=== PATIENT | male | born 1950 | race Caucasian/White ===

== ENCOUNTER 2016-04-18 15:23 | Observation (INO) | payer MEDICARE ==
--- NOTE | 2016-04-18 16:01 | ED ---
General Adult HPI - General Chief complaint: Shortness of Breath Stated complaint: NAOMI Time Seen by Provider: 04/18/16 15:40 Source: patient, family, RN notes reviewed Mode of arrival: wheelchair Limitations: no limitations - History of Present Illness Initial comments: This is a 65-year-old male who presents to the emergency department with a past history of hepatitis C patient comes in today because he states his abdomen is getting so distended he needs it drained. Patient states is causing him to have some difficulty breathing. Patient denies any fever chills or cough. Patient denies chest pain or palpitations. Patient denies headache patient denies numbness weakness. Patient denies lightheadedness dizziness or near syncopal episode. Patient denies any abdominal pain at this time but he does complain of significant distention. Patient denies any peripheral edema. Patient denies any nausea or vomiting or diarrhea. - Related Data Home Medications Medication Instructions Recorded Confirmed Citalopram Hydrobromide 40 mg PO DAILY 10/22/15 04/04/16 Pantoprazole [Protonix] 40 mg PO DAILY 10/22/15 04/04/16 Terazosin [Hytrin] 2 mg PO HS 10/22/15 04/04/16 Multivitamins, Thera [Multivitamin] 1 tab PO DAILY 12/23/15 04/04/16 Thiamine [Vitamin B-1] 100 mg PO DAILY 12/23/15 04/04/16 Cholecalciferol [Vitamin D3] 1,000 unit PO DAILY 02/24/16 04/04/16 Cyanocobalamin [Vitamin B-12] 500 mcg PO DAILY 02/24/16 04/04/16 DULoxetine HCL [Cymbalta] 20 mg PO BID 02/24/16 04/04/16 Finasteride [Proscar] 5 mg PO DAILY 02/24/16 04/04/16 Loratadine [Claritin] 10 mg PO DAILY PRN 02/24/16 04/04/16 Methocarbamol [Robaxin] 1,000 mg PO TID PRN 02/24/16 04/04/16 Ledipasvir/Sofosbuvir [Harvoni 1 tab PO DAILY 03/07/16 04/04/16 90-400 mg Tablet] Spironolactone [Aldactone] 100 mg PO DAILY 03/07/16 04/04/16 Aspirin 81 mg PO DAILY 04/04/16 04/04/16 Cyclobenzaprine [Flexeril] 10 mg PO TID PRN 04/04/16 04/04/16 Folic Acid 1 mg PO DAILY 04/04/16 04/04/16 Ribavirin [Ribasphere] 600 mg PO BID 04/04/16 04/04/16 Previous Rx's Medication Instructions Recorded Furosemide [Lasix] 40 mg PO DAILY #30 tab 04/14/16 Lactulose [Cephulac] 20 gm PO QID #0 04/14/16 traMADol HCl [Ultram] 50 mg PO Q6H PRN #30 tab MDD 8 tabs 04/14/16 Allergies Allergy/AdvReac Type Severity Reaction Status Date / Time No Known Allergies Allergy Verified 04/18/16 15:41 Review of Systems ROS Statement: Those systems with pertinent positive or pertinent negative responses have been documented in the HPI. ROS Other: All systems not noted in ROS Statement are negative. Past Medical History Past Medical History: Cancer, GERD/Reflux, Hyperlipidemia, Hypertension, Liver Disease, Memory Impairment, Osteoarthritis (OA), Renal Disease, Vascular Disorder Additional Past Medical History / Comment(s): Pt recently admitted 12/23/15 with ascities and had a paracentesis during that admission. Other HX; Hep C with interferon therapy, cirrhosis, prior history of memory impairment secondary to hepatic encephalopathy, chronic fatigue, thrombocytopenia, leukopenia, hx of HTN but recently taken off antihypertensive medication, bilateral feet neuropathy, cervical OA, CKD stage II, chronic low back pain and neck pain, sinus problems at times, skin cancer with removal. History of Any Multi-Drug Resistant Organisms: None Reported Past Surgical History: Cholecystectomy, Hernia Repair Additional Past Surgical History / Comment(s): 12/2015 Paracentesis, cervical surgery, colonoscopies, umbilical hernia repair x 2, nose and kathleen of head skin cancer removed. Past Anesthesia/Blood Transfusion Reactions: Postoperative Nausea & Vomiting ( PONV) Additional Past Anesthesia/Blood Transfusion Reaction / Comment(s): [facility]; pt stated no reaction Past Psychological History: Depression Additional Psychological History / Comment(s): Pt. states he is on depression medication and it has been effective in helping with his depression. Pt resides with his spouse. He uses no assistive device. He drives. Previous suicidal talk according to daughter, patient denies suicidal thoughts at this time. Smoking Status: Former smoker Past Alcohol Use History: None Reported Additional Past Alcohol Use History / Comment(s): Pt smoked from 1964 to 1969. Past Drug Use History: None Reported - Past Family History Mother Family Medical History: Chest Pain / Angina Father History Unknown: Yes Family Medical History: Unable to Obtain General Exam - General Exam Comments Initial Comments: GENERAL: Patient is well-developed and well-nourished. Patient is nontoxic and well- hydrated and is in mild distress. ENT: Neck is soft and supple. No significant lymphadenopathy is noted. Oropharynx is clear. Moist mucous membranes. Neck has full range of motion without eliciting any pain. EYES: The sclera were anicteric and conjunctiva were pink and moist. Extraocular movements were intact and pupils were equal round and reactive to light. Eyelids were unremarkable. PULMONARY: Unlabored respirations. Good breath sounds bilaterally. No audible rales rhonchi or wheezing was noted. CARDIOVASCULAR: There is a regular rate and rhythm without any murmurs gallops or rubs. ABDOMEN: Patient's abdomen is distended typical for ascites. SKIN: Skin is clear with no lesions or rashes and otherwise unremarkable. NEUROLOGIC: Patient is alert and oriented x3. Cranial nerves II through XII are grossly intact. Motor and sensory are also intact. Normal speech, volume and content. Symmetrical smile. MUSCULOSKELETAL: Normal extremities with adequate strength and full range of motion. No lower extremity swelling or edema. No calf tenderness. LYMPHATICS: No significant lymphadenopathy is noted PSYCHIATRIC: Normal psychiatric evaluation. Normal interpersonal interactions appears functionally intact in deals appropriately with others. No signs of depression. No signs of anxiety. Limitations: no limitations Course Vital Signs 04/18/16 15:39 Temperature 97.8 F Pulse Rate 88 Respiratory 20 Rate Blood Pressure 108/67 O2 Sat by Pulse 97 Oximetry Medical Decision Making - Medical Decision Making EKG shows sinus rhythm with a PAC at 84 bpm WA interval 138 QRSs 84 Q-T intervals 390 QTC is 460 per patient's EKG shows no ST segment elevation or depression or T-wave abnormality is noted. Chest x-ray shows no acute abnormality spoke with Dr. Tanner he agreed to admit the patient admitted the patient. - Lab Data Result diagrams: 04/18/16 16:30 04/18/16 16:30 Lab Results 04/18/16 04/18/16 04/18/16 Range/Units 16:30 16:30 16:30 WBC 10.5 (3.8-10.6) k/uL RBC 3.21 L (4.30-5.90) m/uL Hgb 10.0 L D (13.0-17.5) gm/dL Hct 33.2 L (39.0-53.0) % MCV 103.4 H (80.0-100.0) fL MCH 31.3 (25.0-35.0) pg MCHC 30.3 L (31.0-37.0) g/dL RDW 17.8 H (11.5-15.5) % Plt Count 101 L D (150-450) k/uL Neutrophils % 85 % Lymphocytes % 5 % Monocytes % 7 % Eosinophils % 2 % Basophils % 0 % Neutrophils # 8.9 H (1.3-7.7) k/uL Lymphocytes # 0.5 L (1.0-4.8) k/uL Monocytes # 0.7 (0-1.0) k/uL Eosinophils # 0.2 (0-0.7) k/uL Basophils # 0.0 (0-0.2) k/uL Hypochromasia Slight Anisocytosis Slight Macrocytosis Moderate PT 13.0 H (9.0-12.0) sec INR 1.3 (<1.1) APTT 25.0 (22.0-30.0) sec Sodium 137 (137-145) mmol/L Potassium 3.8 (3.5-5.1) mmol/L Chloride 101 (98-107) mmol/L Carbon Dioxide 20 L (22-30) mmol/L Anion Gap 16 mmol/L BUN 50 H (9-20) mg/dL Creatinine 1.88 H (0.66-1.25) mg/dL Est GFR (MDRD) Af Amer 44 (>60 ml/min/1.73 sqM) Est GFR (MDRD) Non-Af 36 (>60 ml/min/1.73 sqM) Glucose 129 H (74-99) mg/dL Calcium 8.9 (8.4-10.2) mg/dL Total Bilirubin 2.3 H (0.2-1.3) mg/dL AST 50 (17-59) U/L ALT 41 (21-72) U/L Alkaline Phosphatase 138 H (38-126) U/L Total Protein 6.7 (6.3-8.2) g/dL Albumin 3.2 L (3.5-5.0) g/dL Disposition Clinical Impression: Dyspnea, Ascites Disposition: ADMITTED IP TO THIS [facility] Time of Disposition: 17:49
--- NOTE | 2016-04-18 16:12 | XR ---
EXAMINATION TYPE: XR chest 2V DATE OF EXAM: 04/18/2016 4:07 PM COMPARISON: 04/13/2016 HISTORY: Short of breath TECHNIQUE: Frontal and lateral views of the chest are obtained. FINDINGS: There is elevated right diaphragm. There is linear density at the lung bases. There is no heart failure. Heart size is normal. There are no hilar masses. Bony thorax is intact. IMPRESSION: There is chronic elevated right diaphragm that could relate to some paralysis. Bilateral basilar atelectasis. No heart failure. No significant change compared to last exam.
[2016-04-18 16:49] LABS: Anisocytosis Slight; Basophils % (A) 0 %; CH 33.2; CHCM 32.4; Eosinophils # (A) 0.2 k/uL (0-0.7); Eosinophils % (A) 2 %; HCT 33.2 % (39.0-53.0); HDW 3.13; Hypochromasia Slight; Luc # (Auto) 0.14; Luc % (Auto) 1; Lymphocytes # (A) 0.5 k/uL (1.0-4.8); Lymphocytes % (A) 5 %; MCH 31.3 pg (25.0-35.0); MCHC 30.3 g/dL (31.0-37.0); MCV 103.4 fL (80.0-100.0); Macrocytosis Moderate; Monocytes # (A) 0.7 k/uL (0-1.0); Monocytes % (A) 7 %; Neutrophils # (A) 8.9 k/uL (1.3-7.7); Neutrophils % (A) 85 %; RBC 3.21 m/uL (4.30-5.90); RDW 17.8 % (11.5-15.5); WBC 10.5 k/uL (3.8-10.6)
[2016-04-18 16:52] LABS: Calcium 8.9 mg/dL (8.4-10.2); Potassium 3.8 mmol/L (3.5-5.1); Total Bilirubin 2.3 mg/dL (0.2-1.3); Total Protein 6.7 g/dL (6.3-8.2)
[2016-04-18 16:59] LABS: INR 1.3 (<1.1)
[2016-04-18] MEDS ORDERED: SODIUM CHLORIDE 0.9% 1,000 ML IV ONE (17:50)
[2016-04-18] MEDS ORDERED: CYCLOBENZAPRINE 10 MG TAB PO PRN (20:56)
[2016-04-18] MEDS ORDERED: LORATADINE 10 MG TAB PO PRN (20:56)
[2016-04-18] MEDS: DULoxetine HCL 20 MG CAPSULE.DR PO SCH (21:40)
[2016-04-18] MEDS: LACTULOSE 20 GM/30 ML CUP PO SCH (21:40)
[2016-04-18] MEDS: traMADol 50 MG TAB PO PRN (21:40)
[2016-04-18] MEDS: RIBAVIRIN 200 MG PO SCH (21:40)
[2016-04-18] MEDS: TERAZOSIN 2 MG CAP PO SCH (21:40)
[2016-04-19] MEDS: METHOCARBAMOL 500 MG TAB PO PRN ×2 (00:05→18:36)
[2016-04-19 07:08] LABS: INR 1.4 (<1.1); Prothrombin Time 13.8 sec (9.0-12.0)
[2016-04-19 07:18] LABS: Anisocytosis Slight; Basophils % (A) 0 %; CHCM 32.2; Eosinophils # (A) 0.2 k/uL (0-0.7); Eosinophils % (A) 3 %; HCT 28.1 % (39.0-53.0); HDW 3.06; HGB 9.1 gm/dL (13.0-17.5); Hypochromasia Slight; Luc # (Auto) 0.17; Luc % (Auto) 3; Lymphocytes # (A) 0.5 k/uL (1.0-4.8); Lymphocytes % (A) 10 %; MCH 32.3 pg (25.0-35.0); MCHC 32.2 g/dL (31.0-37.0); MCV 100.3 fL (80.0-100.0); Macrocytosis Slight; Mean Platelet Volume 8.8; Monocytes # (A) 0.4 k/uL (0-1.0); Monocytes % (A) 8 %; Neutrophils # (A) 3.9 k/uL (1.3-7.7); Neutrophils % (A) 75 %; RDW 17.2 % (11.5-15.5); WBC 5.2 k/uL (3.8-10.6); WBC (Perox) 5.56
[2016-04-19 08:36] LABS: Manual Review Performed
[2016-04-19] MEDS: SOFOSBUVIR PO SCH (08:36)
[2016-04-19] MEDS: FUROSEMIDE 40 MG TAB PO SCH (08:36)
[2016-04-19] MEDS: LACTULOSE 20 GM/30 ML CUP PO SCH ×4 (08:36→20:30)
[2016-04-19] MEDS: CYANOCOBALAMIN 500 MCG TAB PO SCH ×2 (08:36→12:48)
[2016-04-19] MEDS: LEDIPASVIR PO SCH (08:36)
[2016-04-19] MEDS: RIBAVIRIN 200 MG PO SCH ×2 (08:36→20:30)
[2016-04-19] MEDS: CITALOPRAM HYDROBROMIDE 20 MG TAB PO SCH (08:37)
[2016-04-19] MEDS: FINASTERIDE 5 MG TAB PO SCH (08:37)
[2016-04-19] MEDS: DULoxetine HCL 20 MG CAPSULE.DR PO SCH ×2 (08:37→20:30)
[2016-04-19] MEDS: THIAMINE 100 MG TAB PO SCH (08:38)
[2016-04-19] MEDS: SPIRONOLACTONE 25 MG TAB PO SCH (08:38)
[2016-04-19] MEDS: traMADol 50 MG TAB PO PRN ×2 (08:40→17:54)
[2016-04-19] MEDS: PANTOPRAZOLE 40 MG TABLET PO SCH (09:45)
[2016-04-19] MEDS: CHOLECALCIFEROL 1,000 UNIT TAB PO SCH (09:45)
[2016-04-19] MEDS: ONDANSETRON 4 MG/2 ML VIAL IVP PRN ×2 (10:36→17:12)
[2016-04-19] MEDS: MULTIVITAMINS, THERA 1 EACH TAB PO SCH (12:48)
[2016-04-19] MEDS: FOLIC ACID 1 MG TAB PO SCH (12:48)
--- NOTE | 2016-04-19 17:00 | CONS ---
DATE OF CONSULTATION: 04/19/2016 REQUESTING PHYSICIAN: Dr. Norris REASON FOR CONSULTATION: Ascites. HISTORY OF PRESENT ILLNESS: The patient 65-year-old white male who was admitted to the hospital with abdominal pain, abdominal distention for the last 3 or 4 days duration. The patient stated that he just underwent a large volume paracentesis 5 days ago. He has chronic hepatitis C infection and presently on Harvoni treatment at 14 weeks. In the last 2 months he developed ascites and lately has been requiring large volume paracentesis almost on a weekly basis. He denies any abdominal pain. He reports no nausea, vomiting. Denies any rectal bleeding or melena. His past medical history is significant for: 1. Chronic hepatitis C infection presently on antiviral therapy with Harvoni. 2. Hypertension. 3. Hyperlipidemia. 4. Hepatic encephalopathy. 5. GERD. 6. Peripheral vascular disease. PAST SURGICAL HISTORY: 1. Multiple paracenteses in the last three months. 2. History of back surgery. 3. Umbilical hernia repair. Medications at home include: 1. Proscar. 2. Cymbalta. 3. Flexeril. 4. Vitamin D3. 5. Claritin. 6. Robaxin. 7. Multivitamin. 8. Protonix. 9. Harvoni. 10. Ribavirin. 11. Tramadol. 12. Vitamin B12. 13. Hytrin. ALLERGIES: None. SOCIAL HISTORY: History of smoking in the past. Remote history of alcohol use. FAMILY HISTORY: Unremarkable. REVIEW OF SYSTEMS: CARDIOPULMONARY: No chest pain or shortness of breath. GENITOURINARY: No dysuria or hematuria. MUSCULOSKELETAL: Unremarkable. SKIN: Unremarkable. NEUROLOGY: Unremarkable. PSYCHIATRIC: Unremarkable. ENT/VISION: Unremarkable. CONSTITUTIONAL: No recent weight loss. No fever, chills or night sweats. On physical examination, he appears comfortable in no apparent distress. Vitals as are stable. Blood pressure is 115/69, pulse rate 59. Afebrile. HEENT: Examination unremarkable. Conjunctivae pink. Sclerae anicteric. Oral cavity, no lesions. NECK: No JVD or lymph node enlargement. CHEST: Clear to auscultation. HEART: Regular rate and rhythm. ABDOMEN: Soft. Bowel sounds are positive. It was distended. There was tense ascites. EXTREMITIES: No pedal edema. SKIN: No rashes. NEURO: Alert and oriented x3. No focal deficits. Labs done at the time of admission to the hospital: WBC 5.2, hemoglobin 9.1, platelets are 52. INR 1.4. BUN is 50, creatinine 1.88. IMPRESSION: 1. Refractory ascites requiring large volume paracentesis on a weekly basis. 2. History of chronic hepatitis C infection and cirrhosis of the liver presently on antiviral therapy with Harvoni and ribavirin. 3. History of hepatic encephalopathy, which is resolved now. RECOMMENDATIONS: 1. Will schedule the patient for ultrasound-guided large volume paracentesis for acute therapeutic purposes. 2. At this time, we will have to continue to hold off on the diuretics because of ongoing renal insufficiency. 3. Low-salt diet. 4. Continue with p.o. Protonix daily and will follow the patient closely during his hospital stay. Thank you for this consultation.
[2016-04-19] MEDS: TERAZOSIN 2 MG CAP PO SCH (20:30)
[2016-04-20 06:59] LABS: Anisocytosis Slight; Basophils % (A) 0 %; CH 32.2; Eosinophils # (A) 0.2 k/uL (0-0.7); Eosinophils % (A) 3 %; HCT 29.1 % (39.0-53.0); HDW 3.02; Hypochromasia Slight; Luc # (Auto) 0.07; Luc % (Auto) 1; Lymphocytes # (A) 0.4 k/uL (1.0-4.8); Lymphocytes % (A) 7 %; MCH 31.4 pg (25.0-35.0); MCHC 30.9 g/dL (31.0-37.0); MCV 101.9 fL (80.0-100.0); Macrocytosis Moderate; Mean Platelet Volume 10.4; Monocytes # (A) 0.4 k/uL (0-1.0); Monocytes % (A) 7 %; Neutrophils # (A) 4.6 k/uL (1.3-7.7); Neutrophils % (A) 81 %; RBC 2.85 m/uL (4.30-5.90); WBC 5.7 k/uL (3.8-10.6); WBC (Perox) 5.61
[2016-04-20 07:19] LABS: Calcium 8.7 mg/dL (8.4-10.2); Potassium 4.4 mmol/L (3.5-5.1)
[2016-04-20] MEDS: ONDANSETRON 4 MG/2 ML VIAL IVP PRN ×4 (09:33→23:30)
[2016-04-20] MEDS: RIBAVIRIN 200 MG PO SCH ×2 (10:55→20:19)
[2016-04-20] MEDS: LEDIPASVIR PO SCH (10:55)
[2016-04-20] MEDS: SOFOSBUVIR PO SCH (10:55)
[2016-04-20] MEDS: CITALOPRAM HYDROBROMIDE 20 MG TAB PO SCH (10:56)
[2016-04-20] MEDS: FINASTERIDE 5 MG TAB PO SCH (10:57)
[2016-04-20] MEDS: LACTULOSE 20 GM/30 ML CUP PO SCH ×4 (10:57→20:19)
[2016-04-20] MEDS: DULoxetine HCL 20 MG CAPSULE.DR PO SCH ×2 (10:57→20:19)
[2016-04-20] MEDS: FUROSEMIDE 40 MG TAB PO SCH (10:58)
--- NOTE | 2016-04-20 12:51 | HP ---
DATE OF ADMISSION: 04/18/2016 CHIEF COMPLAINT: Abdominal distention. HISTORY OF PRESENT ILLNESS: Mr. Ortega is a 65-year-old male with known history of hepatitis C, currently on treatment, liver cirrhosis, recurrent ascites, came into the hospital with complaints of abdominal distention of 3 to 4 days duration, along with shortness of breath. The patient recently had paracentesis with ( ). Denies any complaints of fevers or chills. Patient is currently being treated for hepatitis C infection. No nausea or vomiting or abdominal pain. No diarrhea. The patient does have a history of hepatic encephalopathy in the past. REVIEW OF SYSTEMS: CONSTITUTIONAL: No fever. No chills. No weakness or malaise. RESPIRATORY: No cough or sputum production. CARDIOVASCULAR: No chest pain or shortness of breath. No leg swelling. ABDOMEN: Distended. No abdominal pain. No diarrhea or constipation. : Negative. PSYCHIATRY: Negative. SKIN: Negative. MUSCULOSKELETAL: Negative. All other 14 point review of systems is negative other than above. PAST MEDICAL HISTORY: Includes GERD, hyperlipidemia, hypertension, liver cirrhosis, hepatitis C, liver impairment, history of paracentesis, hepatic encephalopathy, chronic fatigue, thrombocytopenia, leukopenia, bilateral neuropathy, osteoarthritis, chronic kidney disease stage II, chronic low back pain, skin cancer removal. PAST SURGICAL HISTORY: Cholecystectomy, hernia repair, paracentesis, cervical surgery, colonoscopy, umbilical hernia repair x2, top of head skin cancer removed. PSYCHOSOCIAL HISTORY: Depression. SOCIAL HISTORY: The patient resides with his . Former smoker, smoked around 1960 to 1970. Denied any alcohol use. Denied drug abuse. FAMILY HISTORY: Mother had angina. Father's medical history is unable to be obtained. Home medications include: 1. Citalopram. 2. Protonix. 3. Terazosin. 4. Multivitamins. 5. Thiamine. 6. Vitamin D3. 7. ( ). 8. Cymbalta. 9. Proscar. 10. Claritin. 11. Robaxin. 12. ( ). 13. Aldactone. 14. Aspirin. 15. Flexeril. 16. Folic acid. 17. ( ). 18. Lasix. 19. Lactulose. 20. Tramadol. PHYSICAL EXAMINATION: A 65-year-old man lying in bed comfortably. Awake, alert, oriented, x3 appears to be in no apparent distress. VITALS: Blood pressure is 106/57, pulse is 70, respirations 18, temperature afebrile, pulse ox 98% on 2 liters nasal cannula. HEENT: Atraumatic, normocephalic. Neck is supple. No JVD. CVS: S1, S2, no murmurs or gallops. LUNGS: Bilateral air entry present. Decreased breath sounds basally. ABDOMEN: Soft, distended. No guarding or rigidity. Bowel sounds are present. [employer]: Alert and oriented x3. No focal deficits. Cranial nerves grossly intact. EXTREMITIES: No edema. Positive pulses bilaterally. No clubbing or cyanosis. PSYCHIATRY: Cooperative. LABORATORY DATA: WBC 10.3, hemoglobin 10.0, platelets are 101, ( ) 1.3, sodium 137, potassium 2.8, chloride 101, bicarb is 20. BUN 50, creatinine 1.88. Total bilirubin is 2.3. Alk phos 138, albumin 3.2. Chest x-ray shows chronically elevated right diaphragm that could be related to some paralysis. Bilateral basilar atelectasis. No heart failure. No significant changes compared to prior exam. EKG sinus rhythm with premature ventricular contractions. IMPRESSION: 1. Ascites secondary to liver cirrhosis. 2. Hepatitis C, currently on Harvoni antiviral therapy. 3. History of hepatic encephalopathy. 4. Hypertension. 5. Depression. 6. Chronic pain. 7. Cervical osteoarthritis. 8. Memory impairment. 9. Previous hepatitis C. 10. Acute on chronic kidney disease, likely prerenal. DISCUSSION AND PLAN: A 65-year-old male with and will be recurrent ascites. Will be scheduled for ( ) possibly tomorrow. GI is following the patient. We will continue home medications. Follow renal function. Further recommendations based on clinical course. Prognosis guarded.
[2016-04-20] MEDS: PANTOPRAZOLE 40 MG TABLET PO SCH (15:08)
[2016-04-20] MEDS: MULTIVITAMINS, THERA 1 EACH TAB PO SCH (15:08)
[2016-04-20] MEDS: CHOLECALCIFEROL 1,000 UNIT TAB PO SCH (15:08)
[2016-04-20] MEDS: CYANOCOBALAMIN 500 MCG TAB PO SCH (17:26)
[2016-04-20] MEDS: THIAMINE 100 MG TAB PO SCH (17:26)
[2016-04-20] MEDS: FOLIC ACID 1 MG TAB PO SCH (18:14)
[2016-04-20] MEDS: SPIRONOLACTONE 25 MG TAB PO SCH (19:07)
--- NOTE | 2016-04-20 19:58 | PN ---
DATE OF SERVICE: 04/20/2016 Patient is a 65-year-old white male admitted to the hospital with refractory ascites. He was having abdominal distention, abdominal discomfort, and shortness of breath. He had large volume paracentesis done about 6 days ago and approximately 10 liters of fluid was removed at that time. Patient was scheduled for large volume paracentesis today, but was not done so far. He still complains of abdominal discomfort and some shortness of breath. Has been complaining of nausea but no emesis. On physical examination, appears comfortable in no apparent distress. Vital signs stable. Blood pressure 97/61 pulse rate 87, temperature 97.5. HEENT: Unremarkable. Conjunctivae pink. Sclerae anicteric. Oral cavity, no lesions. NECK: No JVD or lymph node enlargement. Chest was clear to auscultation. HEART: Regular rate and rhythm. ABDOMEN: Distended. Tense ascites noted. EXTREMITIES: No pedal edema. SKIN: No rashes. NEURO: Alert and oriented x3. No focal deficits. Labs from today, WBC 5.7, hemoglobin 9, platelets 49. BUN 53, creatinine 1.9. IMPRESSION: 1. Cirrhosis secondary to chronic hepatitis C infection presently on antiviral therapy. 2. Recurrent ascites. Patient is scheduled for large volume paracentesis tomorrow. His last one was done 5 days ago and 10 liters of fluid was removed. 3. Chronic renal failure with a BUN of 53 and creatinine 1.9. Currently he is not on any diuretics. RECOMMENDATIONS: The patient will be scheduled for a large volume paracentesis tomorrow, after which he can be discharged home. I also told him that we will plan on scheduling him for paracentesis on a weekly basis for refractory ascites. In the meantime, he will continue his current antiviral therapy and follow up in the office in 1 to 2 weeks.
[2016-04-20] MEDS: TERAZOSIN 2 MG CAP PO SCH (20:19)
[2016-04-21] MEDS: traMADol 50 MG TAB PO PRN (02:27)
[2016-04-21] MEDS: CHOLECALCIFEROL 1,000 UNIT TAB PO SCH (08:03)
[2016-04-21] MEDS: THIAMINE 100 MG TAB PO SCH (08:03)
[2016-04-21] MEDS: SOFOSBUVIR PO SCH (08:03)
[2016-04-21] MEDS: FINASTERIDE 5 MG TAB PO SCH (08:03)
[2016-04-21] MEDS: LEDIPASVIR PO SCH (08:03)
[2016-04-21] MEDS: LACTULOSE 20 GM/30 ML CUP PO SCH ×4 (08:03→21:00)
[2016-04-21] MEDS: PANTOPRAZOLE 40 MG TABLET PO SCH (08:04)
[2016-04-21] MEDS: FUROSEMIDE 40 MG TAB PO SCH (08:04)
[2016-04-21] MEDS: DULoxetine HCL 20 MG CAPSULE.DR PO SCH ×2 (08:04→21:00)
[2016-04-21] MEDS: SPIRONOLACTONE 25 MG TAB PO SCH (08:04)
[2016-04-21] MEDS: CITALOPRAM HYDROBROMIDE 20 MG TAB PO SCH (08:04)
[2016-04-21] MEDS: RIBAVIRIN 200 MG PO SCH ×2 (08:05→21:18)
[2016-04-21] MEDS: ONDANSETRON 4 MG/2 ML VIAL IVP PRN (08:10)
[2016-04-21 12:09] LABS: Mean Platelet Volume 9.2
--- NOTE | 2016-04-21 13:23 | PN ---
DATE OF SERVICE: 04/20/2016 Mr. Ortega is a 65-year-old male with known history of hepatitis C, recurrent gastritis with recent large volume ascites of 9-L, came back to the hospital with abdominal distention and ascites. Patient is scheduled for paracentesis tomorrow. No fever, no chills. No acute overnight issues. No chest pain or short of breath. No nausea, vomiting. REVIEW OF SYSTEMS: CONSTITUTIONAL: No fever. No chills. RESPIRATORY: No cough or sputum production. CARDIOVASCULAR: No chest pain or shortness of breath. ABDOMEN: No nausea, vomiting. GENITOURINARY: Negative. ENDOCRINE: Negative. PSYCHIATRIC: Negative. SKIN: Negative. All other fourteen point review of systems negative except as above. CURRENT MEDICATIONS: Reviewed. PHYSICAL EXAMINATION: A 65-year-old male lying in bed comfortably awake, alert, oriented x3, appears to be in no apparent distress. VITALS: Blood pressure is 105/68, pulse is 70, respirations 18, temperature afebrile, pulse ox 98% on 2-L nasal cannula. HEENT: Atraumatic, normocephalic. Neck is supple. No JVD. CVS exam: S1, S2 heard. No murmurs, no gallop, no rub. LUNGS: Bilateral air entry is present. Decreased breath sounds bilaterally. ABDOMEN: Soft, distended. Tense. Bowel sounds are present. No guarding or rigidity. Bowel sounds present. FREIGHT TRUCKER: Awake, alert, oriented x3. No focal neurologic deficits. Cranial nerves grossly intact. EXTREMITIES: No edema. Pulses palpable bilaterally. No clubbing or cyanosis. PSYCHIATRIC: Cooperative. LABORATORY DATA: WBC 5.7, hemoglobin 9.0, platelets are 49, sodium 136, potassium 4.4, chloride 103, bicarb is 25. BUN 53, creatinine 1.9. Calcium 8.7. IMPRESSION: 1. Ascites secondary to leukocytosis and hepatitis C. 2. Hepatitis C currently on Harvoni therapy. 3. History of hepatic encephalopathy. 4. Recent large-volume paracentesis. 5. Hypertension. 6. Depression. 7. Chronic pain. 8. ( ) fracture. 9. Increased memory impairment. 10. Acute on chronic kidney disease likely prerenal. DISCUSSION AND PLAN: A 65-year-old male admitted to the hospital with recurrent ascites. Patient is scheduled for paracentesis tomorrow. Patient had outpatient scheduled paracentesis. Otherwise will continue the current management including Lasix and spironolactone. Further recommendations based on the clinical course. Prognosis guarded.
--- NOTE | 2016-04-21 13:36 | P.PN ---
Subjective Principal diagnosis: Chronic ascites 65-year-old male with a history of refractory ascites, hepatitis C presently on antiviral therapy. Scheduled for therapeutic paracentesis today. Platelet count 51,000. Platelet transfusion in progress. Afebrile. Objective - Vital Signs Vital signs: Vital Signs Temp 97.4 F L 04/21/16 07:00 Pulse 70 04/21/16 08:15 Resp 18 04/21/16 08:15 BP 97/63 04/21/16 07:00 Pulse Ox 98 04/21/16 07:00 Intake & Output 04/20/16 04/21/16 04/21/16 18:59 06:59 18:59 Intake Total 236 Output Total 300 Balance 236 -300 Weight 83.5 kg Intake: Oral 236 Output: Urine 300 Other: Voiding Method Toilet Toilet Toilet # Voids 3 # Bowel Movements 1 - Exam General appearance: The patient is alert, oriented, in no acute distress. HET: Head is normocephalic and atraumatic. Pupils are equal and reactive. Oropharynx is clear without lesions. Neck: Supple without lymphadenopathy. Trachea midline. Heart: S1 S2. Regular rate and rhythm. Lungs: No crackles or wheezes are heard. Abdomen: Distended with tense ascites with bowel sounds. No peritoneal signs. No palpable organomegaly or masses. Extremities: Normal skin color and turgor. No cyanosis, rash, ulceration, clubbing, or edema. Radial and pedal pulses are 2/4 bilaterally. Neurological: No focal deficits. Strength and sensation are grossly intact. - Labs CBC & Chem 7: 04/21/16 11:41 04/20/16 06:18 Labs: Abnormal Lab Results - Last 24 Hours (Table) 04/21/16 Range/Units 11:41 Plt Count 51 L (150-450) k/uL Assessment and Plan Plan: Impression: 1. Cirrhosis secondary to chronic hepatitis C infection presently on antiviral therapy. 2. Recurrent ascites scheduled for large volume paracentesis today. 3. Chronic renal failure presently not on diuretics. Creatinine 1.9 yesterday. Plan: 1. Paracentesis. 2. Weekly therapeutic paracentesis was discussed with patient and family and scheduled with interventional radiology. Interventional radiology will provide patient with appointment date and time. 3. Return to office in 1-2 weeks.
[2016-04-21] MEDS: FOLIC ACID 1 MG TAB PO SCH (15:56)
[2016-04-21] MEDS: CYANOCOBALAMIN 500 MCG TAB PO SCH (15:56)
[2016-04-21] MEDS: MULTIVITAMINS, THERA 1 EACH TAB PO SCH (15:57)
--- NOTE | 2016-04-21 20:02 | US ---
Therapeutic paracentesis. CLINICAL HISTORY: Ascites The procedure was discussed with the patient. The risks, complications, benefits, and alternatives we re discussed and any questions were answered. Informed consent was obtained. The patient was placed s upine on the ultrasound table and prepped and draped in the usual sterile fashion. All elements of maximal barrier technique were utilized. Under ultrasound guidance, access into the right lower quadrant was obtained, via the paracentesis catheter system and direct ultrasound guidanc e. Approximately 7 liters of straw-colored fluid was removed. The patient was stable throughout the proc edure and remained stable upon discharge from Department of Radiology. IMPRESSION: Successful therapeutic paracentesis under ultrasound guidance.
[2016-04-21] MEDS: TERAZOSIN 2 MG CAP PO SCH (21:00)
[2016-04-22 07:38] VITALS: BP 103/58; RESP 16; TEMP 97.7
[2016-04-22] MEDS: THIAMINE 100 MG TAB PO SCH (08:24)
[2016-04-22] MEDS: LACTULOSE 20 GM/30 ML CUP PO SCH (08:24)
[2016-04-22] MEDS: LEDIPASVIR PO SCH (08:24)
[2016-04-22] MEDS: DULoxetine HCL 20 MG CAPSULE.DR PO SCH (08:24)
[2016-04-22] MEDS: SOFOSBUVIR PO SCH (08:24)
[2016-04-22] MEDS: RIBAVIRIN 200 MG PO SCH (08:24)
[2016-04-22] MEDS: CITALOPRAM HYDROBROMIDE 20 MG TAB PO SCH (08:25)
[2016-04-22] MEDS: SPIRONOLACTONE 25 MG TAB PO SCH (08:25)
[2016-04-22] MEDS: CHOLECALCIFEROL 1,000 UNIT TAB PO SCH (08:25)
[2016-04-22] MEDS: PANTOPRAZOLE 40 MG TABLET PO SCH (08:25)
[2016-04-22] MEDS: FUROSEMIDE 40 MG TAB PO SCH (08:25)
[2016-04-22] MEDS: FINASTERIDE 5 MG TAB PO SCH (08:25)
[2016-04-22 10:15] VITALS: PULSE 70
--- NOTE | 2016-04-22 11:54 | PN ---
DATE OF SERVICE: 04/21/2016 INTERVAL HISTORY: Ms. Ortega is a 65-year-old male with known history of hepatitis C and recurrent ascites with recent paracentesis about 9 L. About a week back, came back to the hospital with abdominal distention and ascites. Patient is scheduled for paracentesis today again. Otherwise, the patient complaints of no fever. No chills. No weakness. No malaise. Anticipate discharge in the next 24 hours after paracentesis. REVIEW OF SYSTEMS: No fever. No chills. No clubbing or cyanosis. No abdominal pain, nausea or vomiting, abdominal pain. No dysuria. No hematuria. No headache or dizziness, lightheadedness. All other fourteen-point review of systems negative except as above. CURRENT MEDICATIONS: Reviewed. PHYSICAL EXAMINATION: A 65-year-old male lying in the bed. Awake, alert, oriented, times three. Appears to be in no apparent distress. VITALS: Blood pressure is 111/68, pulse is 70, respiration 20, temperature afebrile, pulse ox 99% on 2 liters nasal cannula. HEENT: Atraumatic, normocephalic. Neck is supple. No JVD. CVS: S1, S2 heard. No murmurs, no gallop. LUNGS: Bilateral air entry is present. Decreased breath sounds bilaterally. No wheezing. No crackles. ABDOMEN: Soft, distended. Bowel sounds are present. No palpable organomegaly. ICU SPECIALIST: Awake, alert, oriented, x3. No focal neurologic deficits. EXTREMITIES: No edema. Pulses palpable bilaterally. No clubbing or cyanosis. PSYCHIATRIC: Cooperative. Nonsuicidal. SKIN: No rash or skin lesions. LABORATORY DATA: Reviewed. IMPRESSION: 1. Ascites secondary to hepatitis C. 2. Hepatitis C currently on ( ) therapy. 3. History of hepatic encephalopathy. 4. Recent large volume paracentesis. 5. Hypertension. 6. Depression. 7. Chronic pain. 8. Increased memory impairment. 9. Acute on chronic kidney disease, most likely prerenal, diuretics have been held. DISCUSSION AND PLAN: 65 -year-old male admitted to the hospital with ascites and the patient is scheduled for paracentesis today. We will continue the current medications. Follow-up closely. Anticipate discharge in the next 24 hours with more clinical improvement.
--- NOTE | 2016-04-22 23:23 | P.DS ---
Providers Date of admission: 04/18/16 17:50 Expected date of discharge: 04/22/16 Attending physician: Boni Tanner Primary [facility] Course: Mr. Ortega is admitted to the hospital with abdominal distention. Patient has a known history of chronic hepatitis C currently on antiviral therapy. Patient underwent a large volume paracentesis done by radiology. Patient underwent removal of several liters of straw-colored fluid. pt has had previous procedures done. Patient is on candidate for diuretics, over need to be judicious due to his elevated creatinine On the day of discharge lungs good air entry clear to auscultation heart S1-S2 heard regular rate and rhythm Abdomen is soft slightly distended Lower extremity is no edema noted Discharge diagnoses Ascites status post large volume paracentesis secondary to chronic hepatitis C Chronic hep C's currently on antiviral therapy CK D stage III/4 Thrombocytopenia Macrocytic anemia Plan - Discharge Summary Discharge Medication List Citalopram Hydrobromide 40 mg PO DAILY 10/22/15 [History] Pantoprazole [Protonix] 40 mg PO DAILY 10/22/15 [History] Terazosin [Hytrin] 2 mg PO HS 10/22/15 [History] Multivitamins, Thera [Multivitamin] 1 tab PO DAILY 12/23/15 [History] Thiamine [Vitamin B-1] 100 mg PO DAILY 12/23/15 [History] Cholecalciferol [Vitamin D3] 1,000 unit PO DAILY 02/24/16 [History] Cyanocobalamin [Vitamin B-12] 500 mcg PO DAILY 02/24/16 [History] DULoxetine HCL [Cymbalta] 20 mg PO BID 02/24/16 [History] Finasteride [Proscar] 5 mg PO DAILY 02/24/16 [History] Loratadine [Claritin] 10 mg PO DAILY PRN 02/24/16 [History] Methocarbamol [Robaxin] 1,000 mg PO TID PRN 02/24/16 [History] Ledipasvir/Sofosbuvir [Harvoni 90-400 mg Tablet] 1 tab PO DAILY 03/07/16 [ History] Spironolactone [Aldactone] 100 mg PO DAILY 03/07/16 [History] Aspirin 81 mg PO DAILY 04/04/16 [History] Cyclobenzaprine [Flexeril] 10 mg PO TID PRN 04/04/16 [History] Folic Acid 1 mg PO DAILY 04/04/16 [History] Ribavirin [Ribasphere] 600 mg PO BID 04/04/16 [History] Furosemide [Lasix] 40 mg PO DAILY #30 tab 04/14/16 [Rx] Lactulose [Cephulac] 20 gm PO QID #0 04/14/16 [Rx] traMADol HCl [Ultram] 50 mg PO Q6H PRN #30 tab 04/14/16 [Rx] Follow up Appointment(s)/Referral(s): Nelli Mathis MD [STAFF PHYSICIAN] - 1 Week Alexis Norris DO [Primary Care Provider] - 3 Days Cari Hogan PAC [REFERRING] - 04/28/16 11:00 am Patient Instructions/Handouts: Ascites (DC) Activity/Diet/Wound Care/Special Instructions: Low salt diet Activity as tolerated. ABSOLUTELY NO ASPIRIN OR ASPIRIN TYPE PRODUCTS DUE TO WEEKLY THORACENTESIS Discharge Disposition: HOME SELF-CARE
== END 2016-04-22 14:00 | disposition home or self-care (01) ==
LOC: EC 15:23 → 3OBS 17:50 → 4MS4W 04-20 23:28
PROVIDERS: ADMIT Hospitalist; ATTEND Hospitalist
DX: K71.51 Toxic liver disease with chronic active hepatitis with ascites (principal); B18.2 Chronic viral hepatitis C; K74.60 Unspecified cirrhosis of liver; D72.829 Elevated white blood cell count, unspecified; K72.90 Hepatic failure, unspecified without coma; I12.9 Hypertensive chronic kidney disease with stage 1 through stage 4 chronic kidney disease, or unspecified chronic kidney disease; N18.3 Chronic kidney disease, stage 3 (moderate); N17.9 Acute kidney failure, unspecified; D69.6 Thrombocytopenia, unspecified; D53.9 Nutritional anemia, unspecified; K29.70 Gastritis, unspecified, without bleeding; G89.29 Other chronic pain; M47.892 Other spondylosis, cervical region; F32.9 Major depressive disorder, single episode, unspecified; E78.5 Hyperlipidemia, unspecified; K21.9 Gastro-esophageal reflux disease without esophagitis; I73.9 Peripheral vascular disease, unspecified; M47.812 Spondylosis without myelopathy or radiculopathy, cervical region; M19.90 Unspecified osteoarthritis, unspecified site; Z87.891 Personal history of nicotine dependence; Z79.899 Other long term (current) drug therapy; Z79.82 Long term (current) use of aspirin
CPT/HCPCS: 99285 ×2; 36415; 94760; 93005; 86900; 86901; 80053; 80048; 82140; 85025 ×3; 85049; 85610 ×2; 85730; 86850; 71020; 49083; G0378 ×5; P9035; S0138 ×4; J2405 ×3; 96374; 96376

== ENCOUNTER 2016-04-29 11:47 | Day surgery (SDC) | payer MEDICARE ==
[~2016-04-29 11:47] MED LIST: SODIUM BICARB 4% 5 ML VIAL (0.48 MEQ/ML) MISCELLANE PRN
[2016-04-29 13:12] VITALS: TEMP 97.4
[2016-04-29 13:12] LABS: Mean Platelet Volume 9.2
[2016-04-29 13:17] LABS: INR 1.4 (<1.1); Prothrombin Time 13.7 sec (9.0-12.0)
[2016-04-29] MEDS: ALBUMIN HUMAN 25% 50 ML in EMPTY BAG 1 BAG IVPB SCH ×3 (14:05→15:10)
--- NOTE | 2016-04-29 14:53 | US ---
Therapeutic paracentesis. CLINICAL HISTORY: Ascites The procedure was discussed with the patient. The risks, complications, benefits, and alternatives we re discussed and any questions were answered. Informed consent was obtained. The patient was placed s upine on the ultrasound table and prepped and draped in the usual sterile fashion. All elements of maximal barrier technique were utilized. Under ultrasound guidance, access into the right lower quadrant was obtained, via the paracentesis catheter system and direct ultrasound guidanc e. Approximately 3.8 liters of serous fluid was removed. The patient was stable throughout the procedure and remained stable upon discharge from Department of Radiology. IMPRESSION: Successful therapeutic paracentesis under ultrasound guidance.
[2016-04-29 15:09] VITALS: BP 120/72; PULSE 68; RESP 18
== END 2016-04-29 15:00 | disposition home or self-care (01) ==
LOC: RADPROMAIN 11:47
PROVIDERS: ATTEND Internal Medicine Gastroenterology
DX: R18.8 Other ascites (principal)
CPT/HCPCS: 82565; 85049; 85610; 96365; 36415; 49083; P9047

== ENCOUNTER 2016-05-08 12:23 | Day surgery (SDC) | payer MEDICARE ==
[2016-05-08 12:58] LABS: Mean Platelet Volume 10.2
[2016-05-08 13:03] LABS: INR 1.3 (<1.1); Prothrombin Time 13.2 sec (9.0-12.0)
[2016-05-08 13:08] VITALS: RESP 20; TEMP 98
[2016-05-08] MEDS: ALBUMIN HUMAN 25% 50 ML in EMPTY BAG 1 BAG IVPB SCH ×2 (14:43→15:08)
[2016-05-08 15:22] VITALS: BP 109/62; PULSE 85
--- NOTE | 2016-05-08 16:16 | US ---
EXAMINATION TYPE: US paracentesis abd w/image DATE OF EXAM: 05/08/2016 3:25 PM COMPARISON: NONE HISTORY: Ascites. PROCEDURE: Maximal barrier technique was utilized. The skin overlying a suitable pocket of fluid was localized with ultrasound and the overlying skin was prepped and draped. Ultrasound was utilized with sterile technique. Lidocaine was used for local anesthesia and a skin jia made with a scalpel. Catheter was advanced under direct ultrasound guidance into a suitable pocket of fluid and approximately 5.8 liter s of serous fluid were removed. Catheter was withdrawn and hemostasis achieved. There is no immedia te complication; the patient is discharged in stable condition. IMPRESSION: STATUS POST ULTRASOUND GUIDED PARACENTESIS FOR PALLIATION OF ASCITES. THIS PROCEDURE WA S PERFORMED BY THE UNDERSIGNED.
== END 2016-05-08 15:50 | disposition home or self-care (01) ==
LOC: RADPROMAIN 12:23
PROVIDERS: ATTEND Internal Medicine Gastroenterology
DX: R18.8 Other ascites (principal)
CPT/HCPCS: 82565; 85049; 85610; 96365; 36415; 49083; P9047

== ENCOUNTER 2016-05-10 12:16 | Inpatient (IN) | payer MEDICARE ==
--- NOTE | 2016-05-10 13:15 | ED ---
General Adult HPI - General Chief complaint: Altered Mental Status Stated complaint: Liver Problem Time Seen by Provider: 05/10/16 12:45 Source: patient, RN notes reviewed Mode of arrival: wheelchair Limitations: no limitations - History of Present Illness Initial comments: This is a 65-year-old male with past medical history significant for hepatitis C and liver cirrhosis. Patient comes in today because of altered mental status which started little bit yesterday but much worse today according to the . states he has had altered mental status in the past and has been elevated ammonia levels. states he has not been sick recently that she knows of he has not had a fever or chills. He has had no nausea vomiting or diarrhea. states his been no difficulty breathing or shortness of breath. Patient has not had a headache and not complaining of any numbness weakness. The only complaint she is bringing him in for is because he is altered mentally - Related Data Home Medications Medication Instructions Recorded Confirmed Citalopram Hydrobromide 40 mg PO DAILY 10/22/15 05/10/16 Pantoprazole [Protonix] 40 mg PO DAILY 10/22/15 05/10/16 Terazosin [Hytrin] 2 mg PO HS 10/22/15 05/10/16 Multivitamins, Thera [Multivitamin] 1 tab PO DAILY 12/23/15 05/10/16 Thiamine [Vitamin B-1] 100 mg PO DAILY 12/23/15 05/10/16 Cholecalciferol [Vitamin D3] 1,000 unit PO DAILY 02/24/16 05/10/16 Cyanocobalamin [Vitamin B-12] 500 mcg PO DAILY 02/24/16 05/10/16 DULoxetine HCL [Cymbalta] 20 mg PO BID 02/24/16 05/10/16 Finasteride [Proscar] 5 mg PO DAILY 02/24/16 05/10/16 Loratadine [Claritin] 10 mg PO DAILY PRN 02/24/16 05/10/16 Methocarbamol [Robaxin] 1,000 mg PO TID PRN 02/24/16 05/10/16 Ledipasvir/Sofosbuvir [Harvoni 1 tab PO DAILY 03/07/16 05/10/16 90-400 mg Tablet] Spironolactone [Aldactone] 100 mg PO DAILY 03/07/16 05/10/16 Cyclobenzaprine [Flexeril] 10 mg PO TID PRN 04/04/16 05/10/16 Folic Acid 1 mg PO DAILY 04/04/16 05/10/16 Ribavirin [Ribasphere] 600 mg PO BID 04/04/16 05/10/16 Ondansetron [Zofran ODT] 8 mg PO Q8H PRN 05/10/16 05/10/16 Previous Rx's Medication Instructions Recorded Furosemide [Lasix] 40 mg PO DAILY #30 tab 04/14/16 Lactulose [Cephulac] 20 gm PO QID #0 04/14/16 traMADol HCl [Ultram] 50 mg PO Q6H PRN #30 tab 04/14/16 Allergies Allergy/AdvReac Type Severity Reaction Status Date / Time No Known Allergies Allergy Verified 05/10/16 14:00 Review of Systems ROS Statement: Those systems with pertinent positive or pertinent negative responses have been documented in the HPI. ROS Other: All systems not noted in ROS Statement are negative. Past Medical History Past Medical History: Cancer, GERD/Reflux, Hyperlipidemia, Hypertension, Liver Disease, Memory Impairment, Osteoarthritis (OA), Renal Disease, Vascular Disorder Additional Past Medical History / Comment(s): Hep C with interferon therapy, cirrhosis, prior history of memory impairment secondary to hepatic encephalopathy, chronic fatigue, thrombocytopenia, leukopenia, hx of HTN but recently taken off antihypertensive medication, bilateral feet neuropathy, cervical OA, CKD stage II, chronic low back pain and neck pain, sinus problems at times, skin cancer with removal, ascites History of Any Multi-Drug Resistant Organisms: None Reported Past Surgical History: Cholecystectomy, Hernia Repair Additional Past Surgical History / Comment(s): 04/14/2016 paracentesis with 9.5 L of fluid removed, cervical surgery, colonoscopies, umbilical hernia repair x 2 , nose and kathleen of head skin cancer removed, multi paracentesis Past Anesthesia/Blood Transfusion Reactions: Postoperative Nausea & Vomiting ( PONV) Additional Past Anesthesia/Blood Transfusion Reaction / Comment(s): [facility]; pt stated no reaction Past Psychological History: Depression Additional Psychological History / Comment(s): Pt. states he is on depression medication and it has been effective in helping with his depression. Pt resides with his spouse. He uses no assistive device. He drives. Previous suicidal talk according to daughter, patient denies suicidal thoughts at this time. Smoking Status: Former smoker Past Alcohol Use History: None Reported Additional Past Alcohol Use History / Comment(s): Pt smoked from 1964 to 1969. Past Drug Use History: None Reported - Past Family History Mother History Unknown: Yes Family Medical History: Chest Pain / Angina Father History Unknown: Yes Family Medical History: Unable to Obtain General Exam - General Exam Comments Initial Comments: GENERAL: Patient is well-developed and well-nourished. Patient is nontoxic and well- hydrated and is in no acute distress. ENT: Neck is soft and supple. No significant lymphadenopathy is noted. Oropharynx is clear. Moist mucous membranes. Neck has full range of motion without eliciting any pain. EYES: The sclera were anicteric and conjunctiva were pink and moist. Extraocular movements were intact and pupils were equal round and reactive to light. Eyelids were unremarkable. PULMONARY: Patient has diminished breath sounds on the right. No wheezing or rales are heard CARDIOVASCULAR: There is a regular rate and rhythm without any murmurs gallops or rubs. ABDOMEN: Soft and nontender with normal bowel sounds. Slightly distended abdomen No palpable organomegaly was noted. There is no palpable pulsatile mass. SKIN: Skin is clear with no lesions or rashes and otherwise unremarkable. NEUROLOGIC: Patient is alert and oriented 1. Cranial nerves II through XII are grossly intact. Motor is intact. MUSCULOSKELETAL: Normal extremities with adequate strength and full range of motion. No lower extremity swelling or edema. No calf tenderness. LYMPHATICS: No significant lymphadenopathy is noted PSYCHIATRIC: Unable to assess secondary to patient's altered mental status Limitations: no limitations Course Vital Signs 05/10/16 05/10/16 12:42 13:13 Temperature 95.9 F L Pulse Rate 97 Respiratory 20 Rate Blood Pressure 98/69 132/94 O2 Sat by Pulse 98 Oximetry Medical Decision Making - Medical Decision Making EKG shows sinus rhythm with PACs at 86 bpm. It was on a 64 QRS is 80 QT intervals 3 to QTC is 454. Patient's EKG shows no ST segment elevation or depression or T-wave abdomen is noted. Patient's ammonia came back at 90 was started the patient lactulose I spoke with Dr. Garvey agreed to admit the patient admitted the patient in consultation Dr. Parker. I continued the lactulose on the floor - Lab Data Result diagrams: 05/10/16 13:15 01/22/17 13:15 Lab Results 05/10/16 05/10/16 05/10/16 Range/Units 13:15 13:15 13:15 WBC 10.4 (3.8-10.6) k/uL RBC 3.76 L (4.30-5.90) m/uL Hgb 12.0 L D (13.0-17.5) gm/dL Hct 39.0 (39.0-53.0) % MCV 103.5 H (80.0-100.0) fL MCH 32.0 (25.0-35.0) pg MCHC 30.9 L (31.0-37.0) g/dL RDW 14.8 (11.5-15.5) % Plt Count 109 L (150-450) k/uL Neutrophils % 91 % Lymphocytes % 3 % Monocytes % 4 % Eosinophils % 1 % Basophils % 0 % Neutrophils # 9.4 H (1.3-7.7) k/uL Lymphocytes # 0.3 L (1.0-4.8) k/uL Monocytes # 0.4 (0-1.0) k/uL Eosinophils # 0.1 (0-0.7) k/uL Basophils # 0.0 (0-0.2) k/uL Macrocytosis Slight PT (9.0-12.0) sec INR (<1.1) APTT (22.0-30.0) sec Sodium (137-145) mmol/L Potassium (3.5-5.1) mmol/L Chloride (98-107) mmol/L Carbon Dioxide (22-30) mmol/L Anion Gap mmol/L BUN (9-20) mg/dL Creatinine (0.66-1.25) mg/dL Est GFR (MDRD) Af Amer (>60 ml/min/1.73 sqM) Est GFR (MDRD) Non-Af (>60 ml/min/1.73 sqM) Glucose (74-99) mg/dL Plasma Lactic Acid Sabas 3.3 H* (0.7-2.0) mmol/L Calcium (8.4-10.2) mg/dL Total Bilirubin (0.2-1.3) mg/dL AST (17-59) U/L ALT (21-72) U/L Alkaline Phosphatase (38-126) U/L Ammonia (<30) umol/L Total Creatine Kinase 48 L (55-170) U/L CK-MB (CK-2) 3.5 H* (0.0-2.4) ng/mL CK-MB (CK-2) Rel Index 7.3 Troponin I 0.043 H* (0.000-0.034) ng/mL Total Protein (6.3-8.2) g/dL Albumin (3.5-5.0) g/dL Urine Color Urine Appearance (Clear) Urine pH (5.0-8.0) Ur Specific [place] (1.001-1.035) Urine Protein (Negative) Urine Glucose (UA) (Negative) Urine Ketones (Negative) Urine Blood (Negative) Urine Nitrate (Negative) Urine Bilirubin (Negative) Urine Urobilinogen (<2.0) mg/dL Ur Leukocyte Esterase (Negative) Urine Opiates Screen (NotDetected) Ur Oxycodone Screen (NotDetected) Urine Methadone Screen (NotDetected) Ur Propoxyphene Screen (NotDetected) Ur Barbiturates Screen (NotDetected) U Tricyclic Antidepress (NotDetected) Ur Phencyclidine Scrn (NotDetected) Ur Amphetamines Screen (NotDetected) U Methamphetamines Scrn (NotDetected) U Benzodiazepines Scrn (NotDetected) Urine Cocaine Screen (NotDetected) U Marijuana (THC) Screen (NotDetected) 05/10/16 05/10/16 05/10/16 Range/Units 13:15 13:15 15:00 WBC (3.8-10.6) k/uL RBC (4.30-5.90) m/uL Hgb (13.0-17.5) gm/dL Hct (39.0-53.0) % MCV (80.0-100.0) fL MCH (25.0-35.0) pg MCHC (31.0-37.0) g/dL RDW (11.5-15.5) % Plt Count (150-450) k/uL Neutrophils % % Lymphocytes % % Monocytes % % Eosinophils % % Basophils % % Neutrophils # (1.3-7.7) k/uL Lymphocytes # (1.0-4.8) k/uL Monocytes # (0-1.0) k/uL Eosinophils # (0-0.7) k/uL Basophils # (0-0.2) k/uL Macrocytosis PT 12.8 H (9.0-12.0) sec INR 1.3 (<1.1) APTT 25.4 (22.0-30.0) sec Sodium 133 L (137-145) mmol/L Potassium 5.8 H (3.5-5.1) mmol/L Chloride 96 L (98-107) mmol/L Carbon Dioxide 23 (22-30) mmol/L Anion Gap 14 mmol/L BUN 60 H (9-20) mg/dL Creatinine 3.09 H (0.66-1.25) mg/dL Est GFR (MDRD) Af Amer 25 (>60 ml/min/1.73 sqM) Est GFR (MDRD) Non-Af 20 (>60 ml/min/1.73 sqM) Glucose 133 H (74-99) mg/dL Plasma Lactic Acid Sabas (0.7-2.0) mmol/L Calcium 9.3 (8.4-10.2) mg/dL Total Bilirubin 4.0 H (0.2-1.3) mg/dL AST 55 (17-59) U/L ALT 50 (21-72) U/L Alkaline Phosphatase 215 H (38-126) U/L Ammonia (<30) umol/L Total Creatine Kinase (55-170) U/L CK-MB (CK-2) (0.0-2.4) ng/mL CK-MB (CK-2) Rel Index Troponin I (0.000-0.034) ng/mL Total Protein 7.2 (6.3-8.2) g/dL Albumin 3.6 (3.5-5.0) g/dL Urine Color Yellow Urine Appearance Clear (Clear) Urine pH 5.5 (5.0-8.0) Ur Specific [place] 1.010 (1.001-1.035) Urine Protein Negative (Negative) Urine Glucose (UA) Negative (Negative) Urine Ketones Negative (Negative) Urine Blood Negative (Negative) Urine Nitrate Negative (Negative) Urine Bilirubin Negative (Negative) Urine Urobilinogen 3.0 (<2.0) mg/dL Ur Leukocyte Esterase Negative (Negative) Urine Opiates Screen Not Detected (NotDetected) Ur Oxycodone Screen Not Detected (NotDetected) Urine Methadone Screen Not Detected (NotDetected) Ur Propoxyphene Screen Not Detected (NotDetected) Ur Barbiturates Screen Not Detected (NotDetected) U Tricyclic Antidepress Not Detected (NotDetected) Ur Phencyclidine Scrn Not Detected (NotDetected) Ur Amphetamines Screen Not Detected (NotDetected) U Methamphetamines Scrn Not Detected (NotDetected) U Benzodiazepines Scrn Not Detected (NotDetected) Urine Cocaine Screen Not Detected (NotDetected) U Marijuana (THC) Screen Not Detected (NotDetected) 05/10/16 Range/Units 15:28 WBC (3.8-10.6) k/uL RBC (4.30-5.90) m/uL Hgb (13.0-17.5) gm/dL Hct (39.0-53.0) % MCV (80.0-100.0) fL MCH (25.0-35.0) pg MCHC (31.0-37.0) g/dL RDW (11.5-15.5) % Plt Count (150-450) k/uL Neutrophils % % Lymphocytes % % Monocytes % % Eosinophils % % Basophils % % Neutrophils # (1.3-7.7) k/uL Lymphocytes # (1.0-4.8) k/uL Monocytes # (0-1.0) k/uL Eosinophils # (0-0.7) k/uL Basophils # (0-0.2) k/uL Macrocytosis PT (9.0-12.0) sec INR (<1.1) APTT (22.0-30.0) sec Sodium (137-145) mmol/L Potassium (3.5-5.1) mmol/L Chloride (98-107) mmol/L Carbon Dioxide (22-30) mmol/L Anion Gap mmol/L BUN (9-20) mg/dL Creatinine (0.66-1.25) mg/dL Est GFR (MDRD) Af Amer (>60 ml/min/1.73 sqM) Est GFR (MDRD) Non-Af (>60 ml/min/1.73 sqM) Glucose (74-99) mg/dL Plasma Lactic Acid [place] (0.7-2.0) mmol/L Calcium (8.4-10.2) mg/dL Total Bilirubin (0.2-1.3) mg/dL AST (17-59) U/L ALT (21-72) U/L Alkaline Phosphatase (38-126) U/L Ammonia 90 H (<30) umol/L Total Creatine Kinase (55-170) U/L CK-MB (CK-2) (0.0-2.4) ng/mL CK-MB (CK-2) Rel Index Troponin I (0.000-0.034) ng/mL Total Protein (6.3-8.2) g/dL Albumin (3.5-5.0) g/dL Urine Color Urine Appearance (Clear) Urine pH (5.0-8.0) Ur Specific [place] (1.001-1.035) Urine Protein (Negative) Urine Glucose (UA) (Negative) Urine Ketones (Negative) Urine Blood (Negative) Urine Nitrate (Negative) Urine Bilirubin (Negative) Urine Urobilinogen (<2.0) mg/dL Ur Leukocyte Esterase (Negative) Urine Opiates Screen (NotDetected) Ur Oxycodone Screen (NotDetected) Urine Methadone Screen (NotDetected) Ur Propoxyphene Screen (NotDetected) Ur Barbiturates Screen (NotDetected) U Tricyclic Antidepress (NotDetected) Ur Phencyclidine Scrn (NotDetected) Ur Amphetamines Screen (NotDetected) U Methamphetamines Scrn (NotDetected) U Benzodiazepines Scrn (NotDetected) Urine Cocaine Screen (NotDetected) U Marijuana (THC) Screen (NotDetected) Critical Care Time Critical Care Time: Yes Total Critical Care Time: 35 Disposition Clinical Impression: Hepatic encephalopathy, Renal failure Disposition: ADMITTED IP TO THIS HOSP Referrals: Alexis Norris DO [Primary Care Provider] - 1-2 days Time of Disposition: 16:30
[2016-05-10 13:35] LABS: Calcium 9.3 mg/dL (8.4-10.2); Potassium 5.8 mmol/L (3.5-5.1); Total Protein 7.2 g/dL (6.3-8.2)
[2016-05-10 13:37] LABS: Basophils % (A) 0 %; CH 32.5; CHCM 31.6; Eosinophils # (A) 0.1 k/uL (0-0.7); Eosinophils % (A) 1 %; HDW 2.43; Luc % (Auto) 1; Lymphocytes # (A) 0.3 k/uL (1.0-4.8); Lymphocytes % (A) 3 %; MCHC 30.9 g/dL (31.0-37.0); MCV 103.5 fL (80.0-100.0); Macrocytosis Slight; Mean Platelet Volume 9.1; Monocytes # (A) 0.4 k/uL (0-1.0); Monocytes % (A) 4 %; Neutrophils # (A) 9.4 k/uL (1.3-7.7); Neutrophils % (A) 91 %; RBC 3.76 m/uL (4.30-5.90); RDW 14.8 % (11.5-15.5); WBC 10.4 k/uL (3.8-10.6); WBC (Perox) 10.82
[2016-05-10 13:42] LABS: INR 1.3 (<1.1); Partial Thromboplastin Time 25.4 sec (22.0-30.0); Prothrombin Time 12.8 sec (9.0-12.0)
--- NOTE | 2016-05-10 14:03 | XR ---
EXAMINATION TYPE: XR chest 2V DATE OF EXAM: 05/10/2016 1:34 PM COMPARISON: Prior chest x-ray March HISTORY: Altered mental status TECHNIQUE: Frontal and lateral views of the chest are obtained. FINDINGS: No interval change is evident. Chronic elevation of the right hemidiaphragm. There are ove rlying cardiac leads. There is some blunting of the left costophrenic angle, there is no pneumoperito neum. Cardiomediastinal silhouette, pulmonary vascularity and deion are stable. IMPRESSION: Elevated right hemidiaphragm. Difficult to exclude small effusion. Follow-up as indicate d.
[2016-05-10 14:17] LABS: Creatine Kinase MB 3.5 ng/mL (0.0-2.4)
[2016-05-10] MEDS ORDERED: SODIUM CHLORIDE 0.9% 1,000 ML IV ONE ×2 (14:17→16:30)
[2016-05-10 14:18] LABS: Troponin I 0.043 ng/mL (0.000-0.034)
[2016-05-10 15:35] LABS: Appearance,Urine Clear (Clear); Bilirubin,Urine Negative (Negative); Glucose,Urine (UA) Negative (Negative); Ketones,Urine Negative (Negative); Leukocyte Esterase,Urine Negative (Negative); Nitrite,Urine Negative (Negative); PH, Urine 5.5 (5.0-8.0); Protein,Urine Negative (Negative); UA Billing (MACRO vs. MICRO) CHEM
[2016-05-10] MEDS ORDERED: LACTULOSE 20 GM/30 ML CUP PO ONE (16:30)
[2016-05-10] MEDS: LACTULOSE 20 GM/30 ML CUP PO SCH (20:57)
[2016-05-10] MEDS ORDERED: ONDANSETRON ODT 8 MG TAB.RAPDIS PO PRN (21:09)
[2016-05-10] MEDS ORDERED: SODIUM POLYSTYRENE SULFONATE 15 GM/60 ML BOTTLE PO STA (21:10)
[2016-05-10] MEDS ORDERED: TERAZOSIN 2 MG CAP PO SCH (21:15)
[2016-05-10] MEDS: DULoxetine HCL 20 MG CAPSULE.DR PO SCH (22:13)
[2016-05-10 22:43] LABS: Glucose,Whole Blood 131 mg/dL (75-99)
[2016-05-11] MEDS ORDERED: MORPHINE SULFATE 2 MG/ML SYRINGE IVP PRN ×2 (03:33→19:31)
[2016-05-11 06:33] LABS: Basophils % (A) 0 %; CH 32.5; CHCM 30.8; Eosinophils # (A) 0.2 k/uL (0-0.7); Eosinophils % (A) 2 %; HCT 35.3 % (39.0-53.0); HDW 2.33; HGB 10.9 gm/dL (13.0-17.5); Hypochromasia Slight; Luc # (Auto) 0.13; Luc % (Auto) 2; Lymphocytes # (A) 0.5 k/uL (1.0-4.8); Lymphocytes % (A) 6 %; MCH 32.8 pg (25.0-35.0); Macrocytosis Moderate; Mean Platelet Volume 8.9; Monocytes # (A) 0.5 k/uL (0-1.0); Monocytes % (A) 7 %; Neutrophils # (A) 6.4 k/uL (1.3-7.7); Neutrophils % (A) 83 %; RBC 3.33 m/uL (4.30-5.90); RDW 14.9 % (11.5-15.5); WBC 7.7 k/uL (3.8-10.6); WBC (Perox) 8.05
[2016-05-11 06:40] LABS: Calcium 8.8 mg/dL (8.4-10.2); Potassium 4.5 mmol/L (3.5-5.1); Total Bilirubin 3.9 mg/dL (0.2-1.3); Total Protein 6.2 g/dL (6.3-8.2)
[2016-05-11 07:16] LABS: Manual Review Performed
[2016-05-11 07:17] LABS: Large Platelets Present
[2016-05-11] MEDS: DULoxetine HCL 20 MG CAPSULE.DR PO SCH ×2 (07:48→20:55)
[2016-05-11] MEDS: LACTULOSE 20 GM/30 ML CUP PO SCH ×4 (07:49→20:55)
--- NOTE | 2016-05-11 09:32 | P.NPCON ---
History of Present Illness - Reason for Consult acute renal failure - History of Present Illness Reason for consultation: Acute kidney injury History of present illness: Patient is a 65-year-old male seen in renal consultation for acute kidney injury. Patient has chronic kidney disease stage III with baseline creatinine in the range of 1.1-1.3. Etiology is hepatorenal syndrome. Patient has hepatitis C with liver cirrhosis. He presented with altered mental status. His ammonia level was quite elevated for which she was started on lactulose. It is now improved. He is maintained on diuretics at home which are held at this time. He did receive IV fluid bolus in the emergency room due to elevated lactic acid level of 3.3. It is improved to 2.6 this morning. He did eat his entire breakfast this morning. However he does feel nauseous. Denies diarrhea. Denies chest pain or shortness of breath. Not a very reliable historian at this time. His creatinine was 3.09 on admission yesterday and is mildly improved to 2.95 today. Vital signs are stable. General: The patient appeared well nourished and normally developed. HEENT: Head exam is unremarkable. Neck is without jugular venous distension. LUNGS: Lungs are clear to auscultation and percussion. Breath sounds decreased. HEART: Rate and Rhythm are regular. First and second heart sounds normal. No murmurs, rubs or gallops. ABDOMEN: Abdominal exam reveals normal bowel sounds. Moderately distended. No evidence of peritonitis. EXTREMITITES: No clubbing, cyanosis, or edema. Past Medical History Past Medical History: Cancer, GERD/Reflux, Hyperlipidemia, Hypertension, Liver Disease, Memory Impairment, Osteoarthritis (OA), Renal Disease, Vascular Disorder Additional Past Medical History / Comment(s): Hep C with interferon therapy, cirrhosis, prior history of memory impairment secondary to hepatic encephalopathy, chronic fatigue, thrombocytopenia, leukopenia, hx of HTN but recently taken off antihypertensive medication, bilateral feet neuropathy, cervical OA, CKD stage II, chronic low back pain and neck pain, sinus problems at times, skin cancer with removal, ascites History of Any Multi-Drug Resistant Organisms: None Reported Past Surgical History: Cholecystectomy, Hernia Repair Additional Past Surgical History / Comment(s): 04/14/2016 paracentesis with 9.5 L of fluid removed, cervical surgery, colonoscopies, umbilical hernia repair x 2 , nose and kathleen of head skin cancer removed, multi paracentesis Past Anesthesia/Blood Transfusion Reactions: Postoperative Nausea & Vomiting ( PONV) Additional Past Anesthesia/Blood Transfusion Reaction / Comment(s): [facility]; pt stated no reaction Past Psychological History: Depression Additional Psychological History / Comment(s): Pt. states he is on depression medication and it has been effective in helping with his depression. Pt resides with his spouse. He uses no assistive device. He drives. Previous suicidal talk according to daughter, patient denies suicidal thoughts at this time. Smoking Status: Former smoker Past Alcohol Use History: None Reported Additional Past Alcohol Use History / Comment(s): Pt smoked from 1964 to 1969. Past Drug Use History: None Reported - Past Family History Mother History Unknown: Yes Family Medical History: Chest Pain / Angina Father History Unknown: Yes Family Medical History: Unable to Obtain Medications and Allergies Home Medications Medication Instructions Recorded Confirmed Type Citalopram Hydrobromide 40 mg PO DAILY 10/22/15 05/10/16 History Pantoprazole [Protonix] 40 mg PO DAILY 10/22/15 05/10/16 History Terazosin [Hytrin] 2 mg PO HS 10/22/15 05/10/16 History Multivitamins, Thera [Multivitamin] 1 tab PO DAILY 12/23/15 05/10/16 History Thiamine [Vitamin B-1] 100 mg PO DAILY 12/23/15 05/10/16 History Cholecalciferol [Vitamin D3] 1,000 unit PO DAILY 02/24/16 05/10/16 History Cyanocobalamin [Vitamin B-12] 500 mcg PO DAILY 02/24/16 05/10/16 History DULoxetine HCL [Cymbalta] 20 mg PO BID 02/24/16 05/10/16 History Finasteride [Proscar] 5 mg PO DAILY 02/24/16 05/10/16 History Loratadine [Claritin] 10 mg PO DAILY PRN 02/24/16 05/10/16 History Methocarbamol [Robaxin] 1,000 mg PO TID PRN 02/24/16 05/10/16 History Ledipasvir/Sofosbuvir [Harvoni 1 tab PO DAILY 03/07/16 05/10/16 History 90-400 mg Tablet] Spironolactone [Aldactone] 100 mg PO DAILY 03/07/16 05/10/16 History Cyclobenzaprine [Flexeril] 10 mg PO TID PRN 04/04/16 05/10/16 History Folic Acid 1 mg PO DAILY 04/04/16 05/10/16 History Ribavirin [Ribasphere] 600 mg PO BID 04/04/16 05/10/16 History Ondansetron [Zofran ODT] 8 mg PO Q8H PRN 05/10/16 05/10/16 History Allergies Allergy/AdvReac Type Severity Reaction Status Date / Time No Known Allergies Allergy Verified 05/10/16 14:00 Physical Exam Vitals: Vital Signs Temp Pulse Resp BP BP Pulse Ox 05/11/16 07:46 102 H 20 05/11/16 07:44 96.8 F L 102 H 20 119/74 98 05/11/16 03:33 97.1 F L 92 18 105/55 100 05/11/16 00:00 97.5 F L 97 18 99/66 100 05/10/16 20:00 97.1 F L 88 18 134/65 96 05/10/16 18:45 98 F 18 113/70 100 Intake and Output 05/10/16 05/11/16 05/11/16 22:59 06:59 14:59 Intake Total 600 540 Output Total 200 100 150 Balance -200 500 390 Intake: IV 600 Sodium Chloride 0.9% 1, 600 000 ml @ 100 mls/hr IV . Q10H ONE Rx#:[id number] Oral 540 Output: Urine 200 100 150 Other: Voiding Method Urinal Urinal Urinal Weight 61 kg Results - Lab Results Most recent lab results Calcium 8.8 mg/dL (8.4-10.2) 05/11/16 06:09 05/11/16 06:09 05/11/16 06:09 Assessment and Plan Plan: Assessment: #1. Nonoliguric acute kidney injury. Mostly prerenal in nature related to hypotension and diuretics. Improving with IV hydration. #2. Chronic kidney disease stage III with baseline creatinine in the range of 1.1-1.3 secondary to hepatorenal syndrome. Urinalysis is benign. #3. Liver cirrhosis. #4. Lactic acidosis related to intravascular volume depletion as well as liver disease. #5. Hyperkalemia secondary to Aldactone as well as acute kidney injury. Resolved. #6. Hepatic encephalopathy. Improving. : I will start normal saline to be run at 75 mL an hour. Avoid nephrotoxic agents and hypotensive episodes. Diuretics held at this time. Check renal ultrasound. Strict intake and output. Repeat electrolytes in the morning. Thank you for the consultation. I will continue to follow the patient with you during his hospital stay.
[2016-05-11] MEDS: SODIUM CHLORIDE 0.9% 1,000 ML IV SCH ×2 (10:39→23:05)
--- NOTE | 2016-05-11 12:39 | US ---
EXAMINATION TYPE: US kidneys/renal and bladder DATE OF EXAM: 05/11/2016 10:54 AM COMPARISON: US on PACS CLINICAL HISTORY: vane. EXAM MEASUREMENTS: Right Kidney: 11. 5 x 5.4 x 3.9 cm Left Kidney: 12.7 x 5.3 x 5.2 cm Findings: Right Kidney: 2 renal cysts: Upper/Lateral = 4.1 x 3.5 x 3.4 cm, Mid/Medial = 2.4 x 2.5 x 2.0 cm Left Kidney: 3 renal cysts: Lower/Lateral = 5.7 x 5.4 x 5.4 cm with septations, Upper pole = 3.0 x 2. 8 x 2.6 cm, Mid/Medial = 3.4 x 2.8 x 2.7 cm Bladder: wnl Bilateral Jets seen: no, Montes Catheter noted Ascites noted throughout abdomen and pelvis No hydronephrosis or nephrolithiasis. IMPRESSION: 1.Bilateral renal cysts which appear to be simple. There is a single left-sided renal cyst with conta ins septation with no nodular thickening suggestive of a Bosniak 2 classification cyst. 2. Ascites
[2016-05-11] MEDS ORDERED: METHOCARBAMOL 500 MG TAB PO PRN (15:18)
[2016-05-11] MEDS ORDERED: CYCLOBENZAPRINE 10 MG TAB PO PRN (15:18)
[2016-05-11] MEDS ORDERED: LORATADINE 10 MG TAB PO PRN (15:18)
[2016-05-11] MEDS ORDERED: traMADol 50 MG TAB PO PRN (15:18)
--- NOTE | 2016-05-11 15:53 | P.CRDCN ---
History of Present Illness Consult date: 05/11/16 Requesting physician: Som Garvey Reason for Consult (text): Abnormal troponins Chief complaint: Mental status changes History of present illness: This is a 65-year-old gentleman with history of hypertension, hyperlipidemia, renal disease, vascular disease hepatitis C with interferon therapy, chronic ascites requiring weekly paracentesis, cirrhosis, chronic fatigue, thrombocytopenia, leukopenia, who presents to the hospital with mental status changes. Apparently according to the she states that he has been more confused than usual, and this is usually related to an abnormal ammonia level so for this reason she brought him to the emergency room for further evaluation. A cardiology consultation was requested because of abnormal troponin values. Chest x-ray on admission revealed elevated right hemidiaphragm , difficult to exclude small effusion. EKG showed sinus rhythm with PACs. Inferior lateral Q waves noted. Ultrasound of the kidneys and bladder performed which revealed bilateral renal cysts. Single left-sided renal cyst which contains septation with known nodular thickening. Positive ascites. At the time of my examination, patient denies chest pain at present states that he denies having any chest pain at all. Overall breathing has been stable, he states he's been feeling extremely weak at home. Laboratory data reviewed, hemoglobin 12.0, 10.9 today. Potassium 5.8, 4.5 today. BUN 60 creatinine 3.9 on admission, 59 and 2.9 today. Plasma lactic acid 3.3 on admission, 2.6 today. Alkaline phosphatase 2:15 on admission, 175 today. Ammonia level 909 on admission, 37 today. Troponins 0.043, 0.059, 0.070. Patient is currently receiving IV hydration at 75 mL per hour. Past Medical History Past Medical History: Cancer, GERD/Reflux, Hyperlipidemia, Hypertension, Liver Disease, Memory Impairment, Osteoarthritis (OA), Renal Disease, Vascular Disorder Additional Past Medical History / Comment(s): Hep C with interferon therapy, cirrhosis, prior history of memory impairment secondary to hepatic encephalopathy, chronic fatigue, thrombocytopenia, leukopenia, hx of HTN but recently taken off antihypertensive medication, bilateral feet neuropathy, cervical OA, CKD stage II, chronic low back pain and neck pain, sinus problems at times, skin cancer with removal, ascites History of Any Multi-Drug Resistant Organisms: None Reported Past Surgical History: Cholecystectomy, Hernia Repair Additional Past Surgical History / Comment(s): 04/14/2016 paracentesis with 9.5 L of fluid removed, cervical surgery, colonoscopies, umbilical hernia repair x 2 , nose and kathleen of head skin cancer removed, multi paracentesis Past Anesthesia/Blood Transfusion Reactions: Postoperative Nausea & Vomiting ( PONV) Additional Past Anesthesia/Blood Transfusion Reaction / Comment(s): [facility]; pt stated no reaction Past Psychological History: Depression Additional Psychological History / Comment(s): Pt. states he is on depression medication and it has been effective in helping with his depression. Pt resides with his spouse. He uses no assistive device. He drives. Previous suicidal talk according to daughter, patient denies suicidal thoughts at this time. Smoking Status: Former smoker Past Alcohol Use History: None Reported Additional Past Alcohol Use History / Comment(s): Pt smoked from 1964 to 1969. Past Drug Use History: None Reported - Past Family History Mother History Unknown: Yes Family Medical History: Chest Pain / Angina Father History Unknown: Yes Family Medical History: Unable to Obtain Medications and Allergies Home Medications Medication Instructions Recorded Confirmed Type Citalopram Hydrobromide 40 mg PO DAILY 10/22/15 05/10/16 History Pantoprazole [Protonix] 40 mg PO DAILY 10/22/15 05/10/16 History Terazosin [Hytrin] 2 mg PO HS 10/22/15 05/10/16 History Multivitamins, Thera [Multivitamin] 1 tab PO DAILY 12/23/15 05/10/16 History Thiamine [Vitamin B-1] 100 mg PO DAILY 12/23/15 05/10/16 History Cholecalciferol [Vitamin D3] 1,000 unit PO DAILY 02/24/16 05/10/16 History Cyanocobalamin [Vitamin B-12] 500 mcg PO DAILY 02/24/16 05/10/16 History DULoxetine HCL [Cymbalta] 20 mg PO BID 02/24/16 05/10/16 History Finasteride [Proscar] 5 mg PO DAILY 02/24/16 05/10/16 History Loratadine [Claritin] 10 mg PO DAILY PRN 02/24/16 05/10/16 History Methocarbamol [Robaxin] 1,000 mg PO TID PRN 02/24/16 05/10/16 History Ledipasvir/Sofosbuvir [Harvoni 1 tab PO DAILY 03/07/16 05/10/16 History 90-400 mg Tablet] Spironolactone [Aldactone] 100 mg PO DAILY 03/07/16 05/10/16 History Cyclobenzaprine [Flexeril] 10 mg PO TID PRN 04/04/16 05/10/16 History Folic Acid 1 mg PO DAILY 04/04/16 05/10/16 History Ribavirin [Ribasphere] 600 mg PO BID 04/04/16 05/10/16 History Ondansetron [Zofran ODT] 8 mg PO Q8H PRN 05/10/16 05/10/16 History Allergies Allergy/AdvReac Type Severity Reaction Status Date / Time No Known Allergies Allergy Verified 05/10/16 14:00 Physical Exam Vitals: Vital Signs Temp Pulse Resp BP BP Pulse Ox 05/11/16 11:16 81 20 05/11/16 11:15 96.2 F L 81 20 110/72 100 05/11/16 07:46 102 H 20 05/11/16 07:44 96.8 F L 102 H 20 119/74 98 05/11/16 03:33 97.1 F L 92 18 105/55 100 05/11/16 00:00 97.5 F L 97 18 99/66 100 05/10/16 20:00 97.1 F L 88 18 134/65 96 05/10/16 18:45 98 F 18 113/70 100 Intake and Output 05/11/16 05/11/16 05/11/16 06:59 14:59 22:59 Intake Total 600 540 Output Total 100 325 Balance 500 215 Intake: IV 600 Sodium Chloride 0.9% 1, 600 000 ml @ 100 mls/hr IV . Q10H ONE Rx#:[id number] Oral 540 Output: Urine 100 325 Uretheral (Montes) 175 Other: Voiding Method Urinal Urinal Weight 61 kg PHYSICAL EXAMINATION: HEENT: Head is atraumatic, normocephalic. Pupils equal, round. Neck is supple. There is no elevated jugular venous pressure. HEART EXAMINATION: Heart S1, S2 normal. No murmur or gallop heard. CHEST EXAMINATION: Clear with mild diminished air entry to bilateral bases. ABDOMEN: firm, distended, evidence of ascites. Bowel sounds are heard. No organomegaly noted. EXTREMITIES: 2+ peripheral pulses with trace evidence of peripheral edema and no calf tenderness noted. NEUROLOGIC patient is awake, alert and oriented -3. . Results 05/11/16 06:09 05/11/16 06:09 Cardiac Enzymes 05/10/16 05/11/16 05/11/16 Range/Units 20:58 00:54 06:09 AST 50 (17-59) U/L Troponin I 0.059 H* 0.070 H* (0.000-0.034) ng/mL CBC 05/11/16 Range/Units 06:09 WBC 7.7 (3.8-10.6) k/uL RBC 3.33 L (4.30-5.90) m/uL Hgb 10.9 L (13.0-17.5) gm/dL Hct 35.3 L (39.0-53.0) % Plt Count 98 L (150-450) k/uL Comprehensive Metabolic Panel 05/11/16 Range/Units 06:09 Sodium 136 L (137-145) mmol/L Potassium 4.5 (3.5-5.1) mmol/L Chloride 101 (98-107) mmol/L Carbon Dioxide 22 (22-30) mmol/L BUN 59 H (9-20) mg/dL Creatinine 2.95 H (0.66-1.25) mg/dL Glucose 116 H (74-99) mg/dL Calcium 8.8 (8.4-10.2) mg/dL AST 50 (17-59) U/L ALT 50 (21-72) U/L Alkaline Phosphatase 175 H (38-126) U/L Total Protein 6.2 L (6.3-8.2) g/dL Albumin 2.9 L (3.5-5.0) g/dL Current Medications Generic Name Dose Route Start Last Admin Trade Name Freq PRN Reason Stop Dose Admin Cholecalciferol 1,000 unit 05/12/16 09:00 Vitamin D3 PO DAILY GARY Citalopram Hydrobromide 40 mg 05/12/16 09:00 Celexa PO DAILY GARY Cyanocobalamin 500 mcg 05/12/16 12:00 Vitamin B-12 PO DAILY@1200 [facility] Cyclobenzaprine HCl 10 mg 05/11/16 15:18 Flexeril PO TID PRN Muscle Pain/Spasm Duloxetine HCl 20 mg 05/10/16 21:15 05/11/16 07:48 Cymbalta PO 20 mg BID [facility] Administration Finasteride 5 mg 05/12/16 09:00 Proscar PO DAILY [facility] Folic Acid 1 mg 05/12/16 09:00 Folic Acid PO DAILY [facility] Furosemide 40 mg 05/12/16 09:00 Lasix PO DAILY [facility] Sodium Chloride 1,000 mls @ 75 mls/hr 05/11/16 09:45 05/11/16 10:39 Saline 0.9% IV Not Given .[id number] [facility] Ceftriaxone Sodium 1,000 mg/ 50 mls @ 100 mls/hr 05/11/16 16:00 Sodium Chloride IVPB Q24HR [facility] Lactulose 30 gm 05/10/16 22:00 05/11/16 13:05 Cephulac PO Not Given QID [facility] Loratadine 10 mg 05/11/16 15:18 Claritin PO DAILY PRN Allergic Reaction Methocarbamol 1,000 mg 05/11/16 15:18 Robaxin PO TID PRN Muscle Pain Morphine Sulfate 2 mg 05/11/16 03:33 05/11/16 03:55 Morphine Sulfate (Inj) IVP 2 mg Q4H PRN Administration Pain/Discomfort Multivitamins 1 each 05/12/16 12:00 Theragran PO DAILY@1200 [facility] Non-Formulary Medication 1 tab 05/12/16 09:00 Ledipasvir/Sofosbuvir [Harvoni 90-400 Mg Tablet] PO DAILY [facility] Ondansetron HCl 8 mg 05/10/16 21:09 Zofran Odt PO Q8H PRN Nausea And Vomiting Pantoprazole Sodium 40 mg 05/12/16 07:30 Protonix PO AC-BRKFST [facility] Ribavirin 600 mg 05/11/16 21:00 Ribasphere PO BID [facility] Spironolactone 100 mg 05/12/16 09:00 Aldactone PO DAILY [facility] Terazosin HCl 2 mg 05/11/16 00:06 Hytrin PO HS [facility] Thiamine HCl 100 mg 05/12/16 09:00 Vitamin B-1 PO DAILY [facility] Tramadol HCl 50 mg 05/11/16 15:18 Ultram PO Q6H PRN Pain Intake and Output 05/11/16 05/11/16 05/11/16 06:59 14:59 22:59 Intake Total 600 540 Output Total 100 325 Balance 500 215 Intake: IV 600 Sodium Chloride 0.9% 1, 600 000 ml @ 100 mls/hr IV . Q10H ONE Rx#:[id number] Oral 540 Output: Urine 100 325 Uretheral (Montes) 175 Other: Voiding Method Urinal Urinal Weight 61 kg 05/11/16 06:09 05/11/16 06:09 EKG Interpretations (text) EKG shows normal sinus rhythm with PACs, inferior lateral Q waves. Assessment and Plan Plan: Assessment and plan #1 mental status changes, could be secondary to elevated ammonia levels on admission. #2 chronic kidney disease #3 hypertension #4 liver cirrhosis with persistent ascites requiring paracentesis. # 5 lactic acidosis #6 hyperkalemia, resolved #7 hepatitis C #8 abnormal troponin, not consistent with acute coronary syndrome, likely secondary to abnormal renal function. Plan We will obtain an echocardiogram with Doppler study. If the echo is normal, we' ll follow this patient with you on an as-needed basis only. No evidence of non- Q-wave myocardial infarction. DNP note has been reviewed, I agree with a documented findings and plan of care. Patient was seen and examined.
--- NOTE | 2016-05-11 16:16 | HP ---
DATE OF ADMISSION: 05/11/2016 CHIEF COMPLAINT: Change in mental status. HISTORY OF PRESENT ILLNESS: This 65-year-old gentleman with a past medical history of multiple medical problems including cirrhosis of the liver, multiple encephalopathy, history of hypertension, hyperlipidemia, being followed by Dr. Alexis Norris in the outpatient setting was admitted to [facility] yesterday with complaints of change in mental status and the patient apparently had an appointment at [facility] clinic recently but the patient is confused and according to the , the patient had elevated ammonia levels with mental status changes in the past. There is no history of fever, rigors or chills but because of confusion and some change in mental status, the patient was taken to [facility] and admitted to the hospital for further evaluation and treatment. The patient ammonia was found to be elevated. The patient also had multiple other abnormalities including plasma lactic acid. The ammonia was found to be 19 and 37, troponin 0.05. The patient admitted to the hospital for further evaluation and treatment. Currently patient is slightly better, but again unable to give coherent history. Most of the history taken from my discussion with staff and review of chart and discussion with family at the bedside. The patient has significant ascites. Patient is also seen aircraft engine installer, Dr. Garcia before. PAST MEDICAL HISTORY: History of gastroesophageal reflux disease, hypertension, history of hyperlipidemia, history of liver disease, chronic liver disease, hepatitis C, the patient is on interferon therapy. The patient was found to be therapy, history of memory impairment, history of hypertension, history of cholecystectomy. History of hernia repair, history of depression. Medications prior to admission include home medications are: 1. Ultram 50 mg q.6 p.r.n. 2. Vitamin B 100 mg daily. 3. Hytrin 2 mg q.h.s. 4. Aldactone 100 mg p.o. daily. 6. Protonix 40 mg p.o. daily. 7. Zofran 8 mg q.8 p.r.n. 8. Multivitamins p.o. daily. 9. Robaxin 1000 mg t.i.d. p.r.n. 10. Claritin 10 mg daily p.r.n. 11. Harvoni tablets p.o. daily. 12. Cephulac 20 gm p.o. q.i.d. 13. Lasix 40 mg p.o. daily. 14. Folic acid 1 mg daily. 15. Proscar 5 mg p.o. daily. 16. Cymbalta 20 mg p.o. b.i.d. 17. Flexeril 10 mg t.i.d. p.r.n. 18. Vitamin B12 500 mcg p.o. daily. 19. Celexa 40 mg p.o. daily. 20. Vitamin D3 1000 mg p.o. daily. ALLERGIES: None. FAMILY HISTORY: History of chest pain, angina in the family. SOCIAL HISTORY: Previous history of smoking. No history of current smoking. No alcohol intake. REVIEW OF SYSTEMS: ENT: No diminished vision. No diminished hearing. CARDIOVASCULAR: No angina or palpitations. RESPIRATORY: As mentioned earlier. GI: No nausea. : No dysuria. Nervous system: No numbness, weakness. Allergy/immunology: No asthma or hayfever. MUSCULOSKELETAL: As mentioned earlier. HEMATOLOGY/ONCOLOGY: No history of anemia. ENDOCRINE: No history of diabetes, hypothyroidism. CONSTITUTIONAL: As mentioned earlier. DERMATOLOGY: Negative. PSYCHIATRY: As mentioned earlier. PHYSICAL EXAMINATION: The patient is alert and oriented times three. Pulse 81, blood pressure is 110/70, respirations 20, temperature 96.2, pulse ox 100% on room air. HEENT: Conjunctivae normal. NECK: No jugular venous distention. CARDIOVASCULAR: S1, S2 muffled. RESPIRATORY: Breath sounds diminished at the bases. Otherwise a few scattered rhonchi and crackles. ABDOMEN: Soft. Tense ascites present. LYMPHATICS: No lymph nodes palpable in the neck, axillae or groin. LEGS: Minimal edema. CENTRAL NERVOUS SYSTEM: Higher functions as mentioned earlier. Moves all four limbs. Mild diffuse weakness. SKIN: No ulcer, rash or bleeding. LYMPHATICS: No lymph nodes palpable in the neck, axillae or groin. LABS: WBC 10.5, hemoglobin 12, MCV 103.5. His INR is 1.3, sodium 133, potassium 5.8, creatinine is 3.09, lactic acid 3.3. The baseline creatinine was 1.12. ASSESSMENT: 1. Change in mental status and acute on chronic hepatic encephalopathy with hyperammonemia. 2. Cirrhosis of the liver, possibly secondary to hepatitis C. 3. On Harvoni. 4. Acute renal failure, possibly prerenal acute tubular necrosis. 5. Possibly hepatorenal syndrome. 6. Hyponatremia. 7. Hyperkalemia. 8. Increased plasma lactic acid rule out sepsis. 9. Hyperammonemia. 10. Troponin 0.0590. 11. Anemia, macrocytic anemia, secondary to liver disease and cirrhosis of the liver. 12. Thrombocytopenia. 13. History of hypertension. 14. Hyperlipidemia. 15. Gastroesophageal reflux disease. 16. History of memory impairment. 17. Previous history of recurrent encephalopathy. 18. Thrombocytopenia. 19. Chronic kidney disease, stage II as a baseline. 20. March 2016 paracentesis 9.5 liters of fluid removal. 21. Depression. 22. FULL CODE. RECOMMENDATIONS AND DISCUSSION: In this 65-year-old gentleman who presented with multiple complex medical issues, we will monitor the patient closely, continue the current medications. Continue symptomatic treatment. Otherwise, at this time, I would recommend lactulose to have 2 to 3 bowel movements a day, gastroenterology consultation, we will resume the previous home medications. Monitor labs closely. Otherwise, we will also recommend a low protein diet also at this time, continue to monitor, ascitic fluid tap. Interventional radiology. Guarded prognosis. Further recommendations to follow. See orders for further details. MTDD
[2016-05-11] MEDS: TERAZOSIN 1 MG CAP PO SCH (20:55)
[2016-05-11] MEDS ORDERED: ONDANSETRON 4 MG/2 ML VIAL IVP PRN (21:57)
[2016-05-12] MEDS: PANTOPRAZOLE 40 MG TABLET PO SCH (07:01)
[2016-05-12 07:05] LABS: Basophils % (A) 0 %; CH 32.8; Eosinophils # (A) 0.1 k/uL (0-0.7); Eosinophils % (A) 2 %; HCT 29.6 % (39.0-53.0); HDW 2.42; Hypochromasia Slight; Luc % (Auto) 2; Lymphocytes # (A) 0.4 k/uL (1.0-4.8); Lymphocytes % (A) 7 %; MCHC 31.1 g/dL (31.0-37.0); MCV 106.4 fL (80.0-100.0); Macrocytosis Moderate; Mean Platelet Volume 9.9; Monocytes # (A) 0.5 k/uL (0-1.0); Monocytes % (A) 8 %; Neutrophils # (A) 5.5 k/uL (1.3-7.7); Neutrophils % (A) 82 %; RBC 2.78 m/uL (4.30-5.90); RDW 14.8 % (11.5-15.5); WBC 6.7 k/uL (3.8-10.6); WBC (Perox) 6.67
[2016-05-12 07:07] LABS: Calcium 8.4 mg/dL (8.4-10.2); HGB 9.2 gm/dL (13.0-17.5); Magnesium 2.4 mg/dL (1.6-2.3); Potassium 3.9 mmol/L (3.5-5.1); Total Bilirubin 3.3 mg/dL (0.2-1.3); Total Protein 5.4 g/dL (6.3-8.2)
[2016-05-12 08:19] LABS: INR 1.5 (<1.1); Prothrombin Time 14.2 sec (9.0-12.0)
[2016-05-12] MEDS: LACTULOSE 20 GM/30 ML CUP PO SCH ×4 (08:37→20:25)
[2016-05-12] MEDS: DULoxetine HCL 20 MG CAPSULE.DR PO SCH ×2 (08:38→20:23)
[2016-05-12] MEDS: FINASTERIDE 5 MG TAB PO SCH (08:38)
[2016-05-12] MEDS: CITALOPRAM HYDROBROMIDE 20 MG TAB PO SCH (08:38)
[2016-05-12] MEDS: CHOLECALCIFEROL 1,000 UNIT TAB PO SCH (08:38)
[2016-05-12] MEDS: FOLIC ACID 1 MG TAB PO SCH (08:39)
[2016-05-12] MEDS: MULTIVITAMINS, THERA 1 EACH TAB PO SCH (08:39)
[2016-05-12] MEDS: THIAMINE 100 MG TAB PO SCH (08:39)
[2016-05-12] MEDS: CYANOCOBALAMIN 500 MCG TAB PO SCH (08:39)
[2016-05-12] MEDS ORDERED: FUROSEMIDE 40 MG TAB PO SCH (09:00)
[2016-05-12] MEDS ORDERED: SPIRONOLACTONE 25 MG TAB PO SCH (09:00)
--- NOTE | 2016-05-12 09:43 | P.PN ---
Subjective Patient is seen in follow-up for acute kidney injury. Patient presented with altered mental status. He has history of hepatitis C and liver cirrhosis. He does have chronic kidney disease stage III with baseline creatinine in the range of 1.1-1.3. Creatinine was elevated at 3.09 and is improved to 2.6 today. His appetite is fair. He is a Montes catheter in place and is nonoliguric. Denies any chest pain or shortness of breath. Vital signs are stable. General: The patient appeared well nourished and normally developed. HEENT: Head exam is unremarkable. Neck is without jugular venous distension. LUNGS: Lungs are clear to auscultation and percussion. Breath sounds decreased. HEART: Rate and Rhythm are regular. First and second heart sounds normal. No murmurs, rubs or gallops. ABDOMEN: Abdominal exam reveals normal bowel sounds. Moderately distended. EXTREMITITES: No clubbing, cyanosis, or edema. Objective - Vital Signs Vital signs: Vital Signs Temp 96.7 F L 05/12/16 08:00 Pulse 89 05/12/16 08:00 Resp 16 05/12/16 08:00 BP 102/67 05/12/16 08:00 Pulse Ox 97 05/12/16 08:00 Intake & Output 05/11/16 05/12/16 05/12/16 18:59 06:59 18:59 Intake Total 690 450 120 Output Total 375 325 100 Balance 315 125 20 Intake: IV 450 Sodium Chloride 0.9% 1, 450 000 ml @ 75 mls/hr IV . [id number] GARY Rx#:[id number] Intake, IV Titration 50 Amount cefTRIAXone 1,000 mg In 50 Sodium Chloride 0.9% 50 ml @ 100 mls/hr IVPB Q24HR GARY Rx#:[id number] Oral 640 120 Output: Urine 375 325 100 Uretheral (Montes) 225 100 Other: Voiding Method Urinal Indwelling Catheter Indwelling Catheter - Labs CBC & Chem 7: 05/12/16 06:28 05/12/16 06:28 Labs: Abnormal Lab Results - Last 24 Hours (Table) 05/12/16 05/12/16 05/12/16 Range/Units 06:28 06:28 06:28 RBC 2.78 L (4.30-5.90) m/uL Hgb 9.2 L D (13.0-17.5) gm/dL Hct 29.6 L (39.0-53.0) % MCV 106.4 H (80.0-100.0) fL Plt Count 62 L (150-450) k/uL Lymphocytes # 0.4 L (1.0-4.8) k/uL PT (9.0-12.0) sec Sodium 134 L (137-145) mmol/L Carbon Dioxide 20 L (22-30) mmol/L BUN 58 H (9-20) mg/dL Creatinine 2.60 H (0.66-1.25) mg/dL Glucose 145 H (74-99) mg/dL Plasma Lactic Acid Sabas 3.1 H* (0.7-2.0) mmol/L Magnesium 2.4 H (1.6-2.3) mg/dL Total Bilirubin 3.3 H (0.2-1.3) mg/dL Alkaline Phosphatase 138 H (38-126) U/L Ammonia 82 H (<30) umol/L Total Protein 5.4 L (6.3-8.2) g/dL Albumin 2.5 L (3.5-5.0) g/dL 05/12/16 Range/Units 06:28 RBC (4.30-5.90) m/uL Hgb (13.0-17.5) gm/dL Hct (39.0-53.0) % MCV (80.0-100.0) fL Plt Count (150-450) k/uL Lymphocytes # (1.0-4.8) k/uL PT 14.2 H (9.0-12.0) sec Sodium (137-145) mmol/L Carbon Dioxide (22-30) mmol/L BUN (9-20) mg/dL Creatinine (0.66-1.25) mg/dL Glucose (74-99) mg/dL Plasma Lactic Acid Sabas (0.7-2.0) mmol/L Magnesium (1.6-2.3) mg/dL Total Bilirubin (0.2-1.3) mg/dL Alkaline Phosphatase (38-126) U/L Ammonia (<30) umol/L Total Protein (6.3-8.2) g/dL Albumin (3.5-5.0) g/dL Microbiology - Last 24 Hours (Table) 05/11/16 16:02 Urine Culture - Preliminary Urine,Catheterized Assessment and Plan Plan: Assessment: #1. Nonoliguric acute kidney injury. Mostly prerenal in nature related to hypotension and diuretics. Improving with IV hydration. #2. Chronic kidney disease stage III with baseline creatinine in the range of 1.1-1.3 secondary to hepatorenal syndrome. Urinalysis is benign. #3. Liver cirrhosis with ascites. #4. Lactic acidosis related to intravascular volume depletion as well as liver disease. #5. Hyperkalemia secondary to Aldactone as well as acute kidney injury. Resolved. #6. Hepatic encephalopathy. Improving. Plan: Continue normal saline to be run at 75 mL an hour. Avoid nephrotoxic agents and hypotensive episodes. Strict intake and output. Repeat electrolytes in the morning. Patient will likely require paracentesis. I did give him 25 g of albumin prior to the procedure and an additional 25 g post procedure if more than 3 L were removed. Encourage oral intake. Hold diuretics for now. Will resume in the next 24-48 hours depending on his renal function.
--- NOTE | 2016-05-12 09:47 | ECHOF ---
Referral Reason:abn trop MEASUREMENTS -------- HEIGHT: 172.7 cm WEIGHT: 60.8 kg BP: 94/62 RVIDd: 3.4 cm (< 3.3) IVSd: 1.2 cm (0.6 - 1.1) LVIDd: 4.2 cm (3.9 - 5.3) LVPWd: 1.1 cm (0.6 - 1.1) IVSs: 1.7 cm LVIDs: 1.7 cm LVPWs: 1.8 cm LA Diam: 3.1 cm (2.7 - 3.8) LAESV Index (A-L): 13.52 ml/m Ao Diam: 3.4 cm (2.0 - 3.7) AV Cusp: 2.2 cm (1.5 - 2.6) LA Diam: 3.5 cm (2.7 - 3.8) MV EXCURSION: 14.967 mm (> 18.000) MV EF SLOPE: 26 mm/s (70 - 150) EPSS: 0.2 cm MV E Lokesh: 0.78 m/s MV DecT: 263 ms MV A Lokesh: 0.87 m/s MV E/A Ratio: 0.90 AV maxP.55 mmHg AV meanP.61 mmHg RAP: 5.00 mmHg RVSP: 24.86 mmHg FINDINGS -------- Sinus rhythm with extra systolic beats. This was a technically adequate study. There is borderline concentric left ventricular hypertrophy. Overall left ventricular systolic function is normal with, an EF between 65 - 70 %. The right ventricle is mildly enlarged. Normal LA size by volume 22+/-6 ml/m2. The right atrium is normal in size. Aortic valve is trileaflet and is mildly thickened. There is mild aortic stenosis present. Peak/mean gradient across the Aortic Valve is 25.55mmHg / 12.61mmHg. The mitral valve leaflets are mildly thickened. Mild mitral annular calcification present. Mild mitral regurgitation is present. Mild tricuspid regurgitation present. Right ventricular systolic pressure is normal at < 35 mmHg. Pulmonic valve appears structurally normal. The aortic root size is normal. Normal inferior vena cava with normal inspiratory collapse consistent with estimated right atrial pressure of 5 mmHg. There is no pericardial effusion. Pleural Effusion with Fibrin. CONCLUSIONS -------- 1. Sinus rhythm with extra systolic beats. 2. Peak/mean gradient across the Aortic Valve is 25.55mmHg / 12.61mmHg. 3. The mitral valve leaflets are mildly thickened. 4. Mild mitral annular calcification present. 5. Mild mitral regurgitation is present. 6. Mild tricuspid regurgitation present. 7. Right ventricular systolic pressure is normal at < 35 mmHg. 8. Pulmonic valve appears structurally normal. 9. The aortic root size is normal. 10. There is no pericardial effusion. 11. Pleural Effusion with Fibrin. 12. This was a technically adequate study. 13. There is borderline concentric left ventricular hypertrophy. 14. Overall left ventricular systolic function is normal with, an EF between 65 - 70 %. 15. The right ventricle is mildly enlarged. 16. Normal LA size by volume 22+/-6 ml/m2. 17. The right atrium is normal in size. 18. Aortic valve is trileaflet and is mildly thickened. 19. There is mild aortic stenosis present. POWDER BLENDER: Lio Richmond RDCS
--- NOTE | 2016-05-12 10:46 | P.CONS ---
History of Present Illness - Reason for Consult Consult date: 05/12/16 Hepatic encephalopathy Requesting physician: Som Garvey - History of Present Illness 65-year-old male with history of chronic hepatitis C viral infection and cirrhosis of the liver with hepatorenal syndrome, hepatic encephalopathy, portal hypertension and ascites. Started antiviral Harvoni treatment 2015. Admitted with mental status changes generalized weakness with elevated ammonia level 90. Consultation requested for hepatic encephalopathy. Recent paracentesis 4 days ago with 5.8 L removal. Afebrile. No hematemesis, hematochezia, or melena. Denies abdominal pain. Current ammonia level 82. He is alert and appropriate with conversation. Receiving lactulose 4 times daily with less than 3 bowel movements a day. Current chemistries: White count 6.7. Hemoglobin 9.2. Platelet 62,000. BUN 58. Creatinine 2.6. INR 1.5. Review of Systems Constitutional: Denies fever, chills, sweats, weight gain, or loss. Memory impairment. HEENT: Negative for migraines, blurred vision or loss, earaches, drainage, tinnitus, oral mucosal lesions, dysphagia, or odynophagia. Cardiac: Hyperlipidemia. Hypertension. Negative for chest pain, arrhythmias, or palpitation. Respiratory: Negative for shortness of breath, hemoptysis, cough, or sputum production. Gastrointestinal: See HPI for pertinent findings. Genitourinary: Negative for hematuria, urgency, frequency, polyuria, dysuria, or penile discharge. Musculoskeletal: Negative for muscle aches, swelling, arthritis, and arthralgias. Neurologic: Negative for stroke or TIA. Endocrine/Nephrology: Negative for thyroid problems. Chronic kidney disease stage III. Skin: History of skin cancer. Negative for rash or itching. Psychiatric: Negative history for depression and anxiety All systems: negative (See HPI) Past Medical History Past Medical History: Cancer, GERD/Reflux, Hyperlipidemia, Hypertension, Liver Disease, Memory Impairment, Osteoarthritis (OA), Renal Disease, Vascular Disorder Additional Past Medical History / Comment(s): Hep C with interferon therapy, cirrhosis, prior history of memory impairment secondary to hepatic encephalopathy, chronic fatigue, thrombocytopenia, leukopenia, hx of HTN but recently taken off antihypertensive medication, bilateral feet neuropathy, cervical OA, CKD stage II, chronic low back pain and neck pain, sinus problems at times, skin cancer with removal, ascites History of Any Multi-Drug Resistant Organisms: None Reported Past Surgical History: Cholecystectomy, Hernia Repair Additional Past Surgical History / Comment(s): 04/14/2016 paracentesis with 9.5 L of fluid removed, cervical surgery, colonoscopies, umbilical hernia repair x 2 , nose and kathleen of head skin cancer removed, multi paracentesis Past Anesthesia/Blood Transfusion Reactions: Postoperative Nausea & Vomiting ( PONV) Additional Past Anesthesia/Blood Transfusion Reaction / Comm: [facility]; pt stated no reaction Past Psychological History: Depression Additional Psychological History / Comment(s): Pt. states he is on depression medication and it has been effective in helping with his depression. Pt resides with his spouse. He uses no assistive device. He drives. Previous suicidal talk according to daughter, patient denies suicidal thoughts at this time. Smoking Status: Former smoker Past Alcohol Use History: None Reported Additional Past Alcohol Use History / Comment(s): Pt smoked from 1965 to 1969. Past Drug Use History: None Reported - Past Family History Mother History Unknown: Yes Family Medical History: Chest Pain / Angina Father History Unknown: Yes Family Medical History: Unable to Obtain Medications and Allergies Home Medications Medication Instructions Recorded Confirmed Type Citalopram Hydrobromide 40 mg PO DAILY 10/22/15 05/10/16 History Pantoprazole [Protonix] 40 mg PO DAILY 10/22/15 05/10/16 History Terazosin [Hytrin] 2 mg PO HS 10/22/15 05/10/16 History Multivitamins, Thera [Multivitamin] 1 tab PO DAILY 12/23/15 05/10/16 History Thiamine [Vitamin B-1] 100 mg PO DAILY 12/23/15 05/10/16 History Cholecalciferol [Vitamin D3] 1,000 unit PO DAILY 02/24/16 05/10/16 History Cyanocobalamin [Vitamin B-12] 500 mcg PO DAILY 02/24/16 05/10/16 History DULoxetine HCL [Cymbalta] 20 mg PO BID 02/24/16 05/10/16 History Finasteride [Proscar] 5 mg PO DAILY 02/24/16 05/10/16 History Loratadine [Claritin] 10 mg PO DAILY PRN 02/24/16 05/10/16 History Methocarbamol [Robaxin] 1,000 mg PO TID PRN 02/24/16 05/10/16 History Ledipasvir/Sofosbuvir [Harvoni 1 tab PO DAILY 03/07/16 05/10/16 History 90-400 mg Tablet] Spironolactone [Aldactone] 100 mg PO DAILY 03/07/16 05/10/16 History Cyclobenzaprine [Flexeril] 10 mg PO TID PRN 04/04/16 05/10/16 History Folic Acid 1 mg PO DAILY 04/04/16 05/10/16 History Ribavirin [Ribasphere] 600 mg PO BID 04/04/16 05/10/16 History Ondansetron [Zofran ODT] 8 mg PO Q8H PRN 05/10/16 05/10/16 History Allergies Allergy/AdvReac Type Severity Reaction Status Date / Time No Known Allergies Allergy Verified 05/10/16 14:00 Physical Exam Vitals: Vital Signs Temp Pulse Resp BP Pulse Ox 05/12/16 08:00 96.7 F L 89 16 102/67 97 05/12/16 04:00 96.8 F L 94 16 94/62 97 05/11/16 23:20 97.1 F L 85 16 95/58 95 05/11/16 20:00 97 F L 86 16 149/66 97 05/11/16 16:00 97.1 F L 87 16 95/61 98 05/11/16 11:16 81 20 05/11/16 11:15 96.2 F L 81 20 110/72 100 Intake and Output 05/11/16 05/12/16 05/12/16 22:59 06:59 14:59 Intake Total 150 450 120 Output Total 250 125 100 Balance -100 325 20 Intake: IV 450 Sodium Chloride 0.9% 1, 450 000 ml @ 75 mls/hr IV . [id number] GARY Rx#:[id number] Intake, IV Titration 50 Amount cefTRIAXone 1,000 mg In 50 Sodium Chloride 0.9% 50 ml @ 100 mls/hr IVPB Q24HR GARY Rx#:[id number] Oral 100 120 Output: Urine 250 125 100 Uretheral (Montes) 50 100 Other: Voiding Method Indwelling Catheter Indwelling Catheter Indwelling Catheter General appearance: The patient is alert, oriented, in no acute distress. HET: Head is normocephalic and atraumatic. Pupils are equal and reactive. Oropharynx is clear without lesions. Neck: Supple without lymphadenopathy. Trachea midline. Heart: S1 S2. Regular rate and rhythm. Lungs: No crackles or wheezes are heard. Abdomen: Soft, distended with moderate ascites with bowel sounds. No peritoneal signs. No palpable organomegaly or masses. Extremities: No evidence of asterixis. Normal skin color and turgor. No cyanosis, rash, ulceration, clubbing, or edema. Radial and pedal pulses are 2/ 4 bilaterally. Neurological: No focal deficits. Strength and sensation are grossly intact. Results CBC & Chem 7: 05/12/16 06:28 05/12/16 06:28 Labs: Abnormal Lab Results - Last 24 Hours (Table) 05/12/16 05/12/16 05/12/16 Range/Units 06:28 06:28 06:28 RBC 2.78 L (4.30-5.90) m/uL Hgb 9.2 L D (13.0-17.5) gm/dL Hct 29.6 L (39.0-53.0) % MCV 106.4 H (80.0-100.0) fL Plt Count 62 L (150-450) k/uL Lymphocytes # 0.4 L (1.0-4.8) k/uL PT (9.0-12.0) sec Sodium 134 L (137-145) mmol/L Carbon Dioxide 20 L (22-30) mmol/L BUN 58 H (9-20) mg/dL Creatinine 2.60 H (0.66-1.25) mg/dL Glucose 145 H (74-99) mg/dL Plasma Lactic Acid Sabas 3.1 H* (0.7-2.0) mmol/L Magnesium 2.4 H (1.6-2.3) mg/dL Total Bilirubin 3.3 H (0.2-1.3) mg/dL Alkaline Phosphatase 138 H (38-126) U/L Ammonia 82 H (<30) umol/L Total Protein 5.4 L (6.3-8.2) g/dL Albumin 2.5 L (3.5-5.0) g/dL 05/12/16 Range/Units 06:28 RBC (4.30-5.90) m/uL Hgb (13.0-17.5) gm/dL Hct (39.0-53.0) % MCV (80.0-100.0) fL Plt Count (150-450) k/uL Lymphocytes # (1.0-4.8) k/uL PT 14.2 H (9.0-12.0) sec Sodium (137-145) mmol/L Carbon Dioxide (22-30) mmol/L BUN (9-20) mg/dL Creatinine (0.66-1.25) mg/dL Glucose (74-99) mg/dL Plasma Lactic Acid Sabas (0.7-2.0) mmol/L Magnesium (1.6-2.3) mg/dL Total Bilirubin (0.2-1.3) mg/dL Alkaline Phosphatase (38-126) U/L Ammonia (<30) umol/L Total Protein (6.3-8.2) g/dL Albumin (3.5-5.0) g/dL Microbiology - Last 24 Hours (Table) 05/11/16 16:02 Urine Culture - Preliminary Urine,Catheterized Assessment and Plan (1) Hepatic encephalopathy Status: Acute (2) Coagulopathy Status: Chronic (3) Renal failure Status: Chronic (4) Cirrhosis of liver with ascites Status: Chronic (5) Hepatitis C Status: Chronic (6) Chronic kidney disease, stage 3 Status: Chronic (7) Hepatorenal syndrome Status: Chronic (8) Thrombocytopenia Status: Chronic Plan: 1. Therapeutic paracentesis. 2. Continue lactulose 4 times daily; titrate for 3 bowel movements a day. Will add Xifaxan 550 mg twice daily. Repeat ammonia level in the a.m. 3. Will follow with you. Thank you for this kind referral and the opportunity to participate in the care of your patient. This consultation was discussed with Dr. Garcia. The impression and plan of care have been directed as dictated.
[2016-05-12] MEDS: ALBUMIN HUMAN 25% 50 ML in EMPTY BAG 1 BAG IVPB SCH ×4 (11:44→17:18)
[2016-05-12] MEDS: SODIUM CHLORIDE 0.9% 1,000 ML IV SCH (11:45)
[2016-05-12] MEDS: RIFAXIMIN 550 MG TABLET PO SCH ×2 (13:59→20:24)
--- NOTE | 2016-05-12 17:11 | US ---
EXAMINATION TYPE: US paracentesis abd w/image DATE OF EXAM: 05/12/2016 3:12 PM COMPARISON: NONE HISTORY: Ascites. PROCEDURE: Maximal barrier technique was utilized. The skin overlying a suitable pocket of fluid was localized with ultrasound and the overlying skin was prepped and draped. Ultrasound was utilized with sterile technique. Lidocaine was used for local anesthesia and a skin jia made with a scalpel. Catheter was advanced under direct ultrasound guidance into a suitable pocket of fluid and approximately 4.1 liter s of serous fluid were removed. Catheter was withdrawn and hemostasis achieved. There is no immedia te complication; the patient is discharged in stable condition. IMPRESSION: STATUS POST ULTRASOUND GUIDED PARACENTESIS FOR PALLIATION OF ASCITES. THIS PROCEDURE WA S PERFORMED BY THE UNDERSIGNED.
[2016-05-12] MEDS ORDERED: DIAZEPAM 5 MG TAB PO PRN (17:22)
--- NOTE | 2016-05-12 20:22 | PN ---
DATE OF SERVICE: 05/12/2016 This 65-year-old gentleman admitted with change in mental status has possibly acute on chronic hepatic encephalopathy. The patient also had cirrhosis of the liver and acute renal failure also. The patient seen by multiple consultants, including Nephrology and Gastroenterology. The patient is being closely monitored. About 5 L paracentesis has been done, which is therapeutic at this time. Patient is feeling much better. Ammonia is still elevated. Nephrology is seeing about nonoliguric acute kidney injury, possibly related to prerenal factors, diuresis and hypotension. PAST MEDICAL HISTORY: Reviewed. REVIEW OF SYSTEMS: CARDIOVASCULAR: No angina or palpitations. RESPIRATORY: As mentioned earlier. GI: As mentioned earlier. : As mentioned earlier. Current medications are reviewed and include: 1. Rocephin 1 g daily. 2. Vitamin D3 1000 daily. 3. Celexa 40 mg daily. 4. Vitamin B12 500 mg daily. 5. Flexeril 10 mg daily. 6. Cymbalta 20 mg daily. 7. Proscar 5 mg daily. 8. Folic acid 1 mg daily. 9. Lasix 40 mg daily. 10. Cephulac 30 mg p.o. q.i.d. 11. Claritin 10 mg daily. 13. Morphine sulfate 1 mg q.4 p.r.n. 14. Multivitamins 1 p.o. daily. 15. Harvoni 1 tablet p.o. daily. 16. Zofran. 17. Protonix 40 mg daily. 18. Ribavirin 600 mg p.o. b.i.d. 19. Rifaximin 550 mg p.o. b.i.d. 20. Hytrin 20 mg p.o. q.h.s. 22. Ultram 50 mg p.r.n. On physical exam, patient alert and oriented x3. Pulse 75, blood pressure 112/66, respirations 16, temperature 97.6, pulse ox 100% on room air. HEENT: Conjunctivae normal. Oral mucosa moist. The neck has no jugular venous distension. No carotid bruits. No lymph node enlargement. CARDIOVASCULAR: S1 and S2 muffled. RESPIRATORY: Breath sounds diminished in the bases. A few scattered rhonchi. ABDOMEN: Soft, distended. Abdominal wall hernia present. NERVOUS SYSTEM: Diffusely weak. LABS: WBC 6.8, hemoglobin is 9.2. Sodium 130, potassium 3.9, creatinine is 2.60. Lactic acid is 3.1. Bilirubin is 3.3, AST, ALT noted. ASSESSMENT: 1. Change in mental status, acute on chronic hepatic encephalopathy with hyperammonemia present on admission. 2. Cirrhosis of the liver possibly secondary to hepatitis C on Harvoni. 3. Acute renal failure, possible prerenal acute tubular necrosis secondary to hypotension, diuresis. 4. Possible hepatorenal syndrome. 5. Hyponatremia. 6. Hyperkalemia. 7. Increased plasma lactic acid. Rule out sepsis. 8. Hyperammonemia. 9. Troponin 0.0590. 10. Anemia, macrocytic anemia, secondary to liver disease and cirrhosis of liver. 11. Thrombocytopenia. 12. Hypertension. 13. Hyperlipidemia. 14. Gastroesophageal reflux disease. 15. History of memory impairment. 16. Previous history of recurrent encephalopathy. 17. Thrombocytopenia. 18. Chronic kidney disease stage 2 at baseline. 19. 2016 paracentesis and 8.5 L of fluid removal. 20. Depression. 21. FULL CODE. RECOMMENDATIONS AND DISCUSSION: Recommend to continue current medications, continue with monitoring and symptomatic treatment. Currently the patient is on cautious IV fluids. Otherwise, continue the rest of the medications. Monitor renal functions. Empiric antibiotics. Cultures are negative so far. Closely follow with Gastroenterology as well as Nephrology. The patient does have apparently [facility]. Guarded prognosis. Further recommendations to follow. [facility]
[2016-05-12] MEDS: TERAZOSIN 1 MG CAP PO SCH (20:23)
[2016-05-12] MEDS: RIBAVIRIN 200 MG PO SCH (20:40)
[2016-05-13] MEDS: SODIUM CHLORIDE 0.9% 1,000 ML IV SCH ×2 (01:45→08:11)
[2016-05-13] MEDS: PANTOPRAZOLE 40 MG TABLET PO SCH (06:23)
[2016-05-13 06:27] LABS: Basophils % (A) 0 %; CH 32.6; CHCM 30.8; Eosinophils # (A) 0.2 k/uL (0-0.7); Eosinophils % (A) 4 %; HDW 2.45; HGB 8.5 gm/dL (13.0-17.5); Hypochromasia Slight; Luc # (Auto) 0.14; Luc % (Auto) 2; Lymphocytes # (A) 0.3 k/uL (1.0-4.8); Lymphocytes % (A) 6 %; MCH 33.6 pg (25.0-35.0); MCHC 31.6 g/dL (31.0-37.0); MCV 106.4 fL (80.0-100.0); Macrocytosis Moderate; Monocytes # (A) 0.3 k/uL (0-1.0); Monocytes % (A) 6 %; Neutrophils # (A) 4.7 k/uL (1.3-7.7); Neutrophils % (A) 81 %; RBC 2.53 m/uL (4.30-5.90); RDW 14.6 % (11.5-15.5); WBC 5.7 k/uL (3.8-10.6); WBC (Perox) 6.24
[2016-05-13 06:38] LABS: Calcium 8.5 mg/dL (8.4-10.2); Potassium 3.8 mmol/L (3.5-5.1); Total Bilirubin 3.8 mg/dL (0.2-1.3); Total Protein 5.7 g/dL (6.3-8.2)
[2016-05-13] MEDS: LEDIPASVIR PO SCH (08:16)
[2016-05-13] MEDS: FINASTERIDE 5 MG TAB PO SCH (08:16)
[2016-05-13] MEDS: FOLIC ACID 1 MG TAB PO SCH (08:16)
[2016-05-13] MEDS: SOFOSBUVIR PO SCH (08:16)
[2016-05-13] MEDS: CITALOPRAM HYDROBROMIDE 20 MG TAB PO SCH (08:17)
[2016-05-13] MEDS: CHOLECALCIFEROL 1,000 UNIT TAB PO SCH (08:17)
[2016-05-13] MEDS: RIBAVIRIN 200 MG PO SCH ×2 (08:17→20:15)
[2016-05-13] MEDS: THIAMINE 100 MG TAB PO SCH (08:18)
[2016-05-13] MEDS: DULoxetine HCL 20 MG CAPSULE.DR PO SCH ×2 (08:18→20:16)
[2016-05-13] MEDS: RIFAXIMIN 550 MG TABLET PO SCH ×2 (08:18→20:15)
--- NOTE | 2016-05-13 08:23 | P.PN ---
Subjective Principal diagnosis: Hepatic encephalopathy 65-year-old male with a history of hepatitis C cirrhosis portal hypertension and ascites status post therapeutic paracentesis yesterday was 4.1 m removal. Evaluated for hepatic encephalopathy on admission. Passed 3 bowel movements yesterday. Ammonia 92. Creatinine 2.1 improved. Alert oriented appropriate with conversation. Gram-negative bacilli urine culture. Good urine output. Objective - Vital Signs Vital signs: Vital Signs Temp 97.3 F L 05/13/16 03:53 Pulse 74 05/13/16 03:53 Resp 16 05/13/16 03:53 BP 96/59 05/13/16 03:53 Pulse Ox 97 05/13/16 03:53 Intake & Output 05/12/16 05/13/16 05/13/16 18:59 06:59 18:59 Intake Total 1325 900 Output Total 600 650 Balance 725 250 Weight 74.6 kg Intake: IV 375 900 Sodium Chloride 0.9% 1, 375 900 000 ml @ 75 mls/hr IV . [id number] GARY Rx#:[id number] Intake, IV Titration 50 Amount cefTRIAXone 1,000 mg In 50 Sodium Chloride 0.9% 50 ml @ 100 mls/hr IVPB Q24HR GARY Rx#:[id number] Oral 900 Output: Urine 600 650 Uretheral (Montes) 325 Other: Voiding Method Indwelling Catheter Indwelling Catheter # Bowel Movements 0 - Exam General appearance: The patient is alert, oriented, in no acute distress. HET: Head is normocephalic and atraumatic. Pupils are equal and reactive. Oropharynx is clear without lesions. Neck: Supple without lymphadenopathy. Trachea midline. Heart: S1 S2. Regular rate and rhythm. Lungs: No crackles or wheezes are heard. Abdomen: Soft, distended with mild ascites with bowel sounds. No peritoneal signs. No palpable organomegaly or masses. Extremities: No evidence of asterixis. Normal skin color and turgor. No cyanosis, rash, ulceration, clubbing, or edema. Radial and pedal pulses are 2/ 4 bilaterally. Montes clear priscilla urine. Neurological: No focal deficits. Strength and sensation are grossly intact - Labs CBC & Chem 7: 05/13/16 05:56 05/13/16 05:56 Labs: Abnormal Lab Results - Last 24 Hours (Table) 05/12/16 05/12/16 05/13/16 Range/Units 06:28 06:28 05:56 RBC 2.53 L (4.30-5.90) m/uL Hgb 8.5 L (13.0-17.5) gm/dL Hct 27.0 L (39.0-53.0) % MCV 106.4 H (80.0-100.0) fL Plt Count 53 L (150-450) k/uL Lymphocytes # 0.3 L (1.0-4.8) k/uL PT 14.2 H (9.0-12.0) sec Sodium (137-145) mmol/L BUN (9-20) mg/dL Creatinine (0.66-1.25) mg/dL Glucose (74-99) mg/dL Plasma Lactic Acid Sabas 3.1 H* (0.7-2.0) mmol/L Total Bilirubin (0.2-1.3) mg/dL Ammonia 82 H (<30) umol/L Total Protein (6.3-8.2) g/dL Albumin (3.5-5.0) g/dL 05/13/16 05/13/16 Range/Units 05:56 05:56 RBC (4.30-5.90) m/uL Hgb (13.0-17.5) gm/dL Hct (39.0-53.0) % MCV (80.0-100.0) fL Plt Count (150-450) k/uL Lymphocytes # (1.0-4.8) k/uL PT (9.0-12.0) sec Sodium 135 L (137-145) mmol/L BUN 55 H (9-20) mg/dL Creatinine 2.15 H (0.66-1.25) mg/dL Glucose 103 H (74-99) mg/dL Plasma Lactic Acid Sabas (0.7-2.0) mmol/L Total Bilirubin 3.8 H (0.2-1.3) mg/dL Ammonia 92 H (<30) umol/L Total Protein 5.7 L (6.3-8.2) g/dL Albumin 2.9 L (3.5-5.0) g/dL Microbiology - Last 24 Hours (Table) 05/11/16 16:02 Urine Culture - Preliminary Urine,Catheterized Gram Neg Bacilli 05/11/16 15:34 Blood Culture - Preliminary Blood No Growth after 24 hours Assessment and Plan (1) Hepatic encephalopathy Status: Acute (2) UTI (urinary tract infection) Narrative/Plan: Gram-negative Status: Acute (3) Coagulopathy Status: Chronic (4) Renal failure Status: Chronic (5) Cirrhosis of liver with ascites Status: Chronic (6) Hepatitis C Status: Chronic (7) Chronic kidney disease, stage 3 Status: Chronic (8) Hepatorenal syndrome Status: Chronic (9) Thrombocytopenia Status: Chronic Plan: 1. Status post paracentesis. IV antibiotics for UTI. 2. Continue lactulose 4 times daily; titrate for 3 bowel movements a day. Continue with Xifaxan 550 mg twice daily. Repeat ammonia level in the a.m. 3. Will follow with you. Assessment and plan a care discussed with Dr. Garcia.
[2016-05-13] MEDS ORDERED: LACTULOSE 20 GM/30 ML CUP PO SCH (09:00)
[2016-05-13] MEDS: LACTULOSE 20 GM/30 ML CUP PO SCH ×4 (09:02→22:21)
--- NOTE | 2016-05-13 09:23 | P.PN ---
Subjective Patient is seen in follow-up for acute kidney injury. Patient presented with altered mental status. He has history of hepatitis C and liver cirrhosis. He does have chronic kidney disease stage III with baseline creatinine in the range of 1.1-1.3. Creatinine was elevated at 3.09 and is improved to 2.15 today. His appetite is fair. He is a Montes catheter in place and is nonoliguric. Denies any chest pain or shortness of breath. Vital signs are stable. General: The patient appeared well nourished and normally developed. HEENT: Head exam is unremarkable. Neck is without jugular venous distension. LUNGS: Lungs are clear to auscultation and percussion. Breath sounds decreased. HEART: Rate and Rhythm are regular. First and second heart sounds normal. No murmurs, rubs or gallops. ABDOMEN: Abdominal exam reveals normal bowel sounds. Moderately distended. EXTREMITITES: No clubbing, cyanosis, or edema. Objective - Vital Signs Vital signs: Vital Signs Temp 96.8 F L 05/13/16 08:00 Pulse 75 05/13/16 08:00 Resp 18 05/13/16 08:00 BP 118/58 05/13/16 08:00 Pulse Ox 99 05/13/16 08:00 Intake & Output 05/12/16 05/13/16 05/13/16 18:59 06:59 18:59 Intake Total 1325 900 180 Output Total 600 650 150 Balance 725 250 30 Weight 74.6 kg Intake: IV 375 900 Sodium Chloride 0.9% 1, 375 900 000 ml @ 75 mls/hr IV . [id number] [facility] Rx#:[id number] Intake, IV Titration 50 Amount cefTRIAXone 1,000 mg In 50 Sodium Chloride 0.9% 50 ml @ 100 mls/hr IVPB Q24HR [facility] Rx#:[id number] Oral 900 180 Output: Urine 600 650 150 Uretheral (Montes) 325 150 Other: Voiding Method Indwelling Catheter Indwelling Catheter Indwelling Catheter # Bowel Movements 0 1 - Labs CBC & Chem 7: 05/13/16 05:56 05/13/16 05:56 Labs: Abnormal Lab Results - Last 24 Hours (Table) 05/13/16 05/13/16 05/13/16 Range/Units 05:56 05:56 05:56 RBC 2.53 L (4.30-5.90) m/uL Hgb 8.5 L (13.0-17.5) gm/dL Hct 27.0 L (39.0-53.0) % MCV 106.4 H (80.0-100.0) fL Plt Count 53 L (150-450) k/uL Lymphocytes # 0.3 L (1.0-4.8) k/uL Sodium 135 L (137-145) mmol/L BUN 55 H (9-20) mg/dL Creatinine 2.15 H (0.66-1.25) mg/dL Glucose 103 H (74-99) mg/dL Total Bilirubin 3.8 H (0.2-1.3) mg/dL Ammonia 92 H (<30) umol/L Total Protein 5.7 L (6.3-8.2) g/dL Albumin 2.9 L (3.5-5.0) g/dL Microbiology - Last 24 Hours (Table) 05/11/16 16:02 Urine Culture - Preliminary Urine,Catheterized Gram Neg Bacilli 05/11/16 15:34 Blood Culture - Preliminary Blood No Growth after 24 hours Assessment and Plan Plan: Assessment: #1. Nonoliguric acute kidney injury. Mostly prerenal in nature related to hypotension and diuretics. Improving with IV hydration. #2. Chronic kidney disease stage III with baseline creatinine in the range of 1.1-1.3 secondary to hepatorenal syndrome. Urinalysis is benign. #3. Liver cirrhosis with ascites status post paracentesis on May 12 at 4.1 L drained. He did receive 50 g of albumin. #4. Lactic acidosis related to intravascular volume depletion as well as liver disease. Improved. #5. Hyperkalemia secondary to Aldactone as well as acute kidney injury. Resolved. #6. Hepatic encephalopathy. Improving. Plan: Continue normal saline to be run at 75 mL an hour. Avoid nephrotoxic agents and hypotensive episodes. Strict intake and output. Repeat electrolytes in the morning. Encourage oral intake. Hold diuretics for now. Will resume in the next 24-48 hours depending on his renal function.
[2016-05-13 11:43] LABS: % Iron Saturation 76.3 % (20-50)
[2016-05-13] MEDS: CYANOCOBALAMIN 500 MCG TAB PO SCH (11:59)
[2016-05-13] MEDS: MULTIVITAMINS, THERA 1 EACH TAB PO SCH (12:00)
--- NOTE | 2016-05-13 20:10 | MR ---
EXAMINATION TYPE: MR MRCP DATE OF EXAM: 05/13/2016 7:48 PM COMPARISON: NONE HISTORY: cirrhosis, hepatic encephalopathy, ascites Standard multiplanar, multisequence MRI departmental protocol Multiplanar, multisequence images of the biliary tree were acquired. FINDINGS: The liver is shrunken and nodular in keeping with the patient's history of cirrhosis. Liver length is only 11 cm. The spleen is upper limits of normal in size measuring 13 cm. In phase and out of phase imaging fails to demonstrate significant fatty infiltration of the liver. The adrenal glands appear normal. Limited views of the pancreas are unremarkable. There are multiple, bilateral simple appearing renal cysts. There is fairly massive ascites. There is mildly dilated large bowel in the upper abdomen. The biliary she was poorly visualized. There was no definite ductal dilatation. No definite ductal ca lculi are seen. IMPRESSION: 1. Limited study. 2. Very limited views of the biliary tree failed to show a definite abnormality. 3. Findings consistent with cirrhosis of the liver. 4. Evidence of splenic varices. 5. Multiple, simple appearing, bilateral renal cysts.
[2016-05-13] MEDS: TERAZOSIN 1 MG CAP PO SCH (20:17)
--- NOTE | 2016-05-13 23:13 | PN ---
[id number]-[id number]-old admitted with altered mental status secondary to hepatic encephalopathy. Patient has had multiple admissions due to 1) hepatic encephalopathy, 2) symptomatic ascites. Patient does not have any abdominal pain. There were no signs or symptoms of peritonitis, as per Gastroenterology. I do not believe patient has urinary tract infection. Rocephin will be discontinued. Will discontinue ( ) and patient was started on Rifaximin and lactulose. Patient was on lactulose at home but with ( ) encephalopathy, because of which patient was started on Rifaximin. Patient has cardiorenal syndrome, because of which patient has poor ( ). Nephrology evaluated the patient and they are holding spironolactone, Aldactone and Lasix. REVIEW OF SYSTEMS: CARDIOVASCULAR: No chest pain, no orthopnea, no PND, no palpitations. PULMONARY: Denied any shortness of breath. No cough or hemoptysis. GASTROINTESTINAL: No diarrhea, nausea or vomiting. No abdominal pain. Normoactive bowel sounds. NEUROLOGIC: No headaches, no weakness, no numbness. Medications were reviewed. Medication changes as mentioned in the interval history. PHYSICAL EXAMINATION: VITAL SIGNS: Temperature 96.9, pulse of 60, respiratory rate of 16. Blood pressure is 111/75. Saturating at 99% on room air. GENERAL: The patient is alert and oriented x3, not in any acute distress. Well developed, well nourished. HEENT: Pupils are round and equally reacting to light. EOMI. No scleral icterus. No conjunctival pallor. Normocephalic, atraumatic. No pharyngeal erythema. No thyromegaly. CARDIOVASCULAR: S1 and S2 present. No murmurs, rubs, or gallops. PULMONARY: Chest is clear to auscultation, no wheezing or crackles. ABDOMEN: Improved ascites, but patient still has shifting dullness. MUSCULOSKELETAL: No joint swelling or deformity. EXTREMITIES: No cyanosis, clubbing, or pedal edema. NEUROLOGICAL: Gross neurological examination did not reveal any focal deficits. SKIN: No rashes. Encephalopathy improved. LABORATORY DATA: CBC, CMP are abnormal for mildly low sodium of 135, BUN of 55, creatinine of 2.15, which improved compared to yesterday after ( ) of diuretic therapy. ASSESSMENT AND PLAN: 1. Acute on chronic hepatic encephalopathy. Patient has repeat ammonia level tomorrow. Patient is on lactulose and Rifaximin for that. 2. Cirrhosis secondary to hepatitis C, for which patient is on Harvoni treatment. 3. Acute on chronic renal failure. Patient probably has hepatorenal syndrome. 4. Hypervolemic hyponatremia, which improved at this point of time. 5. Hyperkalemia secondary to Aldactone, which was discontinued, with contribution from acute renal failure. 6. Elevated lactic acid secondary to hepatic dysfunction. 7. Mildly elevated troponin secondary to chronic kidney disease. 8. Pancytopenia secondary to alcoholic liver disease due to cirrhosis. 9. Macrocytic anemia secondary to cirrhosis. Patient had therapeutic paracentesis during this hospitalization with removal of around 5 L of fluid. Patient will be transferred out of [facility]. Urine cultures are positive for Gram-negative bacilli. Will continue to follow those cultures.
[2016-05-14] MEDS: SODIUM CHLORIDE 0.9% 1,000 ML IV SCH ×2 (06:36→11:35)
[2016-05-14] MEDS: PANTOPRAZOLE 40 MG TABLET PO SCH (08:53)
[2016-05-14] MEDS: FINASTERIDE 5 MG TAB PO SCH (08:53)
[2016-05-14] MEDS: LACTULOSE 20 GM/30 ML CUP PO SCH ×4 (08:53→21:14)
[2016-05-14] MEDS: SOFOSBUVIR PO SCH (08:53)
[2016-05-14] MEDS: DULoxetine HCL 20 MG CAPSULE.DR PO SCH ×2 (08:53→20:42)
[2016-05-14] MEDS: CITALOPRAM HYDROBROMIDE 20 MG TAB PO SCH (08:53)
[2016-05-14] MEDS: LEDIPASVIR PO SCH (08:53)
[2016-05-14] MEDS: FOLIC ACID 1 MG TAB PO SCH (08:53)
[2016-05-14] MEDS: CHOLECALCIFEROL 1,000 UNIT TAB PO SCH (08:53)
[2016-05-14] MEDS: RIFAXIMIN 550 MG TABLET PO SCH ×2 (08:54→20:41)
[2016-05-14] MEDS: RIBAVIRIN 200 MG PO SCH ×2 (08:54→20:41)
[2016-05-14] MEDS: THIAMINE 100 MG TAB PO SCH (08:55)
[2016-05-14 09:09] LABS: Basophils % (A) 0 %; CH 32.4; Eosinophils # (A) 0.2 k/uL (0-0.7); Eosinophils % (A) 3 %; HCT 28.3 % (39.0-53.0); Hypochromasia Marked; Luc % (Auto) 2; Lymphocytes # (A) 0.3 k/uL (1.0-4.8); Lymphocytes % (A) 5 %; MCH 34.4 pg (25.0-35.0); MCHC 31.7 g/dL (31.0-37.0); MCV 108.5 fL (80.0-100.0); Macrocytosis Marked; Mean Platelet Volume 8.8; Monocytes # (A) 0.4 k/uL (0-1.0); Monocytes % (A) 6 %; Neutrophils # (A) 5.1 k/uL (1.3-7.7); Neutrophils % (A) 85 %; RBC 2.61 m/uL (4.30-5.90); RDW 14.6 % (11.5-15.5); WBC (Perox) 6.48
[2016-05-14 09:30] LABS: Calcium 8.7 mg/dL (8.4-10.2); Total Protein 5.8 g/dL (6.3-8.2)
--- NOTE | 2016-05-14 10:05 | P.PN ---
Subjective Principal diagnosis: Hepatic encephalopathy 65-year-old male with a history of hepatitis C cirrhosis portal hypertension and ascites status post therapeutic paracentesis 2 days ago 4.1 L removal. Evaluated for hepatic encephalopathy on admission. Passed 3 bowel movements yesterday. Ammonia 18. Creatinine 1.8 improved. Alert oriented appropriate with conversation. Gram-negative bacilli Citrobacter urine culture. Good urine output. Objective - Vital Signs Vital signs: Vital Signs Temp 96.3 F L 05/14/16 07:00 Pulse 88 05/14/16 07:00 Resp 16 05/14/16 07:00 BP 93/51 05/14/16 07:00 Pulse Ox 95 05/14/16 07:00 Intake & Output 05/13/16 05/14/16 05/14/16 18:59 06:59 18:59 Intake Total 1607 200 Output Total 325 675 Balance 1282 -475 Weight 54 kg Intake: IV 900 Sodium Chloride 0.9% 1, 900 000 ml @ 75 mls/hr IV . [id number] [facility] Rx#:[id number] Intake, IV Titration 50 Amount cefTRIAXone 1,000 mg In 50 Sodium Chloride 0.9% 50 ml @ 100 mls/hr IVPB Q24HR [facility] Rx#:[id number] Oral 657 200 Output: Urine 325 675 Uretheral (Montes) 325 675 Other: Voiding Method Indwelling Catheter Indwelling Catheter # Bowel Movements 1 1 - Exam General appearance: The patient is alert, oriented, in no acute distress. HET: Head is normocephalic and atraumatic. Pupils are equal and reactive. Oropharynx is clear without lesions. Neck: Supple without lymphadenopathy. Trachea midline. Heart: S1 S2. Regular rate and rhythm. Lungs: No crackles or wheezes are heard. Abdomen: Soft, distended with moderate ascites with bowel sounds. No peritoneal signs. No palpable organomegaly or masses. Extremities: No evidence of asterixis. Normal skin color and turgor. No cyanosis, rash, ulceration, clubbing, or edema. Radial and pedal pulses are 2/ 4 bilaterally. Montes clear priscilla urine. Neurological: No focal deficits. Strength and sensation are grossly intact - Labs CBC & Chem 7: 05/14/16 08:34 05/14/16 08:34 Labs: Abnormal Lab Results - Last 24 Hours (Table) 05/13/16 05/14/1617 Range/Units 05:56 08:34 08:34 RBC 2.61 L (4.30-5.90) m/uL Hgb 9.0 L (13.0-17.5) gm/dL Hct 28.3 L (39.0-53.0) % MCV 108.5 H (80.0-100.0) fL Sodium 134 L (137-145) mmol/L Carbon Dioxide 21 L (22-30) mmol/L BUN 51 H (9-20) mg/dL Creatinine 1.84 H (0.66-1.25) mg/dL Glucose 105 H (74-99) mg/dL TIBC 198 L (261-462) ug/dL % Saturation 76.3 H (20-50) % Total Bilirubin 6.0 H (0.2-1.3) mg/dL Alkaline Phosphatase 141 H (38-126) U/L Total Protein 5.8 L (6.3-8.2) g/dL Albumin 2.9 L (3.5-5.0) g/dL Microbiology - Last 24 Hours (Table) 05/11/16 16:02 Urine Culture - Final Urine,Catheterized Citrobacter freundii 05/11/16 15:34 Blood Culture - Preliminary Blood No Growth after 48 hours Assessment and Plan (1) Hepatic encephalopathy Status: Acute (2) UTI (urinary tract infection) Narrative/Plan: Gram-negative Citrobacter Status: Acute (3) Coagulopathy Status: Chronic (4) Renal failure Status: Chronic (5) Cirrhosis of liver with ascites Status: Chronic (6) Hepatitis C Status: Chronic (7) Chronic kidney disease, stage 3 Status: Chronic (8) Hepatorenal syndrome Status: Chronic (9) Thrombocytopenia Status: Chronic Plan: 1. Status post paracentesis. IV antibiotics for UTI. 2. Continue lactulose 4 times daily; titrate for 3 bowel movements a day. Continue with Xifaxan 550 mg twice daily. Repeat ammonia level in the a.m. patient may require paracentesis prior to discharge as ascites seems to be increased today compared to yesterday's exam. 3. Will follow with you and reevaluate tomorrow for possible paracentesis. Assessment and plan a care discussed with Dr. Garcia.
[2016-05-14 10:07] LABS: Manual Review Performed
--- NOTE | 2016-05-14 11:06 | P.PN ---
Subjective Patient is seen in follow-up for acute kidney injury. Patient presented with altered mental status. He has history of hepatitis C and liver cirrhosis. He does have chronic kidney disease stage III with baseline creatinine in the range of 1.1-1.3. Creatinine was elevated at 3.09 and is improved to 1.84 today. His appetite is fair. He is a Montes catheter in place and is nonoliguric. Denies any chest pain or shortness of breath. Vital signs are stable. General: The patient appeared well nourished and normally developed. HEENT: Head exam is unremarkable. Neck is without jugular venous distension. LUNGS: Lungs are clear to auscultation and percussion. Breath sounds decreased. HEART: Rate and Rhythm are regular. First and second heart sounds normal. No murmurs, rubs or gallops. ABDOMEN: Abdominal exam reveals normal bowel sounds. Moderately distended. EXTREMITITES: No clubbing, cyanosis, or edema. Objective - Vital Signs Vital signs: Vital Signs Temp 96.3 F L 05/14/16 07:00 Pulse 88 05/14/16 07:00 Resp 16 05/14/16 07:00 BP 93/51 05/14/16 07:00 Pulse Ox 95 05/14/16 07:00 Intake & Output 05/13/16 05/14/16 05/14/16 18:59 06:59 18:59 Intake Total 1607 200 Output Total 325 675 Balance 1282 -475 Weight 54 kg Intake: IV 900 Sodium Chloride 0.9% 1, 900 000 ml @ 75 mls/hr IV . [id number] [facility] Rx#:[id number] Intake, IV Titration 50 Amount cefTRIAXone 1,000 mg In 50 Sodium Chloride 0.9% 50 ml @ 100 mls/hr IVPB Q24HR GARY Rx#:[id number] Oral 657 200 Output: Urine 325 675 Uretheral (Montes) 325 675 Other: Voiding Method Indwelling Catheter Indwelling Catheter Indwelling Catheter # Bowel Movements 1 1 - Labs CBC & Chem 7: 05/14/16 08:34 05/14/16 08:34 Labs: Abnormal Lab Results - Last 24 Hours (Table) 05/13/16 05/14/16 05/14/16 Range/Units 05:56 08:34 08:34 RBC 2.61 L (4.30-5.90) m/uL Hgb 9.0 L (13.0-17.5) gm/dL Hct 28.3 L (39.0-53.0) % MCV 108.5 H (80.0-100.0) fL Plt Count 53 L (150-450) k/uL Lymphocytes # 0.3 L (1.0-4.8) k/uL Sodium 134 L (137-145) mmol/L Carbon Dioxide 21 L (22-30) mmol/L BUN 51 H (9-20) mg/dL Creatinine 1.84 H (0.66-1.25) mg/dL Glucose 105 H (74-99) mg/dL TIBC 198 L (261-462) ug/dL % Saturation 76.3 H (20-50) % Total Bilirubin 6.0 H (0.2-1.3) mg/dL Alkaline Phosphatase 141 H (38-126) U/L Total Protein 5.8 L (6.3-8.2) g/dL Albumin 2.9 L (3.5-5.0) g/dL Microbiology - Last 24 Hours (Table) 05/11/16 16:02 Urine Culture - Final Urine,Catheterized Citrobacter freundii 05/11/16 15:34 Blood Culture - Preliminary Blood No Growth after 48 hours Assessment and Plan Plan: Assessment: #1. Nonoliguric acute kidney injury. Mostly prerenal in nature related to hypotension and diuretics. Improving with IV hydration. #2. Chronic kidney disease stage III with baseline creatinine in the range of 1.1-1.3 secondary to hepatorenal syndrome. Urinalysis is benign. #3. Liver cirrhosis with ascites status post paracentesis on May 12 at 4.1 L drained. He did receive 50 g of albumin. #4. Lactic acidosis related to intravascular volume depletion as well as liver disease. Improved. #5. Hyperkalemia secondary to Aldactone as well as acute kidney injury. Resolved. #6. Hepatic encephalopathy. Improving. #7. Anemia. Iron replete. Plan: Continue normal saline to be run at 50 mL an hour. Avoid nephrotoxic agents and hypotensive episodes. Strict intake and output. May discontinue Montes catheter. Repeat electrolytes in the morning. Encourage oral intake. Continue to hold diuretics for now. Possibly scheduled for another paracentesis tomorrow.
[2016-05-14] MEDS: MULTIVITAMINS, THERA 1 EACH TAB PO SCH (11:34)
[2016-05-14] MEDS: CYANOCOBALAMIN 500 MCG TAB PO SCH (11:34)
[2016-05-14 14:52] VITALS: BMI 20.9
[2016-05-14] MEDS: TERAZOSIN 1 MG CAP PO SCH (20:41)
--- NOTE | 2016-05-15 06:29 | P.CONS ---
History of Present Illness - Chief Complaint Gait disturbance - History of Present Illness I had the op to see patient for inpatient rehab consultation with regard to hepatic encephalopathy and resultant confusion and gait disturbance. He was admitted to [facility] May 10 with the above. Seen by Dr. Hester for acute kidney injury. Seen by cardiology. Cholangiogram MRI demonstrated cirrhosis, splenic varices and bilateral renal cysts. Limited study. A paracentesis ultrasound performed. Abdominal ultrasound demonstrated bilateral renal cysts and ascites. Chest x-ray demonstrated elevated right hemidiaphragm and small pleural effusions. Physical therapy reports supervision for bed mobility and sitting. Minimal assistance to stand, transfer, gait 100 feet with roller walker. Previous functional history: As elicited from patient. 65-year-old right- handed white male who is lives in one form with and grandson. generally does the cooking and laundry currently. Grandson does the heavy work and housework. does the driving. Patient requires assistance for sitdown shower, dressing, toileting. Uses roller walker for gait. Regular doctors Dr. Norris. Family history of heart attack and father and brothers. Review of Systems Review of systems: ENT: Denies sneezes or discharge. Eyes: Denies discharge or photophobia. Cardiac: Denies chest pain or palpitation. Pulmonary: Denies cough or shortness of breath. Gastrointestinal: Some abdominal tightness. Genitourinary: Denies discharge or frequency. Musculoskeletal: Denies muscle or bone aches. Thin limbs. Neurologic: Generalized weakness especially with standing. Nursing reports confusion with standing. Endocrine: Denies shakes or sweats. Oncology: Denies cancers. Dermatologic: Denies rash, itching, pruritus. ALLERGY/immunology: Denies sneezes, rashes. Past Medical History Past Medical History: Cancer, GERD/Reflux, Hyperlipidemia, Hypertension, Liver Disease, Memory Impairment, Osteoarthritis (OA), Renal Disease, Vascular Disorder Additional Past Medical History / Comment(s): Hep C with interferon therapy, cirrhosis, prior history of memory impairment secondary to hepatic encephalopathy, chronic fatigue, thrombocytopenia, leukopenia, hx of HTN but recently taken off antihypertensive medication, bilateral feet neuropathy, cervical OA, CKD stage II, chronic low back pain and neck pain, sinus problems at times, skin cancer with removal, ascites History of Any Multi-Drug Resistant Organisms: None Reported Past Surgical History: Cholecystectomy, Hernia Repair Additional Past Surgical History / Comment(s): 04/14/2016 paracentesis with 9.5 L of fluid removed, cervical surgery, colonoscopies, umbilical hernia repair x 2 , nose and kathleen of head skin cancer removed, multi paracentesis Past Anesthesia/Blood Transfusion Reactions: Postoperative Nausea & Vomiting ( PONV) Additional Past Anesthesia/Blood Transfusion Reaction / Comm: [facility]; pt stated no reaction Past Psychological History: Depression Additional Psychological History / Comment(s): Pt. states he is on depression medication and it has been effective in helping with his depression. Pt resides with his spouse. He uses no assistive device. He drives. Previous suicidal talk according to daughter, patient denies suicidal thoughts at this time. Smoking Status: Former smoker Past Alcohol Use History: None Reported Additional Past Alcohol Use History / Comment(s): Pt smoked from 1964 to 1969. Past Drug Use History: None Reported - Past Family History Mother History Unknown: Yes Family Medical History: Chest Pain / Angina Father History Unknown: Yes Family Medical History: Unable to Obtain Medications and Allergies Home Medications Medication Instructions Recorded Confirmed Type Citalopram Hydrobromide 40 mg PO DAILY 10/22/15 05/10/16 History Pantoprazole [Protonix] 40 mg PO DAILY 10/22/15 05/10/16 History Terazosin [Hytrin] 2 mg PO HS 10/22/15 05/10/16 History Multivitamins, Thera [Multivitamin] 1 tab PO DAILY 12/23/15 05/10/16 History Thiamine [Vitamin B-1] 100 mg PO DAILY 12/23/15 05/10/16 History Cholecalciferol [Vitamin D3] 1,000 unit PO DAILY 02/24/16 05/10/16 History Cyanocobalamin [Vitamin B-12] 500 mcg PO DAILY 02/24/16 05/10/16 History DULoxetine HCL [Cymbalta] 20 mg PO BID 02/24/16 05/10/16 History Finasteride [Proscar] 5 mg PO DAILY 02/24/16 05/10/16 History Loratadine [Claritin] 10 mg PO DAILY PRN 02/24/16 05/10/16 History Methocarbamol [Robaxin] 1,000 mg PO TID PRN 02/24/16 05/10/16 History Ledipasvir/Sofosbuvir [Harvoni 1 tab PO DAILY 03/07/16 05/10/16 History 90-400 mg Tablet] Spironolactone [Aldactone] 100 mg PO DAILY 03/07/16 05/10/16 History Cyclobenzaprine [Flexeril] 10 mg PO TID PRN 04/04/16 05/10/16 History Folic Acid 1 mg PO DAILY 04/04/16 05/10/16 History Ribavirin [Ribasphere] 600 mg PO BID 04/04/16 05/10/16 History Ondansetron [Zofran ODT] 8 mg PO Q8H PRN 05/10/16 05/10/16 History Allergies Allergy/AdvReac Type Severity Reaction Status Date / Time No Known Allergies Allergy Verified 05/10/16 14:00 Physical Exam Vitals: Vital Signs Temp Pulse Resp BP BP BP BP 05/15/16 02:21 86 18 106/50 05/14/16 23:02 93 84/60 05/14/16 23:01 95 61/29 05/14/16 23:00 96.7 F L 92 16 92/64 05/14/16 21:45 96.6 F L 91 16 92/51 05/14/16 19:16 17 05/14/16 15:00 96.4 F L 82 16 96/64 05/14/16 07:00 96.3 F L 88 16 93/51 Pulse Ox 05/15/16 02:21 95 05/14/16 23:02 05/14/16 23:01 05/14/16 23:00 97 05/14/16 21:45 98 05/14/16 19:16 05/14/16 15:00 99 05/14/16 07:00 95 Intake and Output 05/14/16 05/14/16 05/15/16 14:59 22:59 06:59 Intake Total 825 Output Total 250 Balance -250 825 Intake: IV 825 Sodium Chloride 0.9% 1, 825 000 ml @ 75 mls/hr IV . [id number] [facility] Rx#:[id number] Output: Urine 250 Uretheral (Montes) 250 Other: Voiding Method Indwelling Catheter Toilet Bedpan Incontinent # Voids 2 1 # Bowel Movements 3 1 Weight 62.5 kg 62.5 kg 49 kg Patient Weight 05/15/16 06:59 Weight 49 kg Skin: Good color, texture, turgor. General: Thin build and comfortable appearance. Head: Normocephalic, atraumatic. Eyes: Symmetric. Pupils equal round. Ears: Symmetric. Hearing within normal limits. Mouth: Clear. Neck: Supple. Carotid without bruit. Cardiac: Regular rate and rhythm. Lungs: Clear anteriorly and posteriorly. Abdomen: Soft active nontender, protuberant. Extremities: Normal tone. Thin limbs. Neurological: Mental status: Alert, cooperative, pleasant. Cranial nerves: Symmetric facial tone and trapezius. Motor: Able to elevate all limbs off of bed and with active movement at all joints. Sensation: Intact throughout. DTRs: Symmetric and equal throughout. Mobility: Sits and stands contact-guard assistance and verbal cueing. Results CBC & Chem 7: 05/14/16 08:34 05/14/16 08:34 Labs: Abnormal Lab Results - Last 24 Hours (Table) 05/14/16 05/14/16 Range/Units 08:34 08:34 RBC 2.61 L (4.30-5.90) m/uL Hgb 9.0 L (13.0-17.5) gm/dL Hct 28.3 L (39.0-53.0) % MCV 108.5 H (80.0-100.0) fL Plt Count 53 L (150-450) k/uL Lymphocytes # 0.3 L (1.0-4.8) k/uL Sodium 134 L (137-145) mmol/L Carbon Dioxide 21 L (22-30) mmol/L BUN 51 H (9-20) mg/dL Creatinine 1.84 H (0.66-1.25) mg/dL Glucose 105 H (74-99) mg/dL Total Bilirubin 6.0 H (0.2-1.3) mg/dL Alkaline Phosphatase 141 H (38-126) U/L Total Protein 5.8 L (6.3-8.2) g/dL Albumin 2.9 L (3.5-5.0) g/dL Microbiology - Last 24 Hours (Table) 05/11/16 15:34 Blood Culture - Preliminary Blood No Growth after 72 hours Chest x-ray: report reviewed (Elevation right hemidiaphragm and small pleural effusions.) MRI - abdomen: report reviewed (Cholangiogram MRI demonstrated limited study but with cirrhosis, splenic varices and bilateral renal cyst.) Assessment and Plan (1) Hepatic encephalopathy Status: Acute Plan: Impression: 1. Gait disturbance. 2. Hepatic encephalopathy. 3. UTI. 4. Hepatitis C. 5. Hypertension. 6. Hyperlipidemia. 7. History of cancer. 8. Renal disease. 9. Memory impairment. 10. Osteoarthritis. Comments and plan: Physical therapy ongoing. I have added OT and speech. At this time, unsure of patient's current deficits are different from that at home. We'll have rehab patient financial coordinator discussed case with with regard any possible new safety concerns and possible rehab goals. Safety concerns noted but they appear to be long-standing.
[2016-05-15] MEDS: PANTOPRAZOLE 40 MG TABLET PO SCH (08:13)
[2016-05-15] MEDS: SODIUM CHLORIDE 0.9% 1,000 ML IV SCH (08:14)
[2016-05-15] MEDS: LACTULOSE 20 GM/30 ML CUP PO SCH ×4 (08:14→22:14)
[2016-05-15] MEDS: FINASTERIDE 5 MG TAB PO SCH (08:14)
[2016-05-15] MEDS: FOLIC ACID 1 MG TAB PO SCH (08:14)
[2016-05-15] MEDS: DULoxetine HCL 20 MG CAPSULE.DR PO SCH ×2 (08:14→21:27)
[2016-05-15] MEDS: CHOLECALCIFEROL 1,000 UNIT TAB PO SCH (08:14)
[2016-05-15] MEDS: CITALOPRAM HYDROBROMIDE 20 MG TAB PO SCH (08:14)
[2016-05-15] MEDS: SOFOSBUVIR PO SCH (08:15)
[2016-05-15] MEDS: THIAMINE 100 MG TAB PO SCH (08:15)
[2016-05-15] MEDS: RIFAXIMIN 550 MG TABLET PO SCH ×2 (08:15→21:27)
[2016-05-15] MEDS: RIBAVIRIN 200 MG PO SCH ×2 (08:15→21:26)
[2016-05-15] MEDS: LEDIPASVIR PO SCH (08:15)
[2016-05-15 08:46] LABS: Basophils % (A) 0 %; CH 32.8; CHCM 29.6; Eosinophils # (A) 0.1 k/uL (0-0.7); Eosinophils % (A) 2 %; HCT 28.7 % (39.0-53.0); HDW 2.51; HGB 8.6 gm/dL (13.0-17.5); Hypochromasia Marked; Luc # (Auto) 0.07; Luc % (Auto) 1; Lymphocytes # (A) 0.3 k/uL (1.0-4.8); Lymphocytes % (A) 5 %; MCH 33.4 pg (25.0-35.0); MCHC 29.9 g/dL (31.0-37.0); MCV 111.6 fL (80.0-100.0); Macrocytosis Marked; Monocytes # (A) 0.3 k/uL (0-1.0); Monocytes % (A) 5 %; Neutrophils # (A) 5.5 k/uL (1.3-7.7); Neutrophils % (A) 87 %; RBC 2.57 m/uL (4.30-5.90); WBC 6.4 k/uL (3.8-10.6); WBC (Perox) 6.86
[2016-05-15 09:06] LABS: Calcium 8.5 mg/dL (8.4-10.2); Total Bilirubin 5.7 mg/dL (0.2-1.3); Total Protein 5.8 g/dL (6.3-8.2)
--- NOTE | 2016-05-15 09:21 | P.PN ---
Subjective Patient is seen in follow-up for acute kidney injury. Patient presented with altered mental status. He has history of hepatitis C and liver cirrhosis. He does have chronic kidney disease stage III with baseline creatinine in the range of 1.1-1.3. Creatinine was elevated at 3.09 and is improved to 1.71 today. His appetite is fair. Montes catheter was discontinued on May 14. Denies any chest pain or shortness of breath. Last night his blood pressure did drop with standing into the systolic 60s. Vital signs are stable. General: The patient appeared well nourished and normally developed. HEENT: Head exam is unremarkable. Neck is without jugular venous distension. LUNGS: Lungs are clear to auscultation and percussion. Breath sounds decreased. HEART: Rate and Rhythm are regular. First and second heart sounds normal. No murmurs, rubs or gallops. ABDOMEN: Abdominal exam reveals normal bowel sounds. Moderately distended. EXTREMITITES: No clubbing, cyanosis, or edema. Objective - Vital Signs Vital signs: Vital Signs Temp 96.8 F L 05/15/16 07:00 Pulse 85 05/15/16 07:00 Resp 19 05/15/16 07:00 BP 97/60 05/15/16 07:00 Pulse Ox 97 05/15/16 07:00 Intake & Output 05/14/16 05/15/16 05/15/16 18:59 06:59 18:59 Intake Total 825 400 Output Total 250 Balance -250 825 400 Weight 62.5 kg 49 kg Intake: IV 825 Sodium Chloride 0.9% 1, 825 000 ml @ 75 mls/hr IV . [id number] [facility] Rx#:[id number] Oral 400 Output: Urine 250 Uretheral (Montes) 250 Other: Voiding Method Indwelling Catheter Bedpan # Voids 1 # Bowel Movements 1 - Labs CBC & Chem 7: 05/15/16 08:27 05/15/16 08:27 Labs: Abnormal Lab Results - Last 24 Hours (Table) 05/14/16 05/14/16 05/15/16 Range/Units 08:34 08:34 08:27 RBC 2.61 L 2.57 L (4.30-5.90) m/uL Hgb 9.0 L 8.6 L (13.0-17.5) gm/dL Hct 28.3 L 28.7 L (39.0-53.0) % MCV 108.5 H 111.6 H (80.0-100.0) fL MCHC 29.9 L (31.0-37.0) g/dL Plt Count 53 L 57 L (150-450) k/uL Lymphocytes # 0.3 L 0.3 L (1.0-4.8) k/uL Sodium 134 L (137-145) mmol/L Carbon Dioxide 21 L (22-30) mmol/L BUN 51 H (9-20) mg/dL Creatinine 1.84 H (0.66-1.25) mg/dL Glucose 105 H (74-99) mg/dL Total Bilirubin 6.0 H (0.2-1.3) mg/dL AST (17-59) U/L Alkaline Phosphatase 141 H (38-126) U/L Total Protein 5.8 L (6.3-8.2) g/dL Albumin 2.9 L (3.5-5.0) g/dL 05/15/16 Range/Units 08:27 RBC (4.30-5.90) m/uL Hgb (13.0-17.5) gm/dL Hct (39.0-53.0) % MCV (80.0-100.0) fL MCHC (31.0-37.0) g/dL Plt Count (150-450) k/uL Lymphocytes # (1.0-4.8) k/uL Sodium 130 L (137-145) mmol/L Carbon Dioxide 18 L (22-30) mmol/L BUN 52 H (9-20) mg/dL Creatinine 1.71 H (0.66-1.25) mg/dL Glucose 157 H (74-99) mg/dL Total Bilirubin 5.7 H (0.2-1.3) mg/dL AST 61 H (17-59) U/L Alkaline Phosphatase 137 H (38-126) U/L Total Protein 5.8 L (6.3-8.2) g/dL Albumin 2.8 L (3.5-5.0) g/dL Microbiology - Last 24 Hours (Table) 05/11/16 15:34 Blood Culture - Preliminary Blood No Growth after 72 hours Assessment and Plan Plan: Assessment: #1. Nonoliguric acute kidney injury. Mostly prerenal in nature related to hypotension and diuretics. Improving with IV hydration. #2. Chronic kidney disease stage III with baseline creatinine in the range of 1.1-1.3 secondary to hepatorenal syndrome. Urinalysis is benign. #3. Liver cirrhosis with ascites status post paracentesis on May 12 at 4.1 L drained. He did receive 50 g of albumin. #4. Lactic acidosis related to intravascular volume depletion as well as liver disease. Improved. #5. Hyperkalemia secondary to Aldactone as well as acute kidney injury. Resolved. #6. Hepatic encephalopathy. Improving. #7. Anemia. Iron replete. #8. Hyponatremia. Component of tea and toast diet. #9. Hypotension. Related to underlying hepatic dysfunction. Plan: Continue normal saline to be run at 50 mL an hour. Avoid nephrotoxic agents and hypotensive episodes. Strict intake and output. Montes catheter discontinued on May 14. Repeat electrolytes in the morning. Encourage oral intake. 1.2 L fluid restriction. Continue to hold diuretics for now. Check urine sodium and potassium. Add Midodrine 5 mg 3 times daily.
--- NOTE | 2016-05-15 09:32 | P.PN ---
Subjective Principal diagnosis: Hepatic encephalopathy 65-year-old male with a history of hepatitis C cirrhosis portal hypertension and ascites status post therapeutic paracentesis 3 days ago 4.1 L removal. Evaluated for hepatic encephalopathy on admission. Passing greater than 3 bowel movements daily. Ammonia 16. Creatinine 1.7 improved. Nursing reports low blood pressures last night started on midodrine. Alert oriented appropriate with conversation. Gram-negative bacilli Citrobacter urine culture. Good urine output. Objective - Vital Signs Vital signs: Vital Signs Temp 96.8 F L 05/15/16 07:00 Pulse 85 05/15/16 07:00 Resp 19 05/15/16 07:00 BP 97/60 05/15/16 07:00 Pulse Ox 97 05/15/16 07:00 Intake & Output 05/14/16 05/15/16 05/15/16 18:59 06:59 18:59 Intake Total 825 400 Output Total 250 Balance -250 825 400 Weight 62.5 kg 49 kg Intake: IV 825 Sodium Chloride 0.9% 1, 825 000 ml @ 75 mls/hr IV . [id number] [facility] Rx#:[id number] Oral 400 Output: Urine 250 Uretheral (Montes) 250 Other: Voiding Method Indwelling Catheter Bedpan # Voids 1 # Bowel Movements 1 - Exam General appearance: The patient is alert, oriented, in no acute distress. HET: Head is normocephalic and atraumatic. Pupils are equal and reactive. Oropharynx is clear without lesions. Neck: Supple without lymphadenopathy. Trachea midline. Heart: S1 S2. Regular rate and rhythm. Lungs: No crackles or wheezes are heard. Abdomen: Soft, distended with moderate ascites with bowel sounds. No peritoneal signs. No palpable organomegaly or masses. Extremities: No evidence of asterixis. Normal skin color and turgor. No cyanosis, rash, ulceration, clubbing, or edema. Radial and pedal pulses are 2/ 4 bilaterally. Montes clear priscilla urine. Neurological: No focal deficits. Strength and sensation are grossly intact - Labs CBC & Chem 7: 05/15/16 08:27 05/15/16 08:27 Labs: Abnormal Lab Results - Last 24 Hours (Table) 05/14/16 05/14/16 05/15/16 Range/Units 08:34 08:34 08:27 RBC 2.61 L 2.57 L (4.30-5.90) m/uL Hgb 9.0 L 8.6 L (13.0-17.5) gm/dL Hct 28.3 L 28.7 L (39.0-53.0) % MCV 108.5 H 111.6 H (80.0-100.0) fL MCHC 29.9 L (31.0-37.0) g/dL Plt Count 53 L 57 L (150-450) k/uL Lymphocytes # 0.3 L 0.3 L (1.0-4.8) k/uL Sodium 134 L (137-145) mmol/L Carbon Dioxide 21 L (22-30) mmol/L BUN 51 H (9-20) mg/dL Creatinine 1.84 H (0.66-1.25) mg/dL Glucose 105 H (74-99) mg/dL Total Bilirubin 6.0 H (0.2-1.3) mg/dL AST (17-59) U/L Alkaline Phosphatase 141 H (38-126) U/L Total Protein 5.8 L (6.3-8.2) g/dL Albumin 2.9 L (3.5-5.0) g/dL 05/15/16 Range/Units 08:27 RBC (4.30-5.90) m/uL Hgb (13.0-17.5) gm/dL Hct (39.0-53.0) % MCV (80.0-100.0) fL MCHC (31.0-37.0) g/dL Plt Count (150-450) k/uL Lymphocytes # (1.0-4.8) k/uL Sodium 130 L (137-145) mmol/L Carbon Dioxide 18 L (22-30) mmol/L BUN 52 H (9-20) mg/dL Creatinine 1.71 H (0.66-1.25) mg/dL Glucose 157 H (74-99) mg/dL Total Bilirubin 5.7 H (0.2-1.3) mg/dL AST 61 H (17-59) U/L Alkaline Phosphatase 137 H (38-126) U/L Total Protein 5.8 L (6.3-8.2) g/dL Albumin 2.8 L (3.5-5.0) g/dL Microbiology - Last 24 Hours (Table) 05/11/16 15:34 Blood Culture - Preliminary Blood No Growth after 72 hours Assessment and Plan (1) Hepatic encephalopathy Status: Acute (2) UTI (urinary tract infection) Narrative/Plan: Gram-negative Citrobacter Status: Acute (3) Coagulopathy Status: Chronic (4) Renal failure Status: Chronic (5) Cirrhosis of liver with ascites Status: Chronic (6) Hepatitis C Status: Chronic (7) Chronic kidney disease, stage 3 Status: Chronic (8) Hepatorenal syndrome Status: Chronic (9) Thrombocytopenia Status: Chronic Plan: 1. Status post paracentesis. IV antibiotics for UTI. 2. Continue lactulose 4 times daily on discharge; titrate for 3 bowel movements a day. Continue with Xifaxan 550 mg twice daily until discharged. Scheduled paracentesis on May 19. Ascites unchanged from yesterday's exam. 3. Discharge per medicine and nephrology. Assessment and plan a care discussed with Dr. Mathis.
[2016-05-15] MEDS: MIDODRINE 5 MG TAB PO SCH ×2 (12:50→16:52)
[2016-05-15] MEDS: MULTIVITAMINS, THERA 1 EACH TAB PO SCH (12:50)
[2016-05-15] MEDS: CYANOCOBALAMIN 500 MCG TAB PO SCH (12:50)
--- NOTE | 2016-05-15 15:04 | P.PN ---
Subjective Date of service 05/14/2016. Progress note being dictated for Dr. Pena. Interval history: This is a 65-year-old gentleman admitted with acute on chronic hepatic encephalopathy, hepatitis C cirrhosis-on Harvoni tx, portal hypertension, ascites in a patient who receives therapeutic paracentesis weekly and multiple other medical issues. Renal function improving, creatinine currently at 1.84. Maintained on lactulose and rifaximin. Multiple bowel movements yesterday, ammonia normalized. Sensorium significantly improved .T bili increased up to 6. Urine culture reporting gram-negative bacilli Citrobacter. Afebrile, normal WBC. Denies chest pain, palpitations or increasing shortness of breath. Objective - Vital Signs Vital signs: Vital Signs Temp 96.4 F L 05/14/16 15:00 Pulse 82 05/14/16 15:00 Resp 16 05/14/16 15:00 BP 96/64 05/14/16 15:00 Pulse Ox 99 05/14/16 15:00 Intake & Output 05/13/16 05/14/16 05/14/16 18:59 06:59 18:59 Intake Total 1607 200 Output Total 325 675 250 Balance 1282 -475 -250 Weight 54 kg 62.5 kg Intake: IV 900 Sodium Chloride 0.9% 1, 900 000 ml @ 75 mls/hr IV . [id number] [facility] Rx#:[id number] Intake, IV Titration 50 Amount cefTRIAXone 1,000 mg In 50 Sodium Chloride 0.9% 50 ml @ 100 mls/hr IVPB Q24HR [facility] Rx#:[id number] Oral 657 200 Output: Urine 325 675 250 Uretheral (Montes) 325 675 250 Other: Voiding Method Indwelling Catheter Indwelling Catheter Indwelling Catheter # Bowel Movements 1 1 - Exam PHYSICAL EXAM: VITAL SIGNS: As above GENERAL: [Sitting up in bed, no acute distress] HEENT: [Pupils equal conjunctiva normal.] NECK: [Supple, no JVD, trachea midline] RESPIRATORY EFFORT:[Normal] LUNGS: [Clear air entry, no crackles, no wheezes, no rhonchi] CARDIOVASCULAR[regular S1 and S2, no murmurs rubs, gallops appreciated] GI: [Abdomen soft, nontender, distended, positive ascites with shifting dullness , positive bowel sounds. No guarding.] PSYCH: [Alert and oriented -3, mood and affect normal.] NEURO: No focal deficits, moves all 4 extremities, strength and sensation grossly intact - Labs CBC & Chem 7: 05/15/16 08:27 05/15/16 08:27 Labs: Abnormal Lab Results - Last 24 Hours (Table) 05/14/16 05/14/16 Range/Units 08:34 08:34 RBC 2.61 L (4.30-5.90) m/uL Hgb 9.0 L (13.0-17.5) gm/dL Hct 28.3 L (39.0-53.0) % MCV 108.5 H (80.0-100.0) fL Plt Count 53 L (150-450) k/uL Lymphocytes # 0.3 L (1.0-4.8) k/uL Sodium 134 L (137-145) mmol/L Carbon Dioxide 21 L (22-30) mmol/L BUN 51 H (9-20) mg/dL Creatinine 1.84 H (0.66-1.25) mg/dL Glucose 105 H (74-99) mg/dL Total Bilirubin 6.0 H (0.2-1.3) mg/dL Alkaline Phosphatase 141 H (38-126) U/L Total Protein 5.8 L (6.3-8.2) g/dL Albumin 2.9 L (3.5-5.0) g/dL Microbiology - Last 24 Hours (Table) 05/11/16 16:02 Urine Culture - Final Urine,Catheterized Citrobacter freundii 05/11/16 15:34 Blood Culture - Preliminary Blood No Growth after 48 hours Assessment and Plan Plan: 1. Acute on chronic hepatic encephalopathy. 2. [Hepatitis C cirrhosis, on Harvoni Tx.]. 3. [Acute on chronic renal failure stage III, possibly hepatorenal syndrome]. 4. [Hypervolemic, hyponatremia, improved]. 5. Elevated lactic acid secondary to hepatic dysfunction]. 6. [Mildly elevated troponin secondary to chronic kidney disease]. 7. [Pancytopenia secondary to alcoholic liver disease related to cirrhosis]. 8. Macrocytic anemia secondary to cirrhosis 9. Acute UTI with gram-negative bacilli Citrobacter 10. Chronic coagulopathy Plan: Continue on current medication regime, monitoring and symptomatic treatment. Follow urine cultures closely, antibiotics added. Social work assisting in discharge planning for potential ECF rehab. Close monitoring of T bili. Discharge planning in progress for tomorrow. Further recommendations to follow. The impression and plan of care has been dictated as directed. : I performed a H&P examination of this patient and discussed the same with the dictator. I agree with the dictator's note. Any additional findings/opinions/ etc. will be noted.
--- NOTE | 2016-05-15 15:16 | P.PN ---
Subjective Date of service 05/15/2016. Progress note being dictated for Dr. Pena. Interval history: This is a 65-year-old gentleman admitted with acute on chronic hepatic encephalopathy, hepatitis C cirrhosis, portal hypertension, ascites in a patient who receives therapeutic paracentesis weekly and multiple other medical issues. Maintained on lactulose, multiple bowel movements, Ammonia 16. Renal function, T bili improving. Hyponatremia, sodium 130. Urine culture reporting Citrobacter Freundi. Afebrile, normal WBC. Last night became hypotensive after getting up to the bathroom. Positive orthostatic hypotension, Midodrin initiated. Denies chest pain, palpitations or increasing shortness of breath. Objective - Vital Signs Vital signs: Vital Signs Temp 96.1 F L 05/15/16 14:58 Pulse 77 05/15/16 14:58 Resp 18 05/15/16 14:58 BP 87/50 05/15/16 14:58 Pulse Ox 99 05/15/16 14:58 Intake & Output 05/14/16 05/15/16 05/15/16 18:59 06:59 18:59 Intake Total 825 400 Output Total 250 Balance -250 825 400 Weight 62.5 kg 49 kg Intake: IV 825 Sodium Chloride 0.9% 1, 825 000 ml @ 75 mls/hr IV . [id number] [facility] Rx#:[id number] Oral 400 Output: Urine 250 Uretheral (Montes) 250 Other: Voiding Method Indwelling Catheter Bedpan # Voids 1 1 # Bowel Movements 1 1 - Exam PHYSICAL EXAM: VITAL SIGNS: As above GENERAL: [Sitting up in bed, no acute distress] HEENT: [Pupils equal conjunctiva normal.] NECK: [Supple, no JVD, trachea midline] RESPIRATORY EFFORT:[Normal] LUNGS: [Clear air entry, no crackles, no wheezes, no rhonchi] CARDIOVASCULAR[regular S1 and S2, no murmurs rubs, gallops appreciated, no edema ] GI: [Abdomen soft, nontender, distended, positive ascites with shifting dullness , positive bowel sounds. No guarding.] PSYCH: [Alert and oriented -3, mood and affect normal.] NEURO: No focal deficits, moves all 4 extremities, strength and sensation grossly intact - Labs CBC & Chem 7: 05/15/16 08:27 05/15/16 08:27 Labs: Abnormal Lab Results - Last 24 Hours (Table) 05/15/16 05/15/16 Range/Units 08:27 08:27 RBC 2.57 L (4.30-5.90) m/uL Hgb 8.6 L (13.0-17.5) gm/dL Hct 28.7 L (39.0-53.0) % MCV 111.6 H (80.0-100.0) fL MCHC 29.9 L (31.0-37.0) g/dL Plt Count 57 L (150-450) k/uL Lymphocytes # 0.3 L (1.0-4.8) k/uL Sodium 130 L (137-145) mmol/L Carbon Dioxide 18 L (22-30) mmol/L BUN 52 H (9-20) mg/dL Creatinine 1.71 H (0.66-1.25) mg/dL Glucose 157 H (74-99) mg/dL Total Bilirubin 5.7 H (0.2-1.3) mg/dL AST 61 H (17-59) U/L Alkaline Phosphatase 137 H (38-126) U/L Total Protein 5.8 L (6.3-8.2) g/dL Albumin 2.8 L (3.5-5.0) g/dL Microbiology - Last 24 Hours (Table) 05/11/16 15:34 Blood Culture - Preliminary Blood No Growth after 72 hours Assessment and Plan Plan: 1. Acute on chronic hepatic encephalopathy. 2. [Hepatitis C cirrhosis, on Harvoni Tx.]. 3. [Acute on chronic renal failure stage III, hepatorenal syndrome]. 4. [Hypervolemic, hyponatremia, improved]. 5. Elevated lactic acid secondary to hepatic dysfunction]. 6. [Mildly elevated troponin secondary to chronic kidney disease]. 7. [Pancytopenia secondary to alcoholic liver disease related to cirrhosis]. 8. Macrocytic anemia secondary to cirrhosis 9. Acute UTI with Citrobacter freundii 10. Chronic coagulopathy 11. Hyponatremia 12. Orthostatic hypotension, secondary to hepatic dysfunction Plan: Continue on current medication regime, antibiotics, lactulose, fluid restrictions, monitoring and symptomatic treatment. Diuretics continue on hold. Orthostatic vital signs every shift. Paracentesis next week. Further recommendations to follow. The impression and plan of care has been dictated as directed. : I performed a H&P examination of this patient and discussed the same with the dictator. I agree with the dictator's note. Any additional findings/opinions/ etc. will be noted.
[2016-05-15] MEDS: LEVOFLOXACIN 500MG-D5W PMX 500 MG in DEXTROSE/WATER 1 100ML.BAG IVPB SCH (16:51)
[2016-05-15] MEDS: TERAZOSIN 1 MG CAP PO SCH (21:27)
[2016-05-16] MEDS: SODIUM CHLORIDE 0.9% 1,000 ML IV SCH (03:37)
[2016-05-16 07:56] VITALS: TEMP 97
[2016-05-16] MEDS: LEDIPASVIR PO SCH (07:57)
[2016-05-16] MEDS: SOFOSBUVIR PO SCH (07:57)
[2016-05-16] MEDS: CITALOPRAM HYDROBROMIDE 20 MG TAB PO SCH (07:57)
[2016-05-16] MEDS: PANTOPRAZOLE 40 MG TABLET PO SCH (07:57)
[2016-05-16] MEDS: CHOLECALCIFEROL 1,000 UNIT TAB PO SCH (07:57)
[2016-05-16] MEDS: MIDODRINE 5 MG TAB PO SCH ×3 (07:57→16:30)
[2016-05-16] MEDS: FOLIC ACID 1 MG TAB PO SCH (07:57)
[2016-05-16] MEDS: LACTULOSE 20 GM/30 ML CUP PO SCH ×2 (07:57→12:55)
[2016-05-16] MEDS: FINASTERIDE 5 MG TAB PO SCH (07:57)
[2016-05-16] MEDS: DULoxetine HCL 20 MG CAPSULE.DR PO SCH (07:57)
[2016-05-16] MEDS: RIBAVIRIN 200 MG PO SCH (07:58)
[2016-05-16] MEDS: RIFAXIMIN 550 MG TABLET PO SCH (07:58)
[2016-05-16] MEDS: THIAMINE 100 MG TAB PO SCH (07:58)
[2016-05-16 08:35] LABS: Potassium,Urine Random 16.6 mmol/L; Sodium, Urine Random <5 mmol/L (30-90)
[2016-05-16 11:08] LABS: Calcium 8.7 mg/dL (8.4-10.2); Potassium 3.6 mmol/L (3.5-5.1); Total Bilirubin 4.6 mg/dL (0.2-1.3); Total Protein 5.5 g/dL (6.3-8.2)
[2016-05-16 11:40] LABS: Basophils % (A) 0 %; CH 32.7; Eosinophils # (A) 0.2 k/uL (0-0.7); Eosinophils % (A) 3 %; HCT 27.1 % (39.0-53.0); HDW 2.41; HGB 8.2 gm/dL (13.0-17.5); Hypochromasia Moderate; Luc % (Auto) 2; Lymphocytes # (A) 0.3 k/uL (1.0-4.8); Lymphocytes % (A) 6 %; MCH 33.2 pg (25.0-35.0); MCHC 30.3 g/dL (31.0-37.0); MCV 109.5 fL (80.0-100.0); Mean Platelet Volume 10.2; Monocytes # (A) 0.3 k/uL (0-1.0); Monocytes % (A) 5 %; Neutrophils # (A) 4.9 k/uL (1.3-7.7); Neutrophils % (A) 84 %; RBC 2.47 m/uL (4.30-5.90); WBC 5.9 k/uL (3.8-10.6); WBC (Perox) 6.11
--- NOTE | 2016-05-16 11:44 | PN ---
DATE OF SERVICE: 05/16/2016 The patient is a 65-year-old pleasant white male admitted to the hospital with acute renal failure and recurrent ascites as well as hepatic encephalopathy. The patient presently is on oral lactulose as well as Xifaxan and his mentation has significantly improved. He underwent large volume paracentesis about 3 days ago and approximately 4.5 L was removed and he is scheduled for his routine paracentesis this coming Wednesday. In the meantime, the patient has history of chronic hepatitis C infection with cirrhosis and portal hypertension, presently on Harvoni treatment at week #28, but patient is not very clear about this. He denies any symptoms today. He does complain of some abdominal distention. No abdominal pain. No nausea or vomiting. On physical examination, he appears comfortable, in no apparent distress. Vital signs are stable. Blood pressure is 90/56, pulse rate 92, temperature 96.1. HEENT EXAMINATION: Unremarkable. Conjunctivae pink. Sclerae anicteric. Oral cavity, no lesions. NECK: No JVD or lymph node enlargement. Chest was clear to auscultation. HEART: Regular rate and rhythm. ABDOMEN: Soft. Bowel sounds are positive. No organomegaly. It was slightly distended. EXTREMITIES: No pedal edema. SKIN: No rashes. NEURO: He is alert and oriented x3. No focal deficits. LABS: WBC 6.4, hemoglobin 8.6, platelets 57,000. BUN 52, creatinine 1.71. Albumin is 2.8 IMPRESSION: 1. Hepatic encephalopathy doing well presently on oral lactulose and Xifaxan. 2. Status post large volume paracentesis 3 days ago and is scheduled for another one next week. 3. Cirrhosis/portal hypertension. 4. Chronic hepatitis C infection presently on Harvoni. He was advised to follow up in our office in one week following discharge from the hospital. 5. Patient is presently being transferred to a rehab program and while he is in the hospital will continue to follow him closely. Thank you for this consultation.
--- NOTE | 2016-05-16 11:59 | P.PN ---
Subjective Patient is seen in follow-up for acute kidney injury. Patient presented with altered mental status. He has history of hepatitis C and liver cirrhosis. He does have chronic kidney disease stage III with baseline creatinine in the range of 1.1-1.3. Creatinine was elevated at 3.09 and is improved to 1.69 today. His appetite is fair. Montes catheter was discontinued on May 14. Denies any chest pain or shortness of breath. Denies vomiting or diarrhea. Vital signs are stable. General: The patient appeared well nourished and normally developed. HEENT: Head exam is unremarkable. Neck is without jugular venous distension. LUNGS: Lungs are clear to auscultation and percussion. Breath sounds decreased. HEART: Rate and Rhythm are regular. First and second heart sounds normal. No murmurs, rubs or gallops. ABDOMEN: Abdominal exam reveals normal bowel sounds. Moderately distended. EXTREMITITES: No clubbing, cyanosis, or edema. Objective - Vital Signs Vital signs: Vital Signs Temp 97.0 F L 05/16/16 07:00 Pulse 89 05/16/16 07:00 Resp 20 05/16/16 07:00 BP 87/53 05/16/16 07:00 Pulse Ox 98 05/16/16 07:00 Intake & Output 05/15/16 05/16/16 05/16/16 18:59 06:59 18:59 Intake Total 400 300 360 Balance 400 300 360 Weight 52 kg Intake: Oral 400 300 360 Other: Voiding Method Bedside Commode Bedpan # Voids 1 1 # Bowel Movements 1 1 - Labs CBC & Chem 7: 05/16/16 10:50 05/16/16 10:50 Labs: Abnormal Lab Results - Last 24 Hours (Table) 05/16/16 05/16/16 05/16/16 Range/Units 07:00 10:50 10:50 RBC 2.47 L (4.30-5.90) m/uL Hgb 8.2 L (13.0-17.5) gm/dL Hct 27.1 L (39.0-53.0) % MCV 109.5 H (80.0-100.0) fL MCHC 30.3 L (31.0-37.0) g/dL Plt Count 59 L (150-450) k/uL Sodium 131 L (137-145) mmol/L Carbon Dioxide 21 L (22-30) mmol/L BUN 52 H (9-20) mg/dL Creatinine 1.69 H (0.66-1.25) mg/dL Glucose 108 H (74-99) mg/dL Total Bilirubin 4.6 H (0.2-1.3) mg/dL Alkaline Phosphatase 138 H (38-126) U/L Total Protein 5.5 L (6.3-8.2) g/dL Albumin 2.6 L (3.5-5.0) g/dL Ur Random Sodium <5 L (30-90) mmol/L Microbiology - Last 24 Hours (Table) 05/11/16 15:34 Blood Culture - Preliminary Blood No Growth after 96 hours Assessment and Plan Plan: Assessment: #1. Nonoliguric acute kidney injury. Mostly prerenal in nature related to hypotension and diuretics. Improving with IV hydration. #2. Chronic kidney disease stage III with baseline creatinine in the range of 1.1-1.3 secondary to hepatorenal syndrome. Urinalysis is benign. #3. Liver cirrhosis with ascites status post paracentesis on May 12 at 4.1 L drained. He did receive 50 g of albumin. #4. Lactic acidosis related to intravascular volume depletion as well as liver disease. Improved. #5. Hyperkalemia secondary to Aldactone as well as acute kidney injury. Resolved. #6. Hepatic encephalopathy. Improving. #7. Anemia. Iron replete. #8. Hyponatremia. Component of tea and toast diet. #9. Hypotension. Related to underlying hepatic dysfunction. Plan: Continue normal saline to be run at 50 mL an hour. Resume Aldactone 25 mg twice daily. Avoid nephrotoxic agents and hypotensive episodes. Strict intake and output. Montes catheter discontinued on May 14. Repeat electrolytes in the morning. Encourage oral intake. 1.2 L fluid restriction. Increase Midodrine to 10 mg 3 times daily. If goes to rehab today, will need to get basic metabolic panel checked within 2- 3 days of discharge. He will need follow-up as an outpatient in the next 1 week. Need to monitor electrolytes closely.
[2016-05-16] MEDS: MULTIVITAMINS, THERA 1 EACH TAB PO SCH (12:55)
[2016-05-16] MEDS: CYANOCOBALAMIN 500 MCG TAB PO SCH (12:55)
[2016-05-16 13:56] LABS: Macrocytosis Marked
--- NOTE | 2016-05-16 14:16 | DS ---
DATE OF ADMISSION: 05/10/2016 DATE OF DISCHARGE: FINAL DIAGNOSES: 1. Change in mental status, acute on chronic hepatic encephalopathy with hyperammonemia present on admission. 2. Cirrhosis of the liver possibly secondary to hepatitis C on Harvoni. 3. Acute renal failure, possibly prerenal acute tubular necrosis secondary to hypotension and diuresis. 4. Possibly hepatorenal syndrome. 5. Hyponatremia. 6. Hyperkalemia. 7. Increased plasma lactic acid, sepsis ruled out. 8. Hyperammonemia. 9. Troponin 0.0590. 10. Anemia, macrocytic anemia secondary to liver disease and cirrhosis of liver. 11. Thrombocytopenia. 12. Hypertension. 13. Hyperlipidemia. 14. Gastroesophageal reflux disease. 15. History of memory impairment. 16. Previous history of recurrent encephalopathy. 17. Thrombocytopenia. 18. Chronic kidney disease, stage II. 19. 2016 paracentesis 8.5 L fluid removal. 20. Depression. 21. FULL CODE. DISCHARGE DISPOSITION: The patient will be transferred to [facility] inpatient rehab under Dr. Hardwick. Total time taken 35 minutes. He is stable, but overall condition is extremely guarded. HISTORY OF PRESENT ILLNESS: This 65-year-old gentleman with a past medical history of multiple medical problems as mentioned earlier being followed by Dr. Norris in the outpatient setting admitted with features of acute on chronic hepatic encephalopathy. Ammonia was elevated. Patient also had elevated renal function. The patient was given IV fluids. Creatinine was 1.8, stabilized at 1.69 at this time. Diuretics are managed. Otherwise, patient had multiple consultants. On exam, vitals are stable. CARDIOVASCULAR SYSTEM: S1, S2 muffled. RESPIRATORY: A few rhonchi. ABDOMEN: Soft, distended. Ascites present. LEGS: No edema, no swelling. NERVOUS SYSTEM: Emaciated. The labs are noted. DISCHARGE ADVICE: 1. Diet is cardiac. 2. Activity limited until followup. 3. Arrange followup with Dr. Norris in 2 to 3 days after discharge from [facility]. 4. Follow up with Dr. Hardwick in inpatient rehab. Medications are: 1. Vitamin D3, 1000 daily. 2. Celexa 40 mg p.o. daily. 3. Vitamin B12, 500 mcg p.o. daily. 4. Flexeril 10 mg t.i.d. p.r.n. 5. Cymbalta 20 mg p.o. b.i.d. 6. Proscar 5 mg p.o. daily. 7. Folic acid 1 mg p.o. daily. 8. Lasix 40 mg p.o. daily. 9. Lactulose 30 grams p.o. q.i.d. to produce 2 to 3 bowel movements every day. 10. Harvoni 1 tablet p.o. daily. 11. Claritin 10 mg daily p.r.n. for allergies. 12. Robaxin p.o. t.i.d. for muscle pain. 13. Midodrine 10 mg a.c. t.i.d. 14. Multivitamins 1 p.o. daily. 15. Zofran 8 mg q.8 p.r.n. 16. Protonix 40 mg p.o. daily. 17. Ribavirin 600 mg p.o. b.i.d. 18. Xifaxan 550 mg p.o. b.i.d. 19. Aldactone 25 mg p.o. b.i.d. 20. Hytrin 2 mg p.o. q.h.s. 21. Vitamin B1, 100 mg p.o. daily. 22. Ultram 50 mg q.6 p.r.n. CBC and BMP in 2 to 3 days and continued followup. Follow up with doctor at [facility] as recommended. Follow up with Dr. Mathis as recommended. [facility]
[2016-05-16] MEDS ORDERED: SPIRONOLACTONE 25 MG TAB PO SCH (16:00)
[2016-05-16] MEDS: LEVOFLOXACIN 500MG-D5W PMX 500 MG in DEXTROSE/WATER 1 100ML.BAG IVPB SCH (16:20)
[2016-05-16 16:57] VITALS: BP 106/64; PULSE 80; RESP 19
[2016-05-17] MEDS ORDERED: LEVOFLOXACIN 250 MG TAB PO SCH (16:00)
== END 2016-05-16 16:52 | DRG 432 ==
LOC: EC 12:16 → 6SEL 16:30 → 4MS4W 05-13 21:47
PROVIDERS: ADMIT Internal Medicine; ATTEND Internal Medicine
PROC: 0W9G3ZZ Drainage of Peritoneal Cavity, Percutaneous Approach (ICD-10-PCS; principal; 2016-05-12)
DX: K70.40 Alcoholic hepatic failure without coma (principal); K76.7 Hepatorenal syndrome; N17.9 Acute kidney failure, unspecified; D61.818 Other pancytopenia; D68.9 Coagulation defect, unspecified; E87.2 Acidosis; N18.3 Chronic kidney disease, stage 3 (moderate); R64 Cachexia; R18.8 Other ascites; K76.6 Portal hypertension; E87.1 Hypo-osmolality and hyponatremia; N39.0 Urinary tract infection, site not specified; E87.70 Fluid overload, unspecified; E87.5 Hyperkalemia; E86.9 Volume depletion, unspecified; B18.2 Chronic viral hepatitis C; D53.9 Nutritional anemia, unspecified; D63.8 Anemia in other chronic diseases classified elsewhere; E78.5 Hyperlipidemia, unspecified; F32.9 Major depressive disorder, single episode, unspecified; I13.10 Hypertensive heart and chronic kidney disease without heart failure, with stage 1 through stage 4 chronic kidney disease, or unspecified chronic kidney disease; I95.1 Orthostatic hypotension; I86.8 Varicose veins of other specified sites; K21.9 Gastro-esophageal reflux disease without esophagitis; M19.90 Unspecified osteoarthritis, unspecified site; N28.1 Cyst of kidney, acquired; T50.2X5A Adverse effect of carbonic-anhydrase inhibitors, benzothiadiazides and other diuretics, initial encounter; Z82.49 Family history of ischemic heart disease and other diseases of the circulatory system; Z85.828 Personal history of other malignant neoplasm of skin; Z87.891 Personal history of nicotine dependence; Z79.899 Other long term (current) drug therapy
CPT/HCPCS: 36415; 49083; 71020; 74181; 76770; 80053; 80306; 81003; 82140; 82272; 82550; 82553; 82565; 82728; 83540; 83550; 83605; 83735; 84133; 84300; 84484; 85025; 85049; 85610; 85730; 87040; 87077; 87086; 87186; 93005; 93306; 96360; 96361; 99291

== ENCOUNTER 2016-05-27 12:51 | Emergency (ER) | payer MEDICARE ==
[2016-05-27] MEDS ORDERED: SODIUM CHLORIDE 0.9% 500 ML IV STA (13:40)
[2016-05-27] MEDS ORDERED: HYDROmorphone 1 MG/ML 1 ML SYRINGE IVP STA ×2 (13:40→18:57)
[2016-05-27] MEDS ORDERED: ONDANSETRON 4 MG/2 ML VIAL IVP STA (13:40)
[2016-05-27 14:25] LABS: Calcium 9.2 mg/dL (8.4-10.2); Potassium 5.1 mmol/L (3.5-5.1); Total Bilirubin 2.7 mg/dL (0.2-1.3); Total Protein 6.9 g/dL (6.3-8.2)
[2016-05-27 14:30] LABS: Anisocytosis Slight; Basophils % (A) 0 %; CH 33.5; CHCM 30.4; Eosinophils # (A) 0.1 k/uL (0-0.7); Eosinophils % (A) 0 %; HCT 32.6 % (39.0-53.0); HDW 2.68; Hypochromasia Moderate; Luc % (Auto) 1; Lymphocytes # (A) 0.3 k/uL (1.0-4.8); Lymphocytes % (A) 1 %; MCH 33.2 pg (25.0-35.0); MCHC 29.9 g/dL (31.0-37.0); MCV 111.2 fL (80.0-100.0); Macrocytosis Marked; Mean Platelet Volume 9.9; Monocytes # (A) 0.5 k/uL (0-1.0); Monocytes % (A) 3 %; Neutrophils # (A) 19.8 k/uL (1.3-7.7); Neutrophils % (A) 95 %; RBC 2.93 m/uL (4.30-5.90); RDW 16.2 % (11.5-15.5); WBC 20.8 k/uL (3.8-10.6); WBC (Perox) 20.58
[2016-05-27 14:39] LABS: HGB 9.7 gm/dL (13.0-17.5)
[2016-05-27] MEDS ORDERED: PIPERACILLIN-TAZOBACTAM 3.375 GM in DEXTROSE/WATER 1 50ML.BAG IVPB STA (14:40)
[2016-05-27 14:57] LABS: Manual Review Performed
[2016-05-27 14:58] LABS: Toxic Granulation Present
--- NOTE | 2016-05-27 15:43 | XR ---
EXAMINATION TYPE: XR KUB DATE OF EXAM: 05/27/2016 3:22 PM CLINICAL HISTORY: Generalized abdominal pain for 2 days. History of liver disease. TECHNIQUE: 2 upright KUB images of the abdomen are obtained. COMPARISON: Abdominal x-ray February 24, 2016 and April 08, 2016. MRI/MRCP abdomen May 13. FINDINGS: Gas is seen in nondistended stomach. Scattered gas is seen in nondistended small and large bowel loops throughout the abdomen and pelvis. Slightly gas prominent small bowel is seen in the lef t lower quadrant. Cholecystectomy clips are redemonstrated. There is suspected small left pleural effusion. Small coils from ventral wall hernia repair surgery overlying the lower abdomen and upper pelvis are redemonstra agueda. Some residual ascites is likely present. No pneumoperitoneum is identified. Elevated right hemid iaphragm is redemonstrated. Moderate to severe spurring of both hip joints is again seen. IMPRESSION: Overall nonspecific likely nonobstructive bowel gas pattern.
--- NOTE | 2016-05-27 15:44 | XR ---
EXAMINATION TYPE: XR chest 2V DATE OF EXAM: 05/27/2016 3:27 PM COMPARISON: Chest x-ray May 10, 2016. HISTORY: Difficulty breathing TECHNIQUE: Frontal and lateral views of the chest are obtained. FINDINGS: Elevated right hemidiaphragm is redemonstrated. There is persistent small left pleural effu antonieta and associated left basilar atelectasis. Upper lungs remain clear without pneumothorax. The car diac silhouette size is within normal limits with atherosclerotic thoracic aorta. Some arthropathy bi lateral glenohumeral joint is redemonstrated. IMPRESSION: Persistent small left pleural effusion with left basilar atelectasis redemonstrated.
[2016-05-27] MEDS ORDERED: PIPERACILLIN-TAZOBACTAM 3.375 GM in DEXTROSE/WATER 1 50ML.BAG IVPB SCH (16:00)
[2016-05-27] MEDS ORDERED: SODIUM CHLORIDE 0.9% 2,000 ML IV ONE (16:24)
[2016-05-27] MEDS ORDERED: RX INFO: IV CONTRAST WAS GIVEN 1 EACH MISC MISCELLANE PRN (16:27)
--- NOTE | 2016-05-27 17:09 | ED ---
General Adult HPI - General Source: patient, RN notes reviewed Mode of arrival: wheelchair Limitations: no limitations <Ever Mora - Last Filed: 05/27/16 17:07> <Rojelio Lyle - Last Filed: 05/27/16 18:32> - General Chief complaint: Abdominal Pain Stated complaint: Abdominal/leg pain Time Seen by Provider: 05/27/16 13:00 - History of Present Illness Initial comments: This is a 65-year-old male who presents to the emergency department with a history of her liver failure and ascites. Patient states he recently had a paracentesis. Patient states since yesterday he has had severe abdominal pain and the pain is getting worse and came to the emergency department. Patient states the pain is diffuse about his abdomen. Patient denies any fever or chills that he knows of. Patient denies any chest pain difficulty breathing or shortness of breath per patient denies any palpitations. Patient denies any vomiting or diarrhea. Patient denies any dysuria hematuria urinary frequency. Patient denies headache patient denies numbness weakness. (Ever Mora) - Related Data Home Medications Medication Instructions Recorded Confirmed Citalopram Hydrobromide 40 mg PO DAILY 10/22/15 05/27/16 Pantoprazole [Protonix] 40 mg PO DAILY 10/22/15 05/27/16 Terazosin [Hytrin] 2 mg PO HS 10/22/15 05/27/16 Multivitamins, Thera [Multivitamin] 1 tab PO DAILY 12/23/15 05/27/16 Thiamine [Vitamin B-1] 100 mg PO DAILY 12/23/15 05/27/16 Cholecalciferol [Vitamin D3] 1,000 unit PO DAILY 02/24/16 05/27/16 Cyanocobalamin [Vitamin B-12] 500 mcg PO DAILY 02/24/16 05/27/16 DULoxetine HCL [Cymbalta] 20 mg PO BID 02/24/16 05/27/16 Finasteride [Proscar] 5 mg PO DAILY 02/24/16 05/27/16 Loratadine [Claritin] 10 mg PO DAILY PRN 02/24/16 05/27/16 Methocarbamol [Robaxin] 1,000 mg PO TID PRN 02/24/16 05/27/16 Folic Acid 1 mg PO DAILY 04/04/16 05/27/16 Ondansetron [Zofran ODT] 8 mg PO Q8H PRN 05/10/16 05/27/16 Lactulose [Cephulac] 30 gm PO TID 05/27/16 05/27/16 Rifaximin [Xifaxan] 550 mg PO BID 05/27/16 05/27/16 Previous Rx's Medication Instructions Recorded Midodrine [ProAmatine] 10 mg PO AC-TID tab 05/16/16 Allergies Allergy/AdvReac Type Severity Reaction Status Date / Time No Known Allergies Allergy Verified 05/27/16 13:46 Review of Systems ROS Other: All systems not noted in ROS Statement are negative. <Ever Mora - Last Filed: 05/27/16 17:07> ROS Other: All systems not noted in ROS Statement are negative. <Rojelio Lyle - Last Filed: 05/27/16 18:32> ROS Statement: Those systems with pertinent positive or pertinent negative responses have been documented in the HPI. Past Medical History Past Medical History: Cancer, GERD/Reflux, Hyperlipidemia, Hypertension, Liver Disease, Memory Impairment, Osteoarthritis (OA), Renal Disease, Vascular Disorder Additional Past Medical History / Comment(s): Hep C with interferon therapy, cirrhosis, prior history of memory impairment secondary to hepatic encephalopathy, chronic fatigue, thrombocytopenia, leukopenia, hx of HTN but recently taken off antihypertensive medication, bilateral feet neuropathy, cervical OA, CKD stage II, chronic low back pain and neck pain, sinus problems at times, skin cancer with removal, ascites History of Any Multi-Drug Resistant Organisms: None Reported Past Surgical History: Cholecystectomy, Hernia Repair Additional Past Surgical History / Comment(s): 04/14/2016 paracentesis with 9.5 L of fluid removed, cervical surgery, colonoscopies, umbilical hernia repair x 2 , nose and kathleen of head skin cancer removed, multi paracentesis Past Anesthesia/Blood Transfusion Reactions: Postoperative Nausea & Vomiting ( PONV) Additional Past Anesthesia/Blood Transfusion Reaction / Comment(s): [facility]; pt stated no reaction Past Psychological History: Depression Additional Psychological History / Comment(s): Pt. states he is on depression medication and it has been effective in helping with his depression. Pt resides with his spouse. He uses no assistive device. He drives. Previous suicidal talk according to daughter, patient denies suicidal thoughts at this time. Smoking Status: Former smoker Past Alcohol Use History: None Reported Additional Past Alcohol Use History / Comment(s): Pt smoked from 1964 to 1969. Past Drug Use History: None Reported - Past Family History Mother History Unknown: Yes Family Medical History: Chest Pain / Angina Father History Unknown: Yes Family Medical History: Unable to Obtain <Ever Mora - Last Filed: 05/27/16 17:07> General Exam Limitations: no limitations <Ever Mora - Last Filed: 05/27/16 17:07> <Rojelio Lyle - Last Filed: 05/27/16 18:32> - General Exam Comments Initial Comments: GENERAL: Patient is well-developed and well-nourished. Patient is nontoxic and well- hydrated and is in mild distress. ENT: Neck is soft and supple. No significant lymphadenopathy is noted. Oropharynx is clear. Moist mucous membranes. Neck has full range of motion without eliciting any pain. EYES: The sclera were anicteric and conjunctiva were pink and moist. Extraocular movements were intact and pupils were equal round and reactive to light. Eyelids were unremarkable. PULMONARY: Unlabored respirations. Good breath sounds bilaterally. No audible rales rhonchi or wheezing was noted. CARDIOVASCULAR: There is a regular rate and rhythm without any murmurs gallops or rubs. ABDOMEN: Patient's abdomen is diffusely tender there is no rebound and that is moderately distended.. No palpable organomegaly was noted. There is no palpable pulsatile mass. SKIN: Skin is clear with no lesions or rashes and otherwise unremarkable. NEUROLOGIC: Patient is alert and oriented x3. Cranial nerves II through XII are grossly intact. Motor and sensory are also intact. Normal speech, volume and content. Symmetrical smile. MUSCULOSKELETAL: Normal extremities with adequate strength and full range of motion. LYMPHATICS: No significant lymphadenopathy is noted PSYCHIATRIC: Normal psychiatric evaluation. (Ever Mora) Medical Decision Making - Lab Data Result diagrams: 05/27/16 13:56 05/27/16 13:56 <Ever Mora - Last Filed: 05/27/16 17:07> - Lab Data Result diagrams: 05/27/16 13:56 05/27/16 13:56 <Rojelio Lyle - Last Filed: 05/27/16 18:32> - Medical Decision Making Dr. lyle will be taking over the care of this patient at 5 PM (Ever Mora) The patient was seen and examined. All diagnostics were reviewed. There are multiple abnormalities including a hemoglobin of 9.7, CO2 17, creatinine elevated at 3.37 with previous being 1.67 approximately 11 days ago. His bilirubin was elevated at 2.7, white blood cell count elevated at 20,800, lactic acid elevated at 4.4. It is felt as though he has acute kidney injury which is worse than previous. He had a computed tomography scan of the abdomen and pelvis which shows massive ascites consistent with previous computed tomography scan. His chest x-ray shows a left pleural effusion. The patient requests to be transferred to [facility] in [place]. He apparently is on a liver transplant list has been told to be transferred back to that facility if his symptoms to significantly worsen. The possibility of subacute bacterial peritonitis certainly is possible as well and he was given Zosyn intravenously. The case was discussed with the transferring nurse Rosmery as well as Dr. Ahmadi and they do accept the patient for transfer. Transfer will be via EMS. The patient is agreeable to this plan. Appropriate transfer paperwork is completed and patient will be transferred to their facility in the near future when bed availability opens up. (Rojelio Lyle) - Lab Data Lab Results 05/27/16 05/27/16 05/27/16 Range/Units 13:56 13:56 13:56 WBC 20.8 H (3.8-10.6) k/uL RBC 2.93 L (4.30-5.90) m/uL Hgb 9.7 L D (13.0-17.5) gm/dL Hct 32.6 L (39.0-53.0) % MCV 111.2 H (80.0-100.0) fL MCH 33.2 (25.0-35.0) pg MCHC 29.9 L (31.0-37.0) g/dL RDW 16.2 H (11.5-15.5) % Plt Count 90 L D (150-450) k/uL Neutrophils % 95 % Lymphocytes % 1 % Monocytes % 3 % Eosinophils % 0 % Basophils % 0 % Neutrophils # 19.8 H (1.3-7.7) k/uL Lymphocytes # 0.3 L (1.0-4.8) k/uL Monocytes # 0.5 (0-1.0) k/uL Eosinophils # 0.1 (0-0.7) k/uL Basophils # 0.0 (0-0.2) k/uL Manual Slide Review Performed Toxic Granulation Present Hypochromasia Moderate Poikilocytosis (manual Present Anisocytosis Slight Macrocytosis Marked Sodium 132 L (137-145) mmol/L Potassium 5.1 (3.5-5.1) mmol/L Chloride 99 (98-107) mmol/L Carbon Dioxide 17 L (22-30) mmol/L Anion Gap 16 mmol/L BUN 76 H (9-20) mg/dL Creatinine 3.37 H (0.66-1.25) mg/dL Est GFR (MDRD) Af Amer 22 (>60 ml/min/1.73 sqM) Est GFR (MDRD) Non-Af 18 (>60 ml/min/1.73 sqM) Glucose 118 H (74-99) mg/dL Plasma Lactic Acid Sabas 4.4 H* (0.7-2.0) mmol/L Calcium 9.2 (8.4-10.2) mg/dL Total Bilirubin 2.7 H (0.2-1.3) mg/dL AST 76 H (17-59) U/L ALT 79 H (21-72) U/L Alkaline Phosphatase 325 H (38-126) U/L Total Protein 6.9 (6.3-8.2) g/dL Albumin 3.7 (3.5-5.0) g/dL Amylase 126 H (30-110) U/L Lipase 293 (23-300) U/L 05/27/16 Range/Units 17:26 WBC (3.8-10.6) k/uL RBC (4.30-5.90) m/uL Hgb (13.0-17.5) gm/dL Hct (39.0-53.0) % MCV (80.0-100.0) fL MCH (25.0-35.0) pg MCHC (31.0-37.0) g/dL RDW (11.5-15.5) % Plt Count (150-450) k/uL Neutrophils % % Lymphocytes % % Monocytes % % Eosinophils % % Basophils % % Neutrophils # (1.3-7.7) k/uL Lymphocytes # (1.0-4.8) k/uL Monocytes # (0-1.0) k/uL Eosinophils # (0-0.7) k/uL Basophils # (0-0.2) k/uL Manual Slide Review Toxic Granulation Hypochromasia Poikilocytosis (manual Anisocytosis Macrocytosis Sodium (137-145) mmol/L Potassium (3.5-5.1) mmol/L Chloride (98-107) mmol/L Carbon Dioxide (22-30) mmol/L Anion Gap mmol/L BUN (9-20) mg/dL Creatinine (0.66-1.25) mg/dL Est GFR (MDRD) Af Amer (>60 ml/min/1.73 sqM) Est GFR (MDRD) Non-Af (>60 ml/min/1.73 sqM) Glucose (74-99) mg/dL Plasma Lactic Acid Sabas 1.8 (0.7-2.0) mmol/L Calcium (8.4-10.2) mg/dL Total Bilirubin (0.2-1.3) mg/dL AST (17-59) U/L ALT (21-72) U/L Alkaline Phosphatase (38-126) U/L Total Protein (6.3-8.2) g/dL Albumin (3.5-5.0) g/dL Amylase (30-110) U/L Lipase (23-300) U/L Disposition <Ever Mora - Last Filed: 05/27/16 17:07> Time of Disposition: 18:32 - Out of Hospital Transfer - Req. Specs Out of Hospital Transfer - Requested Specifics: Other Non-Acute (Formerly [facility]) <Rojelio Lyle - Last Filed: 05/27/16 18:32> Clinical Impression: Acute kidney injury, Hepatitis C, Cirrhosis of liver with ascites, Abdominal pain, Chronic kidney disease, Hepatorenal syndrome, Anemia, Pleural effusion, left, Peritonitis (acute) generalized, Leukocytosis, Lactic acidosis Disposition: OTHER INSTITUTION NOT DEFINED Condition: Serious
--- NOTE | 2016-05-27 17:13 | CT ---
EXAMINATION TYPE: CT abdomen pelvis wo con DATE OF EXAM: 05/27/2016 5:03 PM COMPARISON: 01/17/2016 HISTORY: Abdominal pain x 2 days with nausea and vomiting. CT DLP: 911.00 mGycm Automated exposure control for dose reduction was used. TECHNIQUE: Helical acquisition of images was performed from the lung bases through the pelvis. FINDINGS: There is mild subsegmental atelectasis at the lung bases. There is a large amount of ascites fluid. L iver is small and irregular. There is no focal liver defect. There are clips from cholecystectomy. Th ere is no sign of a pancreatic mass. There is no retroperitoneal adenopathy. There are bilateral anais l cortical cysts that measure up to 5 cm. There is no hydronephrosis. Ureters are not dilated. Abdomi nal aorta is atheromatous. There is no sign of free air. There are prominent vessels at the splenic h ilum consistent with portal venous hypertension and varices. I see no sign of a bowel obstruction. Bl adder distends smoothly. There are prostatic calcifications. IMPRESSION: MASSIVE ASCITES WITH EVIDENCE OF CIRRHOSIS AND PORTAL VENOUS HYPERTENSION. THIS IS SIMILAR TO THE OLD CT SCAN OF 01/17/2016. BILATERAL MULTIPLE RENAL CORTICAL CYSTS APPEAR STABLE. STABLE MILD SUBSEGMENTA L ATELECTASIS AT THE LUNG BASES. THERE IS OVERALL NO SIGNIFICANT CHANGE COMPARED TO LAST EXAM.
[2016-05-27 20:45] VITALS: RESP 20; TEMP 98.3
[2016-05-27 21:03] VITALS: BP 90/56; PULSE 86
== END 2016-05-27 21:03 | disposition other institution (70) ==
LOC: EC 12:51
DX: N17.9 Acute kidney failure, unspecified (principal); B19.20 Unspecified viral hepatitis C without hepatic coma; K74.60 Unspecified cirrhosis of liver; R18.8 Other ascites; I12.9 Hypertensive chronic kidney disease with stage 1 through stage 4 chronic kidney disease, or unspecified chronic kidney disease; N18.3 Chronic kidney disease, stage 3 (moderate); K76.7 Hepatorenal syndrome; D64.9 Anemia, unspecified; J90 Pleural effusion, not elsewhere classified; K65.9 Peritonitis, unspecified; E87.2 Acidosis; K21.9 Gastro-esophageal reflux disease without esophagitis; Z87.891 Personal history of nicotine dependence; F32.9 Major depressive disorder, single episode, unspecified; Z79.899 Other long term (current) drug therapy
CPT/HCPCS: 99285 ×2; 96375 ×2; 96365 ×2; 96376; 96361 ×2; 96366; 36415; 80053; 82150; 83605; 83690; 85025; 87040; 71020; 74000; 74176; J2405; J1170; J2543

== ENCOUNTER 2016-07-13 09:01 | Day surgery (SDC) | payer MEDICARE ==
[2016-07-13 09:41] LABS: INR 1.3 (<1.1); Prothrombin Time 12.5 sec (9.0-12.0)
[2016-07-13] MEDS: ALBUMIN HUMAN 25% 50 ML in EMPTY BAG 1 BAG IVPB SCH ×4 (10:31→12:09)
[2016-07-13 11:00] VITALS: RESP 16; TEMP 97.9
[2016-07-13 12:04] VITALS: BP 121/76; PULSE 96
--- NOTE | 2016-07-13 13:41 | US ---
EXAMINATION TYPE: US paracentesis abd w/image DATE OF EXAM: 07/13/2016 12:13 PM COMPARISON: NONE HISTORY: Ascites. PROCEDURE: Maximal barrier technique was utilized. The skin overlying a suitable pocket of fluid was localized with ultrasound and the overlying skin was prepped and draped. Ultrasound was utilized with sterile technique. Lidocaine was used for local anesthesia and a skin jia made with a scalpel. Catheter was advanced under direct ultrasound guidance into a suitable pocket of fluid and approximately 6.2 liter s of serous fluid were removed. Catheter was withdrawn and hemostasis achieved. There is no immedia te complication; the patient is discharged in stable condition. IMPRESSION: STATUS POST ULTRASOUND GUIDED PARACENTESIS FOR PALLIATION OF ASCITES. THIS PROCEDURE WA S PERFORMED BY THE UNDERSIGNED.
== END 2016-07-13 12:05 | disposition home or self-care (01) ==
LOC: RADPROMAIN 09:01
PROVIDERS: ATTEND Internal Medicine Gastroenterology
DX: R18.8 Other ascites (principal)
CPT/HCPCS: 82565; 85049; 85610; 96365; 36415; 49083; P9047

== ENCOUNTER 2016-07-16 08:53 | Day surgery (SDC) | payer MEDICARE ==
[2016-07-16 09:38] VITALS: RESP 14
[2016-07-16 09:39] VITALS: TEMP 98.2
[2016-07-16 09:52] LABS: INR 1.3 (<1.1); Large Platelets Flag Slight; Mean Platelet Volume 11.2; Prothrombin Time 12.6 sec (9.0-12.0)
[2016-07-16 11:10] VITALS: BP 133/64; PULSE 90
[2016-07-16] MEDS: ALBUMIN HUMAN 25% 50 ML in EMPTY BAG 1 BAG IVPB SCH (11:24)
--- NOTE | 2016-07-16 12:21 | US ---
EXAMINATION TYPE: US paracentesis abd w/image DATE OF EXAM: 07/16/2016 11:02 AM CLINICAL HISTORY: ascites The procedure was discussed with the patient. The risks, complications, benefits, and alternatives we re discussed and any questions were answered. Informed consent was obtained. The patient was placed s upine on the ultrasound table and prepped and draped in the usual sterile fashion. All elements of maximal barrier technique were utilized. Under ultrasound guidance, access into the right lower quadrant was obtained, via the paracentesis catheter system and direct ultrasound guidanc e. Approximately 3.4 liters of straw-colored fluid was removed. The patient was stable throughout the pr ocedure and remained stable upon discharge from Department of Radiology. IMPRESSION: Successful therapeutic paracentesis under ultrasound guidance.
== END 2016-07-16 11:18 | disposition home or self-care (01) ==
LOC: RADPROMAIN 08:53
PROVIDERS: ATTEND Internal Medicine Gastroenterology
DX: R18.8 Other ascites (principal)
CPT/HCPCS: 49083; 82565; 85049; 85610

== ENCOUNTER 2016-07-20 08:52 | Day surgery (SDC) | payer MEDICARE ==
[2016-07-20 09:20] VITALS: RESP 20; TEMP 98.2
[2016-07-20 09:40] LABS: Mean Platelet Volume 9.4
[2016-07-20 09:46] LABS: INR 1.2 (<1.1); Prothrombin Time 11.9 sec (9.0-12.0)
[2016-07-20] MEDS: ALBUMIN HUMAN 25% 50 ML in EMPTY BAG 1 BAG IVPB SCH ×4 (10:34→11:19)
[2016-07-20 11:22] VITALS: BP 121/78; PULSE 97
--- NOTE | 2016-07-20 11:26 | US ---
EXAMINATION TYPE: US paracentesis abd w/image DATE OF EXAM: 07/20/2016 11:00 AM CLINICAL HISTORY: Ascites The procedure was discussed with the patient. The risks, complications, benefits, and alternatives we re discussed and any questions were answered. Informed consent was obtained. The patient was placed s upine on the ultrasound table and prepped and draped in the usual sterile fashion. All elements of maximal barrier technique were utilized. Under ultrasound guidance, access into the right lower quadrant was obtained, via the paracentesis catheter system and direct ultrasound guidanc e. Approximately 4 liters of serous fluid was removed. The patient was stable throughout the procedure a nd remained stable upon discharge from Department of Radiology. IMPRESSION: Successful therapeutic paracentesis under ultrasound guidance.
== END 2016-07-20 11:45 | disposition home or self-care (01) ==
LOC: RADPROMAIN 08:52
PROVIDERS: ATTEND Internal Medicine Gastroenterology
DX: R18.8 Other ascites (principal)
CPT/HCPCS: 82565; 85049; 85610; 36415; 49083; P9047

== ENCOUNTER 2016-07-20 17:29 | Inpatient (IN) | payer MEDICARE ==
[2016-07-20 17:42] VITALS: RESP 18
[2016-07-20] MEDS ORDERED: SODIUM CHLORIDE 0.9% 1,000 ML IV STA ×2 (17:56→19:40)
--- NOTE | 2016-07-20 18:05 | ED ---
General Adult HPI - General Chief complaint: Recheck/Abnormal Lab/Rx Stated complaint: abn labs Time Seen by Provider: 07/20/16 17:48 Source: patient, RN notes reviewed Mode of arrival: wheelchair Limitations: no limitations - History of Present Illness Initial comments: 65-year-old male presents to the emergency department with the chief complaint of abnormal labs. The patient went to have ascites drainage from the abdomen. They did blood work and he called him stating that his labs were abnormal and come to the ER. Family states there has been some episodes of patient being confused the patient's anything from her therapist patient being compared to normal. He is currently in the liver and kidney failure in his normal physicians are at [facility] and he sees the [facility]. He states that there has been no head trauma. They state that he fevers. The patient does admit to some nausea and vomiting that has been on and off throughout the course of physical illness. Family states that they were contacted regarding his lab work and they were sent here. Patient denies any recent fever, chills, shortness of breath, chest pain, back pain, abdominal pain, nausea vomiting, numbness or tingling, dysuria or hematuria, constipation or diarrhea, headaches or visual changes, or any other current symptoms. - Related Data Home Medications Medication Instructions Recorded Confirmed Pantoprazole [Protonix] 40 mg PO DAILY 10/22/15 07/20/16 Terazosin [Hytrin] 2 mg PO HS 10/22/15 07/20/16 Multivitamins, Thera [Multivitamin 1 tab PO DAILY 12/23/15 07/20/16 (formulary)] Thiamine [Vitamin B-1] 100 mg PO HS 12/23/15 07/20/16 Cholecalciferol [Vitamin D3] 1,000 unit PO DAILY 02/24/16 07/20/16 Cyanocobalamin [Vitamin B-12] 500 mcg PO DAILY 02/24/16 07/20/16 Finasteride [Proscar] 5 mg PO DAILY 02/24/16 07/20/16 Loratadine [Claritin] 10 mg PO DAILY 02/24/16 07/20/16 Methocarbamol [Robaxin] 500 mg PO QA 02/24/16 07/20/16 Folic Acid 1 mg PO DAILY 04/04/16 07/20/16 Lactulose [Cephulac] 30 gm PO QID 05/27/16 07/20/16 Rifaximin [Xifaxan] 550 mg PO BID 05/27/16 07/20/16 Ciprofloxacin HCl [Cipro] 500 mg PO DAILY 07/20/16 07/20/16 Cyclobenzaprine [Flexeril] 10 mg PO Q8H PRN 07/20/16 07/20/16 DULoxetine HCL [Cymbalta] 60 mg PO DAILY 07/20/16 07/20/16 HYDROcodone/APAP 10-325MG [[place] 1 tab PO Q6H PRN 07/20/16 07/20/16 10-325] Milk Thistle 150 mg PO HS 07/20/16 07/20/16 Sennosides [Senna] 8.6 mg PO DAILY 07/20/16 07/20/16 Sodium Bicarbonate Tab 650 mg PO BID 07/20/16 07/20/16 Previous Rx's Medication Instructions Recorded Midodrine [ProAmatine] 10 mg PO AC-TID tab 05/16/16 Allergies Allergy/AdvReac Type Severity Reaction Status Date / Time No Known Allergies Allergy Verified 07/20/16 18:37 Review of Systems ROS Statement: Those systems with pertinent positive or pertinent negative responses have been documented in the HPI. ROS Other: All systems not noted in ROS Statement are negative. Past Medical History Past Medical History: Cancer, GERD/Reflux, Hyperlipidemia, Hypertension, Liver Disease, Memory Impairment, Osteoarthritis (OA), Renal Disease, Vascular Disorder Additional Past Medical History / Comment(s): Hep C with interferon therapy, cirrhosis, prior history of memory impairment secondary to hepatic encephalopathy, chronic fatigue, thrombocytopenia, leukopenia, hx of HTN but recently taken off antihypertensive medication, bilateral feet neuropathy, cervical OA, CKD stage II, chronic low back pain and neck pain, sinus problems at times, skin cancer with removal, ascites History of Any Multi-Drug Resistant Organisms: None Reported Past Surgical History: Cholecystectomy, Hernia Repair Additional Past Surgical History / Comment(s): 04/14/2016 paracentesis with 9.5 L of fluid removed, cervical surgery, colonoscopies, umbilical hernia repair x 2 , nose and kathleen of head skin cancer removed, multi paracentesis Past Anesthesia/Blood Transfusion Reactions: Postoperative Nausea & Vomiting ( PONV) Additional Past Anesthesia/Blood Transfusion Reaction / Comment(s): [facility]; pt stated no reaction Past Psychological History: Depression Additional Psychological History / Comment(s): Pt. states he is on depression medication and it has been effective in helping with his depression. Pt resides with his spouse. He uses no assistive device. He drives. Previous suicidal talk according to daughter, patient denies suicidal thoughts at this time. Smoking Status: Former smoker Past Alcohol Use History: None Reported Additional Past Alcohol Use History / Comment(s): Pt smoked from 1964 to 1969. Past Drug Use History: None Reported - Past Family History Mother History Unknown: Yes Family Medical History: Chest Pain / Angina Father History Unknown: Yes Family Medical History: Unable to Obtain General Exam - General Exam Comments Initial Comments: General: The patient is awake and alert, in no distress, and does not appear acutely ill. Eye: Pupils are equal, round and reactive to light, extra-ocular movements are intact; there is normal conjunctiva bilaterally. No signs of icterus. Ears, nose, mouth and throat: There are moist mucous membranes. Neck: The neck is supple, there is no tenderness. Cardiovascular: There is a regular rate and rhythm. murmur, no rub or gallop is appreciated. Respiratory: Lungs are clear to auscultation, respirations are non-labored, breath sounds are equal. No wheezes, stridor, rales, or rhonchi. Gastrointestinal: Distended, ascites, non-tender abdomen without masses or organomegaly noted. There is no rebound or guarding present. No CVA tenderness. Bowel sounds are unremarkable. Back: There is no tenderness to palpation in the midline. There is no obvious deformity. No rashes noted. Musculoskeletal: Normal ROM, no tenderness, There is no pedal edema. There is no calf tenderness or swelling. Sensation intact. Pulses equal bilaterally 2+. Neurological: CN II-XII intact, There are no obvious motor or sensory deficits. Coordination appears grossly intact. Speech is normal. Skin: Skin is warm and dry and no rashes or lesions are noted. Psychiatric: Cooperative, appropriate mood & affect, normal judgment. Limitations: no limitations Course Vital Signs 07/20/16 17:37 Temperature 97.4 F L Pulse Rate 90 Respiratory 18 Rate Blood Pressure 112/59 O2 Sat by Pulse 99 Oximetry Medical Decision Making - Medical Decision Making 65-year-old male presents to the emergency room chief complaint of abnormal labs. This time patient does appear to be acute on chronic kidney failure. He also appeared of hyponatremia and thrombocytopenia. This time we'll admit for dehydration. We'll have GI consult for the patient. Patient's ammonia is negative and the patient does appear to be acting appropriate in the room and all oriented. At this time patient will be admitted for continued care. - Lab Data Result diagrams: 07/20/16 18:35 07/20/16 18:35 Lab Results 07/20/16 07/20/16 07/20/16 Range/Units 18:35 18:35 18:35 WBC (3.8-10.6) k/uL RBC (4.30-5.90) m/uL Hgb (13.0-17.5) gm/dL Hct (39.0-53.0) % MCV (80.0-100.0) fL MCH (25.0-35.0) pg MCHC (31.0-37.0) g/dL RDW (11.5-15.5) % Plt Count (150-450) k/uL Neutrophils % % Lymphocytes % % Monocytes % % Eosinophils % % Basophils % % Neutrophils # (1.3-7.7) k/uL Lymphocytes # (1.0-4.8) k/uL Monocytes # (0-1.0) k/uL Eosinophils # (0-0.7) k/uL Basophils # (0-0.2) k/uL Hypochromasia PT (9.0-12.0) sec INR (<1.1) APTT (22.0-30.0) sec Sodium 128 L (137-145) mmol/L Potassium 4.2 (3.5-5.1) mmol/L Chloride 93 L (98-107) mmol/L Carbon Dioxide 18 L (22-30) mmol/L Anion Gap 17 mmol/L BUN 90 H* (9-20) mg/dL Creatinine 4.03 H (0.66-1.25) mg/dL Est GFR (MDRD) Af Amer 18 (>60 ml/min/1.73 sqM) Est GFR (MDRD) Non-Af 15 (>60 ml/min/1.73 sqM) Glucose 133 H (74-99) mg/dL Plasma Lactic Acid [place] 2.1 H (0.7-2.0) mmol/L Calcium 9.1 (8.4-10.2) mg/dL Phosphorus 6.1 H (2.5-4.5) mg/dL Magnesium 2.7 H (1.6-2.3) mg/dL Total Bilirubin 1.5 H (0.2-1.3) mg/dL AST 61 H (17-59) U/L ALT 58 (21-72) U/L Alkaline Phosphatase 228 H (38-126) U/L Ammonia <9 (<30) umol/L Total Creatine Kinase 38 L (55-170) U/L CK-MB (CK-2) 2.2 (0.0-2.4) ng/mL CK-MB (CK-2) Rel Index 5.8 Troponin I 0.018 (0.000-0.034) ng/mL Total Protein 6.7 (6.3-8.2) g/dL Albumin 3.9 (3.5-5.0) g/dL Amylase 146 H (30-110) U/L Lipase 569 H (23-300) U/L 07/20/16 07/20/16 Range/Units 18:35 18:35 WBC 7.5 (3.8-10.6) k/uL RBC 3.11 L (4.30-5.90) m/uL Hgb 10.0 L (13.0-17.5) gm/dL Hct 30.9 L (39.0-53.0) % MCV 99.5 (80.0-100.0) fL MCH 32.2 (25.0-35.0) pg MCHC 32.3 (31.0-37.0) g/dL RDW 14.0 (11.5-15.5) % Plt Count 48 L* (150-450) k/uL Neutrophils % 85 % Lymphocytes % 4 % Monocytes % 6 % Eosinophils % 3 % Basophils % 1 % Neutrophils # 6.4 (1.3-7.7) k/uL Lymphocytes # 0.3 L (1.0-4.8) k/uL Monocytes # 0.4 (0-1.0) k/uL Eosinophils # 0.2 (0-0.7) k/uL Basophils # 0.0 (0-0.2) k/uL Hypochromasia Slight PT 12.0 (9.0-12.0) sec INR 1.2 (<1.1) APTT 22.5 (22.0-30.0) sec Sodium (137-145) mmol/L Potassium (3.5-5.1) mmol/L Chloride (98-107) mmol/L Carbon Dioxide (22-30) mmol/L Anion Gap mmol/L BUN (9-20) mg/dL Creatinine (0.66-1.25) mg/dL Est GFR (MDRD) Af Amer (>60 ml/min/1.73 sqM) Est GFR (MDRD) Non-Af (>60 ml/min/1.73 sqM) Glucose (74-99) mg/dL Plasma Lactic Acid [place] (0.7-2.0) mmol/L Calcium (8.4-10.2) mg/dL Phosphorus (2.5-4.5) mg/dL Magnesium (1.6-2.3) mg/dL Total Bilirubin (0.2-1.3) mg/dL AST (17-59) U/L ALT (21-72) U/L Alkaline Phosphatase (38-126) U/L Ammonia (<30) umol/L Total Creatine Kinase (55-170) U/L CK-MB (CK-2) (0.0-2.4) ng/mL CK-MB (CK-2) Rel Index Troponin I (0.000-0.034) ng/mL Total Protein (6.3-8.2) g/dL Albumin (3.5-5.0) g/dL Amylase (30-110) U/L Lipase (23-300) U/L Disposition Clinical Impression: Hyponatremia, Ascites, Cirrhosis of liver with ascites, Thrombocytopenia, Dehydration, Nausea & vomiting, Acute on chronic kidney failure Disposition: ADMITTED IP TO THIS [facility] Condition: Stable Time of Disposition: 19:57 Decision Date: 07/20/16 Decision Time: :57
[2016-07-20 19:06] LABS: Basophils % (A) 1 %; CH 31.2; CHCM 31.5; Eosinophils # (A) 0.2 k/uL (0-0.7); Eosinophils % (A) 3 %; HCT 30.9 % (39.0-53.0); HDW 2.81; Hypochromasia Slight; Luc # (Auto) 0.17; Luc % (Auto) 2; Lymphocytes # (A) 0.3 k/uL (1.0-4.8); Lymphocytes % (A) 4 %; MCH 32.2 pg (25.0-35.0); MCHC 32.3 g/dL (31.0-37.0); MCV 99.5 fL (80.0-100.0); Mean Platelet Volume 9.3; Monocytes # (A) 0.4 k/uL (0-1.0); Monocytes % (A) 6 %; Neutrophils # (A) 6.4 k/uL (1.3-7.7); Neutrophils % (A) 85 %; RBC 3.11 m/uL (4.30-5.90); WBC 7.5 k/uL (3.8-10.6); WBC (Perox) 7.95
[2016-07-20 19:13] LABS: INR 1.2 (<1.1)
[2016-07-20 19:18] LABS: Calcium 9.1 mg/dL (8.4-10.2); Magnesium 2.7 mg/dL (1.6-2.3); Phosphorous 6.1 mg/dL (2.5-4.5); Potassium 4.2 mmol/L (3.5-5.1); Total Bilirubin 1.5 mg/dL (0.2-1.3); Total Protein 6.7 g/dL (6.3-8.2)
[2016-07-20 19:19] LABS: Partial Thromboplastin Time 22.5 sec (22.0-30.0)
[2016-07-20 19:21] LABS: Ammonia <9 umol/L (<30)
[2016-07-20 19:36] LABS: Creatine Kinase MB 2.2 ng/mL (0.0-2.4); Troponin I 0.018 ng/mL (0.000-0.034)
[2016-07-20] MEDS ORDERED: ONDANSETRON 4 MG/2 ML VIAL IVP PRN (19:57)
[2016-07-20] MEDS ORDERED: NALOXONE 0.4 MG/ML 1 ML VIAL IV PRN (19:57)
[2016-07-20] MEDS ORDERED: CYCLOBENZAPRINE 10 MG TAB PO PRN (19:58)
[2016-07-20] MEDS ORDERED: HYDROcodone/APAP 10-325MG 1 EACH TAB PO PRN (19:58)
--- NOTE | 2016-07-20 19:59 | XR ---
EXAMINATION TYPE: XR chest 2V DATE OF EXAM: 07/20/2016 7:49 PM COMPARISON: 05/27/2016 HISTORY: Hypertension and cancer TECHNIQUE: Frontal and lateral views of the chest are obtained. FINDINGS: Heart is normal. There is mild linear density at the lung bases. There is mild elevated ri ght diaphragm. There are no hilar masses. There is no heart failure. There is slight blunting of left costophrenic angle. IMPRESSION: Mild atelectasis at the lung bases similar to last exam. No heart failure.
[2016-07-20] MEDS ORDERED: NON-FORMULARY DRUG (Milk Thistle [Milk Thistle] 150 MG) PO SCH (21:00)
[2016-07-20] MEDS ORDERED: THIAMINE 100 MG TAB PO SCH (21:00)
[2016-07-20] MEDS ORDERED: LACTULOSE 20 GM/30 ML CUP PO SCH (22:00)
[2016-07-20] MEDS: SODIUM CHLORIDE 0.9% 1,000 ML IV SCH (22:17)
[2016-07-20] MEDS: TERAZOSIN 2 MG CAP PO SCH (22:55)
[2016-07-20] MEDS: SODIUM BICARBONATE TAB 650 MG TAB PO SCH (22:56)
[2016-07-20] MEDS: RIFAXIMIN 550 MG TABLET PO SCH (22:56)
[2016-07-20 23:56] VITALS: BMI 23.6
[2016-07-21 00:59] LABS: Creatine Kinase 35 U/L (55-170)
[2016-07-21 01:13] LABS: Creatine Kinase MB 2.2 ng/mL (0.0-2.4); Troponin I <0.012 ng/mL (0.000-0.034)
[2016-07-21 06:48] LABS: Basophils % (A) 0 %; CH 31.2; CHCM 31.7; Eosinophils # (A) 0.2 k/uL (0-0.7); Eosinophils % (A) 3 %; HCT 30.1 % (39.0-53.0); HGB 9.5 gm/dL (13.0-17.5); Luc # (Auto) 0.17; Luc % (Auto) 2; Lymphocytes # (A) 0.4 k/uL (1.0-4.8); Lymphocytes % (A) 5 %; MCH 31.1 pg (25.0-35.0); MCHC 31.4 g/dL (31.0-37.0); MCV 98.9 fL (80.0-100.0); Mean Platelet Volume 9.4; Monocytes # (A) 0.4 k/uL (0-1.0); Monocytes % (A) 6 %; Neutrophils % (A) 84 %; RBC 3.04 m/uL (4.30-5.90); RDW 14.1 % (11.5-15.5); WBC 7.2 k/uL (3.8-10.6); WBC (Perox) 7.92
[2016-07-21] MEDS: MIDODRINE 5 MG TAB PO SCH ×3 (06:52→16:10)
[2016-07-21 07:13] LABS: Calcium 8.9 mg/dL (8.4-10.2); Potassium 3.7 mmol/L (3.5-5.1); Total Bilirubin 1.2 mg/dL (0.2-1.3); Total Protein 6.2 g/dL (6.3-8.2)
[2016-07-21 07:22] LABS: Creatine Kinase MB 2.4 ng/mL (0.0-2.4); Troponin I 0.012 ng/mL (0.000-0.034)
[2016-07-21] MEDS ORDERED: CYANOCOBALAMIN 500 MCG TAB PO SCH (07:30)
--- NOTE | 2016-07-21 08:20 | P.CONS ---
History of Present Illness - Reason for Consult Consult date: 07/21/16 liver cirrhosis Requesting physician: Boni Tannre - History of Present Illness 65-year-old male with a history of chronic hepatitis C infection cirrhosis of the liver completed [facility] in April followed by GI transplant service at [facility], hepatorenal syndrome, hepatic encephalopathy, portal hypertension, and ascites.admitted with reports of outpatient abnormal labs and increased abdominal distention. Status post paracentesis yesterday with 4 L removed.afebrile. Feels slightly better today after paracentesis.BUN 89. Creatinine 3.6. Platelets 45. Hemoglobin 9.5. White count 7.2.total bilirubin 1.2. AST 59. ALT 56. Alkaline phosphatase 228. Ammonia less than 9. Review of Systems Constitutional: Denies fever, chills, sweats, weight gain, or loss. Memory impairment. HEENT: Negative for migraines, blurred vision or loss, earaches, drainage, tinnitus, oral mucosal lesions, dysphagia, or odynophagia. Cardiac: Hyperlipidemia. Hypertension. Negative for chest pain, arrhythmias, or palpitation. Respiratory: Negative for shortness of breath, hemoptysis, cough, or sputum production. Gastrointestinal: See HPI for pertinent findings. Genitourinary: Negative for hematuria, urgency, frequency, polyuria, dysuria, or penile discharge. Musculoskeletal: Negative for muscle aches, swelling, arthritis, and arthralgias. Neurologic: Negative for stroke or TIA. Endocrine/Nephrology: Negative for thyroid problems. Chronic kidney disease stage III. Skin: History of skin cancer. Negative for rash or itching. Psychiatric: Negative history for depression and anxiety Past Medical History Past Medical History: Cancer, GERD/Reflux, Hyperlipidemia, Hypertension, Liver Disease, Memory Impairment, Osteoarthritis (OA), Renal Disease, Vascular Disorder Additional Past Medical History / Comment(s): Hep C with interferon therapy, cirrhosis, prior history of memory impairment secondary to hepatic encephalopathy, chronic fatigue, thrombocytopenia, leukopenia, bilateral feet neuropathy, cervical OA, CKD stage II, chronic low back pain and neck pain, sinus problems at times, skin cancer with removal, ascites. Patient states he had 4L of fluid removed today with paracentesis (07/20/16). Patient says he has a paracentesis once/week. History of Any Multi-Drug Resistant Organisms: None Reported Past Surgical History: Cholecystectomy, Hernia Repair Additional Past Surgical History / Comment(s): Cervical surgery, colonoscopies, umbilical hernia repair x 2, nose and top of head skin cancer removed, multi paracentesis Past Anesthesia/Blood Transfusion Reactions: Postoperative Nausea & Vomiting ( PONV) Additional Past Anesthesia/Blood Transfusion Reaction / Comm: [facility]; pt stated no reaction Past Psychological History: Depression Additional Psychological History / Comment(s): Pt. states he is on depression medication and it has been effective in helping with his depression. Smoking Status: Former smoker Past Alcohol Use History: None Reported Additional Past Alcohol Use History / Comment(s): Pt smoked from 1964 to 1969. Past Drug Use History: None Reported - Past Family History Mother History Unknown: Yes Family Medical History: Chest Pain / Angina Father History Unknown: Yes Family Medical History: Myocardial Infarction ([place]) Medications and Allergies Home Medications Medication Instructions Recorded Confirmed Type Pantoprazole [Protonix] 40 mg PO DAILY 10/22/15 07/20/16 History Terazosin [Hytrin] 2 mg PO HS 10/22/15 07/20/16 History Multivitamins, Thera [Multivitamin 1 tab PO DAILY 12/23/15 07/20/16 History (formulary)] Thiamine [Vitamin B-1] 100 mg PO HS 12/23/15 07/20/16 History Cholecalciferol [Vitamin D3] 1,000 unit PO DAILY 02/24/16 07/20/16 History Cyanocobalamin [Vitamin B-12] 500 mcg PO DAILY 02/24/16 07/20/16 History Finasteride [Proscar] 5 mg PO DAILY 02/24/16 07/20/16 History Loratadine [Claritin] 10 mg PO DAILY 02/24/16 07/20/16 History Methocarbamol [Robaxin] 500 mg PO QAM 02/24/16 07/20/16 History Folic Acid 1 mg PO DAILY 04/04/16 07/20/16 History Lactulose [Cephulac] 30 gm PO QID 05/27/16 07/20/16 History Rifaximin [Xifaxan] 550 mg PO BID 05/27/16 07/20/16 History Ciprofloxacin HCl [Cipro] 500 mg PO DAILY 07/20/16 07/20/16 History Cyclobenzaprine [Flexeril] 10 mg PO Q8H PRN 07/20/16 07/20/16 History DULoxetine HCL [Cymbalta] 60 mg PO DAILY 07/20/16 07/20/16 History HYDROcodone/APAP 10-325MG [[place] 1 tab PO Q6H PRN 07/20/16 07/20/16 History 10-325] Milk Thistle 150 mg PO HS 07/20/16 07/20/16 History Sennosides [Senna] 8.6 mg PO DAILY 07/20/16 07/20/16 History Sodium Bicarbonate Tab 650 mg PO BID 07/20/16 07/20/16 History Allergies Allergy/AdvReac Type Severity Reaction Status Date / Time No Known Allergies Allergy Verified 07/20/16 18:37 Physical Exam Vitals: Vital Signs Temp Pulse Resp BP Pulse Ox 07/21/16 03:30 97.4 F L 93 18 113/63 97 07/21/16 00:00 97.2 F L 86 18 123/66 100 07/20/16 23:36 96.8 F L 75 18 125/69 98 07/20/16 22:10 96.8 F L 75 18 125/69 98 Intake and Output 07/20/16 07/21/16 07/21/16 22:59 06:59 14:59 Intake Total 600 Output Total 250 Balance 350 Intake: IV 600 Sodium Chloride 0.9% 1, 600 000 ml @ 75 mls/hr IV . [id number] [facility] Rx#:[id number] Output: Urine 250 Other: Voiding Method Urinal # Voids 1 Weight 70.6 kg General appearance: The patient is alert, oriented, in no acute distress. HET: Head is normocephalic and atraumatic. Pupils are equal and reactive. Oropharynx is clear without lesions. Neck: Supple without lymphadenopathy. Trachea midline. Heart: S1 S2. Regular rate and rhythm. Lungs: No crackles or wheezes are heard. Abdomen: Soft, nontender, mildly distended with mild ascites, normal bowel sounds. No peritoneal signs. No palpable organomegaly or masses. Extremities: Normal skin color and turgor. No cyanosis, rash, ulceration, clubbing, or edema. Radial and pedal pulses are 2/4 bilaterally. Neurological: No focal deficits. Strength and sensation are grossly intact. Results CBC & Chem 7: 07/21/16 06:27 07/21/16 06:27 Labs: Abnormal Lab Results - Last 24 Hours (Table) 07/21/16 07/21/16 07/21/16 Range/Units 00:24 06:27 06:27 RBC 3.04 L (4.30-5.90) m/uL Hgb 9.5 L (13.0-17.5) gm/dL Hct 30.1 L (39.0-53.0) % Plt Count 45 L* (150-450) k/uL Lymphocytes # 0.4 L (1.0-4.8) k/uL Sodium 132 L (137-145) mmol/L Carbon Dioxide 16 L (22-30) mmol/L BUN 89 H* (9-20) mg/dL Creatinine 3.60 H (0.66-1.25) mg/dL Glucose 105 H (74-99) mg/dL Alkaline Phosphatase 228 H (38-126) U/L Total Creatine Kinase 35 L (55-170) U/L Total Protein 6.2 L (6.3-8.2) g/dL 07/21/16 Range/Units 06:27 RBC (4.30-5.90) m/uL Hgb (13.0-17.5) gm/dL Hct (39.0-53.0) % Plt Count (150-450) k/uL Lymphocytes # (1.0-4.8) k/uL Sodium (137-145) mmol/L Carbon Dioxide (22-30) mmol/L BUN (9-20) mg/dL Creatinine (0.66-1.25) mg/dL Glucose (74-99) mg/dL Alkaline Phosphatase (38-126) U/L Total Creatine Kinase 31 L (55-170) U/L Total Protein (6.3-8.2) g/dL Assessment and Plan (1) Cirrhosis of liver with ascites Status: Chronic (2) Portal hypertension Status: Acute (3) Hepatitis C Status: Acute (4) Hepatorenal syndrome Status: Acute (5) Acute on chronic kidney failure Status: Acute (6) Thrombocytopenia Status: Chronic (7) Hyponatremia Status: Acute (8) Chronic kidney disease, stage 3 Status: Chronic Plan: 1.Avoid nephrotoxic agents. Monitor I & O. We'll defer to nephrology service for further recommendations. 2. Hold diuretics. Continue midodrine. 3. Supportive measures. Thank you for this kind referral and the opportunity to participate in the care of your patient. This consultation was discussed with Dr. Garcia. The impression and plan of care have been directed as dictated.
[2016-07-21] MEDS ORDERED: FOLIC ACID 1 MG TAB PO SCH (09:00)
[2016-07-21] MEDS ORDERED: MULTIVITAMINS, THERA 1 EACH TAB PO SCH (09:00)
[2016-07-21] MEDS ORDERED: SENNOSIDES 8.6 MG TAB PO SCH (09:00)
[2016-07-21] MEDS ORDERED: DULoxetine HCL 60 MG CAPSULE.DR PO SCH (09:00)
[2016-07-21] MEDS ORDERED: LORATADINE 10 MG TAB PO SCH (09:00)
[2016-07-21] MEDS ORDERED: PANTOPRAZOLE 40 MG TABLET PO SCH (09:00)
[2016-07-21] MEDS ORDERED: METHOCARBAMOL 500 MG TAB PO SCH (09:00)
[2016-07-21] MEDS ORDERED: FINASTERIDE 5 MG TAB PO SCH (09:00)
[2016-07-21] MEDS ORDERED: CIPROFLOXACIN HCL 500 MG TAB PO SCH (09:00)
[2016-07-21] MEDS ORDERED: CHOLECALCIFEROL 1,000 UNIT TAB PO SCH (09:00)
[2016-07-21] MEDS: RIFAXIMIN 550 MG TABLET PO SCH (09:15)
[2016-07-21] MEDS: TERAZOSIN 2 MG CAP PO SCH (09:16)
[2016-07-21] MEDS: SODIUM BICARBONATE TAB 650 MG TAB PO SCH (09:16)
[2016-07-21] MEDS: SODIUM CHLORIDE 0.9% 1,000 ML IV SCH (11:08)
[2016-07-21 11:42] VITALS: BP 115/58; PULSE 94; TEMP 97.8
--- NOTE | 2016-07-21 15:16 | DS ---
HISTORY AND PHYSICAL/DISCHARGE SUMMARY DATE OF ADMISSION: 07/20/2016 DATE OF DISCHARGE: This is a 65-year-old well known patient to me from his previous admission with history of chronic hepatitis C cirrhosis, is on hepatic transplant list and patient was on [facility] in April and patient's follows up with [facility]. Came in because of complaints of ( ). Patient is found to be in acute renal failure, probably severe intravascular volume depletion. Patient's baseline creatinine around 1.2. Since then it has been fluctuating quite a bit and patient comes in with increased creatinine of 4.5. Patient denied any nausea, vomiting, diarrhea. Patient has been having visual hallucinations and auditory hallucinations and patient is on [place], unfortunately in spite of cirrhosis which is probably not appropriate and patient is also on Flexeril and loratadine, that can affect his mental status and patient is improved a little but, still has dizziness whenever he gets up and patient's BUN is 90 when he came in, now 89 and ammonia is less than 9. REVIEW OF SYSTEMS: CONSTITUTIONAL: No fever, no malaise, no fatigue. HEENT: No recent visual problems or hearing problems. Denied any sore throat. CARDIOVASCULAR: No chest pain, orthopnea, PND, no palpitations, no syncope. PULMONARY: No shortness of breath, no cough, no hemoptysis. GASTROINTESTINAL: As described in HPI. NEUROLOGICAL: As described in HPI. HEMATOLOGICAL: Denies any bleeding or petechiae. GENITOURINARY: Denies any burning micturition, frequency, or urgency. MUSCULOSKELETAL/RHEUMATOLOGICAL: Denies any joint pain, swelling, or any muscle pain. ENDOCRINE: Denies any polyuria or polydipsia. The rest of the 14 point review of systems is negative. Patient denied any abdominal pain. Patient does have significant ascites without any abdominal pain. Patient is Cipro, not sure why. Probably he was discharged on Cipro during his last hospitalization and does not need that medication. Patient does not have any signs or symptoms of vascular peritonitis. PAST MEDICAL HISTORY: Cirrhosis, hepatitis C, hyperlipidemia, hypertension, memory impairment, osteoarthritis, renal disease, chronic fatigue, thrombocytopenia, leukopenia and cholecystectomy, hernia repair and depression. SOCIAL HISTORY: Former smoker, denied any alcohol abuse or any drug abuse. FAMILY HISTORY: Mother had coronary artery disease and father had myocardial infarction. Home medications include: 1. Sodium bicarbonate. 2. Senna. 3. Hydrocodone. 4. Acetaminophen. 5. Flexeril. 6. Cholecalciferol. 7. Duloxetine. 8. Cyanocobalamin. 9. Loratadine. 10. Lactulose. 11. Folic acid. 12. Finasteride. 13. Pantoprazole. 14. Midodrine. 15. Methocarbamol. 16. Thiamine. 17. Terazosin. 18. Rifaximin. 19. Ciprofloxacin. Patient is not on any diuretic therapy at this point of time. Patient is lactulose 30 mg p.o. q.i.d. Cipro can affect his mental status as well. PHYSICAL EXAMINATION: VITAL SIGNS: Temperature 97.8, pulse of 94, respiratory rate of 16, blood pressure is 116/58, saturating at 99% on room air. GENERAL: The patient is alert and oriented x3, not in any acute distress. Well developed, well nourished. HEENT: Pupils are round and equally reacting to light. EOMI. No scleral icterus. No conjunctival pallor. Normocephalic, atraumatic. No pharyngeal erythema. No thyromegaly. CARDIOVASCULAR: S1 and S2 present. No murmurs, rubs, or gallops. PULMONARY: Chest is clear to auscultation, no wheezing or crackles. ABDOMEN: Patient has ( ) cirrhosis and patient's abdomen is distended with ( ) as well as fluid-filled. MUSCULOSKELETAL: No joint swelling or deformity. EXTREMITIES: No cyanosis, clubbing, or pedal edema. NEUROLOGICAL: Gross neurological examination did not reveal any focal deficits. SKIN: No rashes. LABORATORY DATA: CBC, CMP are abnormal for elevated MCV, anemia secondary to cirrhosis and low ( ). Sodium of 128 came up to 132 and chloride of 99, bicarbonate of 16, anion gap of 17 and lactic acid of 2.5, creatinine of 4.03 came down to 3.60. Lactic acid was 2.1 yesterday night. Lipase is 569. Alkaline phosphatase is elevated. Chest x-ray did not show any acute process. Mild atelectasis in the lung bases. ASSESSMENT AND PLAN: 1. Acute renal failure and dizziness secondary to severe intravascular volume depletion, patient is not on diuretic therapy and patient improved with gentle hydration, IV fluid resuscitation. Patient was gently hydrated because of cirrhosis and ( ). 2. Lactic acidosis due to ( ) volume depletion as mentioned above. 3. ( ) probably related to medications. Ciprofloxacin and atenolol can significantly contribute to his altering mental status and along with ( ) either will be discontinued. 4. Hepatorenal syndrome, acute assessment. 5. No ( ) at this time. 6. Chronic kidney disease stage III secondary to hepatorenal syndrome, portal hypertension. Patient is on rifaximin as well. Patient is being transferred to [facility] to the hepatic transplant treatment as per their request.
--- NOTE | 2016-07-22 08:33 | CONS ---
DATE OF CONSULTATION: REASON FOR CONSULTATION: Renal failure. HISTORY OF PRESENT ILLNESS: Patient is a 65-year-old male with history of liver cirrhosis, maintained on frequent paracentesis almost every week who was admitted to the hospital with abnormal labs. His serum creatinine was at 3.6 mg/dL, which is slightly lower than 4.03 on initial admission. Previous creatinine has been as low as 1.69 on 05/16. Patient stated that he had been somewhat confused as well prior to admission. His blood pressure is about 112 to 115 mmHg. Patient is maintained on IV fluids and he states he is feeling better. PAST MEDICAL HISTORY: Hepatitis C, liver cirrhosis, portal hypertension, recurrent ascites, history of hepatic encephalopathy, hyperlipidemia and chronic kidney disease stage III. PAST SURGICAL HISTORY: Cholecystectomy, hernia repair and colonoscopies. SOCIAL HISTORY: The patient is an ex-smoker. Medications prior to admission included: 1. Protonix. 2. Hytrin. 3. Vitamin B. 4. Vitamin D3. 5. Robaxin. 6. Claritin. 7. Proscar. 8. Cephulac. 9. Cipro. 10. Cymbalta. 11. Senna. 12. Sodium bicarb. ALLERGIES: None. REVIEW OF SYSTEMS: As per HPI. Other systems negative. On examination, the patient is comfortable, awake, alert and oriented x3, not in any acute distress. Blood pressure 112/66, heart rate 92 per minute. He is afebrile. Examination of the heart: S1, S2 examination of the lungs: Bilateral breath sounds are heard. Decreased breath sounds in bases. ABDOMEN: Soft, distended with ascites, nontender. Examination of lower extremities shows no evidence of edema. SINGLE RESOURCE BOSS exam is grossly intact, no ( ) tremors are noted. Labs show sodium 132, potassium 3.7, BUN 89, serum creatinine 3.6. Hemoglobin 9.5, platelet count 45,000. ASSESSMENT: 1. Acute kidney injury. Appears to be prerenal. Continue with IV fluids. Check urinalysis to rule out any evidence of acute interstitial nephritis given patient was recently on antibiotics. 2. Chronic kidney disease with previous creatinine at about 1.1 to 1.0 mg/dL as of February 2016, previous urinalysis showed no evidence of protein or blood in April 2016. 3. Thrombocytopenia secondary to liver cirrhosis. 4. Recurrent ascites from portal hypertension and nephrosclerosis. 5. Elevated amylase and lipase levels. PLAN: Continue IV fluids. Repeat labs in a.m. It appears that patient is being considered for transfer to [facility].
== END 2016-07-21 16:42 | disposition short-term general hospital (02) | DRG 682 ==
LOC: EC 17:29 → 6SEL 20:34
PROVIDERS: ADMIT Hospitalist; ATTEND Hospitalist
DX: N17.9 Acute kidney failure, unspecified (principal); K76.7 Hepatorenal syndrome; K76.6 Portal hypertension; E87.2 Acidosis; R18.8 Other ascites; E87.1 Hypo-osmolality and hyponatremia; R44.0 Auditory hallucinations; K74.60 Unspecified cirrhosis of liver; N18.3 Chronic kidney disease, stage 3 (moderate); B18.2 Chronic viral hepatitis C; I12.9 Hypertensive chronic kidney disease with stage 1 through stage 4 chronic kidney disease, or unspecified chronic kidney disease; E86.0 Dehydration; F32.9 Major depressive disorder, single episode, unspecified; T44.7X5A Adverse effect of beta-adrenoreceptor antagonists, initial encounter; T36.8X5A Adverse effect of other systemic antibiotics, initial encounter; G62.9 Polyneuropathy, unspecified; E78.5 Hyperlipidemia, unspecified; K21.9 Gastro-esophageal reflux disease without esophagitis; G89.29 Other chronic pain; M47.812 Spondylosis without myelopathy or radiculopathy, cervical region; R74.8 Abnormal levels of other serum enzymes; R44.1 Visual hallucinations; M54.5 Low back pain; Z79.899 Other long term (current) drug therapy; Z87.891 Personal history of nicotine dependence; Z71.3 Dietary counseling and surveillance; Z82.49 Family history of ischemic heart disease and other diseases of the circulatory system; Z85.828 Personal history of other malignant neoplasm of skin; Z79.2 Long term (current) use of antibiotics; Z79.891 Long term (current) use of opiate analgesic; Z90.49 Acquired absence of other specified parts of digestive tract; Z98.890 Other specified postprocedural states
CPT/HCPCS: 36415; 49083; 71020; 80053; 80076; 82105; 82140; 82150; 82550; 82553; 82565; 83605; 83690; 83735; 84100; 84484; 85025; 85049; 85610; 85730; 86301; 87522; 99285

== ENCOUNTER → 2016-07-20 | Outpatient (CLI) | payer MEDICARE ==
[2016-07-20 13:35] LABS: Bilirubin, Delta 0.8 mg/dL (0.0-0.2); Total Bilirubin 1.6 mg/dL (0.2-1.3); Total Protein 6.9 g/dL (6.3-8.2)
== END | disposition home or self-care (01) ==
LOC: LABWHC1 12:05
PROVIDERS: ATTEND Physician Assistant
DX: R19.09 Other intra-abdominal and pelvic swelling, mass and lump (principal); B18.2 Chronic viral hepatitis C
CPT/HCPCS: 36415; 80076; 82105; 86301

== ENCOUNTER 2016-08-07 12:31 | Day surgery (SDC) | payer MEDICARE ==
[2016-08-07 12:45] VITALS: TEMP 98.1
[2016-08-07 13:05] LABS: INR 1.4 (<1.1); Prothrombin Time 13.8 sec (9.0-12.0)
[2016-08-07 13:06] LABS: Mean Platelet Volume 10.3
[2016-08-07 14:00] VITALS: RESP 16
[2016-08-07] MEDS: ALBUMIN HUMAN 25% 50 ML in EMPTY BAG 1 BAG IVPB SCH ×2 (14:47→15:00)
[2016-08-07] MEDS ORDERED: ALBUMIN HUMAN 25% 50 ML in EMPTY BAG 1 BAG IVPB ONE ×2 (14:49→15:30)
--- NOTE | 2016-08-07 15:36 | US ---
EXAMINATION TYPE: US paracentesis abd w/image DATE OF EXAM: 08/07/2016 3:28 PM COMPARISON: NONE HISTORY: Ascites. PROCEDURE: Maximal barrier technique was utilized. The skin overlying a suitable pocket of fluid was localized with ultrasound and the overlying skin was prepped and draped. Ultrasound was utilized with sterile technique. Lidocaine was used for local anesthesia and a skin jia made with a scalpel. Catheter was advanced under direct ultrasound guidance into a suitable pocket of fluid and approximately 8.5 liter s of serous fluid were removed. Catheter was withdrawn and hemostasis achieved. There is no immedia te complication; the patient is discharged in stable condition. IMPRESSION: STATUS POST ULTRASOUND GUIDED PARACENTESIS FOR PALLIATION OF ASCITES. THIS PROCEDURE WA S PERFORMED BY THE UNDERSIGNED.
[2016-08-07 15:53] VITALS: BP 105/50; PULSE 69
== END 2016-08-07 16:15 | disposition home or self-care (01) ==
LOC: RADPROMAIN 12:31
PROVIDERS: ATTEND Internal Medicine Gastroenterology
DX: R18.8 Other ascites (principal)
CPT/HCPCS: 82565; 85049; 85610; 96365; 49083; P9047

== ENCOUNTER 2016-08-11 10:15 | Inpatient (IN) | payer MEDICARE ==
[2016-08-11] MEDS ORDERED: IBUPROFEN 600 MG TAB PO STA (10:36)
[2016-08-11] MEDS ORDERED: ACETAMINOPHEN TAB 500 MG TAB PO STA (10:36)
[2016-08-11] MEDS ORDERED: SODIUM CHLORIDE 0.9% 1,000 ML IV ONE (10:43)
--- NOTE | 2016-08-11 10:43 | ED ---
General Adult HPI - General Chief complaint: Fever Stated complaint: Fever Time Seen by Provider: 08/11/16 10:27 Source: patient, family, RN notes reviewed, old records reviewed Mode of arrival: ambulatory Limitations: no limitations - History of Present Illness Initial comments: This is a 65-year-old male who ER for evaluation for this patient presents here for evaluation of fever. Patient was transferred as he was. Have ascitic fluid drained today secondary to liver failure. Patient's mental status is appropriate. Patient was noted the fever. Patient denies any nausea vomiting or diarrhea no chest pain or shortness of breath. No rashes noted. Patient does have significant history of hep C with liver cirrhosis and liver failure. - Related Data Home Medications Medication Instructions Recorded Confirmed Pantoprazole [Protonix] 40 mg PO DAILY 10/22/15 08/11/16 Terazosin [Hytrin] 2 mg PO HS 10/22/15 08/11/16 Multivitamins, Thera [Multivitamin 1 tab PO DAILY 12/23/15 08/11/16 (formulary)] Thiamine [Vitamin B-1] 100 mg PO HS 12/23/15 08/11/16 Cholecalciferol [Vitamin D3] 1,000 unit PO DAILY 02/24/16 08/11/16 Cyanocobalamin [Vitamin B-12] 500 mcg PO DAILY 02/24/16 08/11/16 Finasteride [Proscar] 5 mg PO DAILY 02/24/16 08/11/16 Methocarbamol [Robaxin] 500 mg PO QAM 02/24/16 08/11/16 Folic Acid 1 mg PO DAILY 04/04/16 08/11/16 Lactulose [Cephulac] 30 gm PO QID 05/27/16 08/11/16 Rifaximin [Xifaxan] 550 mg PO BID 05/27/16 08/11/16 DULoxetine HCL [Cymbalta] 60 mg PO DAILY 07/20/16 08/11/16 Milk Thistle 150 mg PO HS 07/20/16 08/11/16 Sennosides [Senna] 8.6 mg PO DAILY 07/20/16 08/11/16 Sodium Bicarbonate Tab 650 mg PO BID 07/20/16 08/11/16 Previous Rx's Medication Instructions Recorded Midodrine [ProAmatine] 10 mg PO AC-TID tab 05/16/16 Allergies Allergy/AdvReac Type Severity Reaction Status Date / Time No Known Allergies Allergy Verified 08/11/16 08:53 Review of Systems ROS Statement: Those systems with pertinent positive or pertinent negative responses have been documented in the HPI. ROS Other: All systems not noted in ROS Statement are negative. Past Medical History Past Medical History: Renal Disease Additional Past Medical History / Comment(s): Hep C with interferon therapy, cirrhosis, prior history of memory impairment secondary to hepatic encephalopathy, chronic fatigue, thrombocytopenia, leukopenia, bilateral feet neuropathy, cervical OA, CKD stage II, chronic low back pain and neck pain, sinus problems at times, skin cancer with removal, ascites. Patient states he had 4L of fluid removed today with paracentesis (07/20/16). Patient says he has a paracentesis once/week. History of Any Multi-Drug Resistant Organisms: None Reported Past Surgical History: Cholecystectomy, Hernia Repair Additional Past Surgical History / Comment(s): Cervical surgery, colonoscopies, umbilical hernia repair x 2, nose and top of head skin cancer removed, multi paracentesis Past Anesthesia/Blood Transfusion Reactions: Postoperative Nausea & Vomiting ( PONV) Additional Past Anesthesia/Blood Transfusion Reaction / Comment(s): [facility]; pt stated no reaction Past Psychological History: Depression Additional Psychological History / Comment(s): Pt. states he is on depression medication and it has been effective in helping with his depression. Smoking Status: Former smoker Past Alcohol Use History: None Reported Additional Past Alcohol Use History / Comment(s): Pt smoked from 1965 to 1969. Past Drug Use History: None Reported - Past Family History Mother History Unknown: Yes Family Medical History: Chest Pain / Angina Father History Unknown: Yes Family Medical History: Myocardial Infarction ([place]) General Exam Limitations: no limitations General appearance: alert, in no apparent distress Head exam: Present: atraumatic, normocephalic, normal inspection Eye exam: Present: normal appearance, PERRL, EOMI. Absent: scleral icterus, conjunctival injection, periorbital swelling ENT exam: Present: normal exam, mucous membranes moist Neck exam: Present: normal inspection. Absent: tenderness, meningismus, lymphadenopathy Respiratory exam: Present: normal lung sounds bilaterally. Absent: respiratory distress, wheezes, rales, rhonchi, stridor Cardiovascular Exam: Present: regular rate, normal rhythm, normal heart sounds. Absent: systolic murmur, diastolic murmur, rubs, gallop, clicks GI/Abdominal exam: Present: soft, normal bowel sounds. Absent: distended, tenderness, guarding, rebound, rigid Extremities exam: Present: normal inspection, full ROM, normal capillary refill. Absent: tenderness, pedal edema, joint swelling, calf tenderness Back exam: Present: normal inspection Neurological exam: Present: alert, oriented X3, CN II-XII intact Psychiatric exam: Present: normal affect, normal mood Skin exam: Present: warm, dry, intact, normal color. Absent: rash Course Vital Signs 08/11/16 10:26 Temperature 100.6 F H Pulse Rate 87 Respiratory 18 Rate Blood Pressure 110/65 O2 Sat by Pulse 98 Oximetry - Reevaluation(s) Reevaluation #1: 08/11/16 10:42 Medical records thoroughly reviewed Medical Decision Making - Medical Decision Making 65 male here for evaluation of fever. Fever with ascites, patient does have indwelling right subclavian Anuj catheter, patient also has ascites, but denies about pain known nausea vomiting or diarrhea. Patient will be admitted for evaluation of fever, IV antibiotics - Radiology Data Radiology results: report reviewed (Chest x-ray is negative for acute disease), image reviewed Disposition Clinical Impression: Renal failure, UTI (urinary tract infection), Hepatitis C, Acute on chronic kidney failure, Dehydration, Cirrhosis of liver with ascites, Fever Disposition: ADMITTED IP TO THIS HOSP Condition: Fair Referrals: Alexis Norris DO [Primary Care Provider] - 1-2 days
[2016-08-11] MEDS ORDERED: cefTRIAXone 2,000 MG in SODIUM CHLORIDE 0.9% 100 ML IVPB ONE (11:00)
[2016-08-11 11:36] LABS: Magnesium 2.1 mg/dL (1.6-2.3); Phosphorous 3.2 mg/dL (2.5-4.5); Total Bilirubin 2.5 mg/dL (0.2-1.3); Total Protein 6.8 g/dL (6.3-8.2)
[2016-08-11 11:58] LABS: Basophils % (A) 0 %; CH 30.5; CHCM 31.4; Eosinophils # (A) 0.1 k/uL (0-0.7); Eosinophils % (A) 1 %; HCT 31.6 % (39.0-53.0); HDW 2.53; Hypochromasia Slight; Luc # (Auto) 0.23; Luc % (Auto) 2; Lymphocytes # (A) 0.5 k/uL (1.0-4.8); Lymphocytes % (A) 4 %; MCHC 31.7 g/dL (31.0-37.0); MCV 97.8 fL (80.0-100.0); Mean Platelet Volume 10.7; Monocytes # (A) 0.8 k/uL (0-1.0); Monocytes % (A) 6 %; Neutrophils # (A) 11.4 k/uL (1.3-7.7); Neutrophils % (A) 88 %; RBC 3.23 m/uL (4.30-5.90); WBC 12.9 k/uL (3.8-10.6); WBC (Perox) 12.96
[2016-08-11] MEDS: LACTULOSE 20 GM/30 ML CUP PO SCH ×3 (14:45→21:21)
[2016-08-11] MEDS: RIFAXIMIN 550 MG TABLET PO SCH ×2 (14:53→21:20)
[2016-08-11 16:15] LABS: INR 1.4 (<1.1); Prothrombin Time 14.1 sec (9.0-12.0)
[2016-08-11] MEDS: MIDODRINE 5 MG TAB PO SCH (17:21)
[2016-08-11] MEDS: SEVELAMER 800 MG TAB PO SCH (17:22)
--- NOTE | 2016-08-11 18:19 | HP ---
DATE OF ADMISSION: 08/11/2016 CHIEF COMPLAINT: Fever. HISTORY OF PRESENT ILLNESS: This 65-year-old gentleman with a past medical history of hyperlipidemia, hypertension, history of chronic liver disease, being followed by Dr. Norris in the outpatient setting, also had cirrhosis of the liver secondary to possible hepatitis C. Patient also had renal failure, and the possibility of hepatorenal syndrome was also considered. The patient was also started hemodialysis recently. Patient was seen by multiple consultants as well. The patient was also seen by [facility] and was apparently on the list for a double liver/renal transplantation. The patient had scheduled abdominal paracentesis today and the patient went to paracentesis, but because of fever the patient was sent to the emergency room and he was admitted for further evaluation and treatment. On admission, the white count is elevated to 12.9 and lactic acid 2.2. Sodium is 135. Patient was started on broad-spectrum IV antibiotics. There is no history of any rigors or chills. No history of headache, loss of consciousness, seizures at this time. Of note that lactic acid was also elevated during the previous admissions. PAST MEDICAL HISTORY: 1. History of cirrhosis of the liver. 2. History of hepatitis C. 3. Hypertension. 4. Hyperlipidemia. 5. History of DJD. 6. Renal failure, on hemodialysis. 7. Hepatic encephalopathy. 8. Cholecystectomy. 9. Depression. HOME MEDICATIONS: 1. Thiamine 100 mg p.o. at bedtime. 2. Hytrin 2 mg p.o. at bedtime. 3. Sodium bicarbonate 650 mg p.o. b.i.d. 4. Renvela 800 mg p.o. t.i.d. 5. Senna 8.6 p.o. daily. 6. Rifaximin 550 mg p.o. b.i.d. 7. Protonix 40 mg p.o. daily. 8. Multivitamins one p.o. daily. 9. Milk thistle 150 mg at bedtime. 10. ProAmatine 10 mg before meals t.i.d. 11. Lopressor 25 mg p.o. b.i.d. 12. Robaxin 500 mg each morning. 13. Cephulac 30 mg p.o. q.i.d. 14. Lasix 80 mg p.o. b.i.d. 15. Folic acid 1 mg p.o. daily. 16. Proscar 5 mg p.o. daily. 17. Cymbalta 60 mg p.o. daily. 18. Vitamin B12 500 mcg p.o. daily. 19. Vitamin D3. 21. Lipitor 80 mg p.o. daily. ALLERGIES: NONE. FAMILY HISTORY: History of chest pain, angina in the family. SOCIAL HISTORY: Previous history of smoking. No history of alcohol intake. REVIEW OF SYSTEMS: ENT: No diminishing hearing. No diminished vision. CARDIOVASCULAR SYSTEM: No angina, palpitations. RESPIRATORY SYSTEM: No cough, hemoptysis. GI: As mentioned earlier. : No dysuria. NERVOUS SYSTEM: No numbness or weakness. ALLERGY/IMMUNOLOGY: No asthma, hayfever. MUSCULOSKELETAL: As mentioned earlier. HEMATOLOGY/ONCOLOGY: As mentioned earlier. ENDOCRINE: As mentioned earlier. CONSTITUTIONAL: As mentioned earlier. DERMATOLOGY: Negative. RHEUMATOLOGY: Negative. PSYCHIATRY: As mentioned earlier. PHYSICAL EXAMINATION: Alert and oriented x3. Pulse 78, blood pressure 98/56, respiration 16, temperature 99.1, T-max 100.6, pulse ox 98% on room air. HEENT: Conjunctivae normal. Oral mucosa moist. NECK: No jugular venous distention. No carotid bruit. No lymph node enlargement. CARDIOVASCULAR SYSTEM: S1, S2 muffled. Ejection systolic murmur. No S3. No S4. RESPIRATORY SYSTEM: Breath sounds diminished at the bases. A few scattered rhonchi and crackles. ABDOMEN: Soft. Minimal diffuse distention present. Otherwise, flanks are dull. Minimal ascites present otherwise. No guarding. No rigidity. No mass palpable. Bowel sounds present. No bruit. LEGS: No edema. No swelling. NERVOUS SYSTEM: Higher functions as mentioned earlier. Moves all 4 limbs. No focal motor or sensory deficit. LYMPHATICS: No lymph node palpable in neck, axillae or groin. SKIN: No ulcer, rash or bleeding. LABS: WBC 12.9, hemoglobin 10, platelets 48. Plasma lactic acid 2.2. ASSESSMENT: 1. Fever for evaluation. Rule out spontaneous bacterial peritonitis with possible early sepsis. 2. Increased lactic acid. 3. Increased white count. 4. Anemia, normocytic; anemia of chronic disease. 5. Thrombocytopenia secondary to chronic liver disease. 6. Hyponatremia secondary to chronic liver disease. 7. Chronic renal failure, stage V, chronic kidney disease, on hemodialysis. 8. Possible hepatorenal syndrome. 9. Increased alkaline phosphatase. 10. Increased lipase. 11. History of gastroesophageal reflux disease. 12. Hypertension. 13. Hyperlipidemia. 14. History of degenerative joint disease. 15. History of hepatic encephalopathy. 16. History of cirrhosis of the liver with hepatitis C; also on Harvoni. 17. History of constipation. 18. History of hyperammonemia. 19. History of tetrahydrocannabinol. 20. History of gastroesophageal reflux disease. 21. Hypertension, essential. 22. Hyperlipidemia. 23. History of memory impairment. 24. History of ascites and abdominal paracentesis. 25. History of chronic fatigue syndrome. 26. History of cholecystectomy. 27. Depression not otherwise specified. 28. Remote history of nicotine dependence. 29. FULL CODE. RECOMMENDATIONS AND DISCUSSION: In this 65-year-old gentleman who presented with multiple complex medical issues, we will monitor the patient closely, continue the current medications. I would recommend resuming the home medications cautiously. I would also recommend gastroenterology and nephrology consultations. Empiric antibiotics. See orders for further details. Guarded prognosis. Supplement vitamins. Further recommendations to follow. A copy of this dictation is being forwarded to Dr. Norris, who is the primary physician. BRYNN
[2016-08-11] MEDS: FUROSEMIDE 80 MG TAB PO SCH (21:19)
[2016-08-11] MEDS: SODIUM BICARBONATE TAB 650 MG TAB PO SCH (21:20)
[2016-08-11] MEDS: THIAMINE 100 MG TAB PO SCH (21:21)
[2016-08-11] MEDS: METOPROLOL TARTRATE 25 MG TAB PO SCH (21:23)
[2016-08-11] MEDS: TERAZOSIN 2 MG CAP PO SCH (21:23)
[2016-08-12] MEDS ORDERED: METHOCARBAMOL 500 MG TAB PO STA (02:23)
[2016-08-12] MEDS: ONDANSETRON 4 MG/2 ML VIAL IVP PRN ×3 (02:30→20:05)
[2016-08-12 07:19] LABS: Basophils % (A) 0 %; CH 30.7; CHCM 31.3; Eosinophils # (A) 0.2 k/uL (0-0.7); Eosinophils % (A) 2 %; HGB 10.6 gm/dL (13.0-17.5); Hypochromasia Slight; Luc # (Auto) 0.32; Luc % (Auto) 3; Lymphocytes # (A) 0.4 k/uL (1.0-4.8); Lymphocytes % (A) 3 %; MCH 29.9 pg (25.0-35.0); MCHC 30.3 g/dL (31.0-37.0); MCV 98.7 fL (80.0-100.0); Macrocytosis Slight; Mean Platelet Volume 10.3; Monocytes # (A) 0.8 k/uL (0-1.0); Monocytes % (A) 6 %; Neutrophils # (A) 10.9 k/uL (1.3-7.7); Neutrophils % (A) 86 %; RBC 3.55 m/uL (4.30-5.90); RDW 15.1 % (11.5-15.5); WBC 12.6 k/uL (3.8-10.6); WBC (Perox) 13.09
[2016-08-12 07:20] LABS: Calcium 9.2 mg/dL (8.4-10.2); Potassium 4.1 mmol/L (3.5-5.1); Total Protein 7.1 g/dL (6.3-8.2)
[2016-08-12] MEDS: cefTRIAXone 2,000 MG in SODIUM CHLORIDE 0.9% 100 ML IVPB SCH (07:57)
[2016-08-12] MEDS: METHOCARBAMOL 500 MG TAB PO SCH (08:23)
[2016-08-12] MEDS: RIFAXIMIN 550 MG TABLET PO SCH ×2 (09:33→20:02)
[2016-08-12] MEDS: FINASTERIDE 5 MG TAB PO SCH (10:36)
[2016-08-12] MEDS: FUROSEMIDE 80 MG TAB PO SCH ×2 (10:37→20:02)
[2016-08-12] MEDS: MIDODRINE 5 MG TAB PO SCH ×3 (10:39→19:13)
[2016-08-12] MEDS: SENNOSIDES 8.6 MG TAB PO SCH (10:39)
[2016-08-12] MEDS: PANTOPRAZOLE 40 MG TABLET PO SCH (10:39)
[2016-08-12] MEDS: LACTULOSE 20 GM/30 ML CUP PO SCH ×4 (10:39→22:13)
[2016-08-12] MEDS: METOPROLOL TARTRATE 25 MG TAB PO SCH ×2 (10:39→22:12)
[2016-08-12] MEDS: SEVELAMER 800 MG TAB PO SCH ×3 (10:39→19:13)
--- NOTE | 2016-08-12 11:35 | P.CONS ---
History of Present Illness - Reason for Consult Consult date: 08/12/16 ascites cirrhosis Requesting physician: Boni Tanner - History of Present Illness 65-year-old male followed by the GI clinic at [facility] on transplant list with a history chronic hepatitis C infection, cirrhosis, status post Harvoni treatment completed in April, hepatorenal syndrome, hepatic encephalopathy, portal hypertension with recurrent ascites, chronic thrombocytopenia and coagulopathy, Remicade disease stage III, Citrobacter UTI April 2016. Patient is vented yesterday as an outpatient for a scheduled therapeutic paracentesis. He has been experiencing difficulty urinating with intermittent burning over the last week. Patient that he may have a urinary tract infection. [facility] agency sent urine culture and analysis last week but results are not available at this time. He had a low-grade temperature prior to paracentesis yesterday subsequently canceled. T-max 100.6. He was sent to the emergency room for evaluation. This morning he is reporting decreased urine output. He seems to be more forgetful but easily oriented today. Receiving Lasix twice daily. Abdominal ascites present with difficulty ambulating. White count 12.9. Hemoglobin 10. Platelet 48. INR 1.4. BUN 30, creatinine 3.3, but increased to 4.2 today. Ammonia 27. Review of Systems Constitutional: Denies fever, chills, sweats, weight gain, or loss. Memory impairment. HEENT: Negative for migraines, blurred vision or loss, earaches, drainage, tinnitus, oral mucosal lesions, dysphagia, or odynophagia. Cardiac: Hyperlipidemia. Hypertension. Negative for chest pain, arrhythmias, or palpitation. Respiratory: Negative for shortness of breath, hemoptysis, cough, or sputum production. Gastrointestinal: See HPI for pertinent findings. Genitourinary: Negative for hematuria, urgency, frequency, polyuria, dysuria, or penile discharge. Musculoskeletal: Negative for muscle aches, swelling, arthritis, and arthralgias. Neurologic: Negative for stroke or TIA. Endocrine/Nephrology: Negative for thyroid problems. Chronic kidney disease stage III. Skin: History of skin cancer. Negative for rash or itching. Psychiatric: Negative history for depression and anxiety All systems: negative (See HPI) Past Medical History Past Medical History: Cancer, GERD/Reflux, Hyperlipidemia, Hypertension, Liver Disease, Osteoarthritis (OA), Renal Disease Additional Past Medical History / Comment(s): Pt recently admitted to [facility] on 07/21/16 with acute renal failure/dizziness r/t volume depletion and was transferred to [facility]. 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 History of Any Multi-Drug Resistant Organisms: None Reported Past Surgical History: Cholecystectomy, Hernia Repair Additional Past Surgical History / Comment(s): Cervical fusion surgery, colonoscopies, umbilical hernia repair x 2, nose and top of head skin cancer removed, multi paracentesis. Hemodialysis catheter. Past Anesthesia/Blood Transfusion Reactions: Postoperative Nausea & Vomiting ( PONV) Additional Past Anesthesia/Blood Transfusion Reaction / Comm: [facility]; [facility] stated no reaction Past Psychological History: Depression Additional Psychological History / Comment(s): Pt. states he is on depression medication and it has been effective in helping with his depression. Pt resides with his spouse. He uses no assistive device. He has a walker and cane whenever he needs to start using them. He no longer drives, his spouse takes him to appts. He has home care thru [facility]. Smoking Status: Former smoker Past Alcohol Use History: None Reported Additional Past Alcohol Use History / Comment(s): Pt smoked from 1964 to 1969. Past Drug Use History: None Reported - Past Family History Mother History Unknown: Yes Family Medical History: Chest Pain / Angina Father History Unknown: Yes Family Medical History: Myocardial Infarction ([place]) Medications and Allergies Home Medications Medication Instructions Recorded Confirmed Type Pantoprazole [Protonix] 40 mg PO DAILY 10/22/15 08/11/16 History Terazosin [Hytrin] 2 mg PO HS 10/22/15 08/11/16 History Multivitamins, Thera [Multivitamin 1 tab PO DAILY 12/23/15 08/11/16 History (formulary)] Thiamine [Vitamin B-1] 100 mg PO HS 12/23/15 08/11/16 History Cholecalciferol [Vitamin D3] 1,000 unit PO DAILY 02/24/16 08/11/16 History Cyanocobalamin [Vitamin B-12] 500 mcg PO DAILY 02/24/16 08/11/16 History Finasteride [Proscar] 5 mg PO DAILY 02/24/16 08/11/16 History Methocarbamol [Robaxin] 500 mg PO QAM 02/24/16 08/11/16 History Folic Acid 1 mg PO DAILY 04/04/16 08/11/16 History Lactulose [Cephulac] 30 gm PO QID 05/27/16 08/11/16 History Rifaximin [Xifaxan] 550 mg PO BID 05/27/16 08/11/16 History DULoxetine HCL [Cymbalta] 60 mg PO DAILY 07/20/16 08/11/16 History Milk Thistle 150 mg PO HS 07/20/16 08/11/16 History Sennosides [Senna] 8.6 mg PO DAILY 07/20/16 08/11/16 History Sodium Bicarbonate Tab 650 mg PO BID 07/20/16 08/11/16 History Atorvastatin [Lipitor] 80 mg PO DAILY 08/11/16 08/11/16 History Furosemide [Lasix] 80 mg PO BID 08/11/16 08/11/16 History Metoprolol Tartrate [Lopressor] 25 mg PO BID 08/11/16 08/11/16 History Sevelamer [Renvela] 800 mg PO TID 08/11/16 08/11/16 History Allergies Allergy/AdvReac Type Severity Reaction Status Date / Time No Known Allergies Allergy Verified 08/11/16 11:10 Physical Exam Vitals: Vital Signs Temp Pulse Pulse Resp BP BP Pulse Ox 08/12/16 07:00 98.5 F 92 18 119/70 98 08/12/16 00:00 63 16 08/11/16 21:15 98.1 F 63 16 123/61 98 08/11/16 16:00 16 08/11/16 15:00 98.3 F 77 16 94/53 96 08/11/16 12:25 99.1 F 78 16 98/56 98 08/11/16 12:00 99.8 F H 88 18 113/70 99 Intake and Output 08/11/16 08/12/16 08/12/16 22:59 06:59 14:59 Intake Total 580 180 Balance 580 180 Intake: Intake, IV Titration 100 180 Amount Sodium Chloride 0.9% 1, 100 180 000 ml @ 20 mls/hr IV . Q24H ONE Rx#:[id number] Oral 480 Other: Voiding Method Urinal Urinal # Voids 2 2 # Bowel Movements 1 General appearance: The patient is alert, oriented, in no acute distress. HET: Head is normocephalic and atraumatic. Pupils are equal and reactive. Oropharynx is clear without lesions. Neck: Supple without lymphadenopathy. Trachea midline. Heart: S1 S2. Regular rate and rhythm. Lungs: No crackles or wheezes are heard. Abdomen: Soft, nontender, distended with tense ascites with bowel sounds. No peritoneal signs. No palpable organomegaly or masses. Extremities: Normal skin color and turgor. No cyanosis, rash, ulceration, clubbing, or edema. Radial and pedal pulses are 2/4 bilaterally. Neurological: No focal deficits. Strength and sensation are grossly intact. No evidence of asterixis. Results CBC & Chem 7: 08/12/16 06:46 08/12/16 06:46 Labs: Abnormal Lab Results - Last 24 Hours (Table) 08/11/16 08/11/16 08/11/16 Range/Units 11:10 11:10 11:10 WBC 12.9 H (3.8-10.6) k/uL RBC 3.23 L (4.30-5.90) m/uL Hgb 10.0 L (13.0-17.5) gm/dL Hct 31.6 L (39.0-53.0) % MCHC (31.0-37.0) g/dL Plt Count 48 L* (150-450) k/uL Neutrophils # 11.4 H (1.3-7.7) k/uL Lymphocytes # 0.5 L (1.0-4.8) k/uL PT (9.0-12.0) sec Sodium 135 L (137-145) mmol/L Chloride 95 L (98-107) mmol/L BUN 30 H (9-20) mg/dL Creatinine 3.39 H (0.66-1.25) mg/dL Glucose 107 H (74-99) mg/dL Plasma Lactic Acid Sabas 2.2 H* (0.7-2.0) mmol/L Total Bilirubin 2.5 H (0.2-1.3) mg/dL AST (17-59) U/L Alkaline Phosphatase 196 H (38-126) U/L Lipase 517 H (23-300) U/L 08/11/16 08/11/16 08/12/16 Range/Units 15:42 15:42 06:46 WBC 12.6 H (3.8-10.6) k/uL RBC 3.55 L (4.30-5.90) m/uL Hgb 10.6 L (13.0-17.5) gm/dL Hct 35.0 L (39.0-53.0) % MCHC 30.3 L (31.0-37.0) g/dL Plt Count 42 L* (150-450) k/uL Neutrophils # 10.9 H (1.3-7.7) k/uL Lymphocytes # 0.4 L (1.0-4.8) k/uL PT 14.1 H (9.0-12.0) sec Sodium (137-145) mmol/L Chloride (98-107) mmol/L BUN (9-20) mg/dL Creatinine (0.66-1.25) mg/dL Glucose (74-99) mg/dL Plasma Lactic Acid Sabas 3.0 H* (0.7-2.0) mmol/L Total Bilirubin (0.2-1.3) mg/dL AST (17-59) U/L Alkaline Phosphatase (38-126) U/L Lipase (23-300) U/L 08/12/16 08/12/16 Range/Units 06:46 06:46 WBC (3.8-10.6) k/uL RBC (4.30-5.90) m/uL Hgb (13.0-17.5) gm/dL Hct (39.0-53.0) % MCHC (31.0-37.0) g/dL Plt Count (150-450) k/uL Neutrophils # (1.3-7.7) k/uL Lymphocytes # (1.0-4.8) k/uL PT (9.0-12.0) sec Sodium (137-145) mmol/L Chloride 97 L (98-107) mmol/L BUN 44 H (9-20) mg/dL Creatinine 4.24 H (0.66-1.25) mg/dL Glucose 131 H (74-99) mg/dL Plasma Lactic Acid Sabas 2.6 H* (0.7-2.0) mmol/L Total Bilirubin 2.0 H (0.2-1.3) mg/dL AST 64 H (17-59) U/L Alkaline Phosphatase 199 H (38-126) U/L Lipase (23-300) U/L Assessment and Plan (1) Cirrhosis of liver with ascites Status: Chronic (2) Hepatorenal syndrome Narrative/Plan: Possible UTI Status: Acute Plan: 1. Therapeutic paracentesis scheduled for tomorrow with platelet transfusion prior to procedure. Will send fluid culture to rule out SBP. 2. Continue diuretics per nephrology management. Patient may require albumin post-paracentesis. We'll defer to nephrology for their recommendations. Continue with supportive measures. Overall condition is guarded and poor. We' ll continue to follow with you. Thank you for this kind referral and the opportunity to participate in the care of your patient. This consultation was discussed with Dr. Garcia. The impression and plan of care have been directed as dictated.
[2016-08-12] MEDS: DULoxetine HCL 60 MG CAPSULE.DR PO SCH (11:45)
[2016-08-12] MEDS: SODIUM BICARBONATE TAB 650 MG TAB PO SCH ×2 (11:45→20:02)
[2016-08-12] MEDS: ATORVASTATIN 80 MG TAB PO SCH (11:45)
[2016-08-12] MEDS: CHOLECALCIFEROL 1,000 UNIT TAB PO SCH (11:46)
[2016-08-12] MEDS: CYANOCOBALAMIN 500 MCG TAB PO SCH (11:47)
[2016-08-12] MEDS: FOLIC ACID 1 MG TAB PO SCH (11:47)
[2016-08-12] MEDS: MULTIVITAMINS, THERA 1 EACH TAB PO SCH (11:47)
--- NOTE | 2016-08-12 11:49 | P.NPCON ---
History of Present Illness - Reason for Consult end stage renal disease - History of Present Illness Reason for consultation: End-stage renal disease History of present illness: Patient is a 65-year-old male seen in renal consultation for end- stage renal disease. He is maintained on hemodialysis on a Wednesday schedule via permacath. Etiology of renal diseases hepatorenal syndrome. Patient has history of liver cirrhosis due to hepatitis C. Patient was scheduled to undergo paracentesis yesterday but the procedure could not be done as he had a fever off 100.6F. He has been afebrile during this admission. He did have vomiting this morning. Also had loose stools. Denies chest pain or shortness of breath. Appetite is fair. He has been stable hemodynamically. Currently sitting up in chair. No other complaints at this time. Vital signs are stable. General: The patient appeared well nourished and normally developed. HEENT: Head exam is unremarkable. Neck is without jugular venous distension. LUNGS: Lungs are clear to auscultation and percussion. Breath sounds decreased. HEART: Rate and Rhythm are regular. First and second heart sounds normal. No murmurs, rubs or gallops. ABDOMEN: Abdominal exam reveals normal bowel sounds. Severely distended. EXTREMITITES: No clubbing, cyanosis, or edema. Past Medical History Past Medical History: Cancer, GERD/Reflux, Hyperlipidemia, Hypertension, Liver Disease, Osteoarthritis (OA), Renal Disease Additional Past Medical History / Comment(s): Pt recently admitted to [facility] on 07/21/16 with acute renal failure/dizziness r/t volume depletion and was transferred to [facility]. 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 History of Any Multi-Drug Resistant Organisms: None Reported Past Surgical History: Cholecystectomy, Hernia Repair Additional Past Surgical History / Comment(s): Cervical fusion surgery, colonoscopies, umbilical hernia repair x 2, nose and top of head skin cancer removed, multi paracentesis. Hemodialysis catheter. Past Anesthesia/Blood Transfusion Reactions: Postoperative Nausea & Vomiting ( PONV) Additional Past Anesthesia/Blood Transfusion Reaction / Comment(s): [facility]; pt stated no reaction Past Psychological History: Depression Additional Psychological History / Comment(s): Pt. states he is on depression medication and it has been effective in helping with his depression. Pt resides with his spouse. He uses no assistive device. He has a walker and cane whenever he needs to start using them. He no longer drives, his spouse takes him to appts. He has home care thru [facility]. Smoking Status: Former smoker Past Alcohol Use History: None Reported Additional Past Alcohol Use History / Comment(s): Pt smoked from 1964 to 1969. Past Drug Use History: None Reported - Past Family History Mother History Unknown: Yes Family Medical History: Chest Pain / Angina Father History Unknown: Yes Family Medical History: Myocardial Infarction ([place]) Medications and Allergies Home Medications Medication Instructions Recorded Confirmed Type Pantoprazole [Protonix] 40 mg PO DAILY 10/22/15 08/11/16 History Terazosin [Hytrin] 2 mg PO HS 10/22/15 08/11/16 History Multivitamins, Thera [Multivitamin 1 tab PO DAILY 12/23/15 08/11/16 History (formulary)] Thiamine [Vitamin B-1] 100 mg PO HS 12/23/15 08/11/16 History Cholecalciferol [Vitamin D3] 1,000 unit PO DAILY 02/24/16 08/11/16 History Cyanocobalamin [Vitamin B-12] 500 mcg PO DAILY 02/24/16 08/11/16 History Finasteride [Proscar] 5 mg PO DAILY 02/24/16 08/11/16 History Methocarbamol [Robaxin] 500 mg PO QAM 02/24/16 08/11/16 History Folic Acid 1 mg PO DAILY 04/04/16 08/11/16 History Lactulose [Cephulac] 30 gm PO QID 05/27/16 08/11/16 History Rifaximin [Xifaxan] 550 mg PO BID 05/27/16 08/11/16 History DULoxetine HCL [Cymbalta] 60 mg PO DAILY 07/20/16 08/11/16 History Milk Thistle 150 mg PO HS 07/20/16 08/11/16 History Sennosides [Senna] 8.6 mg PO DAILY 07/20/16 08/11/16 History Sodium Bicarbonate Tab 650 mg PO BID 07/20/16 08/11/16 History Atorvastatin [Lipitor] 80 mg PO DAILY 08/11/16 08/11/16 History Furosemide [Lasix] 80 mg PO BID 08/11/16 08/11/16 History Metoprolol Tartrate [Lopressor] 25 mg PO BID 08/11/16 08/11/16 History Sevelamer [Renvela] 800 mg PO TID 08/11/16 08/11/16 History Allergies Allergy/AdvReac Type Severity Reaction Status Date / Time No Known Allergies Allergy Verified 08/11/16 11:10 Physical Exam Vitals: Vital Signs Temp Pulse Pulse Resp BP BP Pulse Ox 08/12/16 07:00 98.5 F 92 18 119/70 98 08/12/16 00:00 63 16 08/11/16 21:15 98.1 F 63 16 123/61 98 08/11/16 16:00 16 08/11/16 15:00 98.3 F 77 16 94/53 96 08/11/16 12:25 99.1 F 78 16 98/56 98 08/11/16 12:00 99.8 F H 88 18 113/70 99 Intake and Output 08/11/16 08/12/16 08/12/16 22:59 06:59 14:59 Intake Total 580 180 Balance 580 180 Intake: Intake, IV Titration 100 180 Amount Sodium Chloride 0.9% 1, 100 180 000 ml @ 20 mls/hr IV . Q24H ONE Rx#:[id number] Oral 480 Other: Voiding Method Urinal Urinal # Voids 2 2 # Bowel Movements 1 Results - Lab Results Most recent lab results Calcium 9.2 mg/dL (8.4-10.2) 08/12/16 06:46 Phosphorus 3.2 mg/dL (2.5-4.5) 08/11/16 11:10 Magnesium 2.1 mg/dL (1.6-2.3) 08/11/16 11:10 08/12/16 06:46 08/12/16 06:46 Assessment and Plan Plan: Assessment: #1. End-stage renal disease maintained on hemodialysis on a Wednesday schedule via permacath. #2. Liver cirrhosis. #3. Fever. Blood Culture so far negative. Patient does not make urine. Will also obtain cultures from catheter. Rule out SBP. #4. Lactic acidosis secondary to liver failure. #5. Thrombocytopenia secondary to liver cirrhosis. Plan: Hemodialysis today with goal 2 liters ultrafiltration as blood pressure tolerates. Maintain Renvela with meals. Maintain Midodrine. Patient to get 25 g of albumin post-paracentesis tomorrow. Obtain cultures from catheter today. Continue antibiotics. Thank you for the consultation. I will continue to follow the patient with you during his hospital stay.
[2016-08-12] MEDS ORDERED: IV VANCOMYCIN PER PHARMACY 1 EACH MISC MISCELLANE PRN (12:11)
[2016-08-12] MEDS ORDERED: VANCOMYCIN 1,250 MG in SODIUM CHLORIDE 0.9% 250 ML IVPB ONE (13:00)
[2016-08-12 13:19] LABS: Appearance,Urine Cloudy (Clear); Bacteria,Urine Occasional /hpf; Bilirubin,Urine 1+ (Negative); Glucose,Urine (UA) Negative (Negative); Ketones,Urine 1+ (Negative); Leukocyte Esterase,Urine Large (Negative); Mucus,Urine Many /hpf; Nitrite,Urine Negative (Negative); Particle Count 18664; Protein,Urine Trace (Negative); RBC,Urine 3 /hpf (0-5); Specific Gravity,Urine 1.017 (1.001-1.035); UA Billing (MACRO vs. MICRO) MICRO; Urobilinogen,Urine <2.0 mg/dL (<2.0); WBC,Urine 104 /hpf (0-5)
[2016-08-12 15:02] VITALS: BMI 23.9
--- NOTE | 2016-08-12 15:24 | PN ---
Patient is a 65-year-old admitted secondary to fever and possible source of fever. Patient does have lactic acidosis, most probably related to cirrhosis and sepsis. Vancomycin was ordered as patient has a central line for dialysis and that is probably most possible source of infection and patient does have ascites, but suspicion for spontaneous bacterial peritonitis is low as patient only has crampy abdominal pain without any sharp pain. The patient will undergo therapeutic thoracentesis. We will also obtain diagnostic labs to make sure patient does not have any peritonitis from that. Until then, will go ahead and continue his Rocephin, although vancomycin will be ordered. We will await blood cultures. If they come back negative by tomorrow, patient will be discharged tomorrow empirically to cover staphylococcus. Patient is schedule for hepatorenal transplant as an outpatient down the line. REVIEW OF SYSTEMS: CARDIOVASCULAR: No chest pain, no orthopnea, no PND, no palpitations. PULMONARY: Denied any shortness of breath. No cough or hemoptysis. GASTROINTESTINAL: No diarrhea, nausea or vomiting. No abdominal pain. Normoactive bowel sounds. NEUROLOGIC: No headaches, no weakness, no numbness. Medications are reviewed. PHYSICAL EXAMINATION: VITAL SIGNS: Temperature 98.5, pulse of 92, respiratory rate 18. Blood pressure is 190/70. Saturating at 98% on room air. GENERAL: The patient is alert and oriented x3, not in any acute distress. Well developed, well nourished. HEENT: Pupils are round and equally reacting to light. EOMI. No scleral icterus. No conjunctival pallor. Normocephalic, atraumatic. No pharyngeal erythema. No thyromegaly. CARDIOVASCULAR: S1 and S2 present. No murmurs, rubs, or gallops. PULMONARY: Chest is clear to auscultation, no wheezing or crackles. ABDOMEN: The patient has had no abdominal tenderness but patient does have significant ascites with significant shifting fullness. No rebound or rigidity. MUSCULOSKELETAL: No joint swelling or deformity. EXTREMITIES: No cyanosis, clubbing, or pedal edema. NEUROLOGICAL: Gross neurological examination did not reveal any focal deficits. SKIN: No rashes. LABORATORY DATA: CBC, CMP are abnormal for elevated WBC count 13,600. Patient's ammonia is 27 and INR is 1.4 and ( ) elevation of lipase, bilirubin is high secondary to cirrhosis. ASSESSMENT AND PLAN: 1. Fever and sepsis possible source being central line for hemodialysis and culture from the central line is being obtained. 2. Lactic acidosis most probably related to cirrhosis along with cirrhosis along with possible bacteremia and sepsis. 3. Leukocytosis. 4. Anemia of chronic disease. 5. Thrombocytopenia secondary to chronic liver disease and cirrhosis and hepatic sequestration, end stage renal disease and possible hepatorenal syndrome. 6. Hypovolemic hyponatremia secondary to cirrhosis which is expected to improve with hemodialysis. 7. Gastroesophageal reflux disease. 8. Hypertension. 9. Hyperlipidemia. 10. Hepatic cirrhosis and hepatitis C. 11. Hyperlipidemia. PLAN: Continue with antibiotics, awaiting cultures. Rest of the medications will be continued. The patient is on lactulose and ( ) for hepatic encephalopathy with normal ammonia level both of which will be continued.
[2016-08-12 17:50] LABS: Hepatitis B Surface Ag Index 0.06
[2016-08-12 18:11] LABS: Hepatitis B Surface Antibody Negative (Negative)
[2016-08-12] MEDS ORDERED: HEPARIN SODIUM,PORCINE 5,000 UNIT/ML 1 ML VIAL ONE (18:40)
[2016-08-12] MEDS: THIAMINE 100 MG TAB PO SCH (20:02)
[2016-08-12] MEDS ORDERED: VANCOMYCIN 1,000 MG in SODIUM CHLORIDE 0.9% 250 ML IVPB ONE (21:00)
[2016-08-12] MEDS: TERAZOSIN 2 MG CAP PO SCH (22:12)
[2016-08-13 08:00] LABS: Basophils % (A) 0 %; CH 30.4; Eosinophils # (A) 0.1 k/uL (0-0.7); Eosinophils % (A) 1 %; HCT 32.6 % (39.0-53.0); HDW 2.54; HGB 9.9 gm/dL (13.0-17.5); Hypochromasia Slight; Luc # (Auto) 0.46; Luc % (Auto) 4; Lymphocytes # (A) 0.7 k/uL (1.0-4.8); Lymphocytes % (A) 5 %; MCH 29.9 pg (25.0-35.0); MCHC 30.4 g/dL (31.0-37.0); MCV 98.4 fL (80.0-100.0); Macrocytosis Slight; Mean Platelet Volume 10.2; Monocytes % (A) 7 %; Neutrophils # (A) 10.7 k/uL (1.3-7.7); Neutrophils % (A) 82 %; RBC 3.32 m/uL (4.30-5.90); RDW 15.3 % (11.5-15.5); WBC 12.9 k/uL (3.8-10.6); WBC (Perox) 13.27
[2016-08-13 08:10] LABS: INR 1.4 (<1.1); Prothrombin Time 13.9 sec (9.0-12.0)
[2016-08-13] MEDS: cefTRIAXone 2,000 MG in SODIUM CHLORIDE 0.9% 100 ML IVPB SCH (08:24)
[2016-08-13] MEDS: SODIUM BICARBONATE TAB 650 MG TAB PO SCH ×2 (08:25→21:40)
[2016-08-13 08:26] LABS: Calcium 9.1 mg/dL (8.4-10.2); Total Protein 6.8 g/dL (6.3-8.2)
[2016-08-13] MEDS: SENNOSIDES 8.6 MG TAB PO SCH (08:26)
[2016-08-13] MEDS: RIFAXIMIN 550 MG TABLET PO SCH ×2 (08:26→21:32)
[2016-08-13] MEDS: METOPROLOL TARTRATE 25 MG TAB PO SCH ×2 (08:26→21:32)
[2016-08-13] MEDS: LACTULOSE 20 GM/30 ML CUP PO SCH ×4 (08:30→21:40)
[2016-08-13] MEDS: METHOCARBAMOL 500 MG TAB PO SCH (08:30)
[2016-08-13] MEDS: FUROSEMIDE 80 MG TAB PO SCH ×2 (08:31→21:40)
[2016-08-13] MEDS: FINASTERIDE 5 MG TAB PO SCH (08:31)
[2016-08-13] MEDS: ATORVASTATIN 80 MG TAB PO SCH (08:31)
[2016-08-13] MEDS: MIDODRINE 5 MG TAB PO SCH ×3 (08:31→17:28)
[2016-08-13] MEDS: DULoxetine HCL 60 MG CAPSULE.DR PO SCH (08:31)
[2016-08-13] MEDS: SEVELAMER 800 MG TAB PO SCH ×3 (08:31→17:28)
[2016-08-13] MEDS: PANTOPRAZOLE 40 MG TABLET PO SCH (08:31)
--- NOTE | 2016-08-13 09:06 | P.PN ---
Subjective Principal diagnosis: liver cirrhosis ascites Paracentesis scheduled today. Creatinine improved. Platelet 44,000 will receive platelet transfusion prior to paracentesis today. Afebrile. Objective - Vital Signs Vital signs: Vital Signs Temp 98.3 F 08/13/16 07:00 Pulse 73 08/13/16 07:00 Resp 18 08/13/16 07:00 BP 124/72 08/13/16 07:00 Pulse Ox 100 08/13/16 07:00 Intake & Output 08/12/16 08/13/16 08/13/16 18:59 06:59 18:59 Intake Total 1360 Output Total 250 250 Balance -250 1110 Weight 71.5 kg Intake: Intake, IV Titration 880 Amount Sodium Chloride 0.9% 1, 180 000 ml @ 20 mls/hr IV . Q24H ONE Rx#:[id number] cefTRIAXone 2,000 mg In 700 Sodium Chloride 0.9% 100 ml @ 100 mls/hr IVPB Q24HR GARY Rx#:[id number] Oral 480 Output: Urine 250 250 Other: Voiding Method Urinal Urinal # Voids 1 2 # Bowel Movements 1 - Constitutional General appearance: Present: thin - EENT Eyes: Present: normal appearance - Neck Neck: Present: normal ROM - Respiratory Respiratory: bilateral: CTA - Cardiovascular Heart sounds: normal: S1, S2 - Gastrointestinal Gastrointestinal Comment(s): distended with tense ascites normal bowel sounds. No rebound/guarding. - Neurologic Neurologic: Present: CNII-XII intact - Psychiatric Psychiatric: Present: A&O x's 3 - Labs CBC & Chem 7: 08/13/16 07:18 08/13/16 07:18 Labs: Abnormal Lab Results - Last 24 Hours (Table) 08/12/16 08/13/16 08/13/16 Range/Units 12:35 07:18 07:18 WBC 12.9 H (3.8-10.6) k/uL RBC 3.32 L (4.30-5.90) m/uL Hgb 9.9 L (13.0-17.5) gm/dL Hct 32.6 L (39.0-53.0) % MCHC 30.4 L (31.0-37.0) g/dL Plt Count 44 L* (150-450) k/uL Neutrophils # 10.7 H (1.3-7.7) k/uL Lymphocytes # 0.7 L (1.0-4.8) k/uL PT (9.0-12.0) sec BUN 36 H (9-20) mg/dL Creatinine 3.59 H (0.66-1.25) mg/dL Glucose 104 H (74-99) mg/dL Total Bilirubin 2.0 H (0.2-1.3) mg/dL Alkaline Phosphatase 190 H (38-126) U/L Urine Protein Trace H (Negative) Urine Ketones 1+ H (Negative) Urine Blood Small H (Negative) Urine Bilirubin 1+ H (Negative) Ur Leukocyte Esterase Large H (Negative) Urine WBC 104 H (0-5) /hpf Urine Bacteria Occasional H (None) /hpf Urine Mucus Many H (None) /hpf 08/13/16 Range/Units 07:18 WBC (3.8-10.6) k/uL RBC (4.30-5.90) m/uL Hgb (13.0-17.5) gm/dL Hct (39.0-53.0) % MCHC (31.0-37.0) g/dL Plt Count (150-450) k/uL Neutrophils # (1.3-7.7) k/uL Lymphocytes # (1.0-4.8) k/uL PT 13.9 H (9.0-12.0) sec BUN (9-20) mg/dL Creatinine (0.66-1.25) mg/dL Glucose (74-99) mg/dL Total Bilirubin (0.2-1.3) mg/dL Alkaline Phosphatase (38-126) U/L Urine Protein (Negative) Urine Ketones (Negative) Urine Blood (Negative) Urine Bilirubin (Negative) Ur Leukocyte Esterase (Negative) Urine WBC (0-5) /hpf Urine Bacteria (None) /hpf Urine Mucus (None) /hpf Microbiology - Last 24 Hours (Table) 08/11/16 12:35 Urine Culture - Preliminary Urine,Voided 08/11/16 11:10 Blood Culture - Preliminary Blood No Growth after 24 hours Assessment and Plan (1) Cirrhosis of liver with ascites Status: Chronic (2) Hepatorenal syndrome Narrative/Plan: Possible UTI Status: Acute Plan: 1. Therapeutic paracentesis scheduled today with platelet transfusion prior to procedure. Will send fluid culture to rule out SBP. 2. Continue diuretics per nephrology management. Patient may require albumin post-paracentesis. We'll defer to nephrology for their recommendations. Continue with supportive measures. Overall condition is guarded and poor. We' ll continue to follow with you. assessment and plan of care discussed with Dr. Garcia
--- NOTE | 2016-08-13 10:20 | P.PN ---
Subjective Patient is seen in follow-up for end-stage renal disease. He is maintained on hemodialysis on a Wednesday schedule via permacath. Etiology is hepatorenal syndrome. Patient presented to the hospital with fever. He is also noted to have a white count of 12.9 today. He is currently resting in bed. Denies any chest pain or shortness of breath. He is scheduled to undergo paracentesis today. He underwent hemodialysis yesterday without any issues. Denies abdominal pain. Vital signs are stable. General: The patient appeared well nourished and normally developed. HEENT: Head exam is unremarkable. Neck is without jugular venous distension. LUNGS: Lungs are clear to auscultation and percussion. Breath sounds decreased. HEART: Rate and Rhythm are regular. First and second heart sounds normal. No murmurs, rubs or gallops. ABDOMEN: Abdominal exam reveals normal bowel sounds. Nontender. Moderately distended. EXTREMITITES: No clubbing, cyanosis, or edema. Objective - Vital Signs Vital signs: Vital Signs Temp 98.3 F 08/13/16 07:00 Pulse 73 08/13/16 07:00 Resp 18 08/13/16 07:00 BP 124/72 08/13/16 07:00 Pulse Ox 100 08/13/16 07:00 Intake & Output 08/12/16 08/13/16 08/13/16 18:59 06:59 18:59 Intake Total 1360 Output Total 250 250 Balance -250 1110 Weight 71.5 kg Intake: Intake, IV Titration 880 Amount Sodium Chloride 0.9% 1, 180 000 ml @ 20 mls/hr IV . Q24H ONE Rx#:[id number] cefTRIAXone 2,000 mg In 700 Sodium Chloride 0.9% 100 ml @ 100 mls/hr IVPB Q24HR GARY Rx#:[id number] Oral 480 Output: Urine 250 250 Other: Voiding Method Urinal Urinal # Voids 1 2 # Bowel Movements 1 - Labs CBC & Chem 7: 08/13/16 07:18 08/13/16 07:18 Labs: Abnormal Lab Results - Last 24 Hours (Table) 08/12/16 08/13/16 08/13/16 Range/Units 12:35 07:18 07:18 WBC 12.9 H (3.8-10.6) k/uL RBC 3.32 L (4.30-5.90) m/uL Hgb 9.9 L (13.0-17.5) gm/dL Hct 32.6 L (39.0-53.0) % MCHC 30.4 L (31.0-37.0) g/dL Plt Count 44 L* (150-450) k/uL Neutrophils # 10.7 H (1.3-7.7) k/uL Lymphocytes # 0.7 L (1.0-4.8) k/uL PT (9.0-12.0) sec BUN 36 H (9-20) mg/dL Creatinine 3.59 H (0.66-1.25) mg/dL Glucose 104 H (74-99) mg/dL Total Bilirubin 2.0 H (0.2-1.3) mg/dL Alkaline Phosphatase 190 H (38-126) U/L Urine Protein Trace H (Negative) Urine Ketones 1+ H (Negative) Urine Blood Small H (Negative) Urine Bilirubin 1+ H (Negative) Ur Leukocyte Esterase Large H (Negative) Urine WBC 104 H (0-5) /hpf Urine Bacteria Occasional H (None) /hpf Urine Mucus Many H (None) /hpf 08/13/16 Range/Units 07:18 WBC (3.8-10.6) k/uL RBC (4.30-5.90) m/uL Hgb (13.0-17.5) gm/dL Hct (39.0-53.0) % MCHC (31.0-37.0) g/dL Plt Count (150-450) k/uL Neutrophils # (1.3-7.7) k/uL Lymphocytes # (1.0-4.8) k/uL PT 13.9 H (9.0-12.0) sec BUN (9-20) mg/dL Creatinine (0.66-1.25) mg/dL Glucose (74-99) mg/dL Total Bilirubin (0.2-1.3) mg/dL Alkaline Phosphatase (38-126) U/L Urine Protein (Negative) Urine Ketones (Negative) Urine Blood (Negative) Urine Bilirubin (Negative) Ur Leukocyte Esterase (Negative) Urine WBC (0-5) /hpf Urine Bacteria (None) /hpf Urine Mucus (None) /hpf Microbiology - Last 24 Hours (Table) 08/11/16 12:35 Urine Culture - Preliminary Urine,Voided 08/11/16 11:10 Blood Culture - Preliminary Blood No Growth after 24 hours Assessment and Plan Plan: Assessment: #1. End-stage renal disease maintained on hemodialysis on a Wednesday schedule via permacath. #2. Liver cirrhosis. #3. Fever. Blood Culture so far negative. Patient does not make urine. Cultures were also obtained from catheter. Rule out SBP. #4. Lactic acidosis likely secondary to liver failure. #5. Thrombocytopenia secondary to liver cirrhosis. Plan: Hemodialysis tomorrow with goal 2 liters ultrafiltration as blood pressure tolerates. Maintain Renvela with meals. Maintain Midodrine. Patient to get 25 g of albumin post-paracentesis today. Follow-up cultures. Continue antibiotics - on IV Rocephin and vancomycin.
--- NOTE | 2016-08-13 12:28 | PN ---
A 65-year-old admitted secondary to fever and the source of his fever is probably central line related bacteremia, although the blood cultures are so far negative. Will have to wait one more day for the culture finalization. Patient will undergo paracentesis today. If that turns out to be negative for any ( ) peritonitis, patient's Rocephin will be continued. Until then, will continue vancomycin and Rocephin. REVIEW OF SYSTEMS: CARDIOVASCULAR: No chest pain, no orthopnea, no PND, no palpitations. PULMONARY: Denied any shortness of breath. No cough or hemoptysis. GASTROINTESTINAL: No diarrhea, nausea or vomiting. No abdominal pain. Normoactive bowel sounds. NEUROLOGIC: No headaches, no weakness, no numbness. Medications were reviewed. PHYSICAL EXAMINATION: Temperature 98.3, pulse of 73, respiratory rate of 18, blood pressure 124/72, saturating at 100% on room air. ABDOMINAL EXAMINATION: Abdomen is distended, ascites. No tenderness was appreciated. ( ) GENERAL: The patient is alert and oriented x3, not in any acute distress. Well developed, well nourished. HEENT: Pupils are round and equally reacting to light. EOMI. No scleral icterus. No conjunctival pallor. Normocephalic, atraumatic. No pharyngeal erythema. No thyromegaly. CARDIOVASCULAR: S1 and S2 present. No murmurs, rubs, or gallops. PULMONARY: Chest is clear to auscultation, no wheezing or crackles. MUSCULOSKELETAL: No joint swelling or deformity. EXTREMITIES: No cyanosis, clubbing, or pedal edema. NEUROLOGICAL: Gross neurological examination did not reveal any focal deficits. SKIN: No rashes. LABORATORY DATA: Bilirubin remains at 2, BUN and creatinine a bit elevated and patient is end-stage renal disease. ASSESSMENT AND PLAN: 1. Fever, possible source of sepsis being central-line related bacteremia. 2. Lactic acidosis, probably related to cirrhosis. 3. Leukocytosis from infarction. 4. Anemia of chronic disease. 5. Thrombocytopenia secondary to chronic liver disease and cirrhosis and splenic sequestration. 6. Endstage renal disease, probably related to hepatorenal syndrome. 7. Hypovolemic hyponatremia secondary to cirrhosis. 8. Gastroesophageal reflux disease. 9. Hypertension. 10. Hyperlipidemia. 11. Hepatitis C. PLAN: As mentioned above.
[2016-08-13] MEDS: ALBUMIN HUMAN 25% 50 ML in EMPTY BAG 1 BAG IVPB SCH ×2 (14:47→16:01)
[2016-08-13] MEDS: CHOLECALCIFEROL 1,000 UNIT TAB PO SCH (15:56)
[2016-08-13] MEDS: MULTIVITAMINS, THERA 1 EACH TAB PO SCH (15:56)
[2016-08-13] MEDS: CYANOCOBALAMIN 500 MCG TAB PO SCH (15:56)
[2016-08-13] MEDS: FOLIC ACID 1 MG TAB PO SCH (15:56)
[2016-08-13] MEDS ORDERED: VANCOMYCIN 1,000 MG in SODIUM CHLORIDE 0.9% 250 ML IVPB ONE (16:00)
--- NOTE | 2016-08-13 16:37 | US ---
Therapeutic paracentesis. CLINICAL HISTORY: Ascites The procedure was discussed with the patient. The risks, complications, benefits, and alternatives we re discussed and any questions were answered. This includes increased risk of bleeding secondary to l ow platelet count. The patient was transfused with platelets by referring physician immediately prior to and during procedure. Informed consent was obtained. The patient was placed supine on the ultraso und table and prepped and draped in the usual sterile fashion. All elements of maximal barrier technique were utilized. Under ultrasound guidance, access into the right lower quadrant was obtained, via the paracentesis catheter system and direct ultrasound guidanc e. Approximately 4.8 liters of straw-colored fluid was removed. The patient was stable throughout the pr ocedure and remained stable upon discharge from Department of Radiology. IMPRESSION: Successful therapeutic paracentesis under ultrasound guidance.
[2016-08-13 20:53] LABS: RBC, Body Fluid 3050 /uL
[2016-08-13] MEDS: THIAMINE 100 MG TAB PO SCH (21:32)
[2016-08-13] MEDS: TERAZOSIN 2 MG CAP PO SCH (21:40)
[2016-08-14 07:37] LABS: Basophils % (A) 0 %; Eosinophils # (A) 0.1 k/uL (0-0.7); Eosinophils % (A) 2 %; HCT 29.4 % (39.0-53.0); HDW 2.68; HGB 9.5 gm/dL (13.0-17.5); Luc # (Auto) 0.25; Luc % (Auto) 3; Lymphocytes # (A) 0.6 k/uL (1.0-4.8); Lymphocytes % (A) 7 %; MCH 31.4 pg (25.0-35.0); MCHC 32.2 g/dL (31.0-37.0); MCV 97.4 fL (80.0-100.0); Mean Platelet Volume 10.3; Monocytes # (A) 0.6 k/uL (0-1.0); Monocytes % (A) 7 %; Neutrophils # (A) 7.3 k/uL (1.3-7.7); Neutrophils % (A) 81 %; RBC 3.02 m/uL (4.30-5.90); RDW 15.1 % (11.5-15.5); WBC (Perox) 8.67
[2016-08-14 07:53] LABS: Calcium 8.8 mg/dL (8.4-10.2); Potassium 3.6 mmol/L (3.5-5.1); Total Bilirubin 1.5 mg/dL (0.2-1.3); Total Protein 6.5 g/dL (6.3-8.2)
[2016-08-14 08:02] VITALS: RESP 20; TEMP 98.3
[2016-08-14] MEDS: SENNOSIDES 8.6 MG TAB PO SCH (08:29)
[2016-08-14] MEDS: cefTRIAXone 2,000 MG in SODIUM CHLORIDE 0.9% 100 ML IVPB SCH (08:30)
[2016-08-14] MEDS: MIDODRINE 5 MG TAB PO SCH (08:30)
[2016-08-14] MEDS: LACTULOSE 20 GM/30 ML CUP PO SCH (08:31)
[2016-08-14 08:33] VITALS: PULSE 66
--- NOTE | 2016-08-14 09:19 | P.PN ---
Subjective Patient is seen in follow-up for end-stage renal disease. He is maintained on hemodialysis on a Wednesday schedule via permacath. Etiology is hepatorenal syndrome. Patient presented to the hospital with fever. He also had a white count of 12.9 as of yesterday and is down to 9.0 today. He is currently sitting up in bed and is having breakfast. Denies any chest pain or shortness of breath. He underwent paracentesis yesterday with 4.8 L drained. He did receive 25 g of albumin post procedure. He underwent hemodialysis Wednesday without any issues. Denies abdominal pain. Feels good today with no active complaints at this time. Vital signs are stable. General: The patient appeared well nourished and normally developed. HEENT: Head exam is unremarkable. Neck is without jugular venous distension. LUNGS: Lungs are clear to auscultation and percussion. Breath sounds decreased. HEART: Rate and Rhythm are regular. First and second heart sounds normal. No murmurs, rubs or gallops. ABDOMEN: Abdominal exam reveals normal bowel sounds. Nontender. Moderately distended. EXTREMITITES: No clubbing, cyanosis, or edema. Objective - Vital Signs Vital signs: Vital Signs Temp 98.3 F 08/14/16 07:00 Pulse 66 08/14/16 08:33 Resp 20 08/14/16 07:00 BP 104/57 08/14/16 08:33 Pulse Ox 97 08/14/16 07:00 Intake & Output 08/13/16 08/14/16 08/14/16 18:59 06:59 18:59 Intake Total 203 1770 Output Total 150 200 Balance 53 1570 Weight 71.5 kg Intake: Oral 1770 Blood Product 203 Platelet Pheresis Acda2 203 Unit [id number] Output: Urine 150 200 Other: Voiding Method Toilet Toilet Urinal Urinal # Voids 2 2 # Bowel Movements 1 - Labs CBC & Chem 7: 08/14/16 07:00 08/14/16 07:00 Labs: Abnormal Lab Results - Last 24 Hours (Table) 08/14/16 08/14/16 Range/Units 07:00 07:00 RBC 3.02 L (4.30-5.90) m/uL Hgb 9.5 L (13.0-17.5) gm/dL Hct 29.4 L (39.0-53.0) % Plt Count 48 L* (150-450) k/uL Lymphocytes # 0.6 L (1.0-4.8) k/uL Sodium 135 L (137-145) mmol/L BUN 49 H (9-20) mg/dL Creatinine 4.22 H (0.66-1.25) mg/dL Glucose 142 H (74-99) mg/dL Total Bilirubin 1.5 H (0.2-1.3) mg/dL Alkaline Phosphatase 151 H (38-126) U/L Microbiology - Last 24 Hours (Table) 08/13/16 14:50 Gram Stain - Preliminary Peritoneal Fluid Body Fluid Culture - Preliminary 08/13/16 14:50 Anaerobic Culture - Preliminary Peritoneal Fluid 08/11/16 12:35 Urine Culture - Final Urine,Voided 08/12/16 15:35 Blood Culture - Preliminary Blood No Growth after 24 hours 08/11/16 11:10 Blood Culture - Preliminary Blood No Growth after 48 hours Assessment and Plan Plan: Assessment: #1. End-stage renal disease maintained on hemodialysis on a Wednesday schedule via permacath. #2. Liver cirrhosis. #3. Fever. Blood Culture so far negative. Patient does not make urine. Cultures were also obtained from catheter. Rule out SBP. #4. Lactic acidosis likely secondary to liver failure. #5. Thrombocytopenia secondary to liver cirrhosis. #6. Anemia of chronic kidney disease. Rule out iron deficiency. Plan: Hemodialysis today with goal 2 liters ultrafiltration as blood pressure tolerates. Maintain Renvela with meals. Maintain Midodrine. Follow-up cultures. Continue antibiotics - on IV Rocephin and vancomycin. Potential discharge after dialysis today.
[2016-08-14 10:46] LABS: % Iron Saturation 29.8 % (20-50)
[2016-08-14] MEDS: PANTOPRAZOLE 40 MG TABLET PO SCH (13:22)
[2016-08-14] MEDS: SEVELAMER 800 MG TAB PO SCH (13:22)
[2016-08-14] MEDS ORDERED: HEPARIN SODIUM,PORCINE 5,000 UNIT/ML 1 ML VIAL ONE (15:30)
[2016-08-14 16:27] VITALS: BP 96/47
--- NOTE | 2016-08-15 08:59 | DS ---
DATE OF ADMISSION: 08/11/2016 DATE OF DISCHARGE: 08/14/2016 Patient was admitted to the hospital with fever, the possible source being central line catheter related infection from the central line although the cultures from that are so far negative but we cannot completely rule out catheter related infection. Because of that reason catheter will not be removed, but the patient will be given 3 to 4 more doses of vancomycin with his hemodialysis completing a 10 day course of therapy. Patient was seen and examined on the day of discharge. Patient underwent paracentesis and patient has ventral hernia which is obvious now after his paracentesis and removal of 4 liters of fluid and the paracentesis fluid is not consistent with spontaneous bacterial peritonitis. PHYSICAL EXAMINATION: GENERAL: The patient is alert and oriented x3, not in any acute distress. Well developed, well nourished. HEENT: Pupils are round and equally reacting to light. EOMI. No scleral icterus. No conjunctival pallor. Normocephalic, atraumatic. No pharyngeal erythema. No thyromegaly. CARDIOVASCULAR: S1 and S2 present. No murmurs, rubs, or gallops. PULMONARY: Chest is clear to auscultation, no wheezing or crackles. ABDOMEN: Soft, nontender, nondistended, normoactive bowel sounds. No palpable organomegaly. MUSCULOSKELETAL: No joint swelling or deformity. EXTREMITIES: No cyanosis, clubbing, or pedal edema. NEUROLOGICAL: Gross neurological examination did not reveal any focal deficits. SKIN: No rashes. FINAL DIAGNOSES: 1. Fever, possible source being catheter related infection. Ruled out respond spontaneous bacterial peritonitis, lactic acidosis related to cirrhosis. 2. Leukocytosis from infection that is central line related which resolved. 3. Anemia of chronic disease. 4. Thrombocytopenia, secondary to splenic sequestration of platelets. 5. End stage renal disease secondary to hepatorenal syndrome. 6. Hypervolemic hyponatremia secondary to cirrhosis. 7. Gastroesophageal reflux disease. 8. Hypertension. 9. Hyperlipidemia. 10. Hepatitis C. Patient will be discharged today. Discussed with nephrology. Patient will receive vancomycin with his hemodialysis. Patient will be discharged after hemodialysis today. Discharge diet: Low protein dyshidrotic diet, low protein and low sodium, renal and cardiac diet. Patient will follow with Dr. Alexis Norris on august at 9:30 a.m. Activity as tolerated. Patient is being discharged home with home care. Spent greater than 35 minutes in total discharge process.
--- NOTE | 2016-08-19 11:41 | CDI ---
In responding to this query, please exercise your independent professional judgment. The [facility] Coding Staff and Clinical Documentation Specialists appreciate your assistance in clarifying documentation, maintaining compliance with coding guidelines, accurately documenting patients condition and capturing severity of illness. The fact that a question is asked does not imply that any particular answer is desired or expected. Communication forms are a method of clarifying documentation and are not made part of the Legal Health Record. Thank you in advance for your clarification. Last Revision, February 2015 Date: 08/19/2016 11:31:00 AM From: Jenna Josue/Rosa Peacock, Truck Crane Operator Admit Date: 08/11/2016 10:43:00 AM Patient Name: Jules Ortega Visit Number: [id number] Discharge Date: Dr. Boni Tanner The patient presented with fever. Mr. Ortega has a central line in place for dialysis. His other vital signs included pulse of 87, resp 18, BP 110/65, WBC 12.9. Intravenous antibiotics were started in ED. Sepsis due to central line was questioned. In your professional opinion, can you please clarify ____? Sepsis ruled in Sepsis ruled out Other Unable to determine Please document in your progress notes and discharge summary in order to capture severity of illness and risk of mortality. Include clinical findings that support your diagnosis. FYI: Press F11 to launch patient chart. ___X__ Place X here if this finding has no clinical significance, is not applicable or if you are not able to provide any additional documentation. Sepsis ruled out MTDD
--- NOTE | 2016-08-25 09:46 | PN ---
ADDENDUM: FINAL DIAGNOSIS: Sepsis ruled out.
== END 2016-08-14 16:18 | disposition home health service (06) | DRG 314 ==
LOC: EC 10:15 → 5MS5E 10:43 → 5ONC 11:30
PROVIDERS: ADMIT Hospitalist; ATTEND Hospitalist
PROC: 0W9G3ZZ Drainage of Peritoneal Cavity, Percutaneous Approach (ICD-10-PCS; principal; 2016-08-13)
PROC: 5A1D00Z (ICD-10-PCS; 2016-08-14)
DX: T82.7XXA Infection and inflammatory reaction due to other cardiac and vascular devices, implants and grafts, initial encounter (principal); K76.7 Hepatorenal syndrome; N18.6 End stage renal disease; N17.9 Acute kidney failure, unspecified; E87.2 Acidosis; Z76.82 Awaiting organ transplant status; D69.59 Other secondary thrombocytopenia; R18.8 Other ascites; I12.0 Hypertensive chronic kidney disease with stage 5 chronic kidney disease or end stage renal disease; K76.6 Portal hypertension; E87.1 Hypo-osmolality and hyponatremia; N39.0 Urinary tract infection, site not specified; K74.60 Unspecified cirrhosis of liver; K72.90 Hepatic failure, unspecified without coma; E87.70 Fluid overload, unspecified; E86.0 Dehydration; B18.2 Chronic viral hepatitis C; Y71.8 Miscellaneous cardiovascular devices associated with adverse incidents, not elsewhere classified; D63.1 Anemia in chronic kidney disease; E78.5 Hyperlipidemia, unspecified; F32.9 Major depressive disorder, single episode, unspecified; K21.9 Gastro-esophageal reflux disease without esophagitis; K43.9 Ventral hernia without obstruction or gangrene; R53.82 Chronic fatigue, unspecified; Z79.899 Other long term (current) drug therapy; Z82.49 Family history of ischemic heart disease and other diseases of the circulatory system; Z85.828 Personal history of other malignant neoplasm of skin; Z87.891 Personal history of nicotine dependence; Z99.2 Dependence on renal dialysis
CPT/HCPCS: 49083; 76705; 80053; 80202; 81001; 82140; 82565; 82728; 83540; 83550; 83605; 83690; 83735; 84100; 85025; 85049; 85610; 86704; 86706; 86850; 86900; 86901; 87040; 87070; 87075; 87086; 87205; 87340; 89050; 90935; 99285

== ENCOUNTER → 2016-08-11 | Day surgery (SDC) | payer MEDICARE ==
[2016-08-11 08:47] LABS: INR 1.3 (<1.1); Mean Platelet Volume 10.7; Prothrombin Time 13.1 sec (9.0-12.0)
[2016-08-11 08:54] VITALS: BP 107/65; PULSE 84; RESP 20; TEMP 99.4
--- NOTE | 2016-08-11 10:06 | US ---
Therapeutic paracentesis. CLINICAL HISTORY: Ascites The procedure was discussed with the patient. The risks, complications, benefits, and alternatives we re discussed and any questions were answered. Informed consent was obtained. The patient was placed s upine on the ultrasound table and prepped and draped in the usual sterile fashion. All elements of maximal barrier technique were utilized. Patient was experiencing fever and elected t o defer the procedure. There is only a small amount of ascites.. IMPRESSION: Deferred paracentesis.
== END ==
LOC: RADPROMAIN 08:07
PROVIDERS: ATTEND Internal Medicine Gastroenterology
DX: R18.8 Other ascites (principal)
CPT/HCPCS: 76705; 82565; 85049; 85610

== ENCOUNTER 2016-08-18 08:40 | Day surgery (SDC) | payer MEDICARE ==
[2016-08-18 09:11] VITALS: RESP 20; TEMP 98.4
[2016-08-18 09:13] LABS: Mean Platelet Volume 10.5
[2016-08-18 09:30] LABS: INR 1.3 (<1.1); Prothrombin Time 12.5 sec (9.0-12.0)
[2016-08-18] MEDS: ALBUMIN HUMAN 25% 50 ML in EMPTY BAG 1 BAG IVPB SCH ×4 (10:43→11:43)
[2016-08-18 11:44] VITALS: BP 102/57; PULSE 77
--- NOTE | 2016-08-18 14:15 | US ---
EXAMINATION TYPE: US paracentesis abd w/image DATE OF EXAM: 08/18/2016 12:41 PM COMPARISON: NONE HISTORY: Ascites. PROCEDURE: Maximal barrier technique was utilized. The skin overlying a suitable pocket of fluid was localized with ultrasound and the overlying skin was prepped and draped. Ultrasound was utilized with sterile technique. Lidocaine was used for local anesthesia and a skin jia made with a scalpel. Catheter was advanced under direct ultrasound guidance into a suitable pocket of fluid and approximately 7.2 liter s of orange fluid were removed. Catheter was withdrawn and hemostasis achieved. There is no immedia te complication; the patient is discharged in stable condition. IMPRESSION: STATUS POST ULTRASOUND GUIDED PARACENTESIS FOR PALLIATION OF ASCITES. THIS PROCEDURE WA S PERFORMED BY THE UNDERSIGNED.
== END 2016-08-18 11:55 | disposition home or self-care (01) ==
LOC: RADPROMAIN 08:40
PROVIDERS: ATTEND Internal Medicine Gastroenterology
DX: R18.8 Other ascites (principal)
CPT/HCPCS: 82565; 85049; 85610; 96365; 36415; 49083; P9047

== ENCOUNTER 2016-08-25 07:51 | Day surgery (SDC) | payer MEDICARE ==
[2016-08-25 08:45] VITALS: RESP 20; TEMP 97.9
[2016-08-25 09:23] LABS: INR 1.3 (<1.1); Prothrombin Time 12.6 sec (9.0-12.0)
[2016-08-25 11:32] VITALS: BP 109/52; PULSE 87
--- NOTE | 2016-08-25 12:40 | US ---
EXAMINATION TYPE: US paracentesis abd w/image DATE OF EXAM: 08/25/2016 11:42 AM COMPARISON: NONE HISTORY: Ascites. PROCEDURE: Maximal barrier technique was utilized. The skin overlying a suitable pocket of fluid was localized with ultrasound and the overlying skin was prepped and draped. Ultrasound was utilized with sterile technique. Lidocaine was used for local anesthesia and a skin jia made with a scalpel. Catheter was advanced under direct ultrasound guidance into a suitable pocket of fluid and approximately 8.3 liter s of serous fluid were removed. Catheter was withdrawn and hemostasis achieved. There is no immedia te complication; the patient is discharged in stable condition. IMPRESSION: STATUS POST ULTRASOUND GUIDED PARACENTESIS FOR PALLIATION OF ASCITES. THIS PROCEDURE WA S PERFORMED BY THE UNDERSIGNED.
== END 2016-08-25 12:00 | disposition home or self-care (01) ==
LOC: RADPROMAIN 07:51
PROVIDERS: ATTEND Internal Medicine Gastroenterology
DX: R18.8 Other ascites (principal)
CPT/HCPCS: 36415; 49083; 82565; 85049; 85610

== ENCOUNTER 2016-08-26 15:34 | Inpatient (IN) | payer MEDICARE ==
[2016-08-26] MEDS ORDERED: IPRATROPIUM-ALBUTEROL 3 ML NEB INHALATION STA (16:02)
[2016-08-26] MEDS ORDERED: methylPREDNISolone SOD SUCCI 125 MG/2 ML VIAL IV STA (16:02)
[2016-08-26] MEDS ORDERED: HYDROmorphone 1 MG/ML 1 ML SYRINGE IVP STA ×2 (16:04→18:42)
--- NOTE | 2016-08-26 16:06 | ED ---
SOB HPI - General Chief Complaint: Shortness of Breath Stated Complaint: SOB/Abd Pain Time Seen by Provider: 08/26/16 15:55 Source: patient, family, RN notes reviewed Mode of arrival: wheelchair Limitations: no limitations - History of Present Illness Initial Comments: Is a 65-year-old male with a history of hepatitis C and cirrhosis who has been having frequent paracenteses done with the last one being done yesterday also a history of dialysis today who presents with complaints of shortness of breath today low-grade temperature he did take Tylenol earlier and still had a temperature 99.3 also some vague abdominal discomfort. He states his abdomen still have faster than usual. He denies any cough or phlegm production or other symptoms no chest pain. MD Complaint: shortness of breath - Related Data Home Medications Medication Instructions Recorded Confirmed Pantoprazole [Protonix] 40 mg PO DAILY 10/22/15 08/26/16 Terazosin [Hytrin] 2 mg PO HS 10/22/15 08/26/16 Multivitamins, Thera [Multivitamin 1 tab PO DAILY 12/23/15 08/26/16 (formulary)] Thiamine [Vitamin B-1] 100 mg PO HS 12/23/15 08/26/16 Cholecalciferol [Vitamin D3] 1,000 unit PO DAILY 02/24/16 08/26/16 Cyanocobalamin [Vitamin B-12] 500 mcg PO DAILY 02/24/16 08/26/16 Finasteride [Proscar] 5 mg PO DAILY 02/24/16 08/26/16 Methocarbamol [Robaxin] 500 mg PO QAM 02/24/16 08/26/16 Folic Acid 1 mg PO DAILY 04/04/16 08/26/16 Lactulose [Cephulac] 30 gm PO QID 05/27/16 08/26/16 Rifaximin [Xifaxan] 550 mg PO BID 05/27/16 08/26/16 DULoxetine HCL [Cymbalta] 60 mg PO DAILY 07/20/16 08/26/16 Milk Thistle 150 mg PO HS 07/20/16 08/26/16 Sennosides [Senna] 8.6 mg PO DAILY 07/20/16 08/26/16 Sodium Bicarbonate Tab 650 mg PO BID 07/20/16 08/26/16 Atorvastatin [Lipitor] 80 mg PO DAILY 08/11/16 08/26/16 Furosemide [Lasix] 80 mg PO BID 08/11/16 08/26/16 Metoprolol Tartrate [Lopressor] 25 mg PO BID 08/11/16 08/26/16 Sevelamer [Renvela] 800 mg PO TID 08/11/16 08/26/16 Previous Rx's Medication Instructions Recorded Midodrine [ProAmatine] 10 mg PO AC-TID tab 05/16/16 Allergies Allergy/AdvReac Type Severity Reaction Status Date / Time No Known Allergies Allergy Verified 08/26/16 16:37 Review of Systems ROS Statement: Those systems with pertinent positive or pertinent negative responses have been documented in the HPI. ROS Other: All systems not noted in ROS Statement are negative. Past Medical History Past Medical History: Cancer, GERD/Reflux, Hyperlipidemia, Hypertension, Liver Disease, Osteoarthritis (OA), Renal Disease Additional Past Medical History / Comment(s): Pt recently admitted to [facility] on 07/21/16 with acute renal failure/dizziness r/t volume depletion and was transferred to [facility]. 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 History of Any Multi-Drug Resistant Organisms: None Reported Past Surgical History: Cholecystectomy, Hernia Repair Additional Past Surgical History / Comment(s): Cervical fusion surgery, colonoscopies, umbilical hernia repair x 2, nose and top of head skin cancer removed, multi paracentesis. Hemodialysis catheter. Past Anesthesia/Blood Transfusion Reactions: Postoperative Nausea & Vomiting ( PONV) Additional Past Anesthesia/Blood Transfusion Reaction / Comment(s): [facility]; pt stated no reaction Past Psychological History: Depression Additional Psychological History / Comment(s): Pt. states he is on depression medication and it has been effective in helping with his depression. Pt resides with his spouse. He uses no assistive device. He has a walker and cane whenever he needs to start using them. He no longer drives, his spouse takes him to [employer]. He has home care thru [facility]. Smoking Status: Former smoker Past Alcohol Use History: None Reported Additional Past Alcohol Use History / Comment(s): Pt smoked from 1964 to 1969. Past Drug Use History: None Reported - Past Family History Mother History Unknown: Yes Family Medical History: Chest Pain / Angina Father History Unknown: Yes Family Medical History: Myocardial Infarction ([place]) General Exam - General Exam Comments Initial Comments: Physical well-developed well-nourished awake alert anxious appearing male Limitations: no limitations General appearance: alert, anxious, in distress Head exam: Present: atraumatic, normocephalic, normal inspection Eye exam: Present: normal appearance, PERRL, EOMI. Absent: scleral icterus, conjunctival injection, periorbital swelling ENT exam: Present: mucous membranes dry Neck exam: Present: normal inspection. Absent: tenderness, meningismus, lymphadenopathy Respiratory exam: Present: decreased breath sounds. Absent: respiratory distress, wheezes, rales, rhonchi, stridor Cardiovascular Exam: Present: normal rhythm, tachycardia, normal heart sounds. Absent: systolic murmur, diastolic murmur, rubs, gallop, clicks GI/Abdominal exam: Present: soft, normal bowel sounds, other (Distended abdomen with evidence of ascites. Minimal discomfort to palpation at this time.). Absent: distended, tenderness, guarding, rebound, rigid Extremities exam: Present: normal inspection, full ROM, normal capillary refill. Absent: tenderness, pedal edema, joint swelling, calf tenderness Back exam: Present: normal inspection Neurological exam: Present: alert, oriented X3, CN II-XII intact Psychiatric exam: Present: normal affect, normal mood Skin exam: Present: warm, dry, intact, normal color. Absent: rash Course Vital Signs 08/26/16 08/26/16 08/26/16 15:55 15:57 16:18 Temperature 99.7 F H Pulse Rate 119 H 113 H Respiratory 26 H 22 Rate Blood Pressure 169/107 O2 Sat by Pulse 99 Oximetry 08/26/16 08/26/16 08/26/16 16:23 16:27 16:28 Temperature Pulse Rate 118 H 122 H Respiratory 20 Rate Blood Pressure 87/52 102/56 O2 Sat by Pulse 100 Oximetry 08/26/16 08/26/16 08/26/16 16:53 17:37 18:59 Temperature Pulse Rate 118 H 110 H 107 H Respiratory 18 24 22 Rate Blood Pressure 116/87 113/61 106/57 O2 Sat by Pulse 98 100 100 Oximetry Medical Decision Making - Medical Decision Making I did discuss findings with the patient family patient be admitted with IV antibiotics and consultation by nephrology. - Lab Data Result diagrams: 08/26/16 16:05 08/26/16 16:05 Lab Results 08/26/16 08/26/16 08/26/16 Range/Units 16:05 16:05 16:05 WBC 13.3 H (3.8-10.6) k/uL RBC 3.38 L (4.30-5.90) m/uL Hgb 10.5 L (13.0-17.5) gm/dL Hct 33.2 L (39.0-53.0) % MCV 98.2 (80.0-100.0) fL MCH 31.2 (25.0-35.0) pg MCHC 31.8 (31.0-37.0) g/dL RDW 16.0 H (11.5-15.5) % Plt Count 45 L* (150-450) k/uL Neutrophils % 87 % Lymphocytes % 4 % Monocytes % 7 % Eosinophils % 0 % Basophils % 0 % Neutrophils # 11.5 H (1.3-7.7) k/uL Lymphocytes # 0.6 L (1.0-4.8) k/uL Monocytes # 0.9 (0-1.0) k/uL Eosinophils # 0.1 (0-0.7) k/uL Basophils # 0.1 (0-0.2) k/uL Anisocytosis Slight Macrocytosis Slight PT (9.0-12.0) sec INR (<1.1) APTT (22.0-30.0) sec Sodium 138 (137-145) mmol/L Potassium 4.3 (3.5-5.1) mmol/L Chloride 95 L (98-107) mmol/L Carbon Dioxide 26 (22-30) mmol/L Anion Gap 17 mmol/L BUN 18 (9-20) mg/dL Creatinine 3.30 H (0.66-1.25) mg/dL Est GFR (MDRD) Af Amer 23 (>60 ml/min/1.73 sqM) Est GFR (MDRD) Non-Af 19 (>60 ml/min/1.73 sqM) Glucose 104 H (74-99) mg/dL Calcium 9.4 (8.4-10.2) mg/dL Magnesium 2.6 H (1.6-2.3) mg/dL Total Bilirubin 1.8 H (0.2-1.3) mg/dL AST 57 (17-59) U/L ALT 43 (21-72) U/L Alkaline Phosphatase 174 H (38-126) U/L Total Creatine Kinase 46 L (55-170) U/L CK-MB (CK-2) 1.8 (0.0-2.4) ng/mL CK-MB (CK-2) Rel Index 3.9 Troponin I 0.038 H* (0.000-0.034) ng/mL NT-Pro-B Natriuret Pep pg/mL Total Protein 7.0 (6.3-8.2) g/dL Albumin 3.7 (3.5-5.0) g/dL 08/26/16 08/26/16 Range/Units 16:05 16:05 WBC (3.8-10.6) k/uL RBC (4.30-5.90) m/uL Hgb (13.0-17.5) gm/dL Hct (39.0-53.0) % MCV (80.0-100.0) fL MCH (25.0-35.0) pg MCHC (31.0-37.0) g/dL RDW (11.5-15.5) % Plt Count (150-450) k/uL Neutrophils % % Lymphocytes % % Monocytes % % Eosinophils % % Basophils % % Neutrophils # (1.3-7.7) k/uL Lymphocytes # (1.0-4.8) k/uL Monocytes # (0-1.0) k/uL Eosinophils # (0-0.7) k/uL Basophils # (0-0.2) k/uL Anisocytosis Macrocytosis PT 13.1 H (9.0-12.0) sec INR 1.3 (<1.1) APTT 27.3 (22.0-30.0) sec Sodium (137-145) mmol/L Potassium (3.5-5.1) mmol/L Chloride (98-107) mmol/L Carbon Dioxide (22-30) mmol/L Anion Gap mmol/L BUN (9-20) mg/dL Creatinine (0.66-1.25) mg/dL Est GFR (MDRD) Af Amer (>60 ml/min/1.73 sqM) Est GFR (MDRD) Non-Af (>60 ml/min/1.73 sqM) Glucose (74-99) mg/dL Calcium (8.4-10.2) mg/dL Magnesium (1.6-2.3) mg/dL Total Bilirubin (0.2-1.3) mg/dL AST (17-59) U/L ALT (21-72) U/L Alkaline Phosphatase (38-126) U/L Total Creatine Kinase (55-170) U/L CK-MB (CK-2) (0.0-2.4) ng/mL CK-MB (CK-2) Rel Index Troponin I (0.000-0.034) ng/mL NT-Pro-B Natriuret Pep 4500 pg/mL Total Protein (6.3-8.2) g/dL Albumin (3.5-5.0) g/dL - EKG Data -: EKG Interpreted by Me EKG shows normal: sinus rhythm (Sinus tachycardia rate 121 appear of 01 50 to QRS duration 78 QT/QTC 340/[address]-t wave changes.) - Radiology Data Radiology results: report reviewed (I did review the imaging and reports no acute findings.), image reviewed Disposition Clinical Impression: Chronic renal failure, Ascites, Fever, Cirrhosis, COPD (chronic obstructive pulmonary disease) Disposition: ADMITTED IP TO THIS [facility] Condition: Stable
[2016-08-26 16:24] LABS: Anisocytosis Slight; Basophils # (A) 0.1 k/uL (0-0.2); Basophils % (A) 0 %; CH 31.2; CHCM 31.9; Eosinophils # (A) 0.1 k/uL (0-0.7); Eosinophils % (A) 0 %; HCT 33.2 % (39.0-53.0); HDW 2.77; HGB 10.5 gm/dL (13.0-17.5); Luc # (Auto) 0.28; Luc % (Auto) 2; Lymphocytes # (A) 0.6 k/uL (1.0-4.8); Lymphocytes % (A) 4 %; MCH 31.2 pg (25.0-35.0); MCHC 31.8 g/dL (31.0-37.0); MCV 98.2 fL (80.0-100.0); Macrocytosis Slight; Mean Platelet Volume 9.9; Monocytes # (A) 0.9 k/uL (0-1.0); Monocytes % (A) 7 %; Neutrophils # (A) 11.5 k/uL (1.3-7.7); Neutrophils % (A) 87 %; RBC 3.38 m/uL (4.30-5.90); WBC 13.3 k/uL (3.8-10.6); WBC (Perox) 13.75
[2016-08-26 16:34] LABS: INR 1.3 (<1.1); Prothrombin Time 13.1 sec (9.0-12.0)
[2016-08-26 16:37] LABS: Calcium 9.4 mg/dL (8.4-10.2); Magnesium 2.6 mg/dL (1.6-2.3); Potassium 4.3 mmol/L (3.5-5.1); Total Bilirubin 1.8 mg/dL (0.2-1.3)
[2016-08-26 16:38] LABS: Partial Thromboplastin Time 27.3 sec (22.0-30.0)
--- NOTE | 2016-08-26 16:57 | XR ---
EXAMINATION TYPE: XR chest 2V DATE OF EXAM: 08/26/2016 4:41 PM COMPARISON: Prior chest x-ray third of July 2016 HISTORY: Shortness of breath TECHNIQUE: Frontal and lateral views of the chest are obtained. FINDINGS: There is no focal air space opacity, pleural effusion, or pneumothorax seen. The cardiac silhouette size is within normal limits. Right jugular central venous dialysis catheter is present w ith the distal tip at the cavoatrial junction level. Probable scarring at the left costophrenic angle as on prior exam. There is elevation of the right hemidiaphragm. The osseous structures are intact. IMPRESSION: No acute cardiopulmonary process.
[2016-08-26 17:09] LABS: Creatine Kinase MB 1.8 ng/mL (0.0-2.4)
[2016-08-26 17:12] LABS: Troponin I 0.038 ng/mL (0.000-0.034)
[2016-08-26] MEDS ORDERED: LORazepam 2 MG/ML SYRINGE IV STA (17:41)
[2016-08-26] MEDS ORDERED: PIPERACILLIN-TAZOBACTAM 3.375 GM in DEXTROSE/WATER 1 50ML.BAG IVPB STA (19:00)
[2016-08-26] MEDS ORDERED: NALOXONE 0.4 MG/ML 1 ML VIAL IV PRN (19:05)
[2016-08-26] MEDS ORDERED: IV VANCOMYCIN PER PHARMACY 1 EACH MISC MISCELLANE PRN (19:09)
[2016-08-26] MEDS ORDERED: VANCOMYCIN 1,750 MG in SODIUM CHLORIDE 0.9% 250 ML IVPB ONE (20:00)
[2016-08-26] MEDS ORDERED: NON-FORMULARY DRUG (Milk Thistle [Milk Thistle] 150 MG) PO SCH (21:00)
[2016-08-26] MEDS: SODIUM CHLORIDE 0.9% 1,000 ML IV SCH (22:36)
[2016-08-26] MEDS: SEVELAMER 800 MG TAB PO SCH (22:37)
[2016-08-26] MEDS: METOPROLOL TARTRATE 25 MG TAB PO SCH (22:37)
[2016-08-26] MEDS: FUROSEMIDE 80 MG TAB PO SCH (22:37)
[2016-08-26] MEDS: THIAMINE 100 MG TAB PO SCH (22:38)
[2016-08-26] MEDS: TERAZOSIN 2 MG CAP PO SCH (22:38)
[2016-08-26] MEDS: RIFAXIMIN 550 MG TABLET PO SCH (22:38)
[2016-08-26] MEDS: SODIUM BICARBONATE TAB 650 MG TAB PO SCH (22:38)
[2016-08-26 22:57] VITALS: BMI 22.8
[2016-08-26] MEDS: LACTULOSE 20 GM/30 ML CUP PO SCH (23:08)
[2016-08-27] MEDS: PIPERACILLIN-TAZOBACTAM 3.375 GM in DEXTROSE/WATER 1 50ML.BAG IVPB SCH ×2 (05:38→16:47)
[2016-08-27 05:59] LABS: Anisocytosis Slight; Basophils % (A) 0 %; CH 30.7; CHCM 31.3; Eosinophils % (A) 0 %; HCT 27.8 % (39.0-53.0); HDW 2.74; Hypochromasia Slight; Luc # (Auto) 0.06; Luc % (Auto) 1; Lymphocytes # (A) 0.4 k/uL (1.0-4.8); Lymphocytes % (A) 5 %; MCHC 31.4 g/dL (31.0-37.0); MCV 98.6 fL (80.0-100.0); Macrocytosis Slight; Mean Platelet Volume 9.8; Monocytes # (A) 0.4 k/uL (0-1.0); Monocytes % (A) 5 %; Neutrophils # (A) 7.5 k/uL (1.3-7.7); Neutrophils % (A) 90 %; RBC 2.82 m/uL (4.30-5.90); WBC 8.4 k/uL (3.8-10.6); WBC (Perox) 8.61
[2016-08-27 06:07] LABS: Calcium 9.2 mg/dL (8.4-10.2); Potassium 4.6 mmol/L (3.5-5.1)
[2016-08-27 06:10] LABS: HGB 8.7 gm/dL (13.0-17.5)
[2016-08-27] MEDS: PANTOPRAZOLE 40 MG TABLET PO SCH (06:28)
[2016-08-27] MEDS: SEVELAMER 800 MG TAB PO SCH ×3 (06:29→16:49)
[2016-08-27] MEDS: MIDODRINE 5 MG TAB PO SCH ×3 (06:29→16:49)
--- NOTE | 2016-08-27 07:48 | HP ---
DATE OF ADMISSION: Chief complaints are shortness of breath and fever. HISTORY OF PRESENT ILLNESS: This 65-year-old gentleman with a past medical history of GERD, hypertension, hyperlipidemia, liver disease, history of DJD, and history of cholecystectomy, history of hernia repair, being followed by Dr. Norris and Aide [facility] in [place] has a large volume paracentesis recently about 8 L of fluid was removed. The patient is also receiving hemodialysis and today the patient has some shortness of breath and because of increasing shortness of breath and other symptoms the patient was taken to [facility] and admitted for further evaluation and treatment. There is some low grade temperatures up to 99.9 was suspected also. Of note recently, the patient had underlying related bacteremia during one of the admissions where the patient had multiple medical issues. Currently, patient is slightly comfortable. Patient finished hemodialysis today as mentioned earlier. Patient has ascites. The next paracentesis plan is scheduled for this Wednesday. There is no history of headache, loss of consciousness or seizures. No history of chest pain, at this time. PAST MEDICAL HISTORY: History of hypertension, hyperlipidemia, chronic liver disease, history of hepatitis C, history of Harvoni, history of ascites, history of cholecystectomy, hernia repair. Medications prior to admission include the home medications are: 1. Vitamin B1, 100 mg p.o. q.h.s. 2. Hytrin 2 mg q.h.s. 3. Sodium bicarb 650 mg p.o. b.i.d. 4. Renvela 800 mg p.o. t.i.d. 5. Senna 8.6 mg p.o. daily. 6. Xifaxan 550 mg p.o. b.i.d. 7. Protonix 40 mg p.o. daily. 8. Multivitamins 1 p.o. daily. 9. Milk Thistle 150 mg q.h.s. 10. ProAmatine 10 mg a.c. t.i.d. 11. Lopressor 25 mg p.o. b.i.d. 12. Robaxin 500 mg q.a.m. 13. Cephulac 30 gram p.o. q.i.d. 14. Lasix 80 mg p.o. b.i.d. 15. Folic acid 1 mg daily. 16. Proscar 5 mg p.o. daily. 17. Cymbalta 60 mg p.o. daily. 18. Vitamin B-12, 500 mcg p.o. daily. 19. Vitamin D3, 1000 units p.o. daily. 20. Lipitor 80 mg p.o. daily. ALLERGIES: None. FAMILY HISTORY: History of chest pain, angina. SOCIAL HISTORY: Previous history of smoking. No history of alcohol intake. REVIEW OF SYSTEMS: ENT: No diminishing hearing or diminished vision. CARDIOVASCULAR: No angina. RESPIRATORY: As mentioned earlier. GI: As mentioned earlier. : No dysuria. NERVOUS SYSTEM: No numbness or weakness. ALLERGY/IMMUNOLOGY: No history of asthma or hayfever. MUSCULOSKELETAL: As mentioned earlier. HEMATOLOGY/ONCOLOGY: No history of anemia. ENDOCRINE: No history of diabetes or hypothyroidism. CONSTITUTIONAL: As mentioned earlier. DERMATOLOGY: Negative. RHEUMATOLOGY: Negative. PSYCHIATRY: As mentioned earlier. PHYSICAL EXAMINATION: The patient is alert and oriented x3. Pulse is 118, blood pressure 87/52, respirations 20, temperature 99.7, pulse ox 100% on room air. HEENT: Conjunctivae normal. Oral mucosa moist. NECK: No jugular venous distention. No carotid bruit. No lymph node enlargement. CARDIOVASCULAR: S1 and S2, muffled. Ejection systolic murmur. No S3, no S4. RESPIRATORY: Breath sounds diminished at the bases. A few scattered rhonchi and crackles. ABDOMEN: Soft, distended. Anterior ventral hernia and as well as ascites also present. Nontender. No guarding or rigidity. No hepatosplenomegaly. LEGS: Minimal bilateral leg edema. NERVOUS SYSTEM: Higher function as mentioned earlier. Moves all 4 limbs. No focal motor or sensory deficit. LYMPHATICS: No lymphadenopathy of neck, axillae or groin. SKIN: No ulcers, rashes or bleeding. JOINTS: No active deforming arthropathy. LABS: WBC 13.3, hemoglobin 10.5, platelets 45. INR is 1.3. Troponin 0.038. Total bilirubin is 1.8. ASSESSMENT: 1. Shortness of breath and fever for evaluation. Possible chronic obstructive pulmonary disease acute exacerbation with acute purulent tracheobronchitis. 2. Mild fever with elevated WBC, rule out spontaneous bacterial peritonitis. 3. Cirrhosis of the liver secondary to hepatitis C with ascites and recurrent abdominal paracentesis. 4. Chronic renal failure, stage V, on hemodialysis through a right neck dialysis catheter. 5. Increased WBC. 6. Anemia, normocytic anemia of chronic disease. 7. Thrombocytopenia possibly secondary to cirrhosis of liver. 8. Increased bilirubin secondary to cirrhosis of the liver. 9. Increased alkaline phosphatase secondary to cirrhosis of the liver. 10. Troponin 0.038 indeterminate, possibly secondary to renal failure. 11. History of hepatorenal syndrome. 12. History of memory impairment. 13. History of recurrent encephalopathy. 14. History of depression, not otherwise specified. 15. History of cholecystectomy. 16. History of ventral hernia. 17. History of gastroesophageal reflux disease. 18. FULL CODE. RECOMMENDATIONS AND DISCUSSION: This 65-year-old gentleman who presented with multiple complex medical issues, will monitor the patient closely. Continue the current medications. Continue symptomatic treatment. Will continue the hemodialysis. I would also recommend to initiate empiric antibiotic treatment in view of the elevated WBC and multiple other medical issues. Exact etiology is unknown, could be because of bronchitis COPD or even spontaneous bacterial peritonitis. I would also recommend consideration of abdominal paracentesis tomorrow as well. Otherwise Nephrology will be consulted and continue to monitor. Prognosis guarded. Further recommendations to follow. A copy of dictation forwarded to Dr. Norris who is the primary physician. BRYNN
[2016-08-27] MEDS: RIFAXIMIN 550 MG TABLET PO SCH ×2 (09:04→21:40)
[2016-08-27] MEDS: METHOCARBAMOL 500 MG TAB PO SCH (09:05)
[2016-08-27] MEDS: METOPROLOL TARTRATE 25 MG TAB PO SCH ×2 (09:05→21:42)
[2016-08-27] MEDS: ATORVASTATIN 80 MG TAB PO SCH (09:06)
[2016-08-27] MEDS: SENNOSIDES 8.6 MG TAB PO SCH (09:06)
[2016-08-27] MEDS: SODIUM BICARBONATE TAB 650 MG TAB PO SCH ×2 (09:06→21:40)
[2016-08-27] MEDS: FUROSEMIDE 80 MG TAB PO SCH ×2 (09:07→16:49)
[2016-08-27] MEDS: DULoxetine HCL 60 MG CAPSULE.DR PO SCH (09:07)
[2016-08-27] MEDS: FINASTERIDE 5 MG TAB PO SCH (09:08)
[2016-08-27] MEDS: LACTULOSE 20 GM/30 ML CUP PO SCH ×4 (09:08→21:00)
--- NOTE | 2016-08-27 09:22 | P.NPCON ---
History of Present Illness - Reason for Consult end stage renal disease - History of Present Illness Reason for consultation: End-stage renal disease History of present illness: Patient is a 65-year-old male seen in renal consultation for end- stage renal disease. He is maintained on hemodialysis on a Wednesday schedule. He underwent hemodialysis yesterday at his outpatient dialysis center without any problems. Patient states he had a low-grade fever and also some dyspnea and is walking to the hospital. His temperature was 99.7 F when he was admitted. He is afebrile this morning. Patient also has history of hepatitis C with liver cirrhosis and undergoes frequent paracentesis. His last paracentesis was on August 25 and had over 8 L removed. He is scheduled to undergo another paracentesis tomorrow. He does have a permacath for dialysis access but she does not appear to be infected. There is also been concern for SBP. Patient was recently admitted to the hospital earlier this month and at that time his cultures were all negative and there is no evidence of SBP. He did receive IV vancomycin while he was in the hospital and received an additional 1 week of IV vancomycin upon his last discharge. Denies any cough. Denies diarrhea. Hemodynamically stable although his blood pressures tend to run on the lower side. Vital signs are stable. General: The patient appeared well nourished and normally developed. HEENT: Head exam is unremarkable. Neck is without jugular venous distension. LUNGS: Lungs are clear to auscultation and percussion. Breath sounds decreased. HEART: Rate and Rhythm are regular. First and second heart sounds normal. No murmurs, rubs or gallops. ABDOMEN: Abdominal exam reveals normal bowel sounds. Distended. EXTREMITITES: No clubbing, cyanosis, or edema. Past Medical History Past Medical History: Cancer, GERD/Reflux, Hyperlipidemia, Hypertension, Liver Disease, Osteoarthritis (OA), Renal Disease Additional Past Medical History / Comment(s): Pt recently admitted to [facility] on 07/21/16 with acute renal failure/dizziness r/t volume depletion and was transferred to [facility]. 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 History of Any Multi-Drug Resistant Organisms: None Reported Past Surgical History: Cholecystectomy, Hernia Repair Additional Past Surgical History / Comment(s): Cervical fusion surgery, colonoscopies, umbilical hernia repair x 2, nose and top of head skin cancer removed, multi paracentesis. Hemodialysis catheter. Past Anesthesia/Blood Transfusion Reactions: Postoperative Nausea & Vomiting ( PONV) Additional Past Anesthesia/Blood Transfusion Reaction / Comment(s): [facility]; pt stated no reaction Past Psychological History: Depression Additional Psychological History / Comment(s): Pt. states he is on depression medication and it has been effective in helping with his depression. Pt resides with his spouse. He uses no assistive device. He has a walker and cane whenever he needs to start using them. He no longer drives, his spouse takes him to [facility]. He has home care thru [facility]. Smoking Status: Former smoker Past Alcohol Use History: None Reported Additional Past Alcohol Use History / Comment(s): Pt smoked from 1964 to 1969. Past Drug Use History: None Reported - Past Family History Mother History Unknown: Yes Family Medical History: Chest Pain / Angina Father History Unknown: Yes Family Medical History: Myocardial Infarction ([place]) Medications and Allergies Home Medications Medication Instructions Recorded Confirmed Type Pantoprazole [Protonix] 40 mg PO DAILY 10/22/15 08/26/16 History Terazosin [Hytrin] 2 mg PO HS 10/22/15 08/26/16 History Multivitamins, Thera [Multivitamin 1 tab PO DAILY 12/23/15 08/26/16 History (formulary)] Thiamine [Vitamin B-1] 100 mg PO HS 12/23/15 08/26/16 History Cholecalciferol [Vitamin D3] 1,000 unit PO DAILY 02/24/16 08/26/16 History Cyanocobalamin [Vitamin B-12] 500 mcg PO DAILY 02/24/16 08/26/16 History Finasteride [Proscar] 5 mg PO DAILY 02/24/16 08/26/16 History Methocarbamol [Robaxin] 500 mg PO QA 02/24/16 08/26/16 History Folic Acid 1 mg PO DAILY 04/04/16 08/26/16 History Lactulose [Cephulac] 30 gm PO QID 05/27/16 08/26/16 History Rifaximin [Xifaxan] 550 mg PO BID 05/27/16 08/26/16 History DULoxetine HCL [Cymbalta] 60 mg PO DAILY 07/20/16 08/26/16 History Milk Thistle 150 mg PO HS 07/20/16 08/26/16 History Sennosides [Senna] 8.6 mg PO DAILY 07/20/16 08/26/16 History Sodium Bicarbonate Tab 650 mg PO BID 07/20/16 08/26/16 History Atorvastatin [Lipitor] 80 mg PO DAILY 08/11/16 08/26/16 History Furosemide [Lasix] 80 mg PO BID 08/11/16 08/26/16 History Metoprolol Tartrate [Lopressor] 25 mg PO BID 08/11/16 08/26/16 History Sevelamer [Renvela] 800 mg PO TID 08/11/16 08/26/16 History Allergies Allergy/AdvReac Type Severity Reaction Status Date / Time No Known Allergies Allergy Verified 08/26/16 16:37 Physical Exam Vitals: Vital Signs Temp Pulse Resp BP Pulse Ox 08/27/16 03:42 97.2 F L 92 18 95/54 97 08/27/16 00:00 97.0 F L 110 H 18 89/55 100 08/26/16 20:00 98.6 F 88 18 126/66 98 08/26/16 19:41 98 F 88 18 126/66 98 Intake and Output 08/26/16 08/27/16 08/27/16 22:59 06:59 14:59 Intake Total 50 950 360 Balance 50 950 360 Intake: IV 50 350 Piperacillin-Tazobactam 3 50 .375 gm In Dextrose/Water 1 50ml.bag @ 12.5 mls/hr IVPB ONCE STA Rx#: [id number] Vancomycin 1,750 mg In 250 Sodium Chloride 0.9% 250 ml @ 125 mls/hr IVPB ONCE ONE Rx#:[id number] cefTRIAXone 1,000 mg In 100 Sodium Chloride 0.9% 50 ml @ 100 mls/hr IVPB Q24H [facility] Rx#:[id number] Oral 600 360 Other: # Voids 0 Weight 68.039 kg 70.7 kg Results - Lab Results Most recent lab results Calcium 9.2 mg/dL (8.4-10.2) 08/27/16 05:41 Magnesium 2.6 mg/dL (1.6-2.3) H 08/26/16 16:05 08/27/16 05:41 08/27/16 05:41 Assessment and Plan Plan: Assessment: #1. End-stage renal disease maintained on hemodialysis on a Wednesday schedule via permacath. #2. Hep C-induced liver cirrhosis. #3. Ascites secondary to liver cirrhosis status post paracentesis on August 25 with 8.3 liters removed. #4. Low-grade fever. Patient was recently admitted with the same earlier this month and received IV vancomycin. Cultures were noted to be all negative and was no evidence of SBP. Questionable tracheobronchitis. #5. Anemia of chronic kidney disease. Rule out iron deficiency. #6. Chronic hypotension related to liver cirrhosis. Plan: Hemodialysis tomorrow with goal 2-3 L ultrafiltration as blood pressure tolerates. Maintain Midodrine. Follow-up cultures. Will also draw cultures from the dialysis catheter today. Continue with antibiotics. Consider infectious disease consultation. Check iron studies. Possible paracentesis again tomorrow. Fluid to be sent for culture. He is to also receive 25 g of albumin post-paracentesis. Thank you for the consultation. I will continue to follow the patient with you during his hospital stay.
[2016-08-27] MEDS: MULTIVITAMINS, THERA 1 EACH TAB PO SCH (11:28)
[2016-08-27] MEDS: FOLIC ACID 1 MG TAB PO SCH (11:28)
[2016-08-27] MEDS: CYANOCOBALAMIN 500 MCG TAB PO SCH (11:29)
[2016-08-27] MEDS: CHOLECALCIFEROL 1,000 UNIT TAB PO SCH (11:29)
[2016-08-27 11:37] LABS: % Iron Saturation 33.5 % (20-50)
--- NOTE | 2016-08-27 16:41 | P.PN ---
Subjective Date of service 08/27/2016. Progress note being dictated for Dr. Tanner. Interval history: This is a 65-year-old gentleman admitted with possible acute COPD exacerbation with acute purulent tracheobronchitis, liver cirrhosis with ascites in a patient with history of recurrent abdominal paracentesis chronic renal failure and multiple other medical issues. Maintained on empiric antibiotics of vancomycin and Zosyn. Denies abdominal pain, afebrile, WBC normal. Maintaining mean arterial pressure of 66 to 73, on Midodrin. Evaluated by neurology. Scheduled for a paracentesis tomorrow and hemodialysis on Wednesday. Objective - Vital Signs Vital signs: Vital Signs Temp 97.3 F L 08/27/16 11:32 Pulse 97 08/27/16 11:32 Resp 16 08/27/16 11:32 BP 106/57 08/27/16 11:32 Pulse Ox 97 08/27/16 11:32 Intake & Output 08/26/16 08/27/16 08/27/16 18:59 06:59 18:59 Intake Total 1000 700 Output Total 0 Balance 1000 700 Weight 70.7 kg Intake: IV 400 Piperacillin-Tazobactam 3 50 .375 gm In Dextrose/Water 1 50ml.bag @ 12.5 mls/hr IVPB ONCE [facility] Rx#: [id number] Vancomycin 1,750 mg In 250 Sodium Chloride 0.9% 250 ml @ 125 mls/hr IVPB ONCE ONE Rx#:[id number] cefTRIAXone 1,000 mg In 100 Sodium Chloride 0.9% 50 ml @ 100 mls/hr IVPB Q[facility]H [facility] Rx#:[id number] Intake, IV Titration 160 Amount Sodium Chloride 0.9% 1, 160 000 ml @ 20 mls/hr IV . Q[facility]H [facility] Rx#:[id number] Oral 600 540 Output: Urine 0 Other: # Voids 0 0 - Exam PHYSICAL EXAM: VITAL SIGNS: As above GENERAL: [Sitting up in bed, watching TV, no acute distress] HEENT: [Pupils equal conjunctiva normal. No conjunctival pallor] NECK: [Supple, no JVD] RESPIRATORY EFFORT:[ Normal] LUNGS: [Clear to auscultation, bilateral bases diminished, no wheezes rhonchi or crackles] CARDIOVASCULAR[ regular S1 and S2, no murmurs rubs or gallops, no edema] GI: [Abdomen soft, nontender, distended, positive ascites, anterior ventral hernia, positive bowel sounds. No guarding, no rigidity] PSYCH: [Alert and oriented -3, mood and affect normal.] NEURO: [No focal deficits, moves all 4 extremities, strength and sensation grossly intact] - Labs CBC & Chem 7: 08/27/16 05:41 08/27/16 05:41 Labs: Abnormal Lab Results - Last 24 Hours (Table) 08/27/16 08/27/16 08/27/16 Range/Units 05:41 05:41 05:41 RBC 2.82 L (4.30-5.90) m/uL Hgb 8.7 L D (13.0-17.5) gm/dL Hct 27.8 L (39.0-53.0) % RDW 16.0 H (11.5-15.5) % Plt Count 36 L* (150-450) k/uL Lymphocytes # 0.4 L (1.0-4.8) k/uL Sodium 132 L (137-145) mmol/L Chloride 94 L (98-107) mmol/L BUN 30 H (9-20) mg/dL Creatinine 4.02 H (0.66-1.25) mg/dL Glucose 139 H (74-99) mg/dL Plasma Lactic Acid Sabas 4.4 H* (0.7-2.0) mmol/L TIBC (261-462) ug/dL 08/27/16 08/27/16 Range/Units 05:41 13:30 RBC (4.30-5.90) m/uL Hgb (13.0-17.5) gm/dL Hct (39.0-53.0) % RDW (11.5-15.5) % Plt Count (150-450) k/uL Lymphocytes # (1.0-4.8) k/uL Sodium (137-145) mmol/L Chloride (98-107) mmol/L BUN (9-20) mg/dL Creatinine (0.66-1.25) mg/dL Glucose (74-99) mg/dL Plasma Lactic Acid Sabas 4.3 H* (0.7-2.0) mmol/L TIBC 191 L (261-462) ug/dL Assessment and Plan Plan: 1. Shortness of breath with fever for evaluation, possible COPD exacerbation with acute purulent tracheobronchitis 2. [ Rule out spontaneous bacterial peritonitis, peritoneal fluid cultures negative from 08/13]. 3. [ Liver cirrhosis secondary to hepatitis C with ascites and recurrent abdominal paracentesis-last paracentesis August 25.]. 4. [ Chronic renal failure stage V, on hemodialysis via a right permacath]. 5. [ Anemia, normocytic, of chronic disease]. 6. [ Thrombocytopenia possibly secondary to cirrhosis of liver]. 7. [ Increased bilirubin secondary to liver cirrhosis]. 8. Increased alkaline phosphatase secondary to liver cirrhosis 9. Troponin 0.038 indeterminate, possibly secondary to renal failure 10. History of hepatorenal syndrome 11. History of memory impairment, history of recurrent encephalopathy 12. History of depression not otherwise specified 13. gastroesophageal reflux disease 14. Chronic hypotension secondary to liver cirrhosis Plan: Continue on current medication regime , Mididodrine, antibiotics, monitoring and symptomatic treatment. Abdominal paracentesis scheduled for tomorrow with dialysis scheduled for Wednesday as per nephrology. Dialysis catheter cultures pending. Further recommendations to follow. The impression and plan of care has been dictated as directed. : I performed a H&P examination of this patient and discussed the same with the dictator. I agree with the dictator's note. Any additional findings/opinions/ etc. will be noted.
[2016-08-27] MEDS: HYDROmorphone 1 MG/ML 1 ML SYRINGE IVP PRN (16:48)
[2016-08-27] MEDS: SODIUM CHLORIDE 0.9% 1,000 ML IV SCH (20:59)
--- NOTE | 2016-08-27 21:19 | PN ---
DATE OF SERVICE: 08/27/2016 This 65-year-old gentleman who was admitted with COPD, acute exacerbation, as well as acute purulent tracheobronchitis also had possible spontaneous bacterial peritonitis. Seen and evaluated the patient along with the nurse practitioner. Please refer to the nurse practitioner's notes and impressions documented as a scribe for further information. Will obtain nephrology consultation as well as interventional evaluation for possible abdominal paracentesis and further studies.
[2016-08-27] MEDS: THIAMINE 100 MG TAB PO SCH (21:40)
[2016-08-27] MEDS: TERAZOSIN 2 MG CAP PO SCH (21:40)
[2016-08-28 06:32] LABS: Anisocytosis Slight; Basophils % (A) 0 %; CHCM 31.5; Eosinophils # (A) 0.1 k/uL (0-0.7); Eosinophils % (A) 1 %; HCT 29.7 % (39.0-53.0); HGB 9.8 gm/dL (13.0-17.5); Hypochromasia Slight; Luc # (Auto) 0.23; Luc % (Auto) 2; Lymphocytes # (A) 0.6 k/uL (1.0-4.8); Lymphocytes % (A) 4 %; MCH 32.7 pg (25.0-35.0); MCHC 32.9 g/dL (31.0-37.0); MCV 99.3 fL (80.0-100.0); Macrocytosis Slight; Mean Platelet Volume 9.6; Monocytes # (A) 0.8 k/uL (0-1.0); Monocytes % (A) 6 %; Neutrophils # (A) 11.8 k/uL (1.3-7.7); Neutrophils % (A) 87 %; RBC 2.99 m/uL (4.30-5.90); RDW 16.3 % (11.5-15.5); WBC 13.5 k/uL (3.8-10.6); WBC (Perox) 14.21
[2016-08-28 06:38] LABS: Calcium 8.8 mg/dL (8.4-10.2); Potassium 3.8 mmol/L (3.5-5.1)
[2016-08-28] MEDS: PIPERACILLIN-TAZOBACTAM 3.375 GM in DEXTROSE/WATER 1 50ML.BAG IVPB SCH ×2 (06:43→18:34)
[2016-08-28] MEDS: SEVELAMER 800 MG TAB PO SCH ×3 (06:44→16:50)
[2016-08-28] MEDS: PANTOPRAZOLE 40 MG TABLET PO SCH (06:45)
[2016-08-28] MEDS: MIDODRINE 5 MG TAB PO SCH ×3 (06:45→16:50)
[2016-08-28] MEDS: METHOCARBAMOL 500 MG TAB PO SCH (08:51)
[2016-08-28] MEDS: FUROSEMIDE 80 MG TAB PO SCH ×2 (08:51→16:50)
[2016-08-28] MEDS: DULoxetine HCL 60 MG CAPSULE.DR PO SCH (08:51)
[2016-08-28] MEDS: METOPROLOL TARTRATE 25 MG TAB PO SCH ×2 (08:51→21:26)
[2016-08-28] MEDS: RIFAXIMIN 550 MG TABLET PO SCH ×2 (08:52→22:24)
[2016-08-28] MEDS: ATORVASTATIN 80 MG TAB PO SCH (08:52)
[2016-08-28] MEDS: SODIUM BICARBONATE TAB 650 MG TAB PO SCH ×2 (08:52→21:29)
[2016-08-28] MEDS: FINASTERIDE 5 MG TAB PO SCH (08:52)
[2016-08-28] MEDS: LACTULOSE 20 GM/30 ML CUP PO SCH ×4 (08:53→21:28)
[2016-08-28] MEDS: SENNOSIDES 8.6 MG TAB PO SCH (08:53)
--- NOTE | 2016-08-28 09:18 | P.CONS ---
History of Present Illness - Reason for Consult Consult date: 08/28/16 Cirrhosis chronic ascites portal hypertension Requesting physician: Papito Hester - History of Present Illness 65-year-old male followed by the GI clinic at [facility] on transplant list with a history chronic hepatitis C infection, cirrhosis, status post Harvoni treatment completed in April, hepatorenal syndrome, hepatic encephalopathy, portal hypertension with recurrent ascites, chronic thrombocytopenia and coagulopathy, end-stage kidney disease hemodialysis Wednesday, Citrobacter UTI April 2016. Admitted with shortness of breath secondary to increased abdominal girth. Patient has been receiving frequent therapeutic paracentesis. Last paracentesis was 3 days ago with 8 L removed. His liver transplant status is cuurnetly on hold per [facility] secondary to an asymptomatic acute IN 2 weeks ago. He is scheduled for therapeutic diagnostic paracentesis today with request for fluid cultures to rule out SBP. Admission white count 13.3. Hemoglobin today 9.8. Platelet 46, 000. He is receiving platelet transfusion today. INR 1.3. Creatinine 5.5. BUN 47. Total bilirubin 1.8. AST 57. ALT 43. Alkaline phosphatase 174. Preliminary blood culture no growth. Cultures obtained from dialysis catheter. T-max 99.7. Denies hematemesis hematochezia or melena. Review of Systems Constitutional: Denies fever, chills, sweats, weight gain, or loss. Memory impairment. HEENT: Negative for migraines, blurred vision or loss, earaches, drainage, tinnitus, oral mucosal lesions, dysphagia, or odynophagia. Cardiac: Hyperlipidemia. Hypertension. Negative for chest pain, arrhythmias, or palpitation. Respiratory: Negative for shortness of breath, hemoptysis, cough, or sputum production. Gastrointestinal: See HPI for pertinent findings. Genitourinary: Negative for hematuria, urgency, frequency, polyuria, dysuria, or penile discharge. Musculoskeletal: Negative for muscle aches, swelling, arthritis, and arthralgias. Neurologic: Negative for stroke or TIA. Endocrine/Nephrology: Negative for thyroid problems. End-stage renal disease hemodialysis. Skin: History of skin cancer. Negative for rash or itching. Psychiatric: Negative history for depression and anxiety All systems: negative (See HPI) Past Medical History Past Medical History: Cancer, GERD/Reflux, Hyperlipidemia, Hypertension, Liver Disease, Osteoarthritis (OA), Renal Disease Additional Past Medical History / Comment(s): Pt recently admitted to [facility] on 07/21/16 with acute renal failure/dizziness r/t volume depletion and was transferred to [facility] [place]. 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 History of Any Multi-Drug Resistant Organisms: None Reported Past Surgical History: Cholecystectomy, Hernia Repair Additional Past Surgical History / Comment(s): Cervical fusion surgery, colonoscopies, umbilical hernia repair x 2, nose and top of head skin cancer removed, multi paracentesis. Hemodialysis catheter. Past Anesthesia/Blood Transfusion Reactions: Postoperative Nausea & Vomiting ( PONV) Additional Past Anesthesia/Blood Transfusion Reaction / Comm: [facility]; pt stated no reaction Past Psychological History: Depression Additional Psychological History / Comment(s): Pt. states he is on depression medication and it has been effective in helping with his depression. Pt resides with his spouse. He uses no assistive device. He has a walker and cane whenever he needs to start using them. He no longer drives, his spouse takes him to app. He has home care thru [facility]. Smoking Status: Former smoker Past Alcohol Use History: None Reported Additional Past Alcohol Use History / Comment(s): Pt smoked from 1964 to 1969. Past Drug Use History: None Reported - Past Family History Mother History Unknown: Yes Family Medical History: Chest Pain / Angina Father History Unknown: Yes Family Medical History: Myocardial Infarction (IN) Medications and Allergies Home Medications Medication Instructions Recorded Confirmed Type Pantoprazole [Protonix] 40 mg PO DAILY 10/22/15 08/26/16 History Terazosin [Hytrin] 2 mg PO HS 10/22/15 08/26/16 History Multivitamins, Thera [Multivitamin 1 tab PO DAILY 12/23/15 08/26/16 History (formulary)] Thiamine [Vitamin B-1] 100 mg PO HS 12/23/15 08/26/16 History Cholecalciferol [Vitamin D3] 1,000 unit PO DAILY 02/24/16 08/26/16 History Cyanocobalamin [Vitamin B-12] 500 mcg PO DAILY 02/24/16 08/26/16 History Finasteride [Proscar] 5 mg PO DAILY 02/24/16 08/26/16 History Methocarbamol [Robaxin] 500 mg PO QAM 02/24/16 08/26/16 History Folic Acid 1 mg PO DAILY 04/04/16 08/26/16 History Lactulose [Cephulac] 30 gm PO QID 05/27/16 08/26/16 History Rifaximin [Xifaxan] 550 mg PO BID 05/27/16 08/26/16 History DULoxetine HCL [Cymbalta] 60 mg PO DAILY 07/20/16 08/26/16 History Milk Thistle 150 mg PO HS 07/20/16 08/26/16 History Sennosides [Senna] 8.6 mg PO DAILY 07/20/16 08/26/16 History Sodium Bicarbonate Tab 650 mg PO BID 07/20/16 08/26/16 History Atorvastatin [Lipitor] 80 mg PO DAILY 08/11/16 08/26/16 History Furosemide [Lasix] 80 mg PO BID 08/11/16 08/26/16 History Metoprolol Tartrate [Lopressor] 25 mg PO BID 08/11/16 08/26/16 History Sevelamer [Renvela] 800 mg PO TID 08/11/16 08/26/16 History Allergies Allergy/AdvReac Type Severity Reaction Status Date / Time No Known Allergies Allergy Verified 08/26/16 16:37 Physical Exam Vitals: Vital Signs Temp Pulse Pulse Resp BP BP Pulse Ox 08/28/16 09:08 97.6 F 71 16 112/65 08/28/16 08:37 75 18 110/61 08/28/16 08:28 97.7 F 85 18 118/71 08/28/16 08:00 97.6 F 85 18 118/71 95 08/28/16 04:00 97.5 F L 77 17 98/45 95 08/28/16 00:00 97.1 F L 81 18 108/68 98 08/27/16 20:00 97.0 F L 76 16 87/56 96 08/27/16 16:00 97.2 F L 76 16 103/52 96 08/27/16 11:32 97.3 F L 97 16 106/57 97 Intake and Output 08/27/16 08/28/16 08/28/16 22:59 06:59 14:59 Intake Total 200 0 Output Total 0 Balance 0 200 0 Intake: IV 200 Sodium Chloride 0.9% 1, 200 000 ml @ 20 mls/hr IV . Q24H [facility] Rx#:[id number] Blood Product 0 Platelet Pheresis Acda1 0 Unit [id number] Output: Urine 0 Other: # Voids 0 Weight 72.2 kg General appearance: The patient is alert, oriented, in no acute distress. HET: Head is normocephalic and atraumatic. Pupils are equal and reactive. Oropharynx is clear without lesions. Neck: Supple without lymphadenopathy. Trachea midline. Heart: S1 S2. Regular rate and rhythm. Lungs: No crackles or wheezes are heard diminished bases bilaterally. Dialysis catheter without erythema or drainage. Abdomen: Soft, nontender, distended with tense ascites with bowel sounds. No peritoneal signs. No palpable organomegaly or masses. Extremities: Normal skin color and turgor. No cyanosis, rash, ulceration, clubbing, or edema. Radial and pedal pulses are 2/4 bilaterally. Neurological: No focal deficits. Strength and sensation are grossly intact. No evidence of asterixis. Results CBC & Chem 7: 08/28/16 05:50 08/28/16 05:52 Labs: Abnormal Lab Results - Last 24 Hours (Table) 08/27/16 08/27/16 08/27/16 Range/Units 05:41 13:30 20:48 WBC (3.8-10.6) k/uL RBC (4.30-5.90) m/uL Hgb (13.0-17.5) gm/dL Hct (39.0-53.0) % RDW (11.5-15.5) % Plt Count (150-450) k/uL Neutrophils # (1.3-7.7) k/uL Lymphocytes # (1.0-4.8) k/uL Sodium (137-145) mmol/L Chloride (98-107) mmol/L BUN (9-20) mg/dL Creatinine (0.66-1.25) mg/dL Glucose (74-99) mg/dL Plasma Lactic Acid Sabas 4.3 H* 2.2 H* (0.7-2.0) mmol/L TIBC 191 L (261-462) ug/dL 08/28/16 08/28/16 Range/Units 05:50 05:52 WBC 13.5 H (3.8-10.6) k/uL RBC 2.99 L (4.30-5.90) m/uL Hgb 9.8 L (13.0-17.5) gm/dL Hct 29.7 L (39.0-53.0) % RDW 16.3 H (11.5-15.5) % Plt Count 46 L* (150-450) k/uL Neutrophils # 11.8 H (1.3-7.7) k/uL Lymphocytes # 0.6 L (1.0-4.8) k/uL Sodium 132 L (137-145) mmol/L Chloride 91 L (98-107) mmol/L BUN 47 H (9-20) mg/dL Creatinine 5.52 H* (0.66-1.25) mg/dL Glucose 120 H (74-99) mg/dL Plasma Lactic Acid Sabas (0.7-2.0) mmol/L TIBC (261-462) ug/dL Assessment and Plan (1) Cirrhosis of liver with ascites Status: Chronic (2) End stage renal disease Status: Acute (3) Hepatic encephalopathy Status: Chronic (4) Hepatitis C Status: Resolved (5) Portal hypertension Status: Chronic (6) Coagulopathy Status: Chronic (7) Thrombocytopenia Status: Chronic Plan: 1. Paracentesis with fluid culture analysis. 2. Post paracentesis albumin ordered by nephrology. 3. Supportive measures. Thank you for this kind referral and the opportunity to participate in the care of your patient. This consultation was discussed with Dr. Mathis. The impression and plan of care have been directed as dictated.
--- NOTE | 2016-08-28 11:23 | US ---
Therapeutic paracentesis. CLINICAL HISTORY: Ascites The procedure was discussed with the patient. The risks, complications, benefits, and alternatives we re discussed and any questions were answered. Informed consent was obtained. The patient was placed s upine on the ultrasound table and prepped and draped in the usual sterile fashion. All elements of maximal barrier technique were utilized. Under ultrasound guidance, access into the right lower quadrant was obtained, via the paracentesis catheter system and direct ultrasound guidanc e. Approximately 4.65 liters of straw-colored fluid was removed. The patient was stable throughout the p rocedure and remained stable upon discharge from Department of Radiology. IMPRESSION: Successful therapeutic paracentesis under ultrasound guidance.
[2016-08-28] MEDS ORDERED: ALBUMIN HUMAN 25% 50 ML in EMPTY BAG 1 BAG IVPB ONE (12:00)
[2016-08-28] MEDS: FOLIC ACID 1 MG TAB PO SCH (12:09)
[2016-08-28] MEDS: MULTIVITAMINS, THERA 1 EACH TAB PO SCH (12:09)
[2016-08-28] MEDS: CHOLECALCIFEROL 1,000 UNIT TAB PO SCH (12:09)
[2016-08-28] MEDS: CYANOCOBALAMIN 500 MCG TAB PO SCH (12:10)
[2016-08-28] MEDS: HYDROmorphone 1 MG/ML 1 ML SYRINGE IVP PRN (15:19)
--- NOTE | 2016-08-28 15:31 | P.PN ---
Subjective Date of service 08/28/2016. Progress note being dictated for Dr. Tanner. Interval history: This is a 65-year-old gentleman admitted with possible acute COPD exacerbation with acute purulent tracheobronchitis, liver cirrhosis with ascites in a patient with history of recurrent abdominal paracentesis chronic renal failure and multiple other medical issues. Maintained on vancomycin and Zosyn. Receiving platelets prior to paracentesis today. Hemodialysis tomorrow. Denies abdominal pain. afebrile. Denies chest pain, palpitations. Objective - Vital Signs Vital signs: Vital Signs Temp 97.6 F 08/28/16 09:08 Pulse 71 08/28/16 09:08 Resp 16 08/28/16 09:08 BP 112/65 08/28/16 09:08 Pulse Ox 95 08/28/16 08:00 Intake & Output 08/27/16 08/28/16 08/28/16 18:59 06:59 18:59 Intake Total 700 200 0 Output Total 0 0 Balance 700 200 0 Weight 72.2 kg Intake: IV 200 Sodium Chloride 0.9% 1, 200 000 ml @ 20 mls/hr IV . Q24H [facility] Rx#:[id number] Intake, IV Titration 160 Amount Sodium Chloride 0.9% 1, 160 000 ml @ 20 mls/hr IV . Q24H [facility] Rx#:[id number] Oral 540 Blood Product 0 Platelet Pheresis Acda1 0 Unit [id number] Output: Urine 0 0 Other: # Voids 0 0 - Exam PHYSICAL EXAM: VITAL SIGNS: As above GENERAL: [Sitting up in bed, no acute distress] HEENT: [Pupils equal conjunctiva normal. No conjunctival pallor] NECK: [Supple, no JVD] RESPIRATORY EFFORT:[ Normal] LUNGS: [Clear to auscultation, bilateral bases diminished, no wheezes rhonchi or crackles] CARDIOVASCULAR[ regular S1 and S2, no murmurs rubs or gallops, no edema] GI: [Abdomen firm, nontender, distended, positive ascites, anterior ventral hernia, positive bowel sounds. No guarding, no rigidity] PSYCH: [Alert and oriented -3, mood and affect normal.] NEURO: [No focal deficits, moves all 4 extremities, strength and sensation grossly intact] - Labs CBC & Chem 7: 08/28/16 05:50 08/28/16 05:52 Labs: Abnormal Lab Results - Last 24 Hours (Table) 08/27/16 08/27/16 08/27/16 Range/Units 05:41 13:30 20:48 WBC (3.8-10.6) k/uL RBC (4.30-5.90) m/uL Hgb (13.0-17.5) gm/dL Hct (39.0-53.0) % RDW (11.5-15.5) % Plt Count (150-450) k/uL Neutrophils # (1.3-7.7) k/uL Lymphocytes # (1.0-4.8) k/uL Sodium (137-145) mmol/L Chloride (98-107) mmol/L BUN (9-20) mg/dL Creatinine (0.66-1.25) mg/dL Glucose (74-99) mg/dL Plasma Lactic Acid Sabas 4.3 H* 2.2 H* (0.7-2.0) mmol/L TIBC 191 L (261-462) ug/dL 08/28/16 08/28/16 Range/Units 05:50 05:52 WBC 13.5 H (3.8-10.6) k/uL RBC 2.99 L (4.30-5.90) m/uL Hgb 9.8 L (13.0-17.5) gm/dL Hct 29.7 L (39.0-53.0) % RDW 16.3 H (11.5-15.5) % Plt Count 46 L* (150-450) k/uL Neutrophils # 11.8 H (1.3-7.7) k/uL Lymphocytes # 0.6 L (1.0-4.8) k/uL Sodium 132 L (137-145) mmol/L Chloride 91 L (98-107) mmol/L BUN 47 H (9-20) mg/dL Creatinine 5.52 H* (0.66-1.25) mg/dL Glucose 120 H (74-99) mg/dL Plasma Lactic Acid Sabas (0.7-2.0) mmol/L TIBC (261-462) ug/dL Assessment and Plan Plan: 1. Shortness of breath with fever for evaluation, possible COPD exacerbation with acute purulent tracheobronchitis 2. [ Rule out spontaneous bacterial peritonitis, peritoneal fluid cultures negative from 08/13]. 3. [ Liver cirrhosis secondary to hepatitis C with ascites and recurrent abdominal paracentesis-last paracentesis August 25.]. 4. [ Chronic renal failure stage V, on hemodialysis via a right permacath]. 5. [ Anemia, normocytic, of chronic disease]. 6. [ Thrombocytopenia possibly secondary to cirrhosis of liver]. 7. [ Increased bilirubin secondary to liver cirrhosis]. 8. Increased alkaline phosphatase secondary to liver cirrhosis 9. Troponin 0.038 indeterminate, possibly secondary to renal failure 10. History of hepatorenal syndrome 11. History of memory impairment, history of recurrent encephalopathy 12. History of depression not otherwise specified 13. gastroesophageal reflux disease 14. Chronic hypotension secondary to liver cirrhosis Plan: Continue on current medication regime , Mididodrine, antibiotics, monitoring and symptomatic treatment. Abdominal paracentesis pending, dialysis scheduled for Wednesday as per nephrology given paracentesis is today. Dialysis catheter cultures pending. Infectious disease consult in place with recommendations pending. Maintain supportive care. Further recommendations to follow. The impression and plan of care has been dictated as directed. : I performed a H&P examination of this patient and discussed the same with the dictator. I agree with the dictator's note. Any additional findings/opinions/ etc. will be noted.
[2016-08-28 15:43] LABS: Anisocytosis Slight; Basophils % (A) 0 %; CH 31.7; CHCM 32.4; Eosinophils # (A) 0.2 k/uL (0-0.7); Eosinophils % (A) 2 %; HCT 28.2 % (39.0-53.0); HDW 2.85; HGB 9.1 gm/dL (13.0-17.5); Luc # (Auto) 0.18; Luc % (Auto) 2; Lymphocytes # (A) 0.6 k/uL (1.0-4.8); Lymphocytes % (A) 6 %; MCH 31.6 pg (25.0-35.0); MCHC 32.1 g/dL (31.0-37.0); MCV 98.5 fL (80.0-100.0); Macrocytosis Slight; Monocytes # (A) 0.9 k/uL (0-1.0); Monocytes % (A) 9 %; Neutrophils # (A) 8.3 k/uL (1.3-7.7); Neutrophils % (A) 82 %; RBC 2.86 m/uL (4.30-5.90); RDW 16.5 % (11.5-15.5); WBC 10.2 k/uL (3.8-10.6); WBC (Perox) 10.48
[2016-08-28] MEDS: HYDROcodone/APAP 5-325MG 1 EACH TAB PO PRN (16:49)
--- NOTE | 2016-08-28 16:56 | CT ---
EXAMINATION TYPE: CT abdomen pelvis wo con DATE OF EXAM: 08/28/2016 4:36 PM COMPARISON: Previous study dated 05/27/2016. HISTORY: Severe abdomen pain post paracentesis CT DLP: 928 mGycm Automated exposure control for dose reduction was used. FINDINGS: There is some mild dependent atelectasis at the lung bases. The heart is not enlarged. Ther e is coronary and other vascular calcifications throughout the study. Within the abdomen, there is a large amount of ascites. There is nodularity to the liver compatible w ith cirrhosis. The gallbladder is been removed. The spleen is normal in size. The right adrenal gland is normal. There is fullness to the left adrenal gland. There is a 4.1 cm, simple appearing cyst involving the upper pole of the right kidney. There is a 6 c m, simple appearing cyst involving the lower pole of the left kidney. Limited views of the pancreas are unremarkable. 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 There are also gastrohepatic varices. There is no significant retroperitoneal adenopathy. No free there is seen. There is been a previous ventral hernia repair. The bladder is not distended. Visualized bowel loops appear unremarkable. There are degenerative changes in the hips. There is facet arthropathy and hypertrophic spondylosis t hroughout the spine. No bony destructive lesion is seen. IMPRESSION: 1. EVIDENCE OF CIRRHOSIS. 2. ASCITES. 3. SIMPLE APPEARING, BILATERAL RENAL CYSTS. 4. GASTRIC VARICES. 5. POSTSURGICAL CHANGE. 6. DEGENERATIVE CHANGES IN THE HIPS AND SPINE.
--- NOTE | 2016-08-28 18:26 | PN ---
Patient is seen for follow-up for end-stage renal disease. He had the paracentesis done today. 4.6 liters of fluid was removed. Currently the patient states he is feeling better. He is scheduled for hemodialysis today; however, his blood pressure was significantly low, when we tried to dialyze him and in spite of Midodrine it dropped into the 70s and therefore patient was taken off. We will try to dialyze him again tomorrow. On examination currently blood pressure when seen in the morning earlier was 88/56, heart rate 69 per minute. The patient is afebrile. Examination of the heart S1 and S2. Examination of the lungs: Decreased breath sounds in bases. ABDOMEN: Soft, nontender, with ascites noted and hernia. Examination of lower extremities shows no significant edema. Labs show sodium 132, potassium 3.8. Hemoglobin 9.1 g/dL. ASSESSMENT: 1. End-stage renal disease on hemodialysis on a Wednesday, Wednesday, Wednesday schedule. We will arrange for hemodialysis tomorrow on Wednesday as we were not able to dialyze him today secondary to hypotension. 2. Chronic liver disease with recurrent ascites status post paracentesis of about 4.6 liters today. 3. Hep-C induced liver cirrhosis. 4. Anemia of chronic disease. 5. Chronic hypotension, maintained on Midodrine. PLAN: Hemodialysis in a.m. Continue Midodrine. Possible discharge tomorrow after dialysis. So far the cultures are negative.
[2016-08-28] MEDS: SODIUM CHLORIDE 0.9% 1,000 ML IV SCH (18:35)
[2016-08-28] MEDS ORDERED: VANCOMYCIN 1,250 MG in SODIUM CHLORIDE 0.9% 250 ML IVPB ONE (19:00)
[2016-08-28] MEDS: TERAZOSIN 2 MG CAP PO SCH (21:26)
[2016-08-28] MEDS: THIAMINE 100 MG TAB PO SCH (21:29)
--- NOTE | 2016-08-28 23:20 | CONS ---
DATE OF CONSULTATION: 08/28/2016 REASON FOR CONSULTATION: Questionable spontaneous bacterial peritonitis. HISTORY OF PRESENT ILLNESS: Patient is a 65-year-old male with a past medical history significant for liver cirrhosis from chronic hepatitis C with a recurrent ascites that has required frequent paracentesis. The patient also has end-stage renal disease on hemodialysis through a right subclavian PermCath Wednesday, Wednesday, Wednesday. The patient presented to the ER at [facility] on 08/26/2016 with chief complaints of low-grade fever, chills and vague abdominal discomfort. Patient was just coming back from hemodialysis. The patient denies having any nausea, vomiting or any diarrhea. Denies having any chest pain or shortness of breath or cough. Subsequently, the patient has been admitted to the hospital. The patient did have blood culture negative so far. On admission, the patient did have elevated white count of 13.3. It came down to 8.4; however, it is up to 13.5 today. Patient underwent paracentesis today with removal of 4.6 L of fluid which has been sent for cell count and cultures, which are currently pending. The patient was started on broad-spectrum antibiotics in the form of Zosyn and vancomycin. ID was consulted for further recommendation regarding antibiotic therapy. Since the patient has been admitted to the hospital, no fever has been recorded. The highest temperature on presentation was 99.7. REVIEW OF SYSTEMS: CONSTITUTIONAL: Positive for weakness and chills. EYES: No complaint. ENT: No complaint. RESPIRATORY: No complaint. CARDIOVASCULAR: No complaint. GENITOURINARY: As per HPI. MUSCULOSKELETAL: No complaint. INTEGUMENTARY: No complaint. PSYCHOLOGIC: No complaint. ENDOCRINE: No complaint. NEUROLOGICAL: No complaint. PAST MEDICAL HISTORY: Significant for end-stage renal disease on hemodialysis Wednesday, Wednesday, Wednesday; chronic hepatitis C, liver cirrhosis, hypertension, hyperlipidemia, osteoarthritis. PAST SURGICAL HISTORY: Ankle fusion surgery, umbilical hernia repair. SOCIAL HISTORY: Remote history of smoking. No drinking or drug use. FAMILY HISTORY: Mother with history of angina. Father with history of ND. ALLERGIES: No known drug allergies. Medications currently include the patient is on: 1. [place]. 2. Lipitor. 3. Vitamin D3. 4. B12. 5. Cymbalta. 6. Proscar. 7. Folic acid. 8. Lasix. 9. Dilaudid. 10. Lactulose. 11. Lopressor. 12. Vancomycin. Pharmacy to dose. 13. Theragran. 14. Narcan. 15. Protonix. 16. Pip-tazobactam. 17. Cephalexin. 18. Senokot. 19. Hytrin. On examination, blood pressure is 91/55 with a pulse of 75, temperature is 97.4. He is 99% on room air. General description is an elderly male, lying in bed in no distress with no tachypnea or accessory muscle of respiration use. HEENT shows pallor with no scleral icterus. Oral mucous membranes dry. NECK: Trachea central. No thyromegaly. LUNGS: Unlabored breathing. Clear to auscultation anteriorly. HEART: S1, S2. Regular rate and rhythm. ABDOMEN: Soft, slightly distended. No guarding. No rigidity. No organomegaly. EXTREMITIES: No edema of feet. Skin examination no rashes and no mass palpable. NEUROLOGICAL: Patient awake, alert, oriented x3. Mood and affect normal. LABS: Hemoglobin 9.1, white count of 10.2 with a BUN of 47, creatinine 5.5. Stool for C. diff. has been negative. Blood culture is negative. We are waiting for the ascitic fluid analysis. DIAGNOSTIC IMPRESSION AND PLAN: Patient admitted to the hospital with abdominal pain and low-grade fever in a patient who did have recurrent ascites from his underlying cirrhosis secondary to chronic hepatitis C that apparently has been treated previously with interferon and recently with Harvoni. Patient with no other clinical focus of infection. Blood cultures remain to so far negative. That would make PermCath infection less likely. We are waiting for the ascitic fluid analysis to see if any evidence of spontaneous bacterial peritonitis. PLAN: May continue the patient on current antibiotic while waiting for the ascitic fluid analysis and culture to finalize. However, if they remain to be negative, the patient's broad-spectrum antibiotics will be discontinued. Thank you for this consultation. We will follow this patient along with you. BRYNN
[2016-08-28] MEDS ORDERED: SODIUM CHLORIDE 0.9% 250 ML IV ONE (23:53)
[2016-08-29] MEDS: HYDROmorphone 1 MG/ML 1 ML SYRINGE IVP PRN (01:38)
[2016-08-29] MEDS: PIPERACILLIN-TAZOBACTAM 3.375 GM in DEXTROSE/WATER 1 50ML.BAG IVPB SCH ×2 (06:36→19:21)
[2016-08-29] MEDS: MIDODRINE 5 MG TAB PO SCH ×3 (06:37→14:57)
[2016-08-29] MEDS: PANTOPRAZOLE 40 MG TABLET PO SCH (06:38)
[2016-08-29] MEDS: SEVELAMER 800 MG TAB PO SCH ×3 (06:38→14:57)
[2016-08-29 07:09] LABS: Anisocytosis Slight; Basophils % (A) 0 %; CH 31.5; CHCM 32.6; Eosinophils # (A) 0.2 k/uL (0-0.7); Eosinophils % (A) 3 %; HCT 27.9 % (39.0-53.0); HDW 2.79; HGB 9.2 gm/dL (13.0-17.5); Luc # (Auto) 0.15; Luc % (Auto) 2; Lymphocytes # (A) 0.6 k/uL (1.0-4.8); Lymphocytes % (A) 7 %; MCHC 32.8 g/dL (31.0-37.0); MCV 97.4 fL (80.0-100.0); Macrocytosis Slight; Mean Platelet Volume 9.8; Monocytes # (A) 0.7 k/uL (0-1.0); Monocytes % (A) 9 %; Neutrophils # (A) 6.4 k/uL (1.3-7.7); Neutrophils % (A) 79 %; RBC 2.87 m/uL (4.30-5.90); RDW 16.8 % (11.5-15.5); WBC 8.1 k/uL (3.8-10.6); WBC (Perox) 7.64
[2016-08-29 07:21] LABS: Calcium 8.3 mg/dL (8.4-10.2); Potassium 3.5 mmol/L (3.5-5.1)
[2016-08-29] MEDS: ATORVASTATIN 80 MG TAB PO SCH (10:00)
[2016-08-29] MEDS: METHOCARBAMOL 500 MG TAB PO SCH (10:01)
[2016-08-29] MEDS: LACTULOSE 20 GM/30 ML CUP PO SCH ×3 (10:01→14:58)
[2016-08-29] MEDS: DULoxetine HCL 60 MG CAPSULE.DR PO SCH (10:01)
[2016-08-29] MEDS: FINASTERIDE 5 MG TAB PO SCH (10:01)
[2016-08-29] MEDS: FUROSEMIDE 80 MG TAB PO SCH ×2 (10:04→19:21)
[2016-08-29] MEDS: SENNOSIDES 8.6 MG TAB PO SCH (10:04)
[2016-08-29] MEDS: SODIUM BICARBONATE TAB 650 MG TAB PO SCH (10:04)
--- NOTE | 2016-08-29 10:34 | PN ---
DATE OF SERVICE: 08/28/2016 This 65-year-old gentleman who was admitted with shortness of breath also had spontaneous bacterial peritonitis, possibly. Patient underwent abdominal paracentesis today. Subsequently patient is complaining of some abdominal pain. A CT scan of the abdomen was done, which showed cirrhosis, otherwise no other new changes. Seen and evaluated the patient along with the nurse practitioner. Please refer to the nurse practitioner notes and impression documented for further information. Prognosis guarded.
[2016-08-29] MEDS: METOPROLOL TARTRATE 25 MG TAB PO SCH (12:01)
[2016-08-29] MEDS: CYANOCOBALAMIN 500 MCG TAB PO SCH (12:02)
[2016-08-29] MEDS: CHOLECALCIFEROL 1,000 UNIT TAB PO SCH (12:02)
[2016-08-29] MEDS: FOLIC ACID 1 MG TAB PO SCH (12:02)
[2016-08-29] MEDS: RIFAXIMIN 550 MG TABLET PO SCH (12:02)
[2016-08-29] MEDS: MULTIVITAMINS, THERA 1 EACH TAB PO SCH (12:02)
--- NOTE | 2016-08-29 15:00 | PN ---
Patient is seen for follow-up for end-stage renal disease. We could not dialyze him yesterday as his blood pressure was significantly low. This morning his systolic blood pressure is around 90's. The patient states he is feeling okay. We had about 4.6 liters of fluid obtained with paracentesis yesterday. Patient is scheduled for hemodialysis again today. I asked him if he is still on the list and he states he is currently on hold for liver and kidney transplant out of of while he is awaiting cardiology clearance. On examination this morning, blood pressure is 100/59, heart rate 71 per minute, he is afebrile. Examination of the heart S1 and S2. Examination of the lungs, bilateral breath sounds are heard. Decreased breath sounds in bases. Abdomen is soft, distended, nontender. Examination of lower extremities shows no evidence of edema. Labs show potassium 3.5, sodium 130, hemoglobin 9.2 g/dL. ASSESSMENT: 1. End-stage renal disease for hemodialysis today. 2. Hypotension post paracentesis, currently improved. Patient is maintained on midodrine. 3. Liver cirrhosis from hepatitis B, on transplant list out of [facility]. 4. Chronic thrombocytopenia. PLAN: Hemodialysis today with goal UF of about 500 mL to a liter as tolerated depending on the blood pressure.
[2016-08-29 15:58] LABS: Hepatitis B Surface Ag Index 0.06
--- NOTE | 2016-08-29 18:22 | PN ---
DATE OF SERVICE: 08/29/2016 Patient is a 65-year-old white male with history of chronic hep C infection and cirrhosis of the liver as well as endstage renal disease on hemodialysis that was started about 2 months ago. He is presently on a liver and kidney transplant list at [facility]. Presently on hold, awaiting cardiac evaluation. In the meantime, the patient she started having some nausea ( ). He was having some dialysis about 3 days ago and hence he was admitted to the hospital for further evaluation. While in the hospital, he had another dialysis yesterday, but he became so hypotensive and could not tolerate the dialysis and hence was discontinued and has been postponed today. He also has refractory ascites requiring large volume paracentesis almost for 6 months now and lately has been receiving it almost twice a week. The last one was done 2 days ago and 4.5 L were removed. He denies any abdominal pain. He reports no nausea or vomiting. Overall, he is feeling better. On physical examination, he appears comfortable, in no apparent distress. Vitals signs are stable. Blood pressure is 96/53, pulse rate 76, temperature 96. HEENT EXAMINATION: Unremarkable. Conjunctivae pink. Sclerae are nonicteric. Oral cavity, no lesions. NECK: No JVD or lymph node enlargement. Chest was clear to auscultation. HEART: Regular rate and rhythm. Abdomen is distended. There was large amount of free fluid noted. EXTREMITIES: No pedal edema. SKIN: No rashes. NEURO: Alert and oriented x3. No focal deficits. LABS: WBC 8.1, hemoglobin 9.2, platelets 53, BUN 55, creatinine 6.3. Sodium 130, potassium 3.5, chloride 93 and CO2 of 22. IMPRESSION: 1. Advanced liver disease with cirrhosis, portal hypertension, refractory ascites, requiring large volume paracentesis almost on a weekly basis. 2. Endstage renal disease on hemodialysis for the last 2 months. 3. Persistent hypertension. 4. Hepatic encephalopathy resolved, presently on oral Xifaxan and oral lactulose. 5. Possible spontaneous bacterial peritonitis on broad-spectrum antibiotics, presently being followed by Dr. Marie closely. RECOMMENDATIONS: 1. Continue current medications. 2. Continue Zyprexa and oral lactulose. 3. Large volume paracentesis as needed. 4. Will follow him closely during his hospital stay.
[2016-08-29] MEDS: METOPROLOL TARTRATE 12.5 MG TAB PO SCH (19:21)
[2016-08-29] MEDS: SODIUM CHLORIDE 0.9% 1,000 ML IV SCH (20:00)
[2016-08-29] MEDS ORDERED: RIFAXIMIN 550 MG TABLET ONE (21:00)
[2016-08-29] MEDS ORDERED: THIAMINE 100 MG TAB ONE (21:00)
[2016-08-29] MEDS ORDERED: SODIUM BICARBONATE TAB 650 MG TAB ONE (21:00)
--- NOTE | 2016-08-29 23:05 | PN ---
DATE OF SERVICE: 08/29/2016 REASON FOR FOLLOWUP: Ascites and question of SBP. INTERVAL HISTORY: The patient is afebrile. He has been transferred back to [facility] because of hypertension last night. The patient still has a bit of abdominal distention. No significant abdominal pain, though. No nausea. No vomiting. Denies any chest pain. No shortness of breath or cough. On examination, blood pressure 99/60 with a pulse of 71, temperature 97.4. He is 98% on room air. General description is an elderly male, lying in bed in no distress. RESPIRATORY SYSTEM: Unlabored breathing. Clear to auscultation anteriorly. HEART: S1, S2. Regular rate and rhythm. ABDOMEN: Soft and minimally distended. No guarding or rigidity. LABS: Hemoglobin is 8.1. BUN of 55, creatinine is 6.3. Blood culture is negative. Unfortunately, ascitic fluid was sent only for culture and no cell count. DIAGNOSTIC IMPRESSION AND PLAN: Patient admitted to hospital with abdominal distention, pain, low-grade fever in a patient who has underlying cirrhosis with question of possible spontaneous bacterial peritonitis. Unfortunately, paracentesis was done, but cell count was not done. Cultures are currently pending. He is currently on Zosyn. That will be continued. Patient will likely need a repeat paracentesis because of rapidly developing ascites or maybe transfer to tertiary care for possible TIPS procedure. Continue supportive care.
[2016-08-30] MEDS: TERAZOSIN 2 MG CAP PO SCH ×2 (03:02→23:16)
[2016-08-30] MEDS: LACTULOSE 20 GM/30 ML CUP PO SCH ×4 (03:02→23:14)
[2016-08-30] MEDS: SODIUM BICARBONATE TAB 650 MG TAB PO SCH ×3 (03:02→23:15)
[2016-08-30] MEDS: RIFAXIMIN 550 MG TABLET PO SCH ×3 (03:02→23:16)
[2016-08-30] MEDS: THIAMINE 100 MG TAB PO SCH ×2 (03:02→23:16)
[2016-08-30] MEDS: PIPERACILLIN-TAZOBACTAM 3.375 GM in DEXTROSE/WATER 1 50ML.BAG IVPB SCH ×2 (06:27→17:28)
[2016-08-30] MEDS: MIDODRINE 5 MG TAB PO SCH ×3 (06:27→17:29)
[2016-08-30 06:28] LABS: Anisocytosis Slight; Basophils % (A) 0 %; CH 31.2; CHCM 31.9; Eosinophils # (A) 0.1 k/uL (0-0.7); Eosinophils % (A) 1 %; HCT 33.3 % (39.0-53.0); HDW 2.79; HGB 10.5 gm/dL (13.0-17.5); Luc # (Auto) 0.21; Luc % (Auto) 2; Lymphocytes # (A) 0.7 k/uL (1.0-4.8); Lymphocytes % (A) 7 %; MCHC 31.4 g/dL (31.0-37.0); MCV 98.6 fL (80.0-100.0); Macrocytosis Slight; Mean Platelet Volume 9.9; Monocytes # (A) 0.7 k/uL (0-1.0); Monocytes % (A) 7 %; Neutrophils # (A) 8.4 k/uL (1.3-7.7); Neutrophils % (A) 83 %; RBC 3.38 m/uL (4.30-5.90); RDW 17.3 % (11.5-15.5); WBC 10.1 k/uL (3.8-10.6); WBC (Perox) 10.57
[2016-08-30] MEDS: PANTOPRAZOLE 40 MG TABLET PO SCH (06:28)
[2016-08-30] MEDS: SEVELAMER 800 MG TAB PO SCH ×3 (06:28→17:30)
[2016-08-30 06:42] LABS: Calcium 8.9 mg/dL (8.4-10.2); Potassium 3.6 mmol/L (3.5-5.1)
[2016-08-30] MEDS: ATORVASTATIN 80 MG TAB PO SCH (10:55)
[2016-08-30] MEDS: FINASTERIDE 5 MG TAB PO SCH (10:56)
[2016-08-30] MEDS: DULoxetine HCL 60 MG CAPSULE.DR PO SCH (10:56)
[2016-08-30] MEDS: FUROSEMIDE 80 MG TAB PO SCH ×2 (10:56→17:29)
[2016-08-30] MEDS: SENNOSIDES 8.6 MG TAB PO SCH (10:57)
[2016-08-30] MEDS: METHOCARBAMOL 500 MG TAB PO SCH (10:57)
[2016-08-30] MEDS: HYDROcodone/APAP 5-325MG 1 EACH TAB PO PRN ×2 (11:01→20:33)
[2016-08-30] MEDS: CYANOCOBALAMIN 500 MCG TAB PO SCH (12:34)
[2016-08-30] MEDS: METOPROLOL TARTRATE 12.5 MG TAB PO SCH ×2 (12:34→23:15)
[2016-08-30] MEDS: CHOLECALCIFEROL 1,000 UNIT TAB PO SCH (12:34)
[2016-08-30] MEDS: MULTIVITAMINS, THERA 1 EACH TAB PO SCH (12:34)
[2016-08-30] MEDS: FOLIC ACID 1 MG TAB PO SCH (12:34)
--- NOTE | 2016-08-30 14:12 | PN ---
DATE OF SERVICE: 08/29/2016 This 65-year-old gentleman who was admitted with shortness of breath and as well as chronic obstructive pulmonary disease, also had abdominal fluid aspiration. The patient has had abdominal pain but the CAT scan did not show acute abnormality. Patient was placed and empiric antibiotics. The patient improved significantly. Pain is improved. No chest pain or palpitation. REVIEW OF SYSTEMS: CARDIOVASCULAR: No angina. RESPIRATORY: As mentioned earlier. GI: As mentioned earlier. : No dysuria. NERVOUS SYSTEM: No numbness or weakness. Current medications include: 1. [place] 5 mg. 2. Lipitor 80 mg. 3. Vitamin D3 50,000 units. 4. Cymbalta. 5. Proscar 5 mg. 6. Folic acid 1 mg. 7. Dilaudid 1 mg p.r.n. 8. Cephulac. 9. Robaxin. 10. Lopressor 25 b.i.d. 11. ProAmatine. 12. Narcan. 14. Senokot. 15. Hytrin. 16. Vitamin B1. On exam, alert and oriented x3. Pulse 72, blood pressure 106/60, respiratory rate 16, temperature 97.6, pulse ox 98% on room air HEENT: Conjunctivae normal. Oral mucosa moist. NECK: No jugular venous distention. No carotid bruit. N CARDIOVASCULAR: S1/S2 muffled. LUNGS: Diminished breath sounds at the bases. No rhonchi. ABDOMEN: Soft, nontender. Minimally distended. No guarding, no rigidity. LEGS: No edema. NEURO: No focal deficits. LABS: WBC 8, hemoglobin 9.7, sodium 130, potassium 3.6. Creatinine 6.30. ASSESSMENT: 1. Shortness of breath and fever, possible chronic obstructive pulmonary disease exacerbation with acute purulent tracheobronchitis. 2. Possible spontaneous bacterial peritonitis and peritoneal fluid cultures are negative previously. 3. Liver cirrhosis secondary to hepatitis C with ascites and recurrent abdominal paracentesis. 4. Chronic renal failure stage 5 on hemodialysis via permacath. 5. Anemia, normocytic and chronic disease. 6. History of thrombocytopenia secondary to cirrhosis of liver. 7. Increased bilirubin secondary to liver cirrhosis. 8. Increased alkaline phosphatase secondary to liver cirrhosis. 9. Troponin 0.038, indeterminate, possibly secondary to renal failure. 10. History of hepatorenal syndrome. 11. History of memory impairment. 12. History of recurrent hepatic encephalopathy. 13. History of depression, not otherwise specified. 14. History of gastroesophageal reflux disease. 15. Chronic hypertension secondary to liver cirrhosis. 16. Full code. RECOMMENDATION AND DISCUSSION: This 65-year-old gentleman who presented with multiple complex medical issues, we will monitor the patient closely. Continue the current medication, continue symptomatic treatment. The patient had hypertensive episode yesterday which seems to be normalized at this time. Abdomen is also benign. Last night the patient has been transferred back to telemetry for further monitoring. The patient also was complaining of abdominal pain. Evidently a CAT scan of the abdomen did not show any complications. Abdomen is benign at this time. Continue to monitor. Further recommendations to follow. Recommend to continue the same dose of diuretics but metoprolol dose may be reduced because of the to hypotension. Otherwise, we will follow the patient closely. Prognosis guarded. See orders for details. MTDD
[2016-08-30] MEDS: SODIUM CHLORIDE 0.9% 1,000 ML IV SCH (23:15)
[2016-08-31 03:53] VITALS: RESP 18
[2016-08-31] MEDS: PIPERACILLIN-TAZOBACTAM 3.375 GM in DEXTROSE/WATER 1 50ML.BAG IVPB SCH (07:00)
[2016-08-31] MEDS: MIDODRINE 5 MG TAB PO SCH (07:01)
[2016-08-31] MEDS: PANTOPRAZOLE 40 MG TABLET PO SCH (07:01)
[2016-08-31] MEDS: SEVELAMER 800 MG TAB PO SCH (07:02)
--- NOTE | 2016-08-31 07:07 | PN ---
Patient is seen for followup for end-stage renal disease. He was dialyzed yesterday. Patient tolerated his treatment fairly well. He has had paracentesis of about 4.6 L and was initially hypotensive post procedure, but currently improved. No complaints today. On examination, blood pressure is 102/59, heart rate 80 per minute. Patient is afebrile. Examination of the heart, S1 and S2. Examination of the lungs, bilateral breath sounds are heard. Abdomen is soft, nontender. Examination of lower extremities shows no evidence of edema. DIRECTOR TRADE exam is grossly intact. Labs show sodium 135, potassium 3.6. Hemoglobin 10.5 g/dL. ASSESSMENT: 1. Endstage renal disease on hemodialysis. Patient will be dialyzed as outpatient. He had his treatment on Wednesday. 2. Hepatitis C. 3. Liver cirrhosis secondary to hepatitis C with recurrent ascites, maintained on paracentesis. Patient was listed for liver and kidney transplant out of [facility]. He states that he is currently on hold and needs cardiac clearance. 4. Hypotension, post-paracentesis, currently improved. Patient is maintained on midodrine, which we can continue. No evidence of infection at this time. PLAN: Patient is stable for discharge. Follow up as outpatient on dialysis.
[2016-08-31 07:20] LABS: Anisocytosis Slight; Basophils # (A) 0.1 k/uL (0-0.2); Basophils % (A) 1 %; CH 31.9; Eosinophils # (A) 0.2 k/uL (0-0.7); Eosinophils % (A) 3 %; HDW 2.92; HGB 10.1 gm/dL (13.0-17.5); Luc # (Auto) 0.21; Luc % (Auto) 3; Lymphocytes # (A) 0.6 k/uL (1.0-4.8); Lymphocytes % (A) 8 %; MCH 31.8 pg (25.0-35.0); MCHC 32.6 g/dL (31.0-37.0); MCV 97.6 fL (80.0-100.0); Macrocytosis Slight; Monocytes # (A) 0.7 k/uL (0-1.0); Monocytes % (A) 9 %; Neutrophils # (A) 5.9 k/uL (1.3-7.7); Neutrophils % (A) 77 %; RBC 3.17 m/uL (4.30-5.90); RDW 17.6 % (11.5-15.5); WBC 7.6 k/uL (3.8-10.6); WBC (Perox) 7.41
[2016-08-31 07:32] LABS: Calcium 8.9 mg/dL (8.4-10.2); Potassium 3.1 mmol/L (3.5-5.1)
[2016-08-31] MEDS ORDERED: POTASSIUM CHLORIDE ER 20 MEQ TAB.ER PO STA (09:17)
--- NOTE | 2016-08-31 10:02 | PN ---
DATE OF SERVICE: 08/30/2016 Reason for followup is ascites and question of SBP. INTERVAL HISTORY: The patient is afebrile. He is feeling better. He is still having abdominal distention, but no worsening abdominal pain. Patient denies having any nausea or vomiting. Denies any chest pain, shortness of breath or cough. Does complain of some vague low back pain. On examination, blood pressure 102/59 with a pulse of 80, temperature 96.7. He is 96% on room air. General description is an elderly male lying in bed in no distress. RESPIRATORY SYSTEM: Unlabored breathing. Clear to auscultation anteriorly. HEART: S1, S2. Regular rate and rhythm. ABDOMEN: Soft, minimally distended. No guarding, no rigidity. LABS: Hemoglobin is 10.5, white count 10.1 with a BUN of 34, creatinine 4.60. Blood culture negative. The peritoneal fluid cultures are still pending. DIAGNOSTIC IMPRESSION AND PLAN: Patient with liver cirrhosis with recurrent ascites admitted to the hospital with low grade fever and abdominal pain with question of possible spontaneous bacterial peritonitis. The patient did have paracentesis unfortunately cell counts were not sent. He did have culture, which is currently pending. Currently covered with Zosyn, will be continued. If the culture is negative, antibiotic can be safely discontinued. Continue supportive care. ROBD
[2016-08-31] MEDS: SODIUM BICARBONATE TAB 650 MG TAB PO SCH (10:12)
[2016-08-31] MEDS: RIFAXIMIN 550 MG TABLET PO SCH (10:12)
[2016-08-31] MEDS: ATORVASTATIN 80 MG TAB PO SCH (10:12)
[2016-08-31] MEDS: METHOCARBAMOL 500 MG TAB PO SCH (10:13)
[2016-08-31] MEDS: FUROSEMIDE 80 MG TAB PO SCH (10:14)
[2016-08-31] MEDS: DULoxetine HCL 60 MG CAPSULE.DR PO SCH (10:14)
[2016-08-31] MEDS: FINASTERIDE 5 MG TAB PO SCH (10:14)
[2016-08-31] MEDS: SENNOSIDES 8.6 MG TAB PO SCH (10:20)
[2016-08-31] MEDS: LACTULOSE 20 GM/30 ML CUP PO SCH (10:20)
[2016-08-31 11:20] VITALS: BP 110/67; PULSE 78; TEMP 97
--- NOTE | 2016-08-31 11:31 | PN ---
DATE OF SERVICE: 08/30/2016 This 65-year-old gentleman admitted with shortness of breath also had hypotension. The patient also had possibly spontaneous bacterial peritonitis, improved. Treated with antibiotics, improved significantly. No chest pain, no palpitations. No fever. On exam, alert and oriented x3. Pulse 80, blood pressure 106/62, respirations 16, temperature 96.7, pulse ox 97% on room air. HEENT: Conjunctivae normal. NECK: No jugular venous distention. CARDIOVASCULAR: S1 and S2, muffled. RESPIRATORY: Breath sounds diminished at the bases. A few scattered rhonchi. No crackles. ABDOMEN: Soft, obese. Ascites present. LEGS: Minimal edema. NERVOUS SYSTEM: No focal deficits. LABS: WBC 10.5, hemoglobin 10.5, sodium is 135 and creatinine is 4.6. ASSESSMENT: 1. Shortness of breath and fever, possibly chronic obstructive pulmonary disease acute exacerbation with acute purulent tracheobronchitis. 2. Possible spontaneous bacterial peritonitis and peritoneal fluid cultures are negative previously. 3. Liver cirrhosis secondary to hepatitis C with ascites, recurrent abdominal paracentesis. 4. Chronic renal failure, stage V on hemodialysis via PermCath. 5. Anemia, normocytic anemia of chronic disease. 6. History of thrombocytopenia secondary to cirrhosis. 7. Increased bilirubin secondary to liver cirrhosis. 8. Increased alkaline phosphatase secondary to liver cirrhosis. 9. Troponin 0.038 indeterminate, possibly secondary to renal failure. 10. History of syndrome. 11. History of memory impairment. 12. History of recurrent hepatic encephalopathy. 13. History of depression, not otherwise specified. 14. History of gastroesophageal reflux disease. 15. Chronic hypotension secondary to liver cirrhosis. 16. FULL CODE. RECOMMENDATIONS AND DISCUSSION: I recommend to continue the current medications, continue monitoring and symptomatic treatment. See orders for details. Otherwise increase ambulation. Monitor the blood pressure medication closely. Guarded prognosis because of multiple complex medical issues. Further complaints to follow. MTDD
--- NOTE | 2016-08-31 12:31 | PN ---
DATE OF SERVICE: 08/31/2016 The patient is seen for follow-up for end-stage renal disease. He is scheduled for hemodialysis today. Patient states he is scheduled for paracentesis tomorrow as outpatient. He prefers to go home come back for his paracentesis tomorrow. On examination, blood pressure is 110/67, heart rate 78 per minute. He is afebrile. Examination of the heart S1 and S2. Examination of the lungs: Bilateral breath sounds are heard. Abdomen is soft, nontender. Examination of lower extremities shows no evidence of significant edema. There is ascites noted. Labs show sodium 133, potassium 3.1, hemoglobin 10.1 g/dL. ASSESSMENT: 1. End-stage renal disease on hemodialysis on a Wednesday, Wednesday, Wednesday schedule via IJ Perm-A-Cath. 2. Hypokalemia, will replace with dialysis as well as orally. 3. Hypotension post paracentesis, currently improved. 4. Chronic liver disease, liver cirrhosis, secondary to hepatitis C, being followed at [facility]. 5. Chronic thrombocytopenia. PLAN: Hemodialysis today. Patient can be discharged post dialysis. He will follow up as outpatient for his scheduled paracentesis for tomorrow. Patient is also advised to maintain follow up at [facility] where he was considered to be listed for liver kidney transplant, however, he was hold as he needed cardiology clearance.
--- NOTE | 2016-08-31 17:55 | PN ---
DATE OF SERVICE: 08/31/2016 Reason for follow up is ? peritonitis . INTERVAL HISTORY: The patient is afebrile. He has been feeling better, breathing comfortably. The patient denies significant chest pain or shortness of breath or cough. Some abdominal distention, but no significant abdominal pain. He did mention he is scheduled for another paracentesis tomorrow. On examination, blood pressure 107/70 with a pulse of 72, temperature is 96.9. He is 96% on room air. General description is an elderly male, lying in bed in no distress. RESPIRATORY: Unlabored breathing. Clear to auscultation anteriorly. HEART: S1, S2. Regular rate and rhythm. ABDOMEN: Soft. No tenderness. LABS: Hemoglobin is 10.1, white count 7.6 with a BUN of 45, creatinine 6.36. DIAGNOSTIC IMPRESSION AND PLAN: Patient with low grade fever, abdominal pain in a patient who did have underlying liver cirrhosis with recurrent ascites, status post paracentesis. Unfortunately, no culture or cell count was done. Blood culture negative. Clinically, sputum low for peritonitis ; hence, recommend discontinuation of antibiotic therapy. Plan of care was discussed with the liquor tester. BRYNN
--- NOTE | 2016-09-02 18:57 | DS ---
DATE OF ADMISSION: 08/26/2016 DATE OF DISCHARGE: 08/31/2016 FINAL DIAGNOSES: 1. Shortness of breath and fever. Possible chronic obstructive pulmonary disease exacerbation, with acute purulent tracheobronchitis. 2. Possible spontaneous bacterial peritonitis, peritoneal fluid cultures negative previously. 3. Liver cirrhosis secondary to hepatitis C with ascites recurrent abdominal paracentesis. 4. Chronic renal failure stage IV on hemodialysis, Permacath. 5. Anemia, normocytic anemia of chronic disease. 6. History of thrombocytopenia secondary to cirrhosis. 7. Increased bilirubin secondary to liver cirrhosis. 8. Increased secondary to liver cirrhosis. 9. Troponin 0.38, indeterminate, possibly secondary to renal failure. 10. History of memory impairment. 11. History of recurrent hepatic encephalopathy. 12. History of depression, not otherwise specified. 13. History of gastroesophageal reflux disease. 14. Chronic hypotension secondary to liver cirrhosis. 15. History of hepatorenal syndrome. 16. FULL CODE. DISCHARGE DISPOSITION: The patient will be discharged in a stable condition with guarded prognosis. Total time taken: 35 minutes. HISTORY OF PRESENT ILLNESS: 64-year-old gentleman with a past medical history of multiple medical problems as mentioned earlier was admitted with multiple medical problems, including shortness of fever. Treated empirically with antibiotics, improved significantly. Dr. Marie saw the patient. Cultures are negative. Platelets 46. Creatinine 6.36, sodium 130, potassium 3.1. On exam, vital signs are stable. CARDIOVASCULAR: S1 and S2 muffled. RESPIRATORY: A few scattered rhonchi and crackles. ABDOMEN: Soft. Nervous system: No focal deficits. DISCHARGE ADVICE AND MEDICATIONS: 1. Diet is cardiac. 2. Activity limited until follow-up. 3. Follow-up with Dr. Mathis as advised. 4. Follow-up with Dr. Norris in 2 to [address] Faith as recommended. 6. Medications are Lipitor 80 mg p.o. daily. 7. Vitamin D3 1000 daily. 8. Vitamin B12 500 mcg p.o. daily. 9. Cymbalta 60 mg p.o. daily. 10. Proscar 5 mg p.o. daily. 11. Folic acid 1 mg t.i.d. 12. Lasix 80 mg p.o. b.i.d. 13. Lactulose 30 gm p.o. q.i.d. to have at least 2 to 3 bowel movements per day. 14. Robaxin 500 mg p.o. daily. 15. Lopressor 12.5 mg b.i.d. Hold if the blood pressure is less than 100. 16. Midodrine 10 mg a.c. t.i.d. 17.milk thistle 150 q.h.s. 18. Multivitamins one p.o. daily. 19. Protonix 40 mg daily. 20. xifaxan 550 mg p.o. daily. 21. Senna 8.6 daily. 22. renvela 800 mg p.o. daily. 23. Sodium bicarb 650 p.o. b.i.d. 24. Hytrin 2 mg p.o. q.h.s. 25. Vitamin B 100 mg p.o. at bedtime. Once again, the patient will be discharged in stable condition with guarded prognosis. [facility]
== END 2016-08-31 15:43 | disposition home health service (06) | DRG 190 ==
LOC: EC 15:34 → 6SEL 19:05 → 4MS4W 08-28 19:36 → 6SEL 08-29 01:35
PROVIDERS: ADMIT Hospitalist; ATTEND Hospitalist
PROC: 30233R1 Transfusion of Nonautologous Platelets into Peripheral Vein, Percutaneous Approach (ICD-10-PCS; principal; 2016-08-28)
PROC: 0W9G3ZZ Drainage of Peritoneal Cavity, Percutaneous Approach (ICD-10-PCS; 2016-08-28)
PROC: 5A1D60Z (ICD-10-PCS; 2016-08-28)
DX: J44.1 Chronic obstructive pulmonary disease with (acute) exacerbation (principal); N18.6 End stage renal disease; I21.4 Non-ST elevation (NSTEMI) myocardial infarction; K65.2 Spontaneous bacterial peritonitis; I95.89 Other hypotension; Z76.82 Awaiting organ transplant status; I12.0 Hypertensive chronic kidney disease with stage 5 chronic kidney disease or end stage renal disease; R18.8 Other ascites; K76.6 Portal hypertension; B18.2 Chronic viral hepatitis C; K72.90 Hepatic failure, unspecified without coma; J44.0 Chronic obstructive pulmonary disease with (acute) lower respiratory infection; D69.59 Other secondary thrombocytopenia; E78.5 Hyperlipidemia, unspecified; D63.1 Anemia in chronic kidney disease; J20.9 Acute bronchitis, unspecified; K74.69 Other cirrhosis of liver; R79.1 Abnormal coagulation profile; R53.1 Weakness; G62.9 Polyneuropathy, unspecified; K43.9 Ventral hernia without obstruction or gangrene; R74.8 Abnormal levels of other serum enzymes; E87.6 Hypokalemia; M54.5 Low back pain; M54.2 Cervicalgia; R11.0 Nausea; D72.829 Elevated white blood cell count, unspecified; R50.9 Fever, unspecified; M19.90 Unspecified osteoarthritis, unspecified site; F32.9 Major depressive disorder, single episode, unspecified; G89.29 Other chronic pain; K21.9 Gastro-esophageal reflux disease without esophagitis; Z90.49 Acquired absence of other specified parts of digestive tract; Z79.899 Other long term (current) drug therapy; Z82.49 Family history of ischemic heart disease and other diseases of the circulatory system; Z99.2 Dependence on renal dialysis; Z87.891 Personal history of nicotine dependence; Z85.828 Personal history of other malignant neoplasm of skin; Z79.2 Long term (current) use of antibiotics; Z87.440 Personal history of urinary (tract) infections; Z86.19 Personal history of other infectious and parasitic diseases; Z98.1 Arthrodesis status
CPT/HCPCS: 36415; 49083; 71020; 74176; 80048; 80053; 80202; 82550; 82553; 82565; 82728; 83540; 83550; 83605; 83735; 83880; 84484; 85025; 85049; 85610; 85730; 86850; 86900; 86901; 87040; 87324; 87340; 90935; 93005; 94640

== ENCOUNTER 2016-09-01 12:36 | Day surgery (SDC) | payer MEDICARE ==
[2016-09-01 13:17] VITALS: TEMP 98.3
[2016-09-01 13:21] LABS: Mean Platelet Volume 9.7
[2016-09-01 13:27] LABS: INR 1.3 (<1.1); Prothrombin Time 12.6 sec (9.0-12.0)
[2016-09-01 14:10] VITALS: RESP 16
[2016-09-01 15:21] VITALS: BP 132/74; PULSE 103
--- NOTE | 2016-09-02 09:14 | US ---
Therapeutic paracentesis. CLINICAL HISTORY: Ascites The procedure was discussed with the patient. The risks, complications, benefits, and alternatives we re discussed and any questions were answered. Informed consent was obtained. The patient was placed s upine on the ultrasound table and prepped and draped in the usual sterile fashion. All elements of maximal barrier technique were utilized. Under ultrasound guidance, access into the left lower quadrant was obtained, via the paracentesis catheter system and direct ultrasound guidance . Approximately 4.5 liters of straw-colored fluid was removed. The patient was stable throughout the pr ocedure and remained stable upon discharge from Department of Radiology. IMPRESSION: Successful therapeutic paracentesis under ultrasound guidance.
== END 2016-09-01 15:21 | disposition home or self-care (01) ==
LOC: RADPROMAIN 12:36
PROVIDERS: ATTEND Internal Medicine Gastroenterology
DX: R18.8 Other ascites (principal)
CPT/HCPCS: 36415; 49083; 85049; 85610

== ENCOUNTER 2016-09-15 08:08 | Day surgery (SDC) | payer MEDICARE ==
[2016-09-15 09:03] VITALS: RESP 14; TEMP 98
[2016-09-15 09:05] LABS: INR 1.4 (<1.1); Prothrombin Time 13.6 sec (9.0-12.0)
[2016-09-15 09:14] LABS: Mean Platelet Volume 9.3
[2016-09-15 11:33] VITALS: BP 114/69; PULSE 90
--- NOTE | 2016-09-15 12:57 | US ---
EXAMINATION TYPE: US paracentesis abd w/image DATE OF EXAM: 09/15/2016 COMPARISON: NONE HISTORY: Ascites. PROCEDURE: Maximal barrier technique was utilized. The skin overlying a suitable pocket of fluid was localized with ultrasound and the overlying skin was prepped and draped. Ultrasound was utilized with sterile technique. Lidocaine was used for local anesthesia and a skin jia made with a scalpel. Catheter was advanced under direct ultrasound guidance into a suitable pocket of fluid and approximately 6.5 liter s of serous fluid were removed. Catheter was withdrawn and hemostasis achieved. There is no immedia te complication; the patient is discharged in stable condition. IMPRESSION: STATUS POST ULTRASOUND GUIDED PARACENTESIS FOR PALLIATION OF ASCITES. THIS PROCEDURE WA S PERFORMED BY THE UNDERSIGNED.
== END 2016-09-15 11:42 | disposition home or self-care (01) ==
LOC: RADPROMAIN 08:08
PROVIDERS: ATTEND Internal Medicine Gastroenterology
DX: R18.8 Other ascites (principal)
CPT/HCPCS: 49083; 85049; 85610

== ENCOUNTER 2016-09-16 14:50 | Inpatient (IN) | payer MEDICARE ==
--- NOTE | 2016-09-16 16:54 | ED ---
General Adult HPI - General Chief complaint: Fall Stated complaint: Fall Time Seen by Provider: 09/16/16 15:36 Source: patient, family, EMS, RN notes reviewed, old records reviewed Mode of arrival: EMS Limitations: no limitations - History of Present Illness Initial comments: Chief complaint history of present illness a 65-year-old male here with family. The patient was helping bring groceries and when he got to 5 steps fell backwards. He presents now with a Beulah collar on and a sling on his left arm. He does have abrasions and laceration to the occipital region. Denies any loss of consciousness. No apparent seizure or nausea or vomiting. The patient does complain discomfort to both shoulders. Right elbow right wrist. - Related Data Home Medications Medication Instructions Recorded Confirmed Pantoprazole [Protonix] 40 mg PO DAILY 10/22/15 09/16/16 Multivitamins, Thera [Multivitamin 1 tab PO DAILY 12/23/15 09/16/16 (formulary)] Thiamine [Vitamin B-1] 100 mg PO HS 12/23/15 09/16/16 Cholecalciferol [Vitamin D3] 1,000 unit PO DAILY 02/24/16 09/16/16 Cyanocobalamin [Vitamin B-12] 500 mcg PO DAILY 02/24/16 09/16/16 Finasteride [Proscar] 5 mg PO DAILY 02/24/16 09/16/16 Folic Acid 1 mg PO DAILY 04/04/16 09/16/16 Lactulose [Cephulac] 30 gm PO QID 05/27/16 09/16/16 Rifaximin [Xifaxan] 550 mg PO BID 05/27/16 09/16/16 DULoxetine HCL [Cymbalta] 60 mg PO DAILY 07/20/16 09/16/16 Atorvastatin [Lipitor] 80 mg PO DAILY 08/11/16 09/16/16 Furosemide [Lasix] 80 mg PO BID 08/11/16 09/16/16 Sevelamer [Renvela] 800 mg PO AC-TID 08/11/16 09/16/16 Ciprofloxacin HCl [Cipro] 500 mg PO Q12HR 09/16/16 09/16/16 Hydrocodone/Acetaminophen [[place] 1 tab PO Q6H PRN 09/16/16 09/16/16 10-325] Loratadine [Claritin] 10 mg PO DAILY 09/16/16 09/16/16 Metoprolol Tartrate 25 mg PO BID 09/16/16 09/16/16 Midodrine [ProAmatine] 5 mg PO AC-TID 09/16/16 09/16/16 Ondansetron [Zofran ODT] 8 mg PO Q8HR PRN 09/16/16 09/16/16 Allergies Allergy/AdvReac Type Severity Reaction Status Date / Time No Known Allergies Allergy Verified 09/16/16 15:13 Review of Systems ROS Statement: Those systems with pertinent positive or pertinent negative responses have been documented in the HPI. Review of systems. Patient complains of headache. Shoulder pains left elbow pain and right wrist pain. Mid back pain. No nausea no vomiting. Patient is on a waiting list for liver and kidneys. He receives paracentesis twice weekly dialysis 3 times weekly. Past medical problems significant for GERD, hyperlipidemia, hypertension, liver disease, osteoarthritis, renal disease, surgeries include gallbladder, hernia cervical fusion. ROS Other: All systems not noted in ROS Statement are negative. Past Medical History Past Medical History: Cancer, GERD/Reflux, Hyperlipidemia, Hypertension, Liver Disease, Osteoarthritis (OA), Renal Disease Additional Past Medical History / Comment(s): Pt recently admitted to [facility] on 07/21/16 with acute renal failure/dizziness r/t volume depletion and was transferred to [facility]. 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 History of Any Multi-Drug Resistant Organisms: None Reported Past Surgical History: Cholecystectomy, Hernia Repair Additional Past Surgical History / Comment(s): Cervical fusion surgery, colonoscopies, umbilical hernia repair x 2, nose and top of head skin cancer removed, multi paracentesis. Hemodialysis catheter. Past Anesthesia/Blood Transfusion Reactions: Postoperative Nausea & Vomiting ( PONV) Additional Past Anesthesia/Blood Transfusion Reaction / Comment(s): [facility]; pt stated no reaction Past Psychological History: Depression Additional Psychological History / Comment(s): Pt. states he is on depression medication and it has been effective in helping with his depression. Pt resides with his spouse. He uses no assistive device. He has a walker and cane whenever he needs to start using them. He no longer drives, his spouse takes him to app. He has home care thru [facility]. Smoking Status: Former smoker Past Alcohol Use History: None Reported Additional Past Alcohol Use History / Comment(s): Pt smoked from 1964 to 1969. Past Drug Use History: None Reported - Past Family History Mother History Unknown: Yes Family Medical History: Chest Pain / Angina Father History Unknown: Yes Family Medical History: Myocardial Infarction ([place]) General Exam - General Exam Comments Initial Comments: General: The patient is awake and alert, presents with a Beulah collar in place and a bandage over his scalp. Vital signs show temperature 98.4 pulse 103 respiratory rate 18 pulse ox 97% room air blood pressure 114/70 Eye: Pupils are equal, round and reactive to light, extra-ocular movements are intact ; there is normal conjunctiva bilaterally. No signs of icterus. Ears, nose, mouth and throat: There are moist mucous membranes and no oral lesions. Neck: The patient is in a Beulah collar. He does have a scalp laceration and abrasion to the occiput. Cardiovascular: There is a regular rate and rhythm. No murmur, rub or gallop is appreciated. Respiratory: Lungs are clear to auscultation, respirations are non-labored, breath sounds are equal. No wheezes, stridor, rales, or rhonchi. Gastrointestinal: Patient had paracentesis twice weekly. Large ventral hernia. No pain on palpation. Back: Complains of thoracic area discomfort x-rays pending. Musculoskeletal: Complains of bilateral shoulder, right elbow and right wrist pain. Range of motion decreased secondary to pain. X-rays pending. Neurological: Alert oriented answering questions appropriately. Moving his fingers and feet. Denies sensation of numbness. Skin: The patient has multiple bruises, old. Psychiatric: Past history depression. Limitations: no limitations Course Vital Signs 09/16/16 09/16/16 09/16/16 15:10 17:30 20:13 Temperature 98.4 F Pulse Rate 103 H 111 H 108 H Respiratory 18 18 16 Rate Blood Pressure 114/70 105/63 102/66 O2 Sat by Pulse 97 97 96 Oximetry Medical Decision Making - Medical Decision Making CT of the brain and cervical spine was done and reviewed by radiologist entire report was reviewed. His final impression is no acute intracranial processes. Findings are stable from comparison. CT of the cervical spine impression uncovertebral joint hypertrophy and endplate spurring contributing to foraminal stenosis. Spinal canal stenosis C4-C5 secondary to endplate spurring and congenitally short pedicles. As read by Dr. Robiosn. X-ray of the thoracic spine was done and reviewed by radiologist his impression is no acute fracture dislocation is seen and thoracic spine, as read by Dr. Blandon Radiologist reviewed the x-rays his final findings are there is no acute fracture dislocation evident of the elbow. No abnormal fat pad signs are seen. The overlying soft tissue appears unremarkable. No fracture noted in the left elbow or the right wrist. As read by Dr. Blandon X-ray of the shoulder bilaterally with done and reviewed his findings are there is no acute fracture dislocation evident. The acromioclavicular and glenohumeral joints appear moderately narrowed. The visualized ribs are intact unremarkable. Impression no acute fracture dislocation 3 views of the left shoulder obtained his impression is no acute fracture dislocation. As read by Dr. Blandon several skin abrasions on The patient's head were cleaned and dressed. Patient be admitted to Dr. Muhammad has not, hospitalist. On-call nurse johanna Hagen notified. - Lab Data Result diagrams: 09/16/16 21:20 09/16/16 21:20 Lab Results 09/16/16 09/16/16 Range/Units 21:20 21:20 WBC 12.1 H (3.8-10.6) k/uL RBC 3.20 L (4.30-5.90) m/uL Hgb 10.3 L (13.0-17.5) gm/dL Hct 30.4 L (39.0-53.0) % MCV 94.9 (80.0-100.0) fL MCH 32.2 (25.0-35.0) pg MCHC 34.0 (31.0-37.0) g/dL RDW 17.4 H (11.5-15.5) % Plt Count 86 L (150-450) k/uL Neutrophils % 83 % Lymphocytes % 5 % Monocytes % 8 % Eosinophils % 1 % Basophils % 0 % Neutrophils # 10.1 H (1.3-7.7) k/uL Lymphocytes # 0.6 L (1.0-4.8) k/uL Monocytes # 0.9 (0-1.0) k/uL Eosinophils # 0.1 (0-0.7) k/uL Basophils # 0.0 (0-0.2) k/uL Anisocytosis Slight Sodium 133 L (137-145) mmol/L Potassium 3.4 L (3.5-5.1) mmol/L Chloride 95 L (98-107) mmol/L Carbon Dioxide 24 (22-30) mmol/L Anion Gap 14 mmol/L BUN 17 (9-20) mg/dL Creatinine 3.00 H (0.66-1.25) mg/dL Est GFR (MDRD) Af Amer 26 (>60 ml/min/1.73 sqM) Est GFR (MDRD) Non-Af 21 (>60 ml/min/1.73 sqM) Glucose 112 H (74-99) mg/dL Calcium 8.8 (8.4-10.2) mg/dL Total Bilirubin 1.6 H (0.2-1.3) mg/dL AST 141 H (17-59) U/L ALT 81 H (21-72) U/L Alkaline Phosphatase 155 H (38-126) U/L Total Protein 5.6 L (6.3-8.2) g/dL Albumin 3.2 L (3.5-5.0) g/dL Disposition Clinical Impression: Fall, Cirrhosis of liver with ascites Disposition: ADMITTED IP TO THIS HOSP Condition: Fair Referrals: Alexis Norris DO [Primary Care Provider] - 1-2 days
--- NOTE | 2016-09-16 17:04 | CT ---
EXAMINATION TYPE: CT brain denysine wo con DATE OF EXAM: 09/16/2016 COMPARISON: 04/04/2016 HISTORY: Fall today with posterior injury CT DLP: 1486.3 mGycm, Automated exposure control for dose reduction was used. CONTRAST: None CT of the brain is performed utilizing 3 mm thick sections through the posterior fossa and 3 mm thick sections through the remaining calvarium. Study is performed within 24 hours of arrival to the hospital. No abnormal hyperdensity is present to suggest an acute intracranial hemorrhage. No mass lesion is evident. No acute infarcts are evident. Ventricles and sulci are appropriate for the patient age. Paranasal sinuses and mastoid air cells within the [id number] are clear. IMPRESSIONS: 1. No acute intracranial process. Findings are stable from comparison CT cervical spine. COMPARISON: None CT of the cervical spine is performed in the axial plane at 2 mm thick sections. Reconstructed image s in the coronal, and sagittal plane are reviewed on the computer. No acute fractures are evident. Vertebral body alignment is normal. There is cervical fusion C5-6 C6-7 with loss of disc height. Vertebral body heights are preserved. C3-4: Uncovertebral joint hypertrophy is present contributing to moderate foraminal stenosis. C4-5: Spinal canal stenosis posterior to the C4-5 level is present. Congenitally short pedicles are p resent. Severe bilateral foraminal narrowing is present. C5-6: Endplate spurring is present with mild anterior thecal sac compression. No AP spinal canal sten osis present. Foramen are patent. C6-7: Left paracentral endplate changes are present with moderate anterior thecal sac compression. So me spinal canal narrowing is present. Neural foramen are patent. C7-T1: Uncovertebral joint hypertrophy contributes to severe bilateral foraminal stenosis. IMPRESSIONS: 1. Uncovertebral joint hypertrophy and endplate spurring contributing to foraminal stenosis. 2. Spinal canal stenosis C4-5 secondary to endplate spurring and congenitally short pedicles.
[2016-09-16] MEDS ORDERED: HYDROmorphone 1 MG/ML 1 ML SYRINGE IVP STA ×2 (17:25→20:20)
--- NOTE | 2016-09-16 18:13 | XR ---
EXAMINATION TYPE: XR elbow complete LT, XR wrist complete RT DATE OF EXAM: 09/16/2016 CLINICAL HISTORY: pain TECHNIQUE: Frontal, lateral and oblique images of the left elbow are obtained. COMPARISON: None. FINDINGS: There is no acute fracture/dislocation evident of the elbow. No abnormal fat pad signs ar e seen. The overlying soft tissue appears unremarkable. IMPRESSION: There is no acute fracture or dislocation of the elbow. ICD 10 NO FRACTURE, INITIAL EVALUATION EXAMINATION TYPE: XR elbow complete LT, XR wrist complete RT DATE OF EXAM: 09/16/2016 CLINICAL HISTORY: pain TECHNIQUE: Frontal, lateral and oblique images of the right wrist are obtained. COMPARISON: None. FINDINGS: There is no acute fracture/dislocation evident. The joint spaces appear within normal limits. The o verlying soft tissue appears unremarkable. IMPRESSION: There is no acute fracture or dislocation seen. ICD 10 NO FRACTURE, INITIAL EVALUATION
--- NOTE | 2016-09-16 18:14 | XR ---
EXAMINATION TYPE: XR thoracic spine complete DATE OF EXAM: 09/16/2016 CLINICAL HISTORY: pain TECHNIQUE: Frontal, lateral, and swimmer's view of thoracic spine are obtained. COMPARISON: None. FINDINGS: Thoracic spine show satisfactory alignment without evidence of acute fracture or dislocatio n. Vertebral body heights are preserved. Degenerative disc space narrowing and spondylosis identifie d. Visualized ribs are unremarkable. IMPRESSION: No acute fracture or dislocation is seen in the thoracic spine. ICD 10 NO FRACTURE, INIT IAL EVALUATION
--- NOTE | 2016-09-16 18:16 | XR ---
EXAMINATION TYPE: XR shoulder complete BILAT DATE OF EXAM: 09/16/2016 CLINICAL HISTORY: pain TECHNIQUE: Three views of the right shoulder are obtained. COMPARISON: None FINDINGS: There is no acute fracture/dislocation evident. The acromioclavicular and glenohumeral rodríguez int spaces appear moderately narrowed. The visualized ribs are intact and unremarkable. IMPRESSION: 1. There is no acute fracture or dislocation. ICD 10 NO FRACTURE, INITIAL EVALUATION EXAMINATION TYPE: XR shoulder complete BILAT DATE OF EXAM: 09/16/2016 CLINICAL HISTORY: pain COMPARISON: NONE TECHNIQUE: Three views of the left shoulder are obtained. FINDINGS: There is no acute fracture/dislocation evident. The acromioclavicular and glenohumeral rodríguez int spaces appear moderately narrowed.. The visualized ribs are intact and unremarkable.
[2016-09-16 21:37] LABS: Anisocytosis Slight; Basophils % (A) 0 %; CH 31.9; CHCM 33.9; Eosinophils # (A) 0.1 k/uL (0-0.7); Eosinophils % (A) 1 %; HCT 30.4 % (39.0-53.0); HDW 3.25; HGB 10.3 gm/dL (13.0-17.5); Luc # (Auto) 0.41; Luc % (Auto) 3; Lymphocytes # (A) 0.6 k/uL (1.0-4.8); Lymphocytes % (A) 5 %; MCH 32.2 pg (25.0-35.0); MCV 94.9 fL (80.0-100.0); Mean Platelet Volume 9.5; Monocytes # (A) 0.9 k/uL (0-1.0); Monocytes % (A) 8 %; Neutrophils # (A) 10.1 k/uL (1.3-7.7); Neutrophils % (A) 83 %; RDW 17.4 % (11.5-15.5); WBC 12.1 k/uL (3.8-10.6)
[2016-09-16 21:49] LABS: Calcium 8.8 mg/dL (8.4-10.2); Potassium 3.4 mmol/L (3.5-5.1); Total Bilirubin 1.6 mg/dL (0.2-1.3); Total Protein 5.6 g/dL (6.3-8.2)
[2016-09-16] MEDS ORDERED: NALOXONE 0.4 MG/ML 1 ML VIAL IV PRN (21:59)
[2016-09-16] MEDS ORDERED: ONDANSETRON ODT 8 MG TAB.RAPDIS PO PRN (22:02)
[2016-09-16 22:28] VITALS: RESP 18
[2016-09-17] MEDS: HYDROcodone/APAP 10-325MG 1 EACH TAB PO PRN ×2 (00:42→09:02)
[2016-09-17] MEDS: CIPROFLOXACIN HCL 500 MG TAB PO SCH ×2 (01:19→08:58)
[2016-09-17] MEDS ORDERED: PANTOPRAZOLE 40 MG TABLET PO SCH (07:30)
[2016-09-17 07:44] VITALS: BP 103/63; PULSE 97; TEMP 98
[2016-09-17] MEDS: SODIUM CHLORIDE 0.9% 1,000 ML IV SCH ×2 (08:55→11:01)
[2016-09-17] MEDS: MIDODRINE 5 MG TAB PO SCH ×2 (08:56→12:56)
[2016-09-17] MEDS: SEVELAMER 800 MG TAB PO SCH ×2 (08:57→12:56)
[2016-09-17] MEDS: LACTULOSE 20 GM/30 ML CUP PO SCH ×2 (09:00→12:57)
[2016-09-17] MEDS ORDERED: MULTIVITAMINS, THERA 1 EACH TAB PO SCH (09:00)
[2016-09-17] MEDS ORDERED: FOLIC ACID 1 MG TAB PO SCH (09:00)
[2016-09-17] MEDS ORDERED: CYANOCOBALAMIN 500 MCG TAB PO SCH (09:00)
[2016-09-17] MEDS ORDERED: ATORVASTATIN 80 MG TAB PO SCH (09:00)
[2016-09-17] MEDS ORDERED: FINASTERIDE 5 MG TAB PO SCH (09:00)
[2016-09-17] MEDS ORDERED: METOPROLOL TARTRATE 25 MG TAB PO SCH (09:00)
[2016-09-17] MEDS ORDERED: LORATADINE 10 MG TAB PO SCH (09:00)
[2016-09-17] MEDS ORDERED: DULoxetine HCL 60 MG CAPSULE.DR PO SCH (09:00)
[2016-09-17] MEDS ORDERED: FUROSEMIDE 80 MG TAB PO SCH (09:00)
[2016-09-17] MEDS ORDERED: CHOLECALCIFEROL 1,000 UNIT TAB PO SCH (09:00)
[2016-09-17] MEDS ORDERED: RIFAXIMIN 550 MG TABLET PO SCH (09:00)
[2016-09-17 10:05] LABS: Calcium 9.1 mg/dL (8.4-10.2); Potassium 3.3 mmol/L (3.5-5.1); Total Bilirubin 1.8 mg/dL (0.2-1.3); Total Protein 5.9 g/dL (6.3-8.2)
[2016-09-17] MEDS ORDERED: POTASSIUM CHLORIDE ER 20 MEQ TAB.ER PO STA (11:37)
[2016-09-17] MEDS ORDERED: BACITRACIN 500 UNIT/GM OINT 28.4 GM TUBE TOPICAL SCH (13:00)
[2016-09-17] MEDS ORDERED: THIAMINE 100 MG TAB PO SCH (21:00)
--- NOTE | 2016-09-17 23:13 | HP ---
DATE OF ADMISSION: 09/16/2016 HISTORY AND PHYSICAL EXAMINATION/DISCHARGE SUMMARY: Patient is a 65-year-old came in after a fall. Patient has a mechanical fall and slipped and fell while trying to help his and the patient had workup with ( ) cervical CT and cervical spine CT head CT, shoulder x-ray, thoracic spine x-ray, chest x-ray. Patient has multiple skin breakdowns and patient has a fragile skin and multiple skin breakdowns. Beyond that, patient is feeling okay and wanted to be discharged. Patient was supposed to get paracentesis as an outpatient tomorrow. I tried to get it done here today, but intervention radiology is recommended him to come back tomorrow for that procedure. Patient has multiple electrolyte abnormalities. The patient is not in hepatic encephalopathy and patient will go to his regular dialysis which is expected to improve his electrolytes abnormalities including hypernatremia, and elevated creatinine and BUN and patient will be supplemented with 40 mEq of potassium. His potassium is 3.3. Patient's liver enzymes are elevated and stable. Leukocytosis, reactive response without signs or symptoms of spontaneous bacterial peritonitis. Patient is on Cipro twice a day and may not be appropriate dosing for his renal issue, Which will be discontinued at this point of time. Patient does not have any UTI symptoms, Patient was started on for possible urinary tract infection. REVIEW OF SYSTEMS: CONSTITUTIONAL: No fever, no malaise, no fatigue. HEENT: No recent visual problems or hearing problems. Denied any sore throat. CARDIOVASCULAR: No chest pain, orthopnea, PND, no palpitations, no syncope. PULMONARY: No shortness of breath, no cough, no hemoptysis. GASTROINTESTINAL: No diarrhea, no nausea, no vomiting, no abdominal pain. Normoactive bowel sounds. NEUROLOGICAL: No headaches, no weakness, no numbness. HEMATOLOGICAL: Denies any bleeding or petechiae. GENITOURINARY: Denies any burning micturition, frequency, or urgency. MUSCULOSKELETAL/RHEUMATOLOGICAL: As described in HPI. ENDOCRINE: Denies any polyuria or polydipsia. The rest of the 14 point review of systems is negative. Home medications is: 1. ( ). 2. Pantoprazole. 3. Multivitamin. 4. Thiamin. 5. Cholecalciferol. 6. Cyanocobalamin. 7. Finasteride. 8. Folic acid. 9. Lactulose. 10. ( ). 11. Duloxetine. 12. Atorvastatin. 13. Lasix. 14. ( ). 15. Ciprofloxacin. 16. Hydrocodone acetaminophen. 17. Loratadine. 18. Metoprolol. 19. Midodrine. 20. Ondansetron. PAST MEDICAL HISTORY: Significant for cirrhosis, gastroesophageal reflux disease, hyperlipidemia, hypertension, osteoarthritis, and patient has end-stage renal disease hepatorenal syndrome. SOCIAL HISTORY: Former smoker. Denied any alcohol abuse or drug abuse. FAMILY HISTORY: Mother had angina and father had myocardial infarction. PHYSICAL EXAMINATION: VITAL SIGNS: Temperature 98.0, pulse of 97, respiratory rate of 18, blood pressure is 103/63, saturating at 98% on room air. GENERAL: The patient is alert and oriented x3, not in any acute distress. Well developed, well nourished. HEENT: Pupils are round and equally reacting to light. EOMI. No scleral icterus. No conjunctival pallor. Normocephalic, atraumatic. No pharyngeal erythema. No thyromegaly. CARDIOVASCULAR: S1 and S2 present. No murmurs, rubs, or gallops. PULMONARY: Chest is clear to auscultation, no wheezing or crackles. ABDOMEN: Soft, nontender, nondistended, normoactive bowel sounds. No palpable organomegaly. MUSCULOSKELETAL: No joint swelling or deformity. EXTREMITIES: No cyanosis, clubbing, or pedal edema. NEUROLOGICAL: Gross neurological examination did not reveal any focal deficits. SKIN: The patient has multiple skin breakdowns, now appear to be infected except for skin breakdown on the scalp. LABORATORY DATA: CBC, CMP abnormal for mildly elevated WBC count of 12,100. Other significant lab data was already discussed in the HPI itself. Management was discussed in the HPI itself. ASSESSMENT AND PLAN: 1. Patient had a mechanical fall and no further intervention at this point of time for that. 2. Ascites without any spontaneous bacterial peritonitis. Patient will need further ( ). Patient will come back for a therapeutic paracentesis tomorrow. 3. Hepatorenal syndrome with multiple electrolyte abnormalities which are expected to improve with the dialysis. 4. Anemia of chronic disease. 5. 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 6. Gastroesophageal reflux disease. 7. Cirrhosis secondary to have Hep-C. 8. Hypertension. 9. Hyperlipidemia. 10. End stage renal disease due to hepatorenal syndrome. PLAN: As mentioned in interval history. Patient will be discharged today with bacitracin ointment for his skin breakdown and patient does have leukocytosis without any signs or symptoms of infection. Appears to be reactive after a fall. Discharge diet: Cardiac renal, hepatic diet. Follow up for dialysis tomorrow. Follow up with her therapeutic paracentesis tomorrow. Patient is being discharged home with home care. Activity as tolerated. Follow with his PCP and nephrology as scheduled. This dictation is both H&P and discharge summary.
--- NOTE | 2016-09-18 07:34 | CONS ---
DATE OF CONSULTATION: REASON FOR CONSULTATION: End-stage renal disease. HISTORY OF PRESENT ILLNESS: Patient is a 65-year-old male with a history of end-stage renal disease on hemodialysis on a Wednesday, , Wednesday schedule. He was admitted to the hospital with history of fall. He has a sling on his arm, some lacerations. No major fractures were noted. Patient also has end-stage liver disease and is scheduled for paracentesis tomorrow. He gets dialyzed via IJ Perm-A-Cath. PAST MEDICAL HISTORY: End-stage liver disease, end-stage renal disease, hyperlipidemia, hypertension, osteoarthritis, peripheral neuropathy. PAST SURGICAL HISTORY: Cervical fusion, colonoscopies, umbilical hernia repair, multiple paracenteses, Perm-A-Cath placement. SOCIAL HISTORY: Patient is an ex-smoker. No history of drug abuse or alcohol abuse. REVIEW OF SYSTEMS: As per HPI. Other systems negative. Medications at home included Protonix, vitamin B1, vitamin D3, B12, Proscar, Cymbalta, Lipitor, Lasix, Renvela, Cipro, Claritin, metoprolol, midodrine, Zofran. ALLERGIES: None. On examination, patient is comfortable. He is actually going home. He is not in any acute distress. Vital signs showed blood pressure 103/63, heart rate 97 per minute. He is afebrile. Examination shows tense ascites, nontender. Examination of the lower extremities shows trace edema bilaterally. THERAPEUTIC STRATEGY LEAD exam is grossly intact. Patient is alert and oriented x3, moving all 4 extremities. His labs show sodium 129, potassium 3.3, calcium 9.1, hemoglobin 10.3 g/dL. ASSESSMENT: 1. End-stage renal disease on hemodialysis on a Wednesday, , Wednesday schedule. 2. Mild hyponatremia which will correct with next hemodialysis treatment. 3. End-stage liver disease with history of hepatitis C, currently not yet on a transplant list out of [facility]. PLAN: Replace potassium. Patient can be discharged and follow up as outpatient for his regular dialysis treatment. We will also place him on low-dose potassium to be taken as outpatient.
== END 2016-09-17 13:54 | disposition home health service (06) | DRG 555 ==
LOC: EC 14:50 → 4MS4W 21:59
PROVIDERS: ADMIT Internal Medicine; ATTEND Internal Medicine
DX: M25.511 Pain in right shoulder (principal); K76.7 Hepatorenal syndrome; N18.6 End stage renal disease; I12.0 Hypertensive chronic kidney disease with stage 5 chronic kidney disease or end stage renal disease; R18.8 Other ascites; E87.1 Hypo-osmolality and hyponatremia; D69.59 Other secondary thrombocytopenia; Z76.82 Awaiting organ transplant status; K74.60 Unspecified cirrhosis of liver; K72.90 Hepatic failure, unspecified without coma; M48.02 Spinal stenosis, cervical region; D63.8 Anemia in other chronic diseases classified elsewhere; M25.531 Pain in right wrist; M25.512 Pain in left shoulder; M25.521 Pain in right elbow; E78.5 Hyperlipidemia, unspecified; K21.9 Gastro-esophageal reflux disease without esophagitis; B19.20 Unspecified viral hepatitis C without hepatic coma; F32.9 Major depressive disorder, single episode, unspecified; G62.9 Polyneuropathy, unspecified; G89.29 Other chronic pain; M54.2 Cervicalgia; M54.5 Low back pain; M19.90 Unspecified osteoarthritis, unspecified site; Z79.899 Other long term (current) drug therapy; Z99.2 Dependence on renal dialysis; Z87.891 Personal history of nicotine dependence; Z85.828 Personal history of other malignant neoplasm of skin; Z98.1 Arthrodesis status; Z82.49 Family history of ischemic heart disease and other diseases of the circulatory system; W01.0XXA Fall on same level from slipping, tripping and stumbling without subsequent striking against object, initial encounter
CPT/HCPCS: 36415; 70450; 72072; 72125; 80053; 85025; 85049; 85610

== ENCOUNTER 2016-09-18 09:38 | Day surgery (SDC) | payer MEDICARE ==
[2016-09-18 10:32] LABS: Mean Platelet Volume 9.4
[2016-09-18 10:35] VITALS: TEMP 97.4
[2016-09-18 10:38] LABS: INR 1.5 (<1.1); Prothrombin Time 14.4 sec (9.0-12.0)
[2016-09-18 10:58] VITALS: RESP 16
[2016-09-18 12:14] VITALS: BP 93/56; PULSE 78
--- NOTE | 2016-09-18 13:37 | US ---
EXAMINATION TYPE: US paracentesis abd w/image DATE OF EXAM: 09/18/2016 COMPARISON: NONE HISTORY: Ascites. PROCEDURE: Maximal barrier technique was utilized. The skin overlying a suitable pocket of fluid was localized with ultrasound and the overlying skin was prepped and draped. Ultrasound was utilized with sterile technique. Lidocaine was used for local anesthesia and a skin jia made with a scalpel. Catheter was advanced under direct ultrasound guidance into a suitable pocket of fluid and approximately 5.8 liter s of serous fluid were removed. Catheter was withdrawn and hemostasis achieved. There is no immedia te complication; the patient is discharged in stable condition. IMPRESSION: STATUS POST ULTRASOUND GUIDED PARACENTESIS FOR PALLIATION OF ASCITES. THIS PROCEDURE WA S PERFORMED BY THE UNDERSIGNED.
== END 2016-09-18 12:28 | disposition home or self-care (01) ==
LOC: RADPROMAIN 09:38
PROVIDERS: ATTEND Internal Medicine Gastroenterology
DX: R18.8 Other ascites (principal)
CPT/HCPCS: 49083; 85049; 85610

== ENCOUNTER 2016-09-22 09:13 | Inpatient (IN) | payer MEDICARE ==
[2016-09-22] MEDS ORDERED: MORPHINE SULFATE 4 MG/ML SYRINGE IV STA (09:27)
[2016-09-22] MEDS ORDERED: SODIUM CHLORIDE 0.9% 1,000 ML IV STA (09:27)
--- NOTE | 2016-09-22 09:38 | ED ---
General Adult HPI - General Chief complaint: Recheck/Abnormal Lab/Rx Stated complaint: Low blood pressure Time Seen by Provider: 09/22/16 09:21 Source: patient, family, RN notes reviewed Mode of arrival: ambulatory Limitations: no limitations - History of Present Illness Initial comments: Patient is a pleasant 6 he 5-year-old male presenting to emergency Department from procedures. There is concern for low blood pressure. Patient states he does have a history of low blood pressure however still does take medications for hypertension. Patient states he did take his medications this morning. Patient was here at the hospital to have paracentesis done. This was unable to be done because of low blood pressure, low platelet count, and high INR. Patient was advised, emergency Department. complains of some abdominal discomfort however states this is somewhat chronic. No confusion. Patient does have shoulder pain from a recent fracture 3 weeks ago. No chest pain or dyspnea. - Related Data Home Medications Medication Instructions Recorded Confirmed Pantoprazole [Protonix] 40 mg PO DAILY 10/22/15 09/22/16 Multivitamins, Thera [Multivitamin 1 tab PO DAILY 12/23/15 09/22/16 (formulary)] Thiamine [Vitamin B-1] 100 mg PO HS 12/23/15 09/22/16 Cholecalciferol [Vitamin D3] 1,000 unit PO DAILY 02/24/16 09/22/16 Cyanocobalamin [Vitamin B-12] 500 mcg PO DAILY 02/24/16 09/22/16 Finasteride [Proscar] 5 mg PO DAILY 02/24/16 09/22/16 Folic Acid 1 mg PO DAILY 04/04/16 09/22/16 Rifaximin [Xifaxan] 550 mg PO BID 05/27/16 09/22/16 DULoxetine HCL [Cymbalta] 60 mg PO DAILY 07/20/16 09/22/16 Atorvastatin [Lipitor] 80 mg PO DAILY 08/11/16 09/22/16 Furosemide [Lasix] 80 mg PO BID 08/11/16 09/22/16 Sevelamer [Renvela] 800 mg PO AC-TID 08/11/16 09/22/16 Hydrocodone/Acetaminophen [[place] 1 tab PO Q6H PRN 09/16/16 09/22/16 10-325] Loratadine [Claritin] 10 mg PO DAILY 09/16/16 09/22/16 Metoprolol Tartrate 25 mg PO BID 09/16/16 09/22/16 Midodrine [ProAmatine] 5 mg PO AC-TID 09/16/16 09/22/16 Ondansetron [Zofran ODT] 8 mg PO Q8HR PRN 09/16/16 09/22/16 Previous Rx's Medication Instructions Recorded Bacitracin Oint 1 applic TOPICAL QID dose 09/17/16 Lactulose [Cephulac] 30 gm PO QID #900 ml 09/17/16 Allergies Allergy/AdvReac Type Severity Reaction Status Date / Time No Known Allergies Allergy Verified 09/22/16 10:03 Review of Systems ROS Statement: Those systems with pertinent positive or pertinent negative responses have been documented in the HPI. ROS Other: All systems not noted in ROS Statement are negative. Constitutional: Denies: fever Eyes: Denies: eye pain ENT: Denies: ear pain Respiratory: Denies: cough Cardiovascular: Denies: chest pain Endocrine: Reports: fatigue Gastrointestinal: Reports: abdominal pain Genitourinary: Denies: dysuria Musculoskeletal: Denies: back pain Skin: Denies: rash Neurological: Reports: weakness Past Medical History Past Medical History: Cancer, GERD/Reflux, Hyperlipidemia, Hypertension, Liver Disease, Osteoarthritis (OA), Renal Disease Additional Past Medical History / Comment(s): Pt recently admitted to [facility] on 07/21/16 with acute renal failure/dizziness r/t volume depletion and was transferred to [facility]. 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 History of Any Multi-Drug Resistant Organisms: None Reported Past Surgical History: Cholecystectomy, Hernia Repair Additional Past Surgical History / Comment(s): Cervical fusion surgery, colonoscopies, umbilical hernia repair x 2, nose and top of head skin cancer removed, multi paracentesis. Hemodialysis catheter. Past Anesthesia/Blood Transfusion Reactions: Postoperative Nausea & Vomiting ( PONV) Additional Past Anesthesia/Blood Transfusion Reaction / Comment(s): [facility]; pt stated no reaction Past Psychological History: Depression Additional Psychological History / Comment(s): Pt. states he is on depression medication and it has been effective in helping with his depression. Pt resides with his spouse. He uses no assistive device. He has a walker and cane whenever he needs to start using them. He no longer drives, his spouse takes him to app. He has home care thru [facility] [place][Note 2]. Smoking Status: Former smoker Past Alcohol Use History: None Reported Additional Past Alcohol Use History / Comment(s): Pt smoked from 1964 to 1969. Past Drug Use History: None Reported - Past Family History Mother History Unknown: Yes Family Medical History: Chest Pain / Angina Father History Unknown: Yes Family Medical History: Myocardial Infarction ([place]) General Exam Limitations: no limitations General appearance: alert, in no apparent distress Head exam: Present: atraumatic Eye exam: Present: normal appearance, PERRL ENT exam: Present: normal oropharynx Neck exam: Present: normal inspection Respiratory exam: Present: normal lung sounds bilaterally Cardiovascular Exam: Present: regular rate, normal rhythm, systolic murmur Expanded Peripheral pulses: 2+: Dorsalis Pedis (R), Dorsalis Pedis (L) GI/Abdominal exam: Present: soft, distended (Ascites), tenderness (Mild diffuse tenderness) Extremities exam: Present: normal inspection Neurological exam: Present: alert Psychiatric exam: Present: normal affect, normal mood Skin exam: Present: normal color Course Vital Signs 09/22/16 09:25 Temperature 97.1 F L Pulse Rate 97 Respiratory 18 Rate Blood Pressure 79/50 O2 Sat by Pulse 97 Oximetry EKG Findings - EKG Comments: EKG Findings:: Sinus tachycardia 114. KS 178. QRS 84. QT 398. QTC 548. Normal axis. Borderline inferior Q waves. No acute ST change. Medical Decision Making - Medical Decision Making Patient's blood pressure has improved to 101 systolic. Patient reevaluated and updated. Patient will need dialysis. Patient will also need correction of INR prior to paracentesis. Case was discussed with Dr. Cat, who will admit for Dr. Sy. Elevation of troponin level significance is not clear at this time secondary to history of renal failure. No complaints of chest pain. Heparin will not be started this time secondary to thrombocytopenia and coagulopathy. - Lab Data Result diagrams: 09/22/16 09:44 09/22/16 09:44 Lab Results 09/22/16 09/22/16 09/22/16 Range/Units 09:44 09:44 09:44 WBC 14.5 H (3.8-10.6) k/uL RBC 3.27 L (4.30-5.90) m/uL Hgb 10.7 L (13.0-17.5) gm/dL Hct 32.1 L (39.0-53.0) % MCV 98.1 (80.0-100.0) fL MCH 32.6 (25.0-35.0) pg MCHC 33.2 (31.0-37.0) g/dL RDW 18.3 H (11.5-15.5) % Plt Count 90 L (150-450) k/uL Neutrophils % 85 % Lymphocytes % 5 % Monocytes % 7 % Eosinophils % 1 % Basophils % 0 % Neutrophils # 12.3 H (1.3-7.7) k/uL Lymphocytes # 0.7 L (1.0-4.8) k/uL Monocytes # 1.0 (0-1.0) k/uL Eosinophils # 0.1 (0-0.7) k/uL Basophils # 0.0 (0-0.2) k/uL Anisocytosis Slight Macrocytosis Slight PT (9.0-12.0) sec INR (<1.1) APTT (22.0-30.0) sec Sodium 128 L (137-145) mmol/L Potassium 3.4 L (3.5-5.1) mmol/L Chloride 89 L (98-107) mmol/L Carbon Dioxide 22 (22-30) mmol/L Anion Gap 17 mmol/L BUN 23 H (9-20) mg/dL Creatinine 3.39 H (0.66-1.25) mg/dL Est GFR (MDRD) Af Amer 22 (>60 ml/min/1.73 sqM) Est GFR (MDRD) Non-Af 18 (>60 ml/min/1.73 sqM) Glucose 133 H (74-99) mg/dL Calcium 9.1 (8.4-10.2) mg/dL Phosphorus 4.7 H (2.5-4.5) mg/dL Magnesium 2.5 H (1.6-2.3) mg/dL Total Bilirubin 2.9 H (0.2-1.3) mg/dL AST 242 H (17-59) U/L ALT 132 H (21-72) U/L Alkaline Phosphatase 174 H (38-126) U/L Total Creatine Kinase 1267 H (55-170) U/L CK-MB (CK-2) 10.5 H* (0.0-2.4) ng/mL CK-MB (CK-2) Rel Index 0.8 Troponin I 0.352 H* (0.000-0.034) ng/mL Total Protein 6.2 L (6.3-8.2) g/dL Albumin 3.4 L (3.5-5.0) g/dL /10/03 Range/Units 09:44 WBC (3.8-10.6) k/uL RBC (4.30-5.90) m/uL Hgb (13.0-17.5) gm/dL Hct (39.0-53.0) % MCV (80.0-100.0) fL MCH (25.0-35.0) pg MCHC (31.0-37.0) g/dL RDW (11.5-15.5) % Plt Count (150-450) k/uL Neutrophils % % Lymphocytes % % Monocytes % % Eosinophils % % Basophils % % Neutrophils # (1.3-7.7) k/uL Lymphocytes # (1.0-4.8) k/uL Monocytes # (0-1.0) k/uL Eosinophils # (0-0.7) k/uL Basophils # (0-0.2) k/uL Anisocytosis Macrocytosis PT 16.2 H (9.0-12.0) sec INR 1.7 (<1.1) APTT 29.2 (22.0-30.0) sec Sodium (137-145) mmol/L Potassium (3.5-5.1) mmol/L Chloride (98-107) mmol/L Carbon Dioxide (22-30) mmol/L Anion Gap mmol/L BUN (9-20) mg/dL Creatinine (0.66-1.25) mg/dL Est GFR (MDRD) Af Amer (>60 ml/min/1.73 sqM) Est GFR (MDRD) Non-Af (>60 ml/min/1.73 sqM) Glucose (74-99) mg/dL Calcium (8.4-10.2) mg/dL Phosphorus (2.5-4.5) mg/dL Magnesium (1.6-2.3) mg/dL Total Bilirubin (0.2-1.3) mg/dL AST (17-59) U/L ALT (21-72) U/L Alkaline Phosphatase (38-126) U/L Total Creatine Kinase (55-170) U/L CK-MB (CK-2) (0.0-2.4) ng/mL CK-MB (CK-2) Rel Index Troponin I (0.000-0.034) ng/mL Total Protein (6.3-8.2) g/dL Albumin (3.5-5.0) g/dL Disposition Clinical Impression: Hypotension, Chronic renal failure, Coagulopathy Disposition: ADMITTED IP TO THIS HOSP Referrals: Alexis Norris DO [Primary Care Provider] - 1-2 days Time of Disposition: 10:55
[2016-09-22] MEDS ORDERED: ONDANSETRON 4 MG/2 ML VIAL IVP STA (09:48)
[2016-09-22 10:01] LABS: Anisocytosis Slight; Basophils % (A) 0 %; CH 32.5; CHCM 33.5; Eosinophils # (A) 0.1 k/uL (0-0.7); Eosinophils % (A) 1 %; HCT 32.1 % (39.0-53.0); HDW 3.35; HGB 10.7 gm/dL (13.0-17.5); Luc # (Auto) 0.36; Luc % (Auto) 3; Lymphocytes # (A) 0.7 k/uL (1.0-4.8); Lymphocytes % (A) 5 %; MCH 32.6 pg (25.0-35.0); MCHC 33.2 g/dL (31.0-37.0); MCV 98.1 fL (80.0-100.0); Macrocytosis Slight; Mean Platelet Volume 9.2; Monocytes % (A) 7 %; Neutrophils # (A) 12.3 k/uL (1.3-7.7); Neutrophils % (A) 85 %; RBC 3.27 m/uL (4.30-5.90); RDW 18.3 % (11.5-15.5); WBC 14.5 k/uL (3.8-10.6); WBC (Perox) 14.82
[2016-09-22 10:11] LABS: Partial Thromboplastin Time 29.2 sec (22.0-30.0)
[2016-09-22 10:14] LABS: Calcium 9.1 mg/dL (8.4-10.2); Magnesium 2.5 mg/dL (1.6-2.3); Phosphorous 4.7 mg/dL (2.5-4.5); Potassium 3.4 mmol/L (3.5-5.1); Total Bilirubin 2.9 mg/dL (0.2-1.3); Total Protein 6.2 g/dL (6.3-8.2)
[2016-09-22 10:19] LABS: INR 1.7 (<1.1); Prothrombin Time 16.2 sec (9.0-12.0)
[2016-09-22 10:43] LABS: Creatine Kinase MB 10.5 ng/mL (0.0-2.4); Troponin I 0.352 ng/mL (0.000-0.034)
[2016-09-22] MEDS ORDERED: NALOXONE 0.4 MG/ML 1 ML VIAL IV PRN (10:56)
--- NOTE | 2016-09-22 11:12 | XR ---
EXAMINATION TYPE: XR chest 2V DATE OF EXAM: 09/22/2016 HISTORY: Hypotension. REFERENCE: Previous study dated 08/26/2016.. FINDINGS: There is a large-bore, double-lumen catheter in place via a right internal jugular approach . Its tip is at the cavoatrial junction. There is apparent elevation right hemidiaphragm. There is chronic pleural parenchymal change at the left lung base. Lungs otherwise clear. The heart i s not enlarged. IMPRESSION: CHRONIC PLEURAL PARENCHYMAL CHANGES, LEFT LUNG BASE.
[2016-09-22 16:53] LABS: Creatine Kinase MB 10.5 ng/mL (0.0-2.4)
[2016-09-22 16:54] LABS: Troponin I 0.352 ng/mL (0.000-0.034)
[2016-09-22] MEDS: MIDODRINE 5 MG TAB PO SCH (18:26)
[2016-09-22] MEDS: PHYTONADIONE ORAL 5 MG/5 ML ORAL.SYRG PO SCH (18:27)
[2016-09-22] MEDS: SEVELAMER 800 MG TAB PO SCH (18:27)
[2016-09-22] MEDS: BACITRACIN 500 UNIT/GM OINT 28.4 GM TUBE TOPICAL SCH ×2 (18:27→21:09)
[2016-09-22] MEDS: LACTULOSE 20 GM/30 ML CUP PO SCH ×2 (18:27→21:10)
[2016-09-22] MEDS: SODIUM CHLORIDE 0.9% 1,000 ML IV SCH (18:27)
--- NOTE | 2016-09-22 18:46 | CONS ---
DATE OF CONSULTATION: Jules is a 65-year-old gentleman with history of end-stage renal disease on hemodialysis, and chronic liver disease secondary to hepatitis C with ascites who is admitted to hospital because of a low blood pressure. It is unclear if the patient was at dialysis and was found to be hypotensive or came for paracentesis and was hypertensive and was sent to the ER but he came up. He is essentially asymptomatic. Received some fluids following which his blood pressure has improved 112/54 and currently he is in the 90s systolic. He does not have chest pain or difficulty in breathing. Past medical history is significant for chronic liver disease, osteoarthritis, chronic renal failure, hypertension, dyslipidemia. MEDICATIONS: 1. Protonix. 2. ( ). 3. Midodrine. 4. Metoprolol 25 b.i.d. 5. Claritin. 6. Lasix. 7. Proscar. 8. Cymbalta. 9. Lipitor. ALLERGIES: There are no known drug allergies. FAMILY HISTORY: Negative for premature coronary artery disease. SOCIAL HISTORY: Negative for current smoking, ETOH abuse or drug abuse. REVIEW OF SYSTEMS: HEENT: Unremarkable. CARDIAC: As described above. RESPIRATORY: As described above. GI: As described above. GENITOURINARY: As described above. PSYCHOSOCIAL: Negative. Dermatology: None. CONSTITUTIONAL: Negative. Oncological: Negative. MUSCULOSKELETAL: Significant for arthritis. The rest of the system review is not relevant. On exam, comfortable at rest, afebrile, heart rate is 90 beats per minute, blood pressure is 94/50, respirations 18, O2 sat is 98% on room air. ABDOMEN: Distended and patient has ascites. Cardiac exam: First and second heart sounds are heard and there is a grade 4/6 systolic murmur at the left lower sternal border. An echocardiogram shows normal LV function. Labs show hemoglobin of 10.7. INR is 1.7. Potassium is 3.4. Creatinine is 3.3. Liver enzymes are elevated. Troponins are in the murphy zone at 0.3 secondary to renal failure. ASSESSMENT: 1. Hypotension. Patient has chronic problems with hypertension and is currently on Midodrine. Please continue the same. 2. SIT patient can undergo paracentesis. 3. End-stage renal disease on hemodialysis. 4. Elevated troponin probably secondary to renal failure. PLAN: The patient does not require further cardiac work-up at this time.
[2016-09-22] MEDS: THIAMINE 100 MG TAB PO SCH (21:09)
[2016-09-22] MEDS: RIFAXIMIN 550 MG TABLET PO SCH (21:09)
[2016-09-22] MEDS: FUROSEMIDE 80 MG TAB PO SCH (21:09)
[2016-09-22] MEDS: HYDROmorphone 1 MG/ML 1 ML SYRINGE IVP PRN (21:20)
[2016-09-22 22:05] LABS: Creatine Kinase MB 9.3 ng/mL (0.0-2.4); Troponin I 0.304 ng/mL (0.000-0.034)
[2016-09-23] MEDS: ONDANSETRON ODT 8 MG TAB.RAPDIS PO PRN ×2 (00:37→09:21)
[2016-09-23 03:24] LABS: Anisocytosis Slight; Basophils # (A) 0.1 k/uL (0-0.2); Basophils % (A) 1 %; Eosinophils # (A) 0.1 k/uL (0-0.7); Eosinophils % (A) 1 %; HCT 30.5 % (39.0-53.0); HDW 3.08; Hypochromasia Slight; Luc # (Auto) 0.34; Luc % (Auto) 3; Lymphocytes # (A) 0.9 k/uL (1.0-4.8); Lymphocytes % (A) 7 %; MCHC 32.6 g/dL (31.0-37.0); MCV 101.1 fL (80.0-100.0); Macrocytosis Moderate; Mean Platelet Volume 9.7; Monocytes # (A) 0.9 k/uL (0-1.0); Monocytes % (A) 7 %; Neutrophils # (A) 9.7 k/uL (1.3-7.7); Neutrophils % (A) 81 %; RBC 3.02 m/uL (4.30-5.90); RDW 18.5 % (11.5-15.5)
[2016-09-23 03:37] LABS: Calcium 9.2 mg/dL (8.4-10.2); INR 1.7 (<1.1); Potassium 3.6 mmol/L (3.5-5.1); Prothrombin Time 16.8 sec (9.0-12.0); Total Bilirubin 2.5 mg/dL (0.2-1.3); Total Protein 5.5 g/dL (6.3-8.2)
[2016-09-23 03:58] LABS: Creatine Kinase MB 11.3 ng/mL (0.0-2.4); Troponin I 0.303 ng/mL (0.000-0.034)
--- NOTE | 2016-09-23 05:25 | HP ---
DATE OF ADMISSION: DATE OF SERVICE: 09/22/2016 CHIEF COMPLAINT: Low blood pressure. HISTORY OF PRESENT ILLNESS: This 65-year-old gentleman with a past medical history of multiple medical problems including liver cirrhosis secondary to hepatitis C is being closely monitored. The patient also receiving hemodialysis. The patient was recently in the hospital after a fall, mechanical fall, slipped and feel and the patient improved and the patient went home and the patient apparently came to radiology department for ascitic fluid aspiration. Because of low blood pressure, the patient was taken to [facility] Emergency Room and was admitted for further evaluation and treatment. There is no history of any fever, rigors. No history of headache, loss of consciousness or seizures. The patient also had low platelet count and high INR also. The patient follows with Dr. Norris in the outpatient setting. PAST MEDICAL HISTORY: History of cirrhosis of the liver, history of hypertension, history of hyperlipidemia, history of DJD, history of renal disease, history of chronic history of kidney liver transplant, hepatitis C, history of numerous paracentesis, history of cholecystectomy, history of . Medications prior to admission include home medications are: 1. Thiamine 100 mg q.h.s. 2. Renvela 800 mg a.c. t.i.d. 3. Xifaxan 550 mg p.o. b.i.d. 4. Protonix 40 mg daily. 5. Zofran 8 mg q.8 p.r.n. 6. Multivitamins 1 p.o. daily. 7. ProAmatine 5 mg a.c. t.i.d. 8. Metoprolol 25 mg p.o. b.i.d. 9. Claritin 10 mg p.o. daily. 10. Cephulac 30 grams p.o. 11. [place] 10 mg q.6 p.r.n. 12. Lasix 40 mg p.o. b.i.d. 13. Folic acid 1 mg p.o. daily. 14. Proscar 5 mg p.o. daily. 15. Cymbalta 60 mg p.o. daily. 16. Vitamin B12, 500 mcg p.o. daily. 17. Vitamin D3, 1000 mg p.o. daily. 18. Bactroban one application topically q.i.d. 19. Lipitor 80 mg p.o. daily. Allergies are none. FAMILY HISTORY: History of chest pain, angina. SOCIAL HISTORY: Previous history of smoking history. No history of current smoking or alcohol intake. REVIEW OF SYSTEMS: ENT: Diminishing hearing, diminished vision. CARDIOVASCULAR: No angina. RESPIRATORY: As mentioned earlier. GI: As mentioned earlier. : As mentioned earlier. NERVOUS SYSTEM: No numbness or weakness. ALLERGIES/IMMUNOLOGY: No history of asthma or hayfever. MUSCULOSKELETAL: As mentioned earlier. HEMATOLOGY/ONCOLOGY: No history of anemia. ENDOCRINE: As mentioned earlier. CONSTITUTIONAL: As mentioned earlier. DERMATOLOGY: Multiple bruises. RHEUMATOLOGY: As mentioned earlier. PSYCHIATRY: As mentioned earlier. PHYSICAL EXAMINATION: The patient is alert and oriented x3. Pulse is 96, blood pressure 94/50, respirations 14, temperature 97.8, pulse ox 98% on room air. HEENT: Conjunctivae normal. Oral mucosa moist. NECK: No jugular venous distention. No carotid bruit. No lymph node enlargement. CARDIOVASCULAR: S1 and S2, muffled. Ejection systolic murmur. No S3, no S4. RESPIRATORY: Breath sounds diminished at the bases. Bilateral scattered rhonchi and crackles. ABDOMEN: Soft. Ascites present. Abdominal wall hernia also present. Nontender. Fluid thrill is present. Bowel sounds present. No guarding or rigidity. LEGS: Bilateral leg edema. NERVOUS SYSTEM: Higher function as mentioned. Moves all 4 limbs. Mild diffuse weakness. LYMPHATICS: No lymphadenopathy of neck, axillae or groin. SKIN: No ulcer, rash, bleeding. LABS: WBC 14.5, hemoglobin 10.7. INR is 1.7. Sodium 128, potassium 3.4 and chloride is ). Creatinine is 3.39. Phosphorus 4.7. Magnesium 2.5. Total bilirubin 2.9, AST is 242 and ALT 132. Total creatine kinase is 1267. ASSESSMENT: 1. Hypotension, possibly multifactorial. 2. Possibly mild acute rhabdomyolysis. 3. Chronic on hemodialysis, 4. Increased WBC. 5. Anemia, normocytic. 6. Thrombocytopenia, possibly related to cirrhosis of the liver. 7. Mild coagulopathy secondary to cirrhosis of the liver. 8. Hyponatremia. 9. Hypokalemia. 10. Increased creatinine with stage IV chronic kidney disease, on hemodialysis. 11. Hyperphosphatemia. 12. Hyperbilirubinemia. 13. Acute hepatitis with increased AST, ALT. and alkaline phosphatase of undetermined etiology, possibly secondary to hepatitis C. 14. History of gastroesophageal reflux disease. 15. Hypertension, essential, history. 16. Hyperlipidemia. 17. History of degenerative joint disease. 18. History of kidney liver transplant. 19. History of hepatitis C on interferon and Harvoni treatment. 20. History of ascites with multiple paracentesis. 21. Thrombocytopenia secondary to EtOH. 22. History of multiple superficial ecchymosis. 23. Chronic hepatic encephalopathy. 24. Hepatorenal syndrome. 25. Chronic low back pain, degenerative joint disease. 26. Depression, not otherwise specified. 27. FULL CODE. RECOMMENDATIONS AND DISCUSSION: I recommend to continue with the current medications, continue with monitoring and symptomatic treatment. Otherwise, will monitor the blood pressure closely. I will check 8:00 a.m. cortisol. Resume the home medications. Hold any blood pressure medications. We will closely monitor. Otherwise, guarded prognosis because of multiple complex medical issues. Further recommendations to follow. I would also recommend intervention radiology evaluation and possible paracentesis. Further recommendations to follow. The prognosis is guarded. A copy of this forwarded to Dr. Norris who is the primary physician. BRYNN
[2016-09-23] MEDS: SEVELAMER 800 MG TAB PO SCH ×3 (06:32→18:33)
[2016-09-23] MEDS: MIDODRINE 5 MG TAB PO SCH ×3 (06:32→18:33)
[2016-09-23] MEDS: LACTULOSE 20 GM/30 ML CUP PO SCH ×4 (09:10→20:41)
[2016-09-23] MEDS: HYDROmorphone 1 MG/ML 1 ML SYRINGE IVP PRN ×2 (09:17→20:42)
[2016-09-23] MEDS: ONDANSETRON 4 MG/2 ML VIAL IVP PRN ×2 (09:44→20:42)
--- NOTE | 2016-09-23 09:56 | P.CONS ---
History of Present Illness - Reason for Consult Consult date: 09/23/16 Ascites cirrhosis Requesting physician: Jose Cat - History of Present Illness 65-year-old gentleman patient of Dr. Norris well-known to the GI service followed by the GI clinic at [facility]/transplant service with a history of chronic hepatitis C infection status post Harvoni treatment April 2016, hepatorenal syndrome, end-stage renal disease hemodialysis, hepatic encephalopathy, portal hypertension, recurrent ascites, thrombocytopenia with coagulopathy, UTIs. Presented yesterday for therapeutic paracentesis blood pressures were low sent to the emergency room for reevaluation and subsequently admitted. Multiple paracentesis over the last 6 months averaging twice weekly not including paracentesis performed at outside facility since April. Home medications include admitted drain, Xifaxan, Protonix, lactulose, Lasix. Denies fever, chills, hematemesis, hematochezia, melena. Sodium 121-128. Creatinine 3.3-4.1. Total bilirubin 2.5-2.9. AST 203-242. ALT 127-132. Alkaline phosphatase 163-174. INR 1.7. White count 12.0-14.5. Hemoglobin 10.0-10.7. Platelet 84-90,000. Troponin 0.3. Total creatinine kinase [id number]. Review of Systems Constitutional: Denies fever, chills, sweats, weight gain, or loss. Memory impairment. HEENT: Negative for migraines, blurred vision or loss, earaches, drainage, tinnitus, oral mucosal lesions, dysphagia, or odynophagia. Cardiac: Hyperlipidemia. Hypertension. Negative for chest pain, arrhythmias, or palpitation. Respiratory: Negative for shortness of breath, hemoptysis, cough, or sputum production. Gastrointestinal: See HPI for pertinent findings. Genitourinary: Negative for hematuria, urgency, frequency, polyuria, dysuria, or penile discharge. Musculoskeletal: Negative for muscle aches, swelling, arthritis, and arthralgias. Neurologic: Negative for stroke or TIA. Endocrine/Nephrology: Negative for thyroid problems. End-stage renal disease hemodialysis. Skin: History of skin cancer. Negative for rash or itching. Psychiatric: Negative history for depression and anxiety All systems: negative (See HPI) Past Medical History Past Medical History: Cancer, GERD/Reflux, Hyperlipidemia, Hypertension, Liver Disease, Osteoarthritis (OA), Renal Disease Additional Past Medical History / Comment(s): Pt is on a kidney and liver transplant list, Hep C with interferon therapy/Harvoni tx in April 2016, liver cirrhosis, ascities with numerous paracentesis (was to have done today but due to hypotension/decreases platelets and increased INR-it was cancelled), recent fall with skin breakdown/ecchymosis, prior history of memory impairment secondary to hepatic encephalopathy, chronic fatigue, hepatorenal syndrome, thrombocytopenia, leukopenia, anemia, bilateral feet neuropathy, CKD stage III- hemodialysis on , and Wed., chronic low back pain and neck pain, sinus problems at times, skin cancer with removals. History of Any Multi-Drug Resistant Organisms: None Reported Past Surgical History: Cholecystectomy, Hernia Repair Additional Past Surgical History / Comment(s): Cervical fusion surgery, colonoscopies, umbilical hernia repair x 2, nose and top of head skin cancer removed, multi paracentesis. Hemodialysis catheter. Past Anesthesia/Blood Transfusion Reactions: Postoperative Nausea & Vomiting ( PONV) Additional Past Anesthesia/Blood Transfusion Reaction / Comm: [facility]; pt stated no reaction Past Psychological History: Depression Additional Psychological History / Comment(s): Pt. states he is on depression medication and feels it may need to be adjusted. He states he has had some increase in depression lately but denies thoughts of suicide or harming self. Pt resides with his spouse. He is now ambulating with a cane. He has a walker whenever he needs to start using it. He no longer drives, his spouse takes him to [facility]. He has home care thru [facility] [place]. Smoking Status: Former smoker Past Alcohol Use History: None Reported Additional Past Alcohol Use History / Comment(s): Pt smoked from 1964 to 1969. Past Drug Use History: None Reported - Past Family History Mother History Unknown: Yes Family Medical History: Chest Pain / Angina Father History Unknown: Yes Family Medical History: Myocardial Infarction ([place]) Medications and Allergies Home Medications Medication Instructions Recorded Confirmed Type Pantoprazole [Protonix] 40 mg PO DAILY 10/22/15 09/22/16 History Multivitamins, Thera [Multivitamin 1 tab PO DAILY 12/23/15 09/22/16 History (formulary)] Thiamine [Vitamin B-1] 100 mg PO HS 12/23/15 09/22/16 History Cholecalciferol [Vitamin D3] 1,000 unit PO DAILY 02/24/16 09/22/16 History Cyanocobalamin [Vitamin B-12] 500 mcg PO DAILY 02/24/16 09/22/16 History Finasteride [Proscar] 5 mg PO DAILY 02/24/16 09/22/16 History Folic Acid 1 mg PO DAILY 04/04/16 09/22/16 History Rifaximin [Xifaxan] 550 mg PO BID 05/27/16 09/22/16 History DULoxetine HCL [Cymbalta] 60 mg PO DAILY 07/20/16 09/22/16 History Atorvastatin [Lipitor] 80 mg PO DAILY 08/11/16 09/22/16 History Furosemide [Lasix] 80 mg PO BID 08/11/16 09/22/16 History Sevelamer [Renvela] 800 mg PO AC-TID 08/11/16 09/22/16 History Hydrocodone/Acetaminophen [[place] 1 tab PO Q6H PRN 09/16/16 09/22/16 History 10-325] Loratadine [Claritin] 10 mg PO DAILY 09/16/16 09/22/16 History Metoprolol Tartrate 25 mg PO BID 09/16/16 09/22/16 History Midodrine [ProAmatine] 5 mg PO AC-TID 09/16/16 09/22/16 History Ondansetron [Zofran ODT] 8 mg PO Q8HR PRN 09/16/16 09/22/16 History Allergies Allergy/AdvReac Type Severity Reaction Status Date / Time No Known Allergies Allergy Verified 09/22/16 10:56 Physical Exam Vitals: Vital Signs Temp Pulse Pulse Resp BP BP BP 09/23/16 03:13 100 14 09/23/16 03:06 97.9 F 100 14 99/62 80/52 09/22/16 23:37 100 09/22/16 23:23 100 16 09/22/16 20:00 97.8 F 101 H 16 09/22/16 16:00 97.5 F L 96 14 09/22/16 13:42 97.8 F 98 14 09/22/16 11:01 99 18 111/55 09/22/16 10:51 96 18 92/58 09/22/16 10:41 92 18 101/60 09/22/16 10:31 94 18 93/55 09/22/16 10:21 92 18 112/59 09/22/16 10:11 94 18 100/58 09/22/16 10:01 96 18 103/62 09/22/16 09:51 102 H 18 102/65 09/22/16 09:41 112 H 18 99/63 09/22/16 09:31 94 18 96/59 09/22/16 09:25 97.1 F L 97 18 79/50 BP BP Pulse Ox 09/23/16 03:13 09/23/16 03:06 90/53 97 09/22/16 23:37 09/22/16 23:23 88/58 100 09/22/16 20:00 97/60 100 09/22/16 16:00 94/50 98 09/22/16 13:42 92/54 99 09/22/16 11:01 96 09/22/16 10:51 100 09/22/16 10:41 100 09/22/16 10:31 100 09/22/16 10:21 100 09/22/16 10:11 100 09/22/16 10:01 100 09/22/16 09:51 99 09/22/16 09:41 100 09/22/16 09:31 98 09/22/16 09:25 97 Intake and Output 09/22/16 09/23/16 09/23/16 22:59 06:59 14:59 Intake Total 360 600 100 Balance 360 600 100 Intake: Intake, IV Titration 0 Amount Sodium Chloride 0.9% 1, 0 000 ml @ 20 mls/hr IV . Q24H [facility] Rx#:[id number] Oral 360 600 100 Other: Weight 76.3 kg General appearance: The patient is alert, oriented, in no acute distress. HET: Head is normocephalic and atraumatic. Pupils are equal and reactive. Oropharynx is clear without lesions. Neck: Supple without lymphadenopathy. Trachea midline. Heart: S1 S2. Regular rate and rhythm. Lungs: No crackles or wheezes are heard. Abdomen: Soft, distended with tense ascites with bowel sounds. No peritoneal signs. No palpable organomegaly or masses. Extremities: Normal skin color and turgor. No cyanosis, rash, ulceration, clubbing, or edema. Radial and pedal pulses are 2/4 bilaterally. Neurological: No focal deficits. Strength and sensation are grossly intact. Results CBC & Chem 7: 09/23/16 02:59 09/23/16 02:59 Labs: Abnormal Lab Results - Last 24 Hours (Table) 09/22/16 09/22/16 09/22/16 Range/Units 09:44 09:44 09:44 WBC 14.5 H (3.8-10.6) k/uL RBC 3.27 L (4.30-5.90) m/uL Hgb 10.7 L (13.0-17.5) gm/dL Hct 32.1 L (39.0-53.0) % MCV (80.0-100.0) fL RDW 18.3 H (11.5-15.5) % Plt Count 90 L (150-450) k/uL Neutrophils # 12.3 H (1.3-7.7) k/uL Lymphocytes # 0.7 L (1.0-4.8) k/uL PT (9.0-12.0) sec Sodium 128 L (137-145) mmol/L Potassium 3.4 L (3.5-5.1) mmol/L Chloride 89 L (98-107) mmol/L Carbon Dioxide (22-30) mmol/L BUN 23 H (9-20) mg/dL Creatinine 3.39 H (0.66-1.25) mg/dL Glucose 133 H (74-99) mg/dL Phosphorus 4.7 H (2.5-4.5) mg/dL Magnesium 2.5 H (1.6-2.3) mg/dL Total Bilirubin 2.9 H (0.2-1.3) mg/dL AST 242 H (17-59) U/L ALT 132 H (21-72) U/L Alkaline Phosphatase 174 H (38-126) U/L Total Creatine Kinase 1267 H (55-170) U/L CK-MB (CK-2) 10.5 H* (0.0-2.4) ng/mL Troponin I 0.352 H* (0.000-0.034) ng/mL Total Protein 6.2 L (6.3-8.2) g/dL Albumin 3.4 L (3.5-5.0) g/dL 09/22/16 09/22/16 09/22/16 Range/Units 09:44 15:49 21:17 WBC (3.8-10.6) k/uL RBC (4.30-5.90) m/uL Hgb (13.0-17.5) gm/dL Hct (39.0-53.0) % MCV (80.0-100.0) fL RDW (11.5-15.5) % Plt Count (150-450) k/uL Neutrophils # (1.3-7.7) k/uL Lymphocytes # (1.0-4.8) k/uL PT 16.2 H (9.0-12.0) sec Sodium (137-145) mmol/L Potassium (3.5-5.1) mmol/L Chloride (98-107) mmol/L Carbon Dioxide (22-30) mmol/L BUN (9-20) mg/dL Creatinine (0.66-1.25) mg/dL Glucose (74-99) mg/dL Phosphorus (2.5-4.5) mg/dL Magnesium (1.6-2.3) mg/dL Total Bilirubin (0.2-1.3) mg/dL AST (17-59) U/L ALT (21-72) U/L Alkaline Phosphatase (38-126) U/L Total Creatine Kinase 1002 H 1039 H (55-170) U/L CK-MB (CK-2) 10.5 H* 9.3 H* (0.0-2.4) ng/mL Troponin I 0.352 H* 0.304 H* (0.000-0.034) ng/mL Total Protein (6.3-8.2) g/dL Albumin (3.5-5.0) g/dL 09/23/16 09/23/16 09/23/16 Range/Units 02:59 02:59 02:59 WBC 12.0 H (3.8-10.6) k/uL RBC 3.02 L (4.30-5.90) m/uL Hgb 10.0 L (13.0-17.5) gm/dL Hct 30.5 L (39.0-53.0) % MCV 101.1 H (80.0-100.0) fL RDW 18.5 H (11.5-15.5) % Plt Count 84 L (150-450) k/uL Neutrophils # 9.7 H (1.3-7.7) k/uL Lymphocytes # 0.9 L (1.0-4.8) k/uL PT 16.8 H (9.0-12.0) sec Sodium (137-145) mmol/L Potassium (3.5-5.1) mmol/L Chloride (98-107) mmol/L Carbon Dioxide (22-30) mmol/L BUN (9-20) mg/dL Creatinine (0.66-1.25) mg/dL Glucose (74-99) mg/dL Phosphorus (2.5-4.5) mg/dL Magnesium (1.6-2.3) mg/dL Total Bilirubin (0.2-1.3) mg/dL AST (17-59) U/L ALT (21-72) U/L Alkaline Phosphatase (38-126) U/L Total Creatine Kinase 1034 H (55-170) U/L CK-MB (CK-2) 11.3 H* (0.0-2.4) ng/mL Troponin I 0.303 H* (0.000-0.034) ng/mL Total Protein (6.3-8.2) g/dL Albumin (3.5-5.0) g/dL 09/23/16 Range/Units 02:59 WBC (3.8-10.6) k/uL RBC (4.30-5.90) m/uL Hgb (13.0-17.5) gm/dL Hct (39.0-53.0) % MCV (80.0-100.0) fL RDW (11.5-15.5) % Plt Count (150-450) k/uL Neutrophils # (1.3-7.7) k/uL Lymphocytes # (1.0-4.8) k/uL PT (9.0-12.0) sec Sodium 121 L (137-145) mmol/L Potassium (3.5-5.1) mmol/L Chloride 88 L (98-107) mmol/L Carbon Dioxide 19 L (22-30) mmol/L BUN 29 H (9-20) mg/dL Creatinine 4.10 H (0.66-1.25) mg/dL Glucose 117 H (74-99) mg/dL Phosphorus (2.5-4.5) mg/dL Magnesium (1.6-2.3) mg/dL Total Bilirubin 2.5 H (0.2-1.3) mg/dL AST 203 H (17-59) U/L ALT 127 H (21-72) U/L Alkaline Phosphatase 163 H (38-126) U/L Total Creatine Kinase (55-170) U/L CK-MB (CK-2) (0.0-2.4) ng/mL Troponin I (0.000-0.034) ng/mL Total Protein 5.5 L (6.3-8.2) g/dL Albumin 3.0 L (3.5-5.0) g/dL Assessment and Plan (1) Ascites Status: Chronic (2) Hypotension Status: Acute (3) Hepatorenal syndrome Status: Acute (4) End stage renal disease Status: Acute (5) Hyponatremia Status: Acute (6) Cirrhosis of liver with ascites Status: Chronic (7) Coagulopathy Status: Chronic (8) Portal hypertension Status: Chronic (9) Hepatitis C Status: Resolved (10) Elevated liver enzymes Narrative/Plan: Possible rhabdomyolysis. Cannot exclude recurrent reactivation hepatitis C infection Status: Acute Plan: 1. Hepatitis C quantitative measurement. 2. We'll discuss paracentesis with interventional radiology possibly performed as early as today. Will request ascitic fluid culture. Dialysis per nephrology. 3. Continue supportive measures diuretics midodrine as previously prescribed. 4. Will follow with you. Thank you for this kind referral and the opportunity to participate in the care of your patient. This consultation was discussed with Dr. Garcia. The impression and plan of care have been directed as dictated.
--- NOTE | 2016-09-23 10:17 | P.PN ---
Subjective Principal diagnosis: Hypotension This is a 65-year-old gentleman with history of end-stage renal disease on hemodialysis, chronic liver disease secondary to hepatitis C with associated sinusitis who was admitted to the hospital because of hypotension. Patient was apparently scheduled for paracentesis, they were concerned about the low blood pressure and he was referred here. Patient was seen in consultation yesterday by Dr. Mathis. Blood pressure this morning 89/50 lying, 87/50 sitting, 70/50 standing. Heart rate in the 90s. Patient is on midodrine for orthostatic hypotension. He denies any dizziness this morning. He is scheduled today to undergo paracentesis. Objective - Vital Signs Vital signs: Vital Signs Temp 97.1 F L 09/23/16 08:00 Pulse 97 09/23/16 08:00 Resp 16 09/23/16 08:00 BP 89/55 09/23/16 08:00 Pulse Ox 97 09/23/16 08:00 Intake & Output 09/22/16 09/23/16 09/23/16 18:59 06:59 18:59 Intake Total 360 600 100 Output Total 100 Balance 360 600 0 Weight 68.039 kg 76.3 kg Intake: Intake, IV Titration 0 Amount Sodium Chloride 0.9% 1, 0 000 ml @ 20 mls/hr IV . Q24H [facility] Rx#:[id number] Oral 360 600 100 Output: Emesis 100 Other: Voiding Method Urinal # Bowel Movements 2 - Exam PHYSICAL EXAMINATION: HEENT: Head is atraumatic, normocephalic. Pupils equal, round. Neck is supple. There is no elevated jugular venous pressure. HEART EXAMINATION: Heart S1 and S2 systolic ejection murmur is heard. CHEST EXAMINATION: Lungs are clear to auscultation and precussion. No chest wall tenderness is noted on palpation or with deep breathing. ABDOMEN: [ Distended, firm, evidence of ascites. Bowel sounds are heard. EXTREMITIES: 2+ peripheral pulses with no evidence of peripheral edema and no calf tenderness noted. NEUROLOGIC patient is awake, alert and oriented -3. . - Labs CBC & Chem 7: 09/23/16 02:59 09/23/16 02:59 Labs: Abnormal Lab Results - Last 24 Hours (Table) 09/22/16 09/22/16 09/22/16 Range/Units 09:44 09:44 09:44 WBC (3.8-10.6) k/uL RBC (4.30-5.90) m/uL Hgb (13.0-17.5) gm/dL Hct (39.0-53.0) % MCV (80.0-100.0) fL RDW (11.5-15.5) % Plt Count (150-450) k/uL Neutrophils # (1.3-7.7) k/uL Lymphocytes # (1.0-4.8) k/uL PT 16.2 H (9.0-12.0) sec Sodium 128 L (137-145) mmol/L Potassium 3.4 L (3.5-5.1) mmol/L Chloride 89 L (98-107) mmol/L Carbon Dioxide (22-30) mmol/L BUN 23 H (9-20) mg/dL Creatinine 3.39 H (0.66-1.25) mg/dL Glucose 133 H (74-99) mg/dL Phosphorus 4.7 H (2.5-4.5) mg/dL Magnesium 2.5 H (1.6-2.3) mg/dL Total Bilirubin 2.9 H (0.2-1.3) mg/dL AST 242 H (17-59) U/L ALT 132 H (21-72) U/L Alkaline Phosphatase 174 H (38-126) U/L Total Creatine Kinase 1267 H (55-170) U/L CK-MB (CK-2) 10.5 H* (0.0-2.4) ng/mL Troponin I 0.352 H* (0.000-0.034) ng/mL Total Protein 6.2 L (6.3-8.2) g/dL Albumin 3.4 L (3.5-5.0) g/dL 09/22/16 09/22/16 09/23/16 Range/Units 15:49 21:17 02:59 WBC (3.8-10.6) k/uL RBC (4.30-5.90) m/uL Hgb (13.0-17.5) gm/dL Hct (39.0-53.0) % MCV (80.0-100.0) fL RDW (11.5-15.5) % Plt Count (150-450) k/uL Neutrophils # (1.3-7.7) k/uL Lymphocytes # (1.0-4.8) k/uL PT (9.0-12.0) sec Sodium (137-145) mmol/L Potassium (3.5-5.1) mmol/L Chloride (98-107) mmol/L Carbon Dioxide (22-30) mmol/L BUN (9-20) mg/dL Creatinine (0.66-1.25) mg/dL Glucose (74-99) mg/dL Phosphorus (2.5-4.5) mg/dL Magnesium (1.6-2.3) mg/dL Total Bilirubin (0.2-1.3) mg/dL AST (17-59) U/L ALT (21-72) U/L Alkaline Phosphatase (38-126) U/L Total Creatine Kinase 1002 H 1039 H 1034 H (55-170) U/L CK-MB (CK-2) 10.5 H* 9.3 H* 11.3 H* (0.0-2.4) ng/mL Troponin I 0.352 H* 0.304 H* 0.303 H* (0.000-0.034) ng/mL Total Protein (6.3-8.2) g/dL Albumin (3.5-5.0) g/dL 09/23/16 09/23/16 09/23/16 Range/Units 02:59 02:59 02:59 WBC 12.0 H (3.8-10.6) k/uL RBC 3.02 L (4.30-5.90) m/uL Hgb 10.0 L (13.0-17.5) gm/dL Hct 30.5 L (39.0-53.0) % MCV 101.1 H (80.0-100.0) fL RDW 18.5 H (11.5-15.5) % Plt Count 84 L (150-450) k/uL Neutrophils # 9.7 H (1.3-7.7) k/uL Lymphocytes # 0.9 L (1.0-4.8) k/uL PT 16.8 H (9.0-12.0) sec Sodium 121 L (137-145) mmol/L Potassium (3.5-5.1) mmol/L Chloride 88 L (98-107) mmol/L Carbon Dioxide 19 L (22-30) mmol/L BUN 29 H (9-20) mg/dL Creatinine 4.10 H (0.66-1.25) mg/dL Glucose 117 H (74-99) mg/dL Phosphorus (2.5-4.5) mg/dL Magnesium (1.6-2.3) mg/dL Total Bilirubin 2.5 H (0.2-1.3) mg/dL AST 203 H (17-59) U/L ALT 127 H (21-72) U/L Alkaline Phosphatase 163 H (38-126) U/L Total Creatine Kinase (55-170) U/L CK-MB (CK-2) (0.0-2.4) ng/mL Troponin I (0.000-0.034) ng/mL Total Protein 5.5 L (6.3-8.2) g/dL Albumin 3.0 L (3.5-5.0) g/dL Assessment and Plan (1) Elevated troponin Status: Acute (2) Chronic renal failure Status: Acute (3) Hypotension Status: Acute (4) Ascites Status: Acute (5) COPD (chronic obstructive pulmonary disease) Status: Acute (6) Cirrhosis Status: Acute (7) Hepatitis C Status: Resolved Plan: From cardiology's perspective, we will recommend to continue the patient on midodrine. Echocardiogram with Doppler study revealed normal left ventricular systolic function. Abnormal troponin likely secondary to renal failure. We will follow this patient with you now on an as-needed basis only, please don't hesitate to call us with any questions. DNP note has been reviewed, I agree with a documented findings and plan of care. Patient was seen and examined.
--- NOTE | 2016-09-23 11:16 | US ---
EXAMINATION TYPE: US paracentesis abd w/image DATE OF EXAM: 09/23/2016 COMPARISON: NONE HISTORY: Ascites. PROCEDURE: Maximal barrier technique was utilized. The skin overlying a suitable pocket of fluid was localized with ultrasound and the overlying skin was prepped and draped. Ultrasound was utilized with sterile technique. Lidocaine was used for local anesthesia and a skin jia made with a scalpel. Catheter was advanced under direct ultrasound guidance into a suitable pocket of fluid and approximately 5 liters of serous fluid were removed. Catheter was withdrawn and hemostasis achieved. There is no immediate complication; the patient is discharged in stable condition. IMPRESSION: STATUS POST ULTRASOUND GUIDED PARACENTESIS FOR PALLIATION OF ASCITES. THIS PROCEDURE WA S PERFORMED BY THE UNDERSIGNED. Specimen sent for laboratory analysis
[2016-09-23] MEDS ORDERED: ALBUMIN HUMAN 25% 25 ML in EMPTY BAG 1 BAG IVPB ONE ×2 (12:15→14:00)
[2016-09-23] MEDS: BACITRACIN 500 UNIT/GM OINT 28.4 GM TUBE TOPICAL SCH ×4 (12:21→20:42)
[2016-09-23] MEDS: LORATADINE 10 MG TAB PO SCH (12:21)
[2016-09-23] MEDS: PANTOPRAZOLE 40 MG TABLET PO SCH (12:21)
[2016-09-23] MEDS: RIFAXIMIN 550 MG TABLET PO SCH ×2 (12:26→20:42)
--- NOTE | 2016-09-23 13:07 | CONS ---
DATE OF CONSULTATION: 09/23/2016 REASON FOR CONSULTATION: End-stage renal disease. HISTORY OF PRESENT ILLNESS: Patient is a 65-year-old male with a history of end-stage renal disease on hemodialysis on a Wednesday, Wednesday, Wednesday schedule. He was admitted to the hospital with hypotension, as he was scheduled to go for paracentesis as outpatient. Patient denied any significant complaints. His blood pressure usually runs low. He had been in the 90s and about 84 mmHg to 85 mmHg systolic. Patient is maintained on midodrine on a regular basis. He has chronic liver disease with previous history of hepatitis C and end-stage renal disease. He has been followed at [facility]. He is currently not on the list, as he needs further cardiac workup. PAST MEDICAL HISTORY: Hep C, chronic liver disease, end-stage renal disease, hyperlipidemia, previous history of hypertension, currently hypotensive. PAST SURGICAL HISTORY: Cholecystectomy, hernia repair, cervical fusion, colonoscopy, umbilical hernia repair, skin cancer surgery, multiple paracentesis, PermCath placement. SOCIAL HISTORY: The patient is a former smoker, no history of drug abuse or alcohol abuse. REVIEW OF SYSTEMS: As per HPI. Other systems negative. Currently he is also nauseated and had one episode of vomiting. The patient is feeling very comfortable and short of breath from the tense ascites. No abdominal pain or chest pains. No diarrhea. Medications at home include: 1. Protonix. 2. Hytrin. 3. Multivitamin. 4. Vitamins D3, B1, B12. 5. Proscar. 6. Cephulac. 7. Cymbalta. 8. Senna. 9. Lipitor. 10. Lasix. 11. Lopressor. 12. Renvela. ALLERGIES: None. On examination, the patient is comfortable. He is not in any acute distress. He is nauseated. Blood pressure is 85/55, heart rate 96 per minute. He is afebrile. HEART: S1 and S2. LUNGS: Bilateral breath sounds are heard. ABDOMEN: Soft. Tense ascites is noted, nontender. Lower extremities show trace edema bilaterally. DIRECTOR OF PLANNING: Grossly intact. Labs show sodium 121, potassium 3.6, BUN 29, serum creatinine 4.1. ASSESSMENT: 1. End-stage renal disease. Will schedule for hemodialysis today. 2. Hyponatremia associated with chronic liver disease and some degree of hypervolemia. Patient did receive IV fluids initially. Currently fluids are hep-locked. This will improve with hemodialysis today. 3. Chronic hypotension, currently maintained on midodrine. Echocardiogram done in April with ejection fraction 65% to 70%. Patient has been evaluated by Cardiology. 4. History of hepatitis C, being followed by Gastroenterology. 5. Liver cirrhosis with recurrent ascites with repeated paracentesis. PLAN: Will schedule for hemodialysis today, continue with the midodrine, continue off of IV fluids. Can give him a dose of albumin after the paracentesis if his blood pressure remains low. Thank you for this consultation. Will continue to follow the patient with you during his hospitalization.
[2016-09-23] MEDS: FUROSEMIDE 80 MG TAB PO SCH ×2 (13:44→20:40)
[2016-09-23] MEDS: FOLIC ACID 1 MG TAB PO SCH (13:49)
[2016-09-23] MEDS: CHOLECALCIFEROL 1,000 UNIT TAB PO SCH (13:49)
[2016-09-23] MEDS: DULoxetine HCL 60 MG CAPSULE.DR PO SCH (13:50)
[2016-09-23] MEDS: FINASTERIDE 5 MG TAB PO SCH (13:50)
[2016-09-23] MEDS ORDERED: FLUDROCORTISONE 0.1 MG TAB PO STA (14:22)
[2016-09-23] MEDS: PHYTONADIONE ORAL 5 MG/5 ML ORAL.SYRG PO SCH (18:32)
[2016-09-23] MEDS: CYANOCOBALAMIN 500 MCG TAB PO SCH (18:33)
[2016-09-23] MEDS: MULTIVITAMINS, THERA 1 EACH TAB PO SCH (18:33)
[2016-09-23] MEDS: SODIUM CHLORIDE 0.9% 1,000 ML IV SCH (20:40)
[2016-09-23] MEDS: THIAMINE 100 MG TAB PO SCH (20:42)
[2016-09-23] MEDS: FLUDROCORTISONE 0.1 MG TAB PO SCH (21:39)
--- NOTE | 2016-09-23 22:46 | PN ---
DATE OF SERVICE: 09/23/2016 This 65-year-old gentleman who was admitted with hypotension secondary to hypovolemia and multiple other factors is being closely monitored. Patient also has significant ascites and abdominal paracentesis; 5 L of serous fluid was removed. At this time hemodialysis is expected. The patient has mild rhabdomyolysis. Past medical history reviewed. REVIEW OF SYSTEMS: CARDIOVASCULAR SYSTEM: No angina, palpitations. RESPIRATORY SYSTEM: As mentioned earlier. GI: As mentioned earlier. : As mentioned earlier. NERVOUS SYSTEM: No numbness or weakness. Current medications are reviewed and include: 1. Bacitracin q.i.d. 2. Vitamin D3 1000 daily. 3. Vitamin B12 500 mcg p.o. daily. 4. Cymbalta 60 mg daily. 5. Proscar 5 mg daily. 6. Florinef 0.1 b.i.d. 7. Folic acid 1 mg p.o. daily. 8. Lasix 80 mg p.o. b.i.d. 9. Dilaudid 0.5 mg q.4 p.r.n. 10. Cephulac 30 grams p.o. q.i.d. 11. Claritin 10 mg daily. 12. ProAmatine 5 mg before meals t.i.d. 13. Multivitamins. 14. Narcan. 15. Zofran. 16. Protonix. 17. Vitamin K. 18. Xifaxan. 19. Renvela. PHYSICAL EXAMINATION: Patient is alert and oriented x2. Pulse 96, blood pressure 85/55, respiration 16, temperature 97.4, pulse ox 99% on room air. HEENT: Conjunctivae normal. Oral mucosa moist. NECK: No jugular venous distention. No carotid bruit. No lymph node enlargement. CARDIOVASCULAR SYSTEM: S1, S2 muffled. RESPIRATORY SYSTEM: Breath sounds diminished at the bases. No rhonchi. No crackles. ABDOMEN: Soft, nontender. No mass palpable. LEGS: No edema. No swelling. NERVOUS SYSTEM: Higher functions as mentioned earlier. Moves all 4 limbs. No focal motor or sensory deficit. LYMPHATICS: No lymph node palpable in neck, axillae or groin. SKIN: No ulcer, rash, bleeding. LABS: WBC is 12. Hemoglobin is 10. INR 1.7. Sodium 121, potassium 3.6. Total bilirubin is 2.5. AST is 203 and ALT is 127. ASSESSMENT: 1. Hypotension, possibly multifactorial, possibly hypovolemic. 2. Mild acute rhabdomyolysis, present on admission. 3. Chronic renal failure, stage V, on chronic kidney disease, on hemodialysis. 4. Significant ascites, status post abdominal paracentesis with 5 liters removed. 5. Increased white count. 6. Anemia, normocytic. 7. Thrombocytopenia, possibly related to cirrhosis of the liver. 8. Mild coagulopathy secondary to cirrhosis of the liver. 9. Hyponatremia. 10. Hypokalemia. 11. Hyperphosphatemia. 12. Hyperbilirubinemia. 13. Chronic hepatitis with increased AST, ALT, alkaline phosphatase, of undetermined etiology, possibly secondary to hepatitis C. 14. History of gastroesophageal reflux disease. 15. Hypertension, essential, history. 16. Hyperlipidemia. 17. History of degenerative joint disease. 18. History of kidney and liver transplant. 19. History of hepatitis C; was on interferon Harvoni treatment. 20. History of ascites with multiple paracenteses. 21. 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 22. History of multiple superficial ecchymoses. 23. Chronic hepatic encephalopathy. 24. Hepatorenal syndrome. 25. Chronic low back pain and degenerative joint disease. 26. Depression not otherwise specified. 27. FULL CODE. RECOMMENDATIONS AND DISCUSSION: I recommend to continue with the current medications, continue with the monitoring, symptomatic treatment. Hemodialysis. Monitor blood pressure closely. Otherwise, will add fludrocortisone to the current regimen. Further recommendations to follow. Closely monitor. See orders for further details.
[2016-09-24 06:10] LABS: INR 1.6 (<1.1)
[2016-09-24 06:11] LABS: Anisocytosis Slight; Basophils % (A) 0 %; CH 32.5; CHCM 33.8; Eosinophils # (A) 0.1 k/uL (0-0.7); Eosinophils % (A) 1 %; HCT 28.3 % (39.0-53.0); HDW 3.29; HGB 9.6 gm/dL (13.0-17.5); Large Platelets Flag Slight; Luc # (Auto) 0.34; Luc % (Auto) 3; Lymphocytes # (A) 0.6 k/uL (1.0-4.8); Lymphocytes % (A) 6 %; MCH 32.9 pg (25.0-35.0); MCHC 33.8 g/dL (31.0-37.0); MCV 97.3 fL (80.0-100.0); Macrocytosis Slight; Mean Platelet Volume 10.6; Monocytes # (A) 0.8 k/uL (0-1.0); Monocytes % (A) 7 %; Neutrophils # (A) 9.1 k/uL (1.3-7.7); Neutrophils % (A) 83 %; Potassium 3.4 mmol/L (3.5-5.1); RBC 2.91 m/uL (4.30-5.90); RDW 19.2 % (11.5-15.5); Total Bilirubin 2.7 mg/dL (0.2-1.3); Total Protein 5.2 g/dL (6.3-8.2); WBC (Perox) 11.65
[2016-09-24 06:43] LABS: Manual Review Performed
[2016-09-24 06:44] LABS: Basophilic Stippling Present
[2016-09-24] MEDS: SEVELAMER 800 MG TAB PO SCH ×3 (06:47→17:19)
[2016-09-24] MEDS: MIDODRINE 5 MG TAB PO SCH ×3 (06:47→16:32)
[2016-09-24] MEDS: LACTULOSE 20 GM/30 ML CUP PO SCH ×4 (08:55→21:47)
[2016-09-24] MEDS: FLUDROCORTISONE 0.1 MG TAB PO SCH ×2 (09:00→21:38)
[2016-09-24] MEDS: PANTOPRAZOLE 40 MG TABLET PO SCH (09:00)
[2016-09-24] MEDS: DULoxetine HCL 60 MG CAPSULE.DR PO SCH (09:00)
[2016-09-24] MEDS: LORATADINE 10 MG TAB PO SCH (09:00)
[2016-09-24] MEDS: FINASTERIDE 5 MG TAB PO SCH (09:00)
[2016-09-24] MEDS: RIFAXIMIN 550 MG TABLET PO SCH ×2 (09:01→21:38)
[2016-09-24] MEDS: PHYTONADIONE ORAL 5 MG/5 ML ORAL.SYRG PO SCH (09:57)
--- NOTE | 2016-09-24 10:33 | P.PN ---
Subjective Principal diagnosis: Ascites cirrhosis Status post paracentesis yesterday 5 L removal. Hepatitis C quantitative measurement pending. Afebrile. Liver enzymes stable unchanged from yesterday. Objective - Vital Signs Vital signs: Vital Signs Temp 97 F L 09/24/16 08:37 Pulse 96 09/24/16 08:37 Resp 16 09/24/16 08:37 BP 68/40 09/24/16 08:37 Pulse Ox 100 09/24/16 08:37 Intake & Output 09/23/16 09/24/16 09/24/16 18:59 06:59 18:59 Intake Total 100 Output Total 6100 Balance -6000 Weight 71.8 kg Intake: Oral 100 Output: Emesis 100 Other 6000 Other: Voiding Method Urinal Urinal # Voids 0 # Bowel Movements 2 1 4 - Exam General appearance: The patient is alert, oriented, in no acute distress. HET: Head is normocephalic and atraumatic. Pupils are equal and reactive. Oropharynx is clear without lesions. Neck: Supple without lymphadenopathy. Trachea midline. Heart: S1 S2. Regular rate and rhythm. Lungs: No crackles or wheezes are heard. Abdomen: Soft, mildly distended with mild/moderate ascites with bowel sounds. No peritoneal signs. No palpable organomegaly or masses. Extremities: No edema. Scattered scabbed lesions on extremities with bruising Neurological: No focal deficits. Strength and sensation are grossly intact. - Labs CBC & Chem 7: 09/24/16 05:40 09/24/16 05:40 Labs: Abnormal Lab Results - Last 24 Hours (Table) 09/24/16 09/24/16 09/24/16 Range/Units 05:40 05:40 05:40 WBC 11.0 H (3.8-10.6) k/uL RBC 2.91 L (4.30-5.90) m/uL Hgb 9.6 L (13.0-17.5) gm/dL Hct 28.3 L (39.0-53.0) % RDW 19.2 H (11.5-15.5) % Plt Count 48 L* (150-450) k/uL Neutrophils # 9.1 H (1.3-7.7) k/uL Lymphocytes # 0.6 L (1.0-4.8) k/uL PT 16.0 H (9.0-12.0) sec Sodium 126 L (137-145) mmol/L Potassium 3.4 L (3.5-5.1) mmol/L Chloride 91 L (98-107) mmol/L BUN 24 H (9-20) mg/dL Creatinine 3.50 H (0.66-1.25) mg/dL Glucose 115 H (74-99) mg/dL Total Bilirubin 2.7 H (0.2-1.3) mg/dL AST 172 H (17-59) U/L ALT 123 H (21-72) U/L Alkaline Phosphatase 160 H (38-126) U/L Total Protein 5.2 L (6.3-8.2) g/dL Albumin 2.8 L (3.5-5.0) g/dL Assessment and Plan (1) Ascites Status: Chronic (2) Hypotension Status: Acute (3) Hepatorenal syndrome Status: Acute (4) End stage renal disease Status: Acute (5) Hyponatremia Narrative/Plan: Hypovolemic Status: Acute (6) Cirrhosis of liver with ascites Status: Chronic (7) Coagulopathy Status: Chronic (8) Portal hypertension Status: Chronic (9) Hepatitis C Status: Resolved (10) Elevated liver enzymes Status: Acute Plan: 1. Continue supportive measures. DC per medicine and nephrology. 2. RTO 1 week. Assessment and plan a care discussed with Dr. Garcia
[2016-09-24] MEDS ORDERED: POTASSIUM CHLORIDE ER 20 MEQ TAB.ER PO STA (11:49)
[2016-09-24] MEDS: BACITRACIN 500 UNIT/GM OINT 28.4 GM TUBE TOPICAL SCH ×4 (12:29→21:38)
[2016-09-24] MEDS: CYANOCOBALAMIN 500 MCG TAB PO SCH (12:30)
[2016-09-24] MEDS: MULTIVITAMINS, THERA 1 EACH TAB PO SCH (12:30)
[2016-09-24] MEDS: FOLIC ACID 1 MG TAB PO SCH (12:30)
[2016-09-24] MEDS: CHOLECALCIFEROL 1,000 UNIT TAB PO SCH (12:30)
--- NOTE | 2016-09-24 12:33 | P.PN ---
Subjective Patient is seen in follow-up for end-stage renal disease. He is maintained on hemodialysis on a Wednesday schedule. Patient presented with hypotension. He does have chronic hypotension due to underlying liver cirrhosis. He underwent paracentesis yesterday with 5 L removed and also received albumin postprocedure. He is currently resting in bed. Appetite is fair. No vomiting or diarrhea. No active complaints at this time. Vital signs are stable. General: The patient appeared well nourished and normally developed. HEENT: Head exam is unremarkable. Neck is without jugular venous distension. LUNGS: Lungs are clear to auscultation and percussion. Breath sounds decreased. HEART: Rate and Rhythm are regular. First and second heart sounds normal. No murmurs, rubs or gallops. ABDOMEN: Abdominal exam reveals normal bowel sounds. Moderately distended. EXTREMITITES: No clubbing, cyanosis, or edema. Objective - Vital Signs Vital signs: Vital Signs Temp 97.3 F L 09/24/16 11:30 Pulse 86 09/24/16 11:30 Resp 16 09/24/16 11:30 BP 87/50 09/24/16 11:30 Pulse Ox 96 09/24/16 11:30 Intake & Output 09/23/16 09/24/16 09/24/16 18:59 06:59 18:59 Intake Total 100 Output Total 6100 Balance -6000 Weight 71.8 kg Intake: Oral 100 Output: Emesis 100 Other 6000 Other: Voiding Method Urinal Urinal Urinal # Voids 0 # Bowel Movements 2 1 1 - Labs CBC & Chem 7: 09/24/16 05:40 09/24/16 05:40 Labs: Abnormal Lab Results - Last 24 Hours (Table) 09/24/16 09/24/16 09/24/16 Range/Units 05:40 05:40 05:40 WBC 11.0 H (3.8-10.6) k/uL RBC 2.91 L (4.30-5.90) m/uL Hgb 9.6 L (13.0-17.5) gm/dL Hct 28.3 L (39.0-53.0) % RDW 19.2 H (11.5-15.5) % Plt Count 48 L* (150-450) k/uL Neutrophils # 9.1 H (1.3-7.7) k/uL Lymphocytes # 0.6 L (1.0-4.8) k/uL PT 16.0 H (9.0-12.0) sec Sodium 126 L (137-145) mmol/L Potassium 3.4 L (3.5-5.1) mmol/L Chloride 91 L (98-107) mmol/L BUN 24 H (9-20) mg/dL Creatinine 3.50 H (0.66-1.25) mg/dL Glucose 115 H (74-99) mg/dL Total Bilirubin 2.7 H (0.2-1.3) mg/dL AST 172 H (17-59) U/L ALT 123 H (21-72) U/L Alkaline Phosphatase 160 H (38-126) U/L Total Protein 5.2 L (6.3-8.2) g/dL Albumin 2.8 L (3.5-5.0) g/dL Assessment and Plan Plan: Assessment: #1. End-stage renal disease maintained on hemodialysis on a Wednesday schedule. #2. Chronic hypotension related to underlying liver cirrhosis maintained on Midodrine. #3. Chronic kidney disease mineral bone disease. #4. Hep C-induced liver cirrhosis. #5. Hypervolemic hyponatremia. #6. Hypokalemia related to diuresis and Florinef. Plan: Hemodialysis tomorrow. Maintain Renvela with meals. Replace potassium. 40 mEq today. I will put him on a 1.5 L fluid restriction. Increase dose of Midodrine to 10 mg 3 times daily.
[2016-09-24 14:22] VITALS: BMI 24.0
[2016-09-24] MEDS: HYDROmorphone 1 MG/ML 1 ML SYRINGE IVP PRN ×2 (16:29→21:37)
[2016-09-24] MEDS: ONDANSETRON 4 MG/2 ML VIAL IVP PRN (16:29)
[2016-09-24] MEDS: SODIUM CHLORIDE 0.9% 1,000 ML IV SCH (17:20)
[2016-09-24] MEDS ORDERED: FLUDROCORTISONE 0.1 MG TAB PO ONE (17:45)
[2016-09-24] MEDS: THIAMINE 100 MG TAB PO SCH (21:38)
[2016-09-25 06:38] LABS: INR 1.5 (<1.1); Prothrombin Time 14.7 sec (9.0-12.0)
[2016-09-25 06:43] LABS: Calcium 9.2 mg/dL (8.4-10.2); Potassium 4.3 mmol/L (3.5-5.1); Total Bilirubin 3.5 mg/dL (0.2-1.3); Total Protein 5.4 g/dL (6.3-8.2)
[2016-09-25 06:49] LABS: Anisocytosis Slight; CH 32.6; CHCM 32.9; HCT 32.5 % (39.0-53.0); HDW 3.21; HGB 10.6 gm/dL (13.0-17.5); Immature Gran Flag Moderate; MCH 32.6 pg (25.0-35.0); MCHC 32.5 g/dL (31.0-37.0); MCV 100.3 fL (80.0-100.0); Macrocytosis Moderate; Mean Platelet Volume 9.4; RBC 3.24 m/uL (4.30-5.90); RDW 19.3 % (11.5-15.5); WBC 8.9 k/uL (3.8-10.6); WBC (Perox) 9.72
[2016-09-25] MEDS: SEVELAMER 800 MG TAB PO SCH ×3 (06:49→18:15)
[2016-09-25] MEDS: MIDODRINE 5 MG TAB PO SCH ×3 (06:49→18:15)
--- NOTE | 2016-09-25 07:24 | PN ---
DATE OF SERVICE: 09/24/2016 This 65-year-old gentleman was admitted with hypotension secondary to hypovolemia and other multiple other factors being closely monitored. The patient had rhabdomyolysis. The patient also seen with ascites and ascitic-type of 5 L has been done yesterday, but today it seems to be filling up back again. Nephrology is following the patient closely. Gastroenterology following the patient also as well. PAST MEDICAL HISTORY: Reviewed. REVIEW OF SYSTEMS: CARDIOVASCULAR SYSTEM: No angina, no palpitations. RESPIRATORY: As mentioned earlier. GI: As mentioned earlier. : As mentioned earlier. NERVOUS SYSTEM: No numbness or weakness. ALLERGY/IMMUNOLOGY: No asthma or hayfever. MUSCULOSKELETAL: As mentioned earlier. Medications are: 1. Bacitracin 1 daily. 2. Vitamin D3 daily. 3. Vitamin B12 five hundred mcg. 4. Cymbalta 60 mg daily. 5. Proscar 5 mg p.o. daily. 6. Florinef 0.1 p.o. b.i.d. 7. Folic acid 1 mg daily. 8. Lasix 80 mg b.i.d. 9. Dilaudid. 10. Cephalexin. 11. Claritin. 12. Proamatine 10 mg a.c. t.i.d. 13. Multivitamin. 14. Zofran. 15. Vitamin K. 16. Xifaxan. 17. Renvela. 18. Vitamin B1. PHYSICAL EXAMINATION: Patient is alert and oriented x3. Pulse is 80, blood pressure 87/50, respirations 16, temperature 97.3, pulse ox is 96% on room. HEENT: Conjunctivae normal. NECK: No jugular naty distension. CARDIOVASCULAR SYSTEM: S1, S2 muffled. RESPIRATORY: Breath sounds are diminished at the bases. No rhonchi, no crackles. Abdomen is soft, nontender. No mass palpable. LEGS: No edema. No swelling. NERVOUS SYSTEM: Higher functions as mentioned earlier. Moves on 4 limbs, no focal motor deficits. LYMPHATICS: No lymph node enlargement in the neck, axillae or groin. SKIN: No ulcer, rash, bleeding. Labs are at this time shows WBC 11 hemoglobin is 9.6, INR 1.6, sodium 126, potassium 3.4 and creatinine is 3.50. ASSESSMENT: 1. Hypotension, possibly multifactorial, possibly hypovolemic. 2. Mild acute rhabdomyolysis, present on admission. 3. Chronic kidney disease stage V, on chronic disease on hemodialysis. 4. Significant ascites, status post abdominal paracentesis of 5 L removed. 5. Increased WBC. 6. Anemia, normocytic. 7. Thrombocytopenia, possibly related to cirrhosis of the liver. 8. Mild coagulopathy secondary to cirrhosis of the liver. 9. Hyponatremia. 10. Hypokalemia. 11. Hyperphosphatemia. 12. Hyperbilirubinemia. 13. Chronic hepatitis with increased AST, ALT, alkaline phosphatase of undetermined origin, possibly related to hepatitis C. 14. History of gastroesophageal reflux disease. 15. Hypertension, essential history. 16. Hyperlipidemia. 17. History of degenerative joint disease. 18. Worked up for kidney and liver transplants. 19. History of hepatitis C was on interferon and Harvoni treatment. 20. History of ascites, multiple paracentesis. 21. History of thrombocytopenia secondary to ethyl alcohol. 22. History of multiple superficial ecchymosis. 23. History of chronic hepatic encephalopathy. 24. Hepatorenal syndrome. 25. Chronic low back pain, degenerative joint disease. 26. Depression not otherwise specified. 27. FULL CODE. RECOMMENDATION: In this 65-year-old gentleman who presented with multiple medical problems, will monitor the patient closely. Continue with symptomatic treatment. Continue with . Continue with midodrine. I will also increase dose of Florinef and otherwise, continue to monitor. Prognosis guarded because of multiple complex medical issues. Further recommendations to follow. The patient is not considering any ECF rehab at this time. Patient would like to go home. Prognosis guarded. MTDD
[2016-09-25] MEDS: PANTOPRAZOLE 40 MG TABLET PO SCH (08:56)
[2016-09-25] MEDS: RIFAXIMIN 550 MG TABLET PO SCH (08:56)
[2016-09-25] MEDS: BACITRACIN 500 UNIT/GM OINT 28.4 GM TUBE TOPICAL SCH ×3 (08:56→18:16)
[2016-09-25] MEDS: DULoxetine HCL 60 MG CAPSULE.DR PO SCH (08:57)
[2016-09-25] MEDS: FINASTERIDE 5 MG TAB PO SCH (08:57)
[2016-09-25] MEDS: LORATADINE 10 MG TAB PO SCH (08:57)
[2016-09-25] MEDS: FLUDROCORTISONE 0.1 MG TAB PO SCH (08:58)
[2016-09-25] MEDS: LACTULOSE 20 GM/30 ML CUP PO SCH ×3 (08:59→18:17)
[2016-09-25] MEDS: PHYTONADIONE ORAL 5 MG/5 ML ORAL.SYRG PO SCH (08:59)
[2016-09-25] MEDS: HYDROmorphone 1 MG/ML 1 ML SYRINGE IVP PRN (09:31)
--- NOTE | 2016-09-25 09:58 | US ---
EXAMINATION TYPE: US abdomen limited DATE OF EXAM: 09/25/2016 COMPARISON: NONE CLINICAL HISTORY: ascites. Patient last drained 09/23/2016 moderate amounts of ascites, mostly RLQ. IMPRESSION: ASCITES.
--- NOTE | 2016-09-25 10:33 | ECHOF ---
Referral Reason:hypotension, abn trop MEASUREMENTS -------- HEIGHT: 172.7 cm WEIGHT: 68.0 kg BP: IVSd: 2.1 cm (0.6 - 1.1) LVIDd: 3.9 cm (3.9 - 5.3) LVPWd: 1.7 cm (0.6 - 1.1) IVSs: 2.1 cm LVIDs: 1.6 cm LVPWs: 2.4 cm Ao Diam: 2.9 cm (2.0 - 3.7) AV Cusp: 1.9 cm (1.5 - 2.6) LA Diam: 4.3 cm (2.7 - 3.8) MV EXCURSION: 17.354 mm (> 18.000) MV EF SLOPE: 30 mm/s (70 - 150) EPSS: 0.0 cm MV E Lokesh: 0.89 m/s MV DecT: 268 ms MV A Lokesh: 0.92 m/s MV E/A Ratio: 0.97 AV maxP.42 mmHg AV meanP.81 mmHg RAP: 5.00 mmHg RVSP: 39.21 mmHg FINDINGS -------- Sinus rhythm. This was a technically good study. There is severe concentric left ventricular hypertrophy. Overall left ventricular systolic function is normal with, an EF between 60 - 65 %. Severe asymmetric septal hypertrophy with septal thickness 2.0 - 2.9 cm. The right ventricle is normal in size and function. The left atrium is mildly dilated. The right atrium is normal in size. Aortic valve is trileaflet and is moderately thickened. The mitral valve leaflets are mildly thickened. Moderate mitral annular calcification present. Mild mitral regurgitation is present. Mild tricuspid regurgitation present. There is mild pulmonary hypertension. The right ventricular systolic pressure, as measured by Doppler, is 39.21mmHg. Pulmonic valve appears structurally normal. The aortic root size is normal. The pericardium is normal. Hypertrophic obstructive cardiomyopathy with systolic anterior motion and severe gradient accross the LVOT. CONCLUSIONS -------- 1. Sinus rhythm. 2. The mitral valve leaflets are mildly thickened. 3. Moderate mitral annular calcification present. 4. Mild mitral regurgitation is present. 5. Mild tricuspid regurgitation present. 6. There is mild pulmonary hypertension. 7. The right ventricular systolic pressure, as measured by Doppler, is 39.21mmHg. 8. Pulmonic valve appears structurally normal. 9. The aortic root size is normal. 10. The pericardium is normal. 11. Hypertrophic obstructive cardiomyopathy with systolic anterior motion and severe gradient accross the LVOT. 12. This was a technically good study. 13. There is severe concentric left ventricular hypertrophy. 14. Overall left ventricular systolic function is normal with, an EF between 60 - 65 %. 15. Severe asymmetric septal hypertrophy with septal thickness 2.0 - 2.9 cm. 16. The right ventricle is normal in size and function. 17. The left atrium is mildly dilated. 18. The right atrium is normal in size. 19. Aortic valve is trileaflet and is moderately thickened. EDGER SAW OPERATOR: Rosita Freitas RDCS
[2016-09-25 10:36] LABS: Add Differential Manual Differential
[2016-09-25 10:39] LABS: Band Neutrophils % 3.5 %; Manual Review Performed; Nucleated Red Blood Cells 0 /100 WBC (0-0); Total Cells Counted 200
[2016-09-25 10:40] LABS: Crenated RBC Present
--- NOTE | 2016-09-25 10:48 | P.PN ---
Subjective Principal diagnosis: Ascites cirrhosis Status post paracentesis Wednesday 5 L removal. Hepatitis C quantitative measurement pending. Admitted drainage adjusted. Ramses added. Afebrile. Labile low blood pressures. Increased abdominal girth today. Total bilirubin elevated today transaminases relatively stable and somewhat improved. Objective - Vital Signs Vital signs: Vital Signs Temp 98.0 F 09/25/16 04:00 Pulse 100 09/25/16 08:00 Resp 20 09/25/16 08:00 BP 83/39 09/25/16 04:00 Pulse Ox 99 09/25/16 04:00 Intake & Output 09/24/16 09/25/16 09/25/16 18:59 06:59 18:59 Intake Total 300 Balance 300 Weight 71.8 kg 73.113 kg Intake: Oral 300 Other: Voiding Method Urinal Urinal Urinal # Voids 0 # Bowel Movements 1 1 - Exam General appearance: The patient is alert, oriented, in no acute distress. HET: Head is normocephalic and atraumatic. Pupils are equal and reactive. Oropharynx is clear without lesions. Neck: Supple without lymphadenopathy. Trachea midline. Heart: S1 S2. Regular rate and rhythm. Lungs: Diminished bilaterally.. Abdomen: Soft, distended tense moderate ascites with bowel sounds. No peritoneal signs. No palpable organomegaly or masses. Extremities: Scattered scabbed wounds on all extremities. Neurological: Alert and oriented 3. - Labs CBC & Chem 7: 09/25/16 06:07 09/25/16 06:07 Labs: Abnormal Lab Results - Last 24 Hours (Table) 09/25/16 09/25/16 09/25/16 Range/Units 06:07 06:07 06:07 RBC 3.24 L (4.30-5.90) m/uL Hgb 10.6 L (13.0-17.5) gm/dL Hct 32.5 L (39.0-53.0) % MCV 100.3 H (80.0-100.0) fL RDW 19.3 H (11.5-15.5) % Plt Count 64 L (150-450) k/uL Neutrophils # (Manual) 8.0 H (1.3-7.7) k/uL Lymphocytes # (Manual) 0.5 L (1.0-4.8) k/uL PT 14.7 H (9.0-12.0) sec Sodium 125 L (137-145) mmol/L Chloride 91 L (98-107) mmol/L Carbon Dioxide 20 L (22-30) mmol/L BUN 35 H (9-20) mg/dL Creatinine 4.70 H (0.66-1.25) mg/dL Total Bilirubin 3.5 H (0.2-1.3) mg/dL AST 134 H (17-59) U/L ALT 122 H (21-72) U/L Alkaline Phosphatase 163 H (38-126) U/L Total Protein 5.4 L (6.3-8.2) g/dL Albumin 2.9 L (3.5-5.0) g/dL Assessment and Plan (1) Ascites Status: Chronic (2) Hypotension Status: Acute (3) Hepatorenal syndrome Status: Acute (4) End stage renal disease Status: Acute (5) Hyponatremia Narrative/Plan: Hypovolemic Status: Acute (6) Cirrhosis of liver with ascites Status: Chronic (7) Coagulopathy Status: Chronic (8) Portal hypertension Status: Chronic (9) Hepatitis C Status: Resolved (10) Elevated liver enzymes Narrative/Plan: Suspect component of ischemic changes secondary to persistent hypotension Status: Acute Plan: 1. Therapeutic paracentesis today if blood pressures remain stable. 2. Continue supportive measures. Overall prognosis is guarded and poor. 3. Await result quantitative measurement of hepatitis C. 4. We'll continue to follow. Assessment and plan of care discussed with Dr. Garcia.
[2016-09-25] MEDS ORDERED: HYDROmorphone 1 MG/ML 1 ML SYRINGE IVP PRN (11:22)
[2016-09-25] MEDS: ONDANSETRON 4 MG/2 ML VIAL IVP PRN (11:28)
[2016-09-25] MEDS: SODIUM CHLORIDE 0.9% 1,000 ML IV SCH (11:33)
[2016-09-25] MEDS: MULTIVITAMINS, THERA 1 EACH TAB PO SCH (11:33)
[2016-09-25] MEDS: CYANOCOBALAMIN 500 MCG TAB PO SCH (11:34)
[2016-09-25] MEDS: FOLIC ACID 1 MG TAB PO SCH (11:34)
[2016-09-25] MEDS: CHOLECALCIFEROL 1,000 UNIT TAB PO SCH (11:35)
--- NOTE | 2016-09-25 12:45 | US ---
Discontinued paracentesis HISTORY: Hypotension, ascites, vomiting Ascites is noted on ultrasound. Procedure is not performed due to patient's hypotension.
--- NOTE | 2016-09-25 13:22 | PN ---
Patient is seen for followup for end-stage renal disease. He is normally maintained on hemodialysis on a Wednesday, Wednesday, Wednesday schedule. Patient currently has a right IJ PermCath. He also has end-stage liver disease with liver cirrhosis from a previous history of hepatitis C. His liver status seems to have worsened, as patient is requiring paracentesis almost every 2 days. He just had about 5 L removed on 09/23/2016, following which he was hypotensive and required albumin. Patient's blood pressure continues to stay at about 85 mm in the 80s. Systolic blood pressure continues to stay in the 80s and is maintained on midodrine on an outpatient basis as well. This morning, patient is complaining of nausea. He has significant ascites again and he is scheduled for paracentesis sometime today. Patient is being followed at [facility] and is not yet on the list for liver-kidney transplant, as he is awaiting cardiac clearance. On examination today, blood pressure was 73/53, heart rate 101 per minute. He is afebrile. Lower extremities show no significant edema. ABDOMEN: Distended with severe tense ascites, is nontender. Currently patient is nauseated. MANAGER VIDEO GAMES: grossly intact. He is moving all 4 extremities. Labs show hemoglobin 10.6. Sodium 125, potassium 4.3. ASSESSMENT: 1. End-stage renal disease scheduled for hemodialysis today; however, is his blood pressure is significantly low, we may postpone his treatment until tomorrow. Patient is scheduled for paracentesis this afternoon. 2. Chronic liver disease with severe portal hypertension and recurrent ascites, now requiring paracentesis every 2 days. 3. Hyponatremia in a patient with chronic liver disease. His serum sodium improved with dialysis. Patient was maintained on IV fluids initially, which did not help the serum sodium level. Will hold off on IV fluids for now. 4. Chronic kidney disease bone mineral disorder, maintained on Renvela. 5. Chronic hypotension, currently on midodrine, being followed by Cardiology. Ejection fraction on an echocardiogram done 3 days ago was 60% to 65%. He has severe asymmetric septal hypertrophy and evidence of hypertrophic obstructive cardiomyopathy with severe concentric left ventricular hypertrophy. PLAN: Paracentesis today followed by hemodialysis. If blood pressure is significantly low, we will postpone the dialysis until tomorrow. Continue with midodrine. Will also give albumin post paracentesis.
[2016-09-25] MEDS ORDERED: HEPARIN SODIUM,PORCINE 5,000 UNIT/ML 1 ML VIAL ONE (14:50)
[2016-09-25 14:56] LABS: Hepatits C Virus RNA, Quant <12 IU/mL (<12); LOG HCV IU/mL <1.08 (<1.08)
[2016-09-25 15:38] LABS: Glucose,Whole Blood 69 mg/dL (75-99)
[2016-09-25 15:38] LABS: Glucose,Whole Blood 63 mg/dL (75-99)
[2016-09-25] MEDS ORDERED: SODIUM CHLORIDE 0.9% 1,000 ML IV ONE (15:48)
[2016-09-25 15:49] LABS: Glucose,Whole Blood 51 mg/dL (75-99)
[2016-09-25] MEDS ORDERED: NOREPINEPHRIN 4 MG-0.9% NS PMX 4 MG/250 ML ML IV SCH (16:00)
[2016-09-25 16:17] LABS: Glucose,Whole Blood 149 mg/dL (75-99)
[2016-09-25] MEDS ORDERED: PIPERACILLIN-TAZOBACTAM 3.375 GM in DEXTROSE/WATER 1 50ML.BAG IVPB SCH (16:30)
[2016-09-25 16:33] LABS: Ammonia <9 umol/L (<30)
[2016-09-25 16:45] VITALS: TEMP 97.9
[2016-09-25] MEDS ORDERED: ALBUMIN HUMAN 5% 500 ML in EMPTY BAG 1 BAG IVPB ONE (16:57)
[2016-09-25] MEDS ORDERED: ALBUMIN HUMAN 25% 50 ML in EMPTY BAG 1 BAG IVPB ONE (17:00)
[2016-09-25] MEDS ORDERED: ALBUMIN HUMAN 5% 250 ML IVPB ONE (17:05)
[2016-09-25 19:09] VITALS: BP 94/58; RESP 34
--- NOTE | 2016-09-25 19:28 | DS ---
DATE OF ADMISSION: 09/22/2016 DATE OF DISCHARGE: FINAL DIAGNOSES: 1. Hypotension, possibly multifactorial, possibly hypovolemic. 2. Mild acute rhabdomyolysis present on admission. 3. Chronic kidney disease Stage V on hemodialysis. 4. Significant ascites, status post abdominal paracentesis 5 L removed. 5. Increased WBC. 6. Anemia, normocytic. 7. Thrombocytopenia, possibly related to cirrhosis of the liver. 8. Mild coagulopathy secondary to cirrhosis of the liver. 9. Hyponatremia. 10. Hypokalemia. 11. Hyperphosphatemia. 12. Hyperbilirubinemia. 13. Chronic hepatitis. 14. Increased AST, ALT, alkaline phosphatase possibly related to hepatitis C. 15. History of gastroesophageal reflux disease. 16. History of recent atrial fibrillation. 17. Hypertension, essential, history. 18. Hyperlipidemia. 19. Degenerative joint disease. 20. Being worked up for liver kidney transplant. 21. History of hepatitis C on interferon . 22. History of ascites, multiple paracentesis. 23. Thrombocytopenia secondary to ETOH. 24. History of multiple superficial ecchymosis. 25. History of chronic hepatic encephalopathy. 26. Hepatorenal syndrome. 27. Chronic low back pain and degenerative joint disease. 28. History of depression, not otherwise specified. 29. FULL CODE. DISCHARGE DISPOSITION: The patient is being transferred to [facility]. HISTORY OF PRESENT ILLNESS: This 65-year-old gentleman with a past medical history of multiple medical problems as mentioned earlier being followed by Dr. Norris in the outpatient setting was admitted with hypotension because abdominal paracentesis could not be done. The patient was treated symptomatically with IV fluids and other measures. The blood pressure improved. Patient did have paracentesis 5 liters of fluid; however, the patient had on and off hypotension. The patient was transferred to ICU and the Levophed infusion was initiated, after 16 mics the blood pressure was 91/58 but however, Dr. Schmdit, the dynamometer repairer recommended the patient be transferred to [facility] for further evaluation and treatment because of high complexity of the patient. On vital signs as mentioned earlier. Blood pressure 91/58. CARDIOVASCULAR SYSTEM: S1, S2 muffled. Abdominal ascites. Tense ascites. CENTRAL NERVOUS SYSTEM: Diffusely weak. Current medications are as follows: 1. Bacitracin albumin given. 2. Vitamin D 3000 daily. 3. Vitamin B12 500 micrograms p.o. daily. 4. Cymbalta 60 mg p.o. daily. 5. Proscar 5 mg p.o. daily. 6. Florinef 0.2 b.i.d. 7. Folic acid 1 mg p.o. daily. 8. Lasix 80 mg p.o. b.i.d. 9. Dilaudid 1 mg q.6 p.r.n. 10. Cephulac 30 grams p.o. q.i.d. 11. Claritin 10 mg p.o. daily. 12. ProAmatine 10 mg a.c. t.i.d. 13. Multivitamins one p.o. daily. 14. Narcan 0.2, q2h p.r.n. 15. Zofran 8 mg q.8 p.r.n. 16. Protonix 40 mg p.o. daily. 17. Vitamin K 5 mg p.o. daily. 18. Zosyn 3.37 IV q.8. 19. xifaxan 550 mg p.o. daily. 21. Vitamin B 100 mg p.o. daily. Once again the patient is being discharged in stable condition with guarded prognosis. MTDD
[2016-09-25 20:00] VITALS: PULSE 105
--- NOTE | 2016-09-25 20:07 | PN ---
DATE OF SERVICE: 09/25/2016 This 65-year-old gentleman was admitted with hypotension. He also had chronic renal failure. The patient also had abdominal paracentesis with removal of about 5 L. Paracentesis had been scheduled today but could not be done because of severe hypotension. Overnight the blood pressure was hovering between 60 and 70. The patient had hemodialysis. Patient is less responsive today. Past medical history reviewed. REVIEW OF SYSTEMS: The patient is sedated. Current medications are reviewed and include: 1. Bacitracin i.d. 2. Vitamin D3 1000 daily. 3. Vitamin B12. 4. Cymbalta. 5. Proscar. 6. Florinef. 7. Folic acid. 8. Lasix. 9. Cephulac. 10. Claritin. 11. ProAmatine. 12. Multivitamins. 13. Narcan. 14. Protonix. 15. Xifaxan. 16. Vitamin B1. PHYSICAL EXAMINATION: Patient is alert and oriented x1. VITAL SIGNS: Pulse 101, blood pressure 73/53, respiration 18, temperature 98.8, pulse ox 94% on room air. HEENT: Conjunctivae normal. Oral mucosa moist. NECK: No jugular venous distention. CARDIOVASCULAR SYSTEM: S1, S2 muffled. RESPIRATORY SYSTEM: Breath sounds diminished at the bases. Scattered rhonchi and crackles. ABDOMEN: Soft, non-tender. LEGS: No edema. No swelling. NERVOUS SYSTEM: Diffusely weak. LABS: WBC 8.9, hemoglobin 10, platelets 64. INR is 1.5. Creatinine is 4.70. Total bilirubin is 3.5. AST is 134. Albumin is 2.9. Hepatitis C is negative. ASSESSMENT: 1. Hypotension, possibly multifactorial, possibly hypovolemic, present on admission. 2. Mild acute rhabdomyolysis, present on admission. 3. Chronic kidney disease, stage V, on hemodialysis. 4. Significant ascites, status post abdominal paracentesis with 5 liters on this admission, status post recurrence. 5. Increased white count. 6. Anemia, normocytic. 7. Thrombocytopenia, possibly related to cirrhosis of the liver. 8. Mild coagulopathy secondary to cirrhosis of the liver. 9. Hyponatremia. 10. Hypokalemia. 11. Hypophosphatemia. 12. Hyperbilirubinemia. 13. Chronic hepatitis and increased AST, ALT, alkaline phosphatase, of undetermined origin, possibly related to hepatitis C. 14. History of gastroesophageal reflux disease. 15. Hypertension, essential, history. 16. Hyperlipidemia. 17. History of degenerative joint disease. 18. History of kidney and liver transplant. 19. History of hepatitis C; was on interferon Harvoni treatment. 20. History of ascites with multiple paracenteses. 21. 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 22. History of multiple superficial ecchymoses. 23. History of chronic hepatic encephalopathy. 24. Hepatorenal syndrome. 25. Chronic low back pain. 26. Degenerative joint disease. 27. Depression not otherwise specified. 28. FULL CODE. RECOMMENDATIONS AND DISCUSSION: This 65-year-old gentleman who presented with multiple complex medical issues is in intractable hypotension at this time. I recommend that the patient be transferred to ICU. Gentle fluid support. Dopamine. Continue to follow with Nephrology. Consult Dr. Schmidt for ICU management. Otherwise, continue to monitor. I would also recommend serum ammonia. Otherwise, guarded prognosis because of multiple complex medical issues. Further recommendations to follow. See orders for further details. MTDD
== END 2016-09-25 21:15 | disposition short-term general hospital (02) | DRG 640 ==
LOC: EC 09:13 → 6SEL 10:58 → 6ICU 09-25 15:09
PROVIDERS: ADMIT Internal Medicine; ATTEND Internal Medicine
PROC: 0W9G3ZZ Drainage of Peritoneal Cavity, Percutaneous Approach (ICD-10-PCS; principal; 2016-09-23)
PROC: 5A1D00Z (ICD-10-PCS; 2016-09-25)
DX: E86.1 Hypovolemia (principal); K76.7 Hepatorenal syndrome; D68.4 Acquired coagulation factor deficiency; I12.0 Hypertensive chronic kidney disease with stage 5 chronic kidney disease or end stage renal disease; I42.1 Obstructive hypertrophic cardiomyopathy; N18.6 End stage renal disease; K76.6 Portal hypertension; B17.9 Acute viral hepatitis, unspecified; M62.82 Rhabdomyolysis; R18.8 Other ascites; Z94.0 Kidney transplant status; Z94.4 Liver transplant status; E87.1 Hypo-osmolality and hyponatremia; D69.59 Other secondary thrombocytopenia; E83.39 Other disorders of phosphorus metabolism; B18.2 Chronic viral hepatitis C; D64.9 Anemia, unspecified; E78.5 Hyperlipidemia, unspecified; E87.6 Hypokalemia; F32.9 Major depressive disorder, single episode, unspecified; G89.29 Other chronic pain; I48.91 Unspecified atrial fibrillation; I95.1 Orthostatic hypotension; J44.9 Chronic obstructive pulmonary disease, unspecified; K21.9 Gastro-esophageal reflux disease without esophagitis; K72.90 Hepatic failure, unspecified without coma; K74.60 Unspecified cirrhosis of liver; M19.90 Unspecified osteoarthritis, unspecified site; Z79.899 Other long term (current) drug therapy; Z82.49 Family history of ischemic heart disease and other diseases of the circulatory system; Z85.828 Personal history of other malignant neoplasm of skin; Z87.891 Personal history of nicotine dependence; Z99.2 Dependence on renal dialysis
CPT/HCPCS: 36415; 49083; 71020; 76705; 80053; 82140; 82550; 82553; 82565; 83605; 83735; 84100; 84484; 85025; 85049; 85610; 85730; 87070; 87075; 87205; 87522; 90935; 93005; 93306; 96361; 96374; 96375; 99285

== ENCOUNTER → 2016-09-22 | Day surgery (SDC) | payer MEDICARE ==
[2016-09-22 08:22] VITALS: RESP 20; TEMP 97.4
[2016-09-22 08:34] LABS: Mean Platelet Volume 9.4
[2016-09-22 08:38] LABS: INR 1.7 (<1.1)
[2016-09-22 08:52] VITALS: BP 86/59; PULSE 94
--- NOTE | 2016-09-22 09:46 | US ---
Discontinued paracentesis HISTORY: Ascites Due to patient's hypotension, no procedure performed at this time.
== END ==
LOC: RADPROMAIN 07:47
PROVIDERS: ATTEND Internal Medicine Gastroenterology
DX: R18.8 Other ascites (principal); Z53.09 Procedure and treatment not carried out because of other contraindication; I95.9 Hypotension, unspecified
CPT/HCPCS: 76705; 82565; 85049; 85610; 87070; 87075; 87205